=== PATIENT | female | born 1940 | race Caucasian/White ===

== ENCOUNTER 2020-10-22 06:08 | Emergency (ER) | payer MEDICARE, SELFPAY ==
[2020-10-22 06:14] VITALS: BP 158/79; PULSE 90; RESP 24; TEMP 36.4; O2SAT 98; BMI 22.3
--- NOTE | 2020-10-22 06:36 | PC.NURSE ---
Daughter in waiting room.
--- NOTE | 2020-10-22 06:46 | CT_ITS ---
EXAMINATION: CT CERVICAL SPINE WITHOUT CONTRAST CLINICAL INFORMATION: Left arm pain. COMPARISON: None TECHNIQUE: Axial 3 mm thin and reformatted 2 mm thin sagittal and coronal images of cervical spine were obtained. This CT examination was performed using dose optimization techniques as appropriate, variously including the following: *Automated exposure control *Adjustment of mA and/or kV according to patient size (this includes techniques or standardized protocols for targeted exams where dose is matched to indication/reason for exam; i.e. extremities or head) *Use of iterative reconstruction technique DLP: 985 mGy-cm FINDINGS: On sagittal reconstructed images, there is reversal of cervical lordosis. The vertebral heights are normal. There is minimal grade 1 anterolisthesis C2 over C3 and C3 over C4. There is loss of C3-C4, C4-C5, C5-C6, C6-C7, and C7-T1 disc heights with moderate ventral and [id number] posterior spondylosis. There is hypertrophic superior spurring at the C1-C2 alignment. The craniovertebral junction and the C1-C2 alignment is normal. The C2-C3 disc level appears unremarkable. At C3-C4 disc level, there is mild uncovertebral hypertrophic changes with mild bilateral narrowing of the neural foramina. No spinal canal stenosis seen. At C4-C5 disc level, there is a disc-osteophyte/bulge complex without spinal canal stenosis. There is bilateral moderate narrowing of neural foramina from uncovertebral hypertrophic changes. At C5-C6 disc level, there is posterior spondylosis/bulge complex with concentric spinal canal stenosis. There is severe bilateral neural foraminal narrowing from uncovertebral hypertrophic changes. At C6-C7 disc level, there is a disc-osteophyte complex with mild flattening of ventral thecal sac and mild AP canal stenosis. There is bilateral severe narrowing of neural foramina from uncovertebral hypertrophic changes. At C7-T1 disc level, there is no significant disc bulge, herniation or spinal stenosis. The neural foramina are patent bilaterally. The thyroid lobes are symmetrical and normal. The central trachea and the bronchi are widely patent. The lung apices are clear. CT/CT cervical spine wo con IMPRESSION: No acute fracture or dislocation. Reversal of cervical lordosis with degenerative disc changes and ventral and posterior spondylosis as described above. There is a disc bulge osteophyte complex C4-C5 through C6-C7 disc levels with mild canal stenosis. Severe bilateral neural foraminal narrowing is seen at these disc levels from uncovertebral hypertrophic changes. Further evaluation with MRI cervical spine is recommended for better evaluation.
--- NOTE | 2020-10-22 06:53 | ED_ITS ---
HPI - Extremity Problem General Chief complaint: Extremity Injury, Upper Stated complaint: Right arm numbness Time Seen by Provider: 10/22/20 06:46 Source: patient Mode of arrival: ambulatory Limitations: no limitations History of Present Illness HPI Narrative: patient denies anxiety or dizziness to me as reported in triage, sleeping L hand feels swollen but then improves upon waking, no other complaints, states she sleep on that side MD Complaint: other (patient reports 1 week of an and off pain in L hand where it feels like it is swelling while she sleeps) Onset (ago): minute(s) Pain Consistency: now resolved Quality: aching Radiation: none Relieving factors: nothing Exacerbating factors: nothing Associated symptoms: denies other symptoms Related Data Previous Rx's Medication Instructions Recorded lidocaine 1 patch TOPICAL DAILY PRN #10 ea 10/22/20 Allergies Allergy/AdvReac Type Severity Reaction Status Date / Time No Known Allergies Allergy Unverified 07/29/20 14:55 [No Known Allergies*] Review of Systems Review of Systems: Constitutional : No Fever, No Chills ENT/Mouth : No Ear Pain, No Hoarseness, No sore throat Eyes: No Eye Pain, No Swelling, No Redness, No Foreign Body Cardiovascular : No Chest Pain, No SOB Respiratory : No Cough, No Dyspnea Gastrointestinal : No Nausea, No Vomiting, No Diarrhea, No abdominal Pain Genitourinary : No Dysuria, No Hematuria Musculoskeletal : positive joint pain, No Myalgias, No Joint Swelling Skin : No Skin lacerations, No rash Neuro : No Weakness, No Numbness, No Loss of Consciousness, No Dizziness, No Headache Psych : No Anxiety/Panic, No Depression Heme/Lymph: no easy bruising, no Lymphadenopathy Endocrine : No Polyuria, No Polydipsia All other systems reviewed and are negative [facility] Past Medical History Attestation statement: The following information was validated with the patient. Medical History No known health problems Social History Social History (Updated 10/22/20 @ 06:56 by Tierra Alejandre DO) Smoking Status: Former smoker Use of substances other than those prescribed or required for medical reasons: No Advance Directives: No Physical Exam Vital Signs: Vital Signs: Last Vital Signs Temp 97.6 F 10/22/20 06:14 Pulse 72 10/22/20 10:00 Resp 16 10/22/20 10:00 BP 157/80 H 10/22/20 10:00 Pulse Ox 98 10/22/20 10:00 Body Mass Index 22.3 Appearance: Alert. Oriented X3. No acute distress. Eyes: Pupils equal, round and reactive to light. ENT: Pharynx normal. Neck: Normal inspection. + spurling maneuver L side reproduces pain CVS: Normal heart rate and rhythm. Pulses normal. Respiratory: No respiratory distress. Breath sounds normal. Abdomen: Soft and nontender. Skin: Skin warm and dry. Normal skin color. Normal skin turgor. Extremities: No lower extremity edema. No calf ttp normal exam NV intact L perez d Neuro: Oriented X 3. No motor deficit. No sensory deficit. 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 given low score and no deficitis with waxing and waning symptoms and reported symptoms x 1 week on and off not a candidate for tPa calls to 3 numbers in her chart - mailboxes are full no answer and one is her cell phone [phone] the patient attempted to give me her sister's number Marisela but then stated, wait you can't she passed. UA and labs unremarkable, infectious and tox workup negative, CT head negative, patient comfortably watching TV - attempting to find family members daughter came back to ED - she notes 1 week of L hand pain and on and off tingling, pain became worse, the patient is not compliant with medications and has dementia her mental status today is her baseline MDM - Extremity (Nontraumatic) MDM Narrative Medical decision making narrative: 79 yo female with 1 week on and off L hand pain while sleeping does sleep on that side - she has no neuro deficits now, no other complaints, + neck pain on exam could be radicular in nature vs carpal tunnel compressive lesion, CT scan for cervical disease ordered Lab Data Result diagrams: 10/22/20 08:21 10/22/20 08:21 Labs: Lab Results 10/22/20 10/22/20 10/22/20 Range/Units 08:21 08:21 08:21 WBC 9.5 (4.8-10.8) X10*3/uL RBC 4.51 (4.20-5.50) X10*6/uL Hgb 13.1 (12.0-16.0) g/dl Hct 39.9 (37-47) % MCV 88.5 (80-98) fL MCH 29.0 (27.0-33.0) pg MCHC 32.8 (31.0-35.0) g/dl RDW 12.5 (11.0-16.0) % Plt Count 345 (160-400) X10*3/uL MPV 8.4 L (9.4-12.3) fL Immature Gran % (Auto) 0.3 (0.0-0.4) % Neut % (Auto) 72.7 (45-73) % Lymph % (Auto) 16.6 L (20-40) % [place] % (Auto) 7.8 (2-11) % Eos % (Auto) 1.6 (0-4) % Baso % (Auto) 1.0 (0-2) % Lymph # (Auto) 1.6 (1.2-4.9) X10*3/uL [place] # (Auto) 0.7 (0.1-1.2) X10*3/uL Eos # (Auto) 0.2 (0.0-0.4) X10*3/uL Baso # (Auto) 0.1 (0.0-0.2) X10*3/uL Abs Immat Gran (auto) 0.03 (0.00-0.03) X10*3/uL Absolute Neuts (auto) 6.9 (2.0-8.3) X10*3/uL Absolute Nucleated RBC 0.000 (0.0-0.012) X10*3/uL Nucleated RBC % (auto) 0.0 (0.0-0.2) /100WBC PT 12.2 (10.8-13.0) SEC INR 1.0 (0.9-1.1) APTT 31.0 (24.1-38.0) SEC VBG pH (7.32-7.43) VBG pCO2 mmhg VBG pO2 mmhg VBG HCO3 mmol/L VBG O2 Saturation % VBG Base Excess mmol/L Sodium 140 (135-145) mmol/L Potassium 4.2 (3.3-5.1) mmol/l Chloride 105 (96-108) mmol/L Carbon Dioxide 27 (22-29) mmol/L Anion Gap 12 (12-20) BUN 16 (9-16) mg/dL Creatinine 0.74 (0.5-1.4) mg/dL Estim Creat Clear Calc 52.3 Estimated GFR > 60 Random Glucose 91 (60-115) mg/dL Calcium 8.8 (8.4-10.2) mg/dL Magnesium 2.2 (1.6-2.6) mg/dL Total Bilirubin 0.5 (0.0-1.0) mg/dL Direct Bilirubin 0.2 (0.0-0.5) mg/dL AST 18 (5-31) U/L ALT 13 (0-31) U/L Alkaline Phosphatase 90 (39-117) U/L Troponin I High Sens (<3.5-17.0) ng/L Total Protein 6.8 (6.5-8.0) g/dL Albumin 4.0 (3.5-5.0) g/dL Urine Color Urine Appearance Urine pH (5.0-8.0) Ur Specific [place] (1.005-1.025) Urine Protein (NEG-TRACE) MG/DL Urine Glucose (UA) (NEG) MG/DL Urine Ketones (NEG) MG/DL Urine Blood (NEG) Urine Nitrite (NEG) Ur Leukocyte Esterase (NEG) Urine RBC (0) /HPF Urine WBC (0-4) /HPF Ur Squamous Epith Cells /LPF Urine Bacteria /LPF Urine Opiates Screen (Not Detect) Ur Barbiturates Screen (Not Detect) Ur Phencyclidine Scrn (Not Detect) Ur Amphetamines Screen (Not Detect) U Benzodiazepines Scrn (Not Detect) Urine Cocaine Screen (Not Detect) U Marijuana (THC) Screen (Not Detect) Ethyl Alcohol mg/dL 10/22/20 10/22/20 10/22/20 Range/Units 08:21 08:21 08:39 WBC (4.8-10.8) X10*3/uL RBC (4.20-5.50) X10*6/uL Hgb (12.0-16.0) g/dl Hct (37-47) % MCV (80-98) fL MCH (27.0-33.0) pg MCHC (31.0-35.0) g/dl RDW (11.0-16.0) % Plt Count (160-400) X10*3/uL MPV (9.4-12.3) fL Immature Gran % (Auto) (0.0-0.4) % Neut % (Auto) (45-73) % Lymph % (Auto) (20-40) % [place] % (Auto) (2-11) % Eos % (Auto) (0-4) % Baso % (Auto) (0-2) % Lymph # (Auto) (1.2-4.9) X10*3/uL [place] # (Auto) (0.1-1.2) X10*3/uL Eos # (Auto) (0.0-0.4) X10*3/uL Baso # (Auto) (0.0-0.2) X10*3/uL Abs Immat Gran (auto) (0.00-0.03) X10*3/uL Absolute Neuts (auto) (2.0-8.3) X10*3/uL Absolute Nucleated RBC (0.0-0.012) X10*3/uL Nucleated RBC % (auto) (0.0-0.2) /100WBC PT (10.8-13.0) SEC INR (0.9-1.1) APTT (24.1-38.0) SEC VBG pH (7.32-7.43) VBG pCO2 mmhg VBG pO2 mmhg VBG HCO3 mmol/L VBG O2 Saturation % VBG Base Excess mmol/L Sodium (135-145) mmol/L Potassium (3.3-5.1) mmol/l Chloride (96-108) mmol/L Carbon Dioxide (22-29) mmol/L Anion Gap (12-20) BUN (9-16) mg/dL Creatinine (0.5-1.4) mg/dL Estim Creat Clear Calc Estimated GFR Random Glucose (60-115) mg/dL Calcium (8.4-10.2) mg/dL Magnesium (1.6-2.6) mg/dL Total Bilirubin (0.0-1.0) mg/dL Direct Bilirubin (0.0-0.5) mg/dL AST (5-31) U/L ALT (0-31) U/L Alkaline Phosphatase (39-117) U/L Troponin I High Sens 3.8 (<3.5-17.0) ng/L Total Protein (6.5-8.0) g/dL Albumin (3.5-5.0) g/dL Urine Color YELLOW Urine Appearance CLEAR Urine pH 7.5 (5.0-8.0) Ur Specific [place] 1.015 (1.005-1.025) Urine Protein NEG (NEG-TRACE) MG/DL Urine Glucose (UA) NEG (NEG) MG/DL Urine Ketones NEG (NEG) MG/DL Urine Blood NEG (NEG) Urine Nitrite NEG (NEG) Ur Leukocyte Esterase 1+ H (NEG) Urine RBC 0-2 (0) /HPF Urine WBC 0-2 (0-4) /HPF Ur Squamous Epith Cells TRACE /LPF Urine Bacteria NONE /LPF Urine Opiates Screen (Not Detect) Ur Barbiturates Screen (Not Detect) Ur Phencyclidine Scrn (Not Detect) Ur Amphetamines Screen (Not Detect) U Benzodiazepines Scrn (Not Detect) Urine Cocaine Screen (Not Detect) U Marijuana (THC) Screen (Not Detect) Ethyl Alcohol < 10 mg/dL 10/22/20 10/22/20 Range/Units 08:39 08:39 WBC (4.8-10.8) X10*3/uL RBC (4.20-5.50) X10*6/uL Hgb (12.0-16.0) g/dl Hct (37-47) % MCV (80-98) fL MCH (27.0-33.0) pg MCHC (31.0-35.0) g/dl RDW (11.0-16.0) % Plt Count (160-400) X10*3/uL MPV (9.4-12.3) fL Immature Gran % (Auto) (0.0-0.4) % Neut % (Auto) (45-73) % Lymph % (Auto) (20-40) % [place] % (Auto) (2-11) % Eos % (Auto) (0-4) % Baso % (Auto) (0-2) % Lymph # (Auto) (1.2-4.9) X10*3/uL [place] # (Auto) (0.1-1.2) X10*3/uL Eos # (Auto) (0.0-0.4) X10*3/uL Baso # (Auto) (0.0-0.2) X10*3/uL Abs Immat Gran (auto) (0.00-0.03) X10*3/uL Absolute Neuts (auto) (2.0-8.3) X10*3/uL Absolute Nucleated RBC (0.0-0.012) X10*3/uL Nucleated RBC % (auto) (0.0-0.2) /100WBC PT (10.8-13.0) SEC INR (0.9-1.1) APTT (24.1-38.0) SEC VBG pH 7.36 (7.32-7.43) VBG pCO2 50 mmhg VBG pO2 43 mmhg VBG HCO3 28 mmol/L VBG O2 Saturation 76.7 % VBG Base Excess 1.3 mmol/L Sodium (135-145) mmol/L Potassium (3.3-5.1) mmol/l Chloride (96-108) mmol/L Carbon Dioxide (22-29) mmol/L Anion Gap (12-20) BUN (9-16) mg/dL Creatinine (0.5-1.4) mg/dL Estim Creat Clear Calc Estimated GFR Random Glucose (60-115) mg/dL Calcium (8.4-10.2) mg/dL Magnesium (1.6-2.6) mg/dL Total Bilirubin (0.0-1.0) mg/dL Direct Bilirubin (0.0-0.5) mg/dL AST (5-31) U/L ALT (0-31) U/L Alkaline Phosphatase (39-117) U/L Troponin I High Sens (<3.5-17.0) ng/L Total Protein (6.5-8.0) g/dL Albumin (3.5-5.0) g/dL Urine Color Urine Appearance Urine pH (5.0-8.0) Ur Specific [place] (1.005-1.025) Urine Protein (NEG-TRACE) MG/DL Urine Glucose (UA) (NEG) MG/DL Urine Ketones (NEG) MG/DL Urine Blood (NEG) Urine Nitrite (NEG) Ur Leukocyte Esterase (NEG) Urine RBC (0) /HPF Urine WBC (0-4) /HPF Ur Squamous Epith Cells /LPF Urine Bacteria /LPF Urine Opiates Screen Not Detected (Not Detect) Ur Barbiturates Screen Not Detected (Not Detect) Ur Phencyclidine Scrn Not Detected (Not Detect) Ur Amphetamines Screen Not Detected (Not Detect) U Benzodiazepines Scrn Not Detected (Not Detect) Urine Cocaine Screen Not Detected (Not Detect) U Marijuana (THC) Screen Not Detected (Not Detect) Ethyl Alcohol mg/dL Discharge Plan Discharge Clinical Impression: Cervical radiculopathy at C6 Patient Disposition: Home, Self-Care Instructions: Cervical Radiculopathy (ED) Additional Instructions: return to ED for any worsening symptoms or concerns take tylenol before bed, use a good pillow, talk to your doctor about physcal therapy, you may need a MRI and a spine doctor if this does not improve Prescriptions: New lidocaine 4 % adhesive patch,medicated 1 patch topical DAILY PRN (Reason: pain) Qty: 10 RF: 0 Referrals: Physician,None [Primary Care Provider] - 2 days
[2020-10-22 07:36] VITALS: BP 149/86; PULSE 71; RESP 16; O2SAT 98
--- NOTE | 2020-10-22 07:40 | PC.NURSE ---
Pt alert/confused, repeats self freqeunt. Unable to recall event prior to ED visit. Alert to self and place, unable to recall year. No focal neuro deficits noted or unilateral weakness. denies pain/discomfort. awaiting ct scan
--- NOTE | 2020-10-22 07:57 | CT_ITS ---
EXAMINATION: CT HEAD WITHOUT CONTRAST CLINICAL INFORMATION: Amnesiac. COMPARISON: None TECHNIQUE: Contiguous axial imaging was performed from the skull base to vertex without intravenous administration of contrast. This CT examination was performed using dose optimization techniques as appropriate, variously including the following: *Automated exposure control *Adjustment of mA and/or kV according to patient size (this includes techniques or standardized protocols for targeted exams where dose is matched to indication/reason for exam; i.e. extremities or head) *Use of iterative reconstruction technique DLP: 95 mGy-cm FINDINGS: There is no evidence of acute intracranial hemorrhage or territorial infarction. No abnormal mass effect or midline shift is seen. Ruiz to white matter differentiation is well preserved. No extra-axial fluid collections are identified. The lateral ventricles are symmetrical but enlarged. There is mild periventricular hypodensity in both cerebral hemispheres without mass effect. The osseous structures and soft tissues are normal. The mastoid air cells and visualized portions of the paranasal sinuses are well aerated. CT/CT head/brain wo con IMPRESSION: No acute intracranial process seen. Age-related mild cerebral volume loss
--- NOTE | 2020-10-22 07:58 | XR_ITS ---
EXAMINATION: XR CHEST CLINICAL INFORMATION: Confusion. COMPARISON: None TECHNIQUE: Frontal view of the chest was obtained. FINDINGS: Mild linear markings are seen in the left lower lung. The right lung is clear. The heart and mediastinal structures are unremarkable. Mild multilevel degenerative changes are seen in the thoracic spine with minimal mid thoracic dextroscoliosis. XR/XR chest 1V IMPRESSION: Mild linear atelectasis versus scarring in the left lower lung. No acute cardiopulmonary process.
[2020-10-22 08:32] LABS: MANUAL DIFF FLAG NO
[2020-10-22 08:44] LABS: Basophils Absolute Auto 0.1 X10*3/uL (0.0-0.2); Eosinophils Absolute Auto 0.2 X10*3/uL (0.0-0.4); Eosinophils Percent Auto 1.6 % (0-4); Hematocrit 39.9 % (37-47); Hemoglobin 13.1 g/dl (12.0-16.0); Imm Gran Abs Auto 0.03 X10*3/uL (0.00-0.03); Imm Gran Pct Auto 0.3 % (0.0-0.4); Lymphocytes Absolute Auto 1.6 X10*3/uL (1.2-4.9); Lymphocytes Percent Auto 16.6 % (20-40); Mean Corpuscular HGB Conc 32.8 g/dl (31.0-35.0); Mean Corpuscular Volume 88.5 fL (80-98); Mean Platelet Volume 8.4 fL (9.4-12.3); Monocytes Absolute Auto 0.7 X10*3/uL (0.1-1.2); Monocytes Percent Auto 7.8 % (2-11); Neutrophils Absolute Auto 6.9 X10*3/uL (2.0-8.3); Neutrophils Percent Auto 72.7 % (45-73); Platelet Count 345 X10*3/uL (160-400); Red Blood Count 4.51 X10*6/uL (4.20-5.50); Red Cell Distribution Width 12.5 % (11.0-16.0); White Blood Count 9.5 X10*3/uL (4.8-10.8)
[2020-10-22 08:48] LABS: Prothrombin Time 12.2 SEC (10.8-13.0)
[2020-10-22 09:16] LABS: Base Excess VBG 1.3 mmol/L; HCO3 VBG 28 mmol/L; Oxygen Saturation VBG 76.7 %; PCO2 VBG 50 mmhg; PO2 VBG 43 mmhg; pH VBG 7.36 (7.32-7.43)
[2020-10-22 09:17] LABS: Blood Gas Serial # 5414
[2020-10-22 09:20] LABS: Ethanol < 10 mg/dL
[2020-10-22 09:22] LABS: Troponin-I High Sensitivity 3.8 ng/L (<3.5-17.0)
[2020-10-22 09:25] LABS: Alanine Aminotransferase 13 U/L (0-31); Alkaline Phosphatase 90 U/L (39-117); Anion Gap 12 (12-20); Aspartate Amino Transferase 18 U/L (5-31); Bilirubin Direct 0.2 mg/dL (0.0-0.5); Bilirubin Total 0.5 mg/dL (0.0-1.0); Blood Urea Nitrogen 16 mg/dL (9-16); Calcium 8.8 mg/dL (8.4-10.2); Carbon Dioxide 27 mmol/L (22-29); Chloride 105 mmol/L (96-108); Creatinine Clr Calc Pharmacy 52.3; Estimated Glomerular Filt Rate > 60; Glucose Random 91 mg/dL (60-115); Magnesium 2.2 mg/dL (1.6-2.6); Potassium 4.2 mmol/l (3.3-5.1); Sodium 140 mmol/L (135-145); Total Protein 6.8 g/dL (6.5-8.0)
[2020-10-22 09:28] LABS: Glucose Urine UA NEG (NEG); Leukocyte Esterase Urine 1+ (NEG); Nitrite Urine NEG (NEG); PH 7.5 (5.0-8.0); Specific Gravity - Urine 1.015 (1.005-1.025); Urine Blood NEG (NEG); Urine Ketones NEG (NEG); Urine Protein NEG (NEG-TRACE)
[2020-10-22 09:30] LABS: Appearance Urine CLEAR; Color Urine YELLOW
[2020-10-22 09:40] LABS: RBC Urine 0-2 /HPF (0); Squamous Epithelial Cell Urine TRACE /LPF; WBC Urine 0-2 /HPF (0-4)
[2020-10-22 09:48] LABS: Amphetamine Screen Urine Not Detected (Not Detect); Barbiturates, Urine Not Detected (Not Detect); Benzodiazepines Screen Urine Not Detected (Not Detect); Cannabinoid Screen Urine Not Detected (Not Detect); Cocaine Screen Urine Not Detected (Not Detect); Opiate Screen Urine Not Detected (Not Detect); Phencyclidine Screen Urine Not Detected (Not Detect)
[2020-10-22 10:00] VITALS: BP 157/80; PULSE 72; RESP 16; O2SAT 98
--- NOTE | 2020-10-22 10:02 | PC.NURSE ---
Attemping to call jack Lorenzana to obtain more information regarding presentation to ED and woman reports wrong number
--- NOTE | 2020-10-22 10:35 | PC.NURSE ---
Daughter Lucy in [place] and Dr Alejandre and this RN spoke to daughter who reports pts baseline is confusion intermittently. Dr Alejandre relayed d/c instructions with daughter
== END 2020-10-22 10:52 | disposition home or self-care (01) ==
PROVIDERS: Emergency Provider Emergency Medicine
DX: M54.12 Radiculopathy, cervical region (principal); M79.642 Pain in left hand; Z79.899 Other long term (current) drug therapy; Z87.891 Personal history of nicotine dependence
CPT/HCPCS: 36415; 70450; 71045; 72125; 80048; 80076; 80307; 80320; 81001; 82803; 83735; 84484; 85025; 85610; 85730; 87086; 99284

== ENCOUNTER 2020-12-15 08:36 | Emergency (ER) | payer MEDICARE, SELFPAY ==
--- NOTE | 2020-12-15 08:38 | ED_ITS ---
HPI - Extremity Injury (Upper) General Chief Complaint: Fall Stated Complaint: FALL Time Seen by Provider: 12/15/20 08:38 Source: patient Mode of arrival: EMS Limitations: no limitations History of Present Illness HPI narrative: slipped on ice and hit her head and left shoulder. Patient was brought in by EMS MD complaint: injury to: left and shoulder Onset (ago): minute(s) Severity: mild Exacerbating factors: movement of extremity Context: fall Related Data Previous Rx's Medication Instructions Recorded lidocaine 1 patch TOPICAL DAILY PRN #10 ea 10/22/20 amlodipine 5 mg tablet 5 mg PO DAILY 30 Days #30 tab 10/31/20 Allergies Allergy/AdvReac Type Severity Reaction Status Date / Time No Known Allergies Allergy Unverified 07/29/20 14:55 [No Known Allergies*] Review of Systems Constitutional: Constitutional: Reports no additional constitutional complaint s Eyes: Eyes: Reports no additional eye complaints ENT: Denies dizziness Cardiovascular: Cardiovascular: Reports no additional cardiovascular complaints Respiratory: Respiratory: Reports as per HPI Gastrointestinal: Gastrointestinal: Reports no additional gastrointestinal complaints Genitourinary: Genitourinary: Reports no additional female genitourinary complaints Musculoskeletal: Musculoskeletal: Reports no additional musculoskeletal complaints Integumentary/Breasts: Skin/Breast: Denies rash Neurologic: Reports system reviewed and no additional complaints, except as documented, Denies dizziness and Denies Sensory deficit (Neuro) Psychiatric: Psychiatric: Denies anxiety [facility] Past Medical History Medical History General medical examination Hypertension No known health problems Social History Social History Smoking Status: Former smoker Advance Directives: No Advance Directives Information Provided: No Physical Exam Vital Signs: Vital Signs: Last Vital Signs Temp 97.7 F 12/15/20 08:48 Pulse 76 12/15/20 08:48 Resp 18 12/15/20 08:48 BP 164/92 H 12/15/20 08:48 Pulse Ox 96 12/15/20 08:48 Body Mass Index 31.8 Const: General: healthy appearing Nutritional Appearance: average body habitus Orientation/consciousness: oriented to person and patient oriented x3 Limitations: no limitations HENMT: Head: Yes normal to inspection Ears: external ears normal General nose exam: Normal external nose present Mouth: Normal oral and palatal mucosa present and oropharynx normal Throat: Yes posterior oropharynx normal Eyes: General: appearance normal, both eyes and all related structures Neck: Other: supple Neck: Yes normal visual inspection Chest: Chest palpation & inspection: normal inspection of the chest Resp: Auscultation: clear to auscultation bilaterally Cardio: Jugular venous distension: no JVD Rate: regular rate Rhythm: regular rhythm Heart sounds: S1 normal heart sound present and S2 normal heart sound present GI: Inspection: Yes normal to inspection Palpation (GI): Soft to palpation, nontender and No hepatosplenomegaly present Auscultation: normal bowel sounds : General: Yes no CVA tenderness Back/Spine/Pelvis: Back: no CVA tenderness Skin: General skin exam: no rashes or lesions noted Neuro: General: oriented to person and patient oriented x3 Cranial nerves: Yes CN's II-XII intact bilaterally Motor exam (neuro): 5/5 motor strength present throughout Sensory Exam: No Sensory deficit (Neuro) Extrem: Other: left shoulder with pain to biceps tendon Psych: Appearance: grossly normal Course Course Course Narrative: no fracture, djd. Impression is bicep tendonitis MDM - Extremity Injury (Upper) Differential Diagnosis Differential diagnosis: Likely dislocation of shoulder, fracture of humerus and fracture of clavicle Imaging Data shoulder: Radiologist's impression: no fracture, djd Discharge Plan Discharge Clinical Impression: Biceps tendinitis Qualifiers: Laterality: left Qualified Code(s): M75.22 - Bicipital tendinitis, left sh oulder Contusion of left shoulder Qualifiers: Encounter type: initial encounter Qualified Code(s): S40.012A - Contusion of left shoulder, initial encounter Patient Disposition: Home, Self-Care Instructions: Shoulder Pain (ED), Tendinitis (ED) Additional Instructions: ice on and off for 20 minutes, tylenol three times a day for pain Prescriptions: No Action lidocaine 4 % adhesive patch,medicated 1 patch topical DAILY PRN (Reason: pain) Qty: 10 RF: 0 amlodipine 5 mg tablet 5 mg PO DAILY 30 Days Qty: 30 RF: 0 Referrals: Tanya Laws NP [Primary Care Provider] - 2 days
--- NOTE | 2020-12-15 08:43 | XR_ITS ---
EXAMINATION: XR SHOULDER, LEFT CLINICAL INFORMATION: Pain. Fall. COMPARISON: None TECHNIQUE: AP external rotation, Grashey, scapular Y, and axillary views of the left shoulder. FINDINGS: Bone alignment is normal. No fracture or dislocation is seen. There are degenerative changes at the glenohumeral and acromioclavicular joints with osteophyte formation. Soft tissues are unremarkable. XR/XR shoulder LT min 2V IMPRESSION: Degenerative changes. No fracture or dislocation.
[2020-12-15 08:48] VITALS: BP 160/84; BP 164/92; PULSE 76; PULSE 86; RESP 18; TEMP 36.5; O2SAT 96; O2SAT 98; BMI 31.8
== END 2020-12-15 10:10 | disposition home or self-care (01) ==
PROVIDERS: Emergency Provider Emergency Medicine; PCP Nurse Practitioner Family
DX: M75.22 Bicipital tendinitis, left shoulder (principal); S40.012A Contusion of left shoulder, initial encounter; W00.0XXA Fall on same level due to ice and snow, initial encounter; I10 Essential (primary) hypertension; Y93.89 Activity, other specified; Y92.480 Sidewalk as the place of occurrence of the external cause; Y99.9 Unspecified external cause status
CPT/HCPCS: 73030; 99283

== ENCOUNTER 2021-08-24 12:34 | Outpatient (REF) | payer MEDICARE, SELFPAY ==
--- NOTE | ~2021-08-24 | XR_ITS ---
EXAMINATION: XR CHEST CLINICAL INFORMATION: Cough. COMPARISON: Most recent chest radiograph dated 10/22/2020. TECHNIQUE: 2 views of the chest were obtained. FINDINGS: The lungs are clear. The cardiomediastinal silhouette is normal in size. There is no pleural effusion or pneumothorax. No acute osseous abnormality. XR/XR chest 2V IMPRESSION: No acute cardiopulmonary findings.
== END 2021-08-24 12:35 | disposition home or self-care (01) ==
LOC: HO.XRAY 12:34
PROVIDERS: PCP Internal Medicine; Visit Provider Internal Medicine
DX: R05.8 Other specified cough (principal)
CPT/HCPCS: 71046

== ENCOUNTER 2022-02-20 11:37 | Outpatient (REF) | payer MEDICARE, SELFPAY ==
[2022-02-20 11:58] LABS: MANUAL DIFF FLAG NO
[2022-02-20 12:16] LABS: Basophils Absolute Auto 0.1 X10*3/uL (0.0-0.2); Eosinophils Absolute Auto 0.3 X10*3/uL (0.0-0.4); Hematocrit 40.9 % (37.0-47.0); Hemoglobin 12.9 g/dl (12.0-16.0); Imm Gran Abs Auto 0.03 X10*3/uL (0.00-0.03); Imm Gran Pct Auto 0.3 % (0.0-0.4); Lymphocytes Absolute Auto 2.4 X10*3/uL (1.2-4.9); Lymphocytes Percent Auto 25.5 % (20-40); Mean Corpuscular HGB Conc 31.5 g/dl (31.0-35.0); Mean Corpuscular Hemoglobin 28.1 pg (27.0-33.0); Mean Corpuscular Volume 89.1 fL (80.0-98.0); Mean Platelet Volume 8.4 fL (9.4-12.3); Monocytes Absolute Auto 0.8 X10*3/uL (0.1-1.2); Monocytes Percent Auto 8.7 % (2-11); Neutrophils Absolute Auto 5.7 x10*3/uL (2.0-8.3); Neutrophils Percent Auto 61.5 % (45-73); Platelet Count 340 X10*3/uL (160-400); Red Blood Count 4.59 X10*6/uL (4.20-5.50); Red Cell Distribution Width 13.2 % (11.0-16.0); White Blood Count 9.3 X10*3/uL (4.8-10.8)
[2022-02-20 12:53] LABS: Appearance Urine HAZY; Color Urine YELLOW; Glucose Urine UA NEG (NEG); Leukocyte Esterase Urine 1+ (NEG); Nitrite Urine NEG (NEG); Specific Gravity - Urine 1.015 (1.005-1.025); UACC Culture Trigger YES; Urine Blood TRACE (NEG); Urine Ketones NEG (NEG); Urine Protein NEG (NEG-TRACE)
[2022-02-20 12:56] LABS: Alanine Aminotransferase 18 U/L (0-31); Alkaline Phosphatase 102 U/L (39-117); Anion Gap 13 (12-20); Aspartate Amino Transferase 19 U/L (5-31); Bilirubin Total 0.7 mg/dL (0.0-1.0); Blood Urea Nitrogen 19 mg/dL (9-16); Calcium 9.4 mg/dL (8.4-10.2); Carbon Dioxide 26 mmol/L (22-29); Chloride 107 mmol/L (96-108); Cholesterol 246 mg/dL; Estimated Glomerular Filt Rate > 60; Glucose Random 91 mg/dL (60-115); Potassium 4.5 mmol/L (3.3-5.1); Sodium 141 mmol/L (135-145); Total Protein 7.1 g/dL (6.5-8.0)
[2022-02-20 13:06] LABS: TSH reflex Free T4 1.58 uIU/mL (0.32-4.0); Vitamin D 25-OH Total 26.1 ng/mL (>30)
[2022-02-20 13:29] LABS: Folate 12.8 ng/mL (> or = 4.0); Vitamin B12 174 pg/mL (200-900)
[2022-02-20 14:24] LABS: Bacteria Urine 1+ /LPF; RBC Urine 0-2 /HPF (0); Squamous Epithelial Cell Urine 1+ /LPF
== END 2022-02-20 11:38 | disposition home or self-care (01) ==
LOC: HO.LAB 11:37
PROVIDERS: PCP Internal Medicine; Visit Provider Internal Medicine
DX: F03.90 Unspecified dementia, unspecified severity, without behavioral disturbance, psychotic disturbance, mood disturbance, and anxiety (principal); I10 Essential (primary) hypertension; E55.9 Vitamin D deficiency, unspecified
CPT/HCPCS: 36415; 80053; 81001; 82306; 82465; 82607; 82746; 84443; 85025; 87086

== ENCOUNTER 2022-04-24 12:01 | Emergency (ER) | payer MEDICARE, SELFPAY ==
[2022-04-24 12:15] VITALS: BP 160/83; PULSE 90; RESP 16; TEMP 36.8; O2SAT 98; BMI 23.3
--- NOTE | 2022-04-24 13:43 | ED_ITS ---
HPI - Skin/Abscess/Foreign Bdy General Chief complaint: Extremity Injury, Lower Stated complaint: gash on right leg infected Time Seen by Provider: 04/24/22 13:39 Source: patient Mode of arrival: ambulatory Limitations: no limitations History of Present Illness HPI narrative: 81-year-old female presenting to the ED with complaints of superficial abrasions to her right lower extremity that over the past few days have developed some redness and tenderness palpation to touch. She reports that she is unsure how she developed it but she might have scratched herself. She denies an actual fall. She denies any fevers, chills, chest pain or shortness of breath, lower extremity edema or calf tenderness, recent falls or trauma or any other symptoms complaints or concerns at this time. MD complaint: other ( Abrasions) Onset (ago): day(s) ( past few days worse today) Location: RLE Severity: mild Quality: aching and constant Pain Consistency: constant Relieving factors: none Exacerbating factors: palpation Context: none Associated symptoms: denies other symptoms Treatments prior to arrival: none Related Data Previous Rx's Medication Instructions Recorded cephalexin 500 mg capsule 500 mg PO Q6H 10 days #40 caps 04/24/22 doxycycline monohydrate 100 mg 100 mg PO BID 10 days #20 tabs 04/24/22 tablet ibuprofen 800 mg tablet 800 mg PO Q8H PRN pain #14 tabs 04/24/22 oxycodone 5 mg tablet 5 mg PO Q6H PRN pain #14 tabs 04/24/22 Allergies Allergy/AdvReac Type Severity Reaction Status Date / Time No Known Allergies Allergy Verified 04/24/22 12:14 [No Known Allergies*] Review of Systems Review of Systems: Constitutional : No Weight loss, No Fever, No Chills, No Night Sweats, No Fatigue, No Malaise ENT/Mouth : No Hearing loss, No Ear Pain, No Nasal Congestion, No Sinus Pain, No Hoarseness, No sore throat, No Rhinorrhea, No Swallowing Difficulty Eyes: No Eye Pain, No Swelling, No Redness, No Foreign Body, No Discharge, No Vision Changes Cardiovascular : No Chest Pain, No SOB, No Dyspnea on Exertion, No Orthopnea, No Edema, No Palpitations Respiratory : No Cough, No Sputum, No Wheezing, No Smoke Exposure, No Dyspnea Gastrointestinal : No Nausea, No Vomiting, No Diarrhea, No Constipation, No abdominal Pain, No Hematochezia, No Melena Genitourinary : no irregular bleeding, No Dysuria, No Urinary Frequency, No Hematuria, No Urinary Incontinence, No Urgency, No Flank Pain, No Urinary Flow Changes, No Hesitancy Musculoskeletal : No joint pain, No Myalgias, No Joint Swelling Skin : + skin abrasions with surrounding erythema, no additional Skin Lesions, No rash Neuro : No Weakness, No Numbness, No Paresthesias, No Loss of Consciousness, No Dizziness, No Headache Psych : No Anxiety/Panic, No Depression, No SI/HI/AH/VH, No Social Issues, Heme/Lymph: No Bruising, No Bleeding,No Lymphadenopathy Endocrine : No Polyuria, No Polydipsia, No Temperature Intolerance Yes all other systems are reviewed and are negative [facility] Past Medical History Attestation statement: The following information was validated with the patient. Source: old records reviewed and nursing notes reviewed Medical History Hypertension Left shoulder pain Surgical History Hx of tonsillectomy (~1944) Family History Family History Other Family history non-contributory Social History Social History Housing: House Alcohol intake: current Alcohol intake frequency: holidays/special occasions only Patient Tobacco Use Status: Never used Tobacco Second Hand Smoke Exposure: Yes Advance Directives: No Advance Directives Information Provided: No service: No Current occupational status: retired Cognitive needs: Yes Hearing needs: No Vision needs: Yes Physical Exam Vital Signs: Vital Signs: Last Vital Signs Temp 98.2 F 04/24/22 12:15 Pulse 90 04/24/22 12:15 Resp 16 04/24/22 12:15 BP 160/83 H 04/24/22 12:15 Pulse Ox 98 04/24/22 12:15 O2 Del Method 04/24/22 12:15 BMI result Body Mass Index 23.3 vital signs have been reviewed as normal and appeared to be correct. Blood pressure 160/83 Heart rate normal. Respiration rate normal. Temperature normal. Oxygen saturation normal. Appearance: Alert. Oriented X3. No acute distress. Head: Normal external exam. Normocephalic. Atraumatic. Eyes: PERRLA. EOMI. Conjunctiva and sclera normal. Eyelids normal. ENT: Pharynx normal. Uvula midline. Moist mucous membranes. Neck: Normal inspection. Neck supple. FROM. CVS: Normal heart rate and rhythm. Respiratory: No respiratory distress. Painless inspiration. Skin: Skin warm and dry. Normal skin color. Normal skin turgor. No rashes/lesions/lacerations noted. Extremities: to the right lower extremity patient has superficial abrasions with mild surrounding erythema and tenderness palpation and warm to touch. No bony tenderness noted. No streaking / induration / fluctuance noted. No foreign bodies noted. No purulent drainage noted. No obvious ligamentous or tendon injury noted to the right near the right ankle or foot joint. Otherwise all other extremities are nontender with full range of motion no signs of infection. No calf tenderness is noted. No lower extremity edema is noted. Neuro: Oriented X 3. No motor deficit. No sensory deficit. Reflexes normal. Normal steady gait. No focal neuro deficits noted. Vascular: + radial pulses/+ 2 distal pedal pulses/+2 dorsalis pedis b/l. Normal cap refill. No cyanosis noted to upper extremity nails and lower extremity toes nails. Course Course Course Narrative: Patient with superficial cellulitic infection. No bony tenderness. I did offer x-ray although patient reports she did not fall therefore she refused an x -ray. No streaking /induration / fluctuance or purulent drainage noted. Not consistent with septic joint. Will DC home with antibiotics and symptomatic treatment instructions return if any new or worsening symptoms to follow up with primary care provider. Patient understands agrees with this plan. MDM - Skin/Abscess/Foreign Bdy Medical Records Attestation: I reviewed the patient's medical records. Discharge Plan Discharge Clinical Impression: Abrasion of skin with infection, Cellulitis Patient Disposition: Home, Self-Care Instructions: Cellulitis (ED) Prescriptions: New cephalexin 500 mg capsule 500 mg PO Q6H 10 Days Qty: 40 0RF doxycycline monohydrate 100 mg tablet 100 mg PO BID 10 Days Qty: 20 0RF oxycodone 5 mg tablet 5 mg PO Q6H PRN (Reason: pain) Qty: 14 0RF Rx Instructions: Partial Fill upon patient request. ibuprofen 800 mg tablet 800 mg PO Q8H PRN (Reason: pain) Qty: 14 0RF Referrals: [facility] [place] [facility] [Provider Group] - 2 days
== END 2022-04-24 14:23 | disposition home or self-care (01) ==
PROVIDERS: Emergency Provider Emergency Medicine
DX: S80.811A Abrasion, right lower leg, initial encounter (principal); L03.115 Cellulitis of right lower limb; I10 Essential (primary) hypertension; X58.XXXA Exposure to other specified factors, initial encounter; Y93.9 Activity, unspecified; Y92.9 Unspecified place or not applicable; Y99.9 Unspecified external cause status
CPT/HCPCS: 99283

== ENCOUNTER 2023-02-09 14:02 | Emergency (ER) | payer MEDICARE, SELFPAY ==
--- NOTE | ~2023-02-09 | XR_ITS ---
EXAMINATION: XR CHEST CLINICAL INFORMATION: Altered mental status, chest pain. COMPARISON: 08/24/2021 chest radiographs. TECHNIQUE: 2 views of the chest were obtained. FINDINGS: No significant abnormality is noted involving the heart, lungs, mediastinum, bony thorax or soft tissues. XR/XR chest 2V IMPRESSION: No acute cardiopulmonary process.
[2023-02-09 14:11] VITALS: BP 195/75; PULSE 80; RESP 16; TEMP 36.3; O2SAT 98; BMI 22.7
--- NOTE | 2023-02-09 14:13 | ED.GENADULT ---
HPI - General Adult General Chief complaint: Altered Mental Status Stated complaint: AMS Time Seen by Provider: 02/09/23 15:33 Source: patient Mode of arrival: ambulatory Limitations: other (patient has dementia at baseline) History of Present Illness HPI narrative: Patient is a 82 year old assigned female at with a history of dementia and HTN presenting to the emergency department today with no acute complaints but obviously confused/disoriented. Patient states that she isn't sure why she is here or how to go home. Patient denies any dizziness, lightheadedness, abdominal pain, nausea, vomiting, fever, chills, blurry vision, double vision, loss of vision, chest pain, difficulty breathing, shortness of breath, back pain, night sweats, pain with urination, increased urinary frequency, increased urinary urgency, blood in her urine or stool, syncope or a near syncopal episode, recent trauma or falls, bowel incontinence, bladder incontinence, bowel retention, bladder retention, or any other complaints at this time. Relieving factors: none Exacerbating factors: none Associated symptoms: confusion Treatments prior to arrival: none Related Data Previous Rx's Medication Instructions Recorded mecobalamin (vitamin B12) 1,000 1,000 mcg PO DAILY 90 days #90 tabs 05/03/22 mcg chewable tablet ibuprofen 800 mg tablet 800 mg PO Q8H PRN pain #14 tabs 09/27/22 Allergies Allergy/AdvReac Type Severity Reaction Status Date / Time No Known Allergies Allergy Verified 02/09/23 12:49 [No Known Allergies*] Review of Systems Constitutional: Constitutional: Reports no additional constitutional complaints, Denies chills, Denies fever(s) and Denies night sweats Eyes: Eyes: Reports no additional eye complaints, Denies blurry vision, Denies change in vision, Denies diplopia, Denies eye discharge, Denies loss of vision and Denies eye pain ENT: Denies dizziness Cardiovascular: Cardiovascular: Reports no additional cardiovascular complaints, Denies chest pain, Denies lightheadedness, Denies Loss of Consciousness and Denies dyspnea Respiratory: Respiratory: Reports no additional respiratory complaints and Denies dyspnea Gastrointestinal: Gastrointestinal: Reports no additional gastrointestinal complaints, Denies abdominal pain, Denies melena, Denies hematochezia, Denies change in bowel habits and Denies change in stool character Genitourinary: Genitourinary: Denies hematuria, Denies urinary frequency, Denies dysuria, Denies urinary incontinence, Denies urinary hesitancy and Denies urinary urgency Musculoskeletal: Musculoskeletal: Reports no additional musculoskeletal complaints, Denies numbness and Denies tingling Neurologic: Reports confusion, Denies dizziness, Denies loss of vision, Reports memory loss, Denies numbness and Denies tingling Psychiatric: Psychiatric: Reports no additional psychiatric complaints, Reports confusion and Reports memory loss Endocrine: Endocrine: Reports no additional endocrine complaints Hematologic/Lymphatic: Hematologic/Lymphatic: Reports no additional hematologic/lymphatic complaints Allergic/Immunologic: Allergic/Immunologic: Reports no additional allergic/immunologic complaints [facility] Past Medical History Attestation statement: The following information was validated with the patient. Source: old records reviewed and nursing notes reviewed Medical History Dementia Hypertension Left shoulder pain Surgical History Hx of tonsillectomy (~1944) Family History Family History Other Family history non-contributory Social History Social History Housing: House Alcohol intake: current Alcohol intake frequency: holidays/special occasions only Patient Tobacco Use Status: Never used Tobacco e-Cigarette/Vaping Use: Never Used Second Hand Smoke Exposure: Yes Advance Directives: No Advance Directives Information Provided: Yes service: No Current occupational status: retired Cognitive needs: Yes Hearing needs: No Vision needs: No Physical Exam ED Vital Signs: Vital Signs - 24 hr 02/09/23 14:11 02/09/23 15:50 Temperature 97.3 F 97.8 F Pulse Rate 80 74 Respiratory Rate 16 16 Blood Pressure 195/75 H 142/70 H Pulse Oximetry 98 98 Oxygen Delivery Method Room Air Room Air BMI result Body Mass Index 22.7 Const General: confusion Nutritional Appearance: well nourished Orientation/consciousness: confusion Limitations: no limitations HENMT Head: Yes normal to inspection and Yes atraumatic Ears: hearing grossly normal bilaterally and external ears normal General nose exam: Normal external nose present, no nasal discharge noted and no epistaxis Face and sinus: Yes normal facial exam, No abrasion and No laceration Mouth: Normal oral and palatal mucosa present, no drooling and no muffled voice Eyes General: appearance normal, both eyes and all related structures Periorbital: periorbital findings normal Eyelids: Yes eyelids normal Conjunctivae: conjunctivae normal Pupils: Equal, round and reactive pupils present EOM: EOMs intact bilaterally Neck Neck: Yes normal visual inspection, Yes full ROM and Yes no lymphadenopathy Chest Chest palpation & inspection: normal inspection of the chest Resp Effort & Inspection: normal respiratory effort and able to speak in complete sentences GI Inspection: Yes normal to inspection Neuro General: confusion Cranial nerves: Yes Equal, round and reactive pupils present Motor exam (neuro): 5/5 motor strength present throughout Sensory Exam: Normal double simultaneous stimulation for sensation Coordination: [id number] test normal Extrem General: Yes normal to inspection, Yes full ROM and Yes capillary refill normal Psych Appearance: grossly normal Mental Status: mental status grossly normal Affect: normal affect Attitude: cooperative Thought process: Normal thought process present Thought content: Normal thought content present Insight: Good insight present (Psych) Course Course Course Narrative: RME performed by Shilpa Del Castillo PA-C. Patient is an 82 year old assigned female at presenting to the emergency department with increased confusion. Labs and imaging ordered. Patient placed back in the waiting room pending room availability and results. Medical Decision Making Medical Decision Making MDM Narrative: Patient is an 82 year old assigned female at with a history of dementia and HTN presenting to the emergency department today in a confused state. Patient's physical exam showed a pleasantly confused individual but was otherwise unremarkable. Patient's blood work was unremarkable. Patient's chest x-ray showed no acute process. I explained my physical exam findings as well as all test results to the patient and the patient's son. I answered all questions asked by the patient and the patient's son. Patient's son was contacted and he informed us that the patient was at a doctors appointment elsewhere in the building and requested to walk home, so he let her. Patient's son picked up the patient and confirmed that the patient is at her pleasantly confused baseline. I stressed the importance of the patient taking her medication as prescribed. I stressed the importance of the patient following up with her primary care provider. I stressed the importance of the patient returning to the emergency department immediately if her symptoms were to worsen or if she were to develop any dizziness, shortness of breath, difficulty breathing, chest pain, blurry vision, loss of vision, nausea, vomiting, abdominal pain, fever, chills, back pain, or any other complaints. Patient and the patient's son verbalized agreement and understanding with this treatment plan and discharge. Differential Diagnosis Differential Diagnoses: The differential diagnosis associated with the presentation includes dementia Lab Data MDM Lab Attestation statement: I reviewed the patient's lab results. 02/09/23 14:41 02/09/23 14:41 Labs: Lab Results 02/09/23 02/09/23 Range/Units 14:41 14:41 WBC 10.9 H (4.8-10.8) X10*3/uL RBC 4.30 (4.20-5.50) X10*6/uL Hgb 12.4 (12.0-16.0) g/dl Hct 38.5 (37.0-47.0) % MCV 89.5 (80.0-98.0) fL MCH 28.8 (27.0-33.0) pg MCHC 32.2 (31.0-35.0) g/dl RDW 13.1 (11.0-16.0) % Plt Count 289 (160-400) X10*3/uL MPV 8.5 L (9.4-12.3) fL Immature Gran % (Auto) 0.4 (0.0-0.4) % Neut % (Auto) 67.4 (45-73) % Lymph % (Auto) 21.0 (20-40) % Maverick % (Auto) 9.2 (2-11) % Eos % (Auto) 1.3 (0-4) % Baso % (Auto) 0.7 (0-2) % Lymph # (Auto) 2.3 (1.2-4.9) X10*3/uL Maverick # (Auto) 1.0 (0.1-1.2) X10*3/uL Eos # (Auto) 0.1 (0.0-0.4) X10*3/uL Baso # (Auto) 0.1 (0.0-0.2) X10*3/uL Abs Immat Gran (auto) 0.04 H (0.00-0.03) X10*3/uL Absolute Neuts (auto) 7.4 (2.0-8.3) x10*3/uL Absolute Nucleated RBC 0.000 (0.0-0.012) X10*3/uL Nucleated RBC % (auto) 0.0 (0.0-0.2) /100WBC Sodium 141 (135-145) mmol/L Potassium 3.8 (3.3-5.1) mmol/L Chloride 106 (96-108) mmol/L Carbon Dioxide 28 (22-29) mmol/L Anion Gap 11 L (12-20) BUN 15 (9-16) mg/dL Creatinine 0.83 (0.5-1.4) mg/dL Estim Creat Clear Calc 42.4 Estimated GFR > 60 Random Glucose 101 (60-115) mg/dL Calcium 8.8 D (8.4-10.2) mg/dL Magnesium 2.0 (1.6-2.6) mg/dL Total Bilirubin 0.9 (0.0-1.0) mg/dL AST 13 (5-31) U/L ALT 6 (0-31) U/L Alkaline Phosphatase 102 (39-117) U/L Total Protein 6.6 (6.5-8.0) g/dL Albumin 3.8 (3.5-5.0) g/dL Independent Interpretation I performed an independent interpretation of an: Plain X-Ray Interpretation: My interpretation is in agreement with the radiologist's impression of this imaging study. EXAMINATION: XR CHEST CLINICAL INFORMATION: Altered mental status, chest pain. COMPARISON: 08/24/2021 chest radiographs. TECHNIQUE: 2 views of the chest were obtained. FINDINGS: No significant abnormality is noted involving the heart, lungs, mediastinum, bony thorax or soft tissues. XR/XR chest 2V IMPRESSION: No acute cardiopulmonary process. Dictated By: Dalton Arauz MD Signed By: Electronically signed by Dalton Arauz MD 02/09/23 2164 Independent Historian Clinical information obtained from an independent historian. History obtained from or confirmed by: Other (patient's son) Discharge Plan Discharge Clinical Impression: Dementia Patient Disposition: Home, Self-Care Instructions: Dementia (ED) Additional Instructions: Follow up with your primary care provider. Return to the emergency department immediately if your symptoms worsen or if you develop any dizziness, shortness of breath, difficulty breathing, chest pain, blurry vision, loss of vision, nausea, vomiting, abdominal pain, fever, chills, back pain, or any other complaints. Prescriptions: No Action ibuprofen 800 mg tablet 800 mg PO Q8H PRN (Reason: pain) Qty: 14 0RF mecobalamin (vitamin B12) 1,000 mcg tablet,chewable 1,000 mcg PO DAILY 90 Days Qty: 90 3RF Interventions: ED Discharge Assessment Last Done: 02/09/23 15:53 Discharge Date/Time: 02/09/23 15:58 Print Language: Surinamese
[2023-02-09 14:44] LABS: MANUAL DIFF FLAG NO
[2023-02-09 14:47] LABS: Basophils Absolute Auto 0.1 X10*3/uL (0.0-0.2); Basophils Percent Auto 0.7 % (0-2); Eosinophils Absolute Auto 0.1 X10*3/uL (0.0-0.4); Eosinophils Percent Auto 1.3 % (0-4); Hematocrit 38.5 % (37.0-47.0); Hemoglobin 12.4 g/dl (12.0-16.0); Imm Gran Abs Auto 0.04 X10*3/uL (0.00-0.03); Imm Gran Pct Auto 0.4 % (0.0-0.4); Lymphocytes Absolute Auto 2.3 X10*3/uL (1.2-4.9); Mean Corpuscular HGB Conc 32.2 g/dl (31.0-35.0); Mean Corpuscular Hemoglobin 28.8 pg (27.0-33.0); Mean Corpuscular Volume 89.5 fL (80.0-98.0); Mean Platelet Volume 8.5 fL (9.4-12.3); Monocytes Percent Auto 9.2 % (2-11); Neutrophils Absolute Auto 7.4 x10*3/uL (2.0-8.3); Neutrophils Percent Auto 67.4 % (45-73); Platelet Count 289 X10*3/uL (160-400); Red Cell Distribution Width 13.1 % (11.0-16.0); White Blood Count 10.9 X10*3/uL (4.8-10.8)
[2023-02-09 15:10] LABS: Alanine Aminotransferase 6 U/L (0-31); Albumin Level 3.8 g/dL (3.5-5.0); Alkaline Phosphatase 102 U/L (39-117); Anion Gap 11 (12-20); Aspartate Amino Transferase 13 U/L (5-31); Bilirubin Total 0.9 mg/dL (0.0-1.0); Blood Urea Nitrogen 15 mg/dL (9-16); Calcium 8.8 mg/dL (8.4-10.2); Carbon Dioxide 28 mmol/L (22-29); Chloride 106 mmol/L (96-108); Creatinine Clr Calc Pharmacy 42.4; Estimated Glomerular Filt Rate > 60; Glucose Random 101 mg/dL (60-115); Potassium 3.8 mmol/L (3.3-5.1); Sodium 141 mmol/L (135-145); Total Protein 6.6 g/dL (6.5-8.0)
--- NOTE | 2023-02-09 15:23 | PC.NURSE ---
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 She is currently trying to dress herself with all of her jewelry and clothing, she is pleasant but confused. 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
[2023-02-09 15:50] VITALS: BP 142/70; PULSE 74; RESP 16; TEMP 36.6; O2SAT 98
== END 2023-02-09 15:58 | disposition home or self-care (01) ==
PROVIDERS: Physician Assistant Medical; Emergency Provider Emergency Medicine Emergency Medical Services
DX: F03.90 Unspecified dementia, unspecified severity, without behavioral disturbance, psychotic disturbance, mood disturbance, and anxiety (principal); I10 Essential (primary) hypertension; Z79.899 Other long term (current) drug therapy
CPT/HCPCS: 36415; 71046; 80053; 83735; 85025; 99283; 99284

== ENCOUNTER 2023-11-07 13:56 | Emergency (ER) | payer MEDICARE, SELFPAY ==
[2023-11-07 14:22] VITALS: BP 128/72; BP 176/80; PULSE 86; PULSE 88; RESP 16; TEMP 36.9; O2SAT 97; O2SAT 98; BMI 21.8
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
--- NOTE | 2023-11-07 14:57 | PHA.MEDREC ---
Pharmacy Consult ? Medication Reconciliation Pharmacy has completed the medication reconciliation. Patient with dementia. Utilized previous provider reports for med rec. SUSAN Massey wanted to know if patient of BP meds. Patient used to be prescribed Amlodipine 5 mg but per PCP reports, patient stopped because she did not want to take medications. Leticia Sandhu, RosalindD
[2023-11-07 15:02] VITALS: BP 176/80; PULSE 86; O2SAT 98
--- NOTE | 2023-11-07 15:06 | PC.NURSE ---
Report given to Alida BALDERAS pt exits my care at this time.
[2023-11-07 15:31] VITALS: BP 142/83; PULSE 80; RESP 18; TEMP 36.8; O2SAT 98
--- NOTE | 2023-11-07 15:31 | PC.NURSE ---
patient awake/not answering questions for this nurse at this time, vss, daughter at bedside expressing concerns about the court appt guardian and how she was wanting to work with her to obtain more services and is upset that the patient was transported to the hospital. call wright within reach, will continue to monitor.
[2023-11-07 16:47] VITALS: BP 128/106
[2023-11-07] MEDS: amLODIPine Besylate 5 MG TABLET PO (16:48)
--- NOTE | 2023-11-07 16:48 | PC.NURSE ---
pt medicated per order
[2023-11-07 17:07] VITALS: BP 141/71; PULSE 87; RESP 16; TEMP 36.6; O2SAT 97
--- NOTE | 2023-11-07 17:07 | MHC.EDTECH ---
Patient blood drawn and sent to lab ,vitals re check and it was normal RN aware .
[2023-11-07 17:08] LABS: MANUAL DIFF FLAG NO
[2023-11-07 17:12] LABS: Basophils Absolute Auto 0.1 X10*3/uL (0.0-0.2); Basophils Percent Auto 1.2 % (0-2); Eosinophils Absolute Auto 0.3 X10*3/uL (0.0-0.4); Eosinophils Percent Auto 3.1 % (0-4); Hematocrit 38.3 % (37.0-47.0); Hemoglobin 12.4 g/dl (12.0-16.0); Imm Gran Abs Auto 0.02 X10*3/uL (0.00-0.03); Imm Gran Pct Auto 0.2 % (0.0-0.4); Lymphocytes Absolute Auto 2.6 X10*3/uL (1.2-4.9); Lymphocytes Percent Auto 28.7 % (20-40); Mean Corpuscular HGB Conc 32.4 g/dl (31.0-35.0); Mean Corpuscular Hemoglobin 29.6 pg (27.0-33.0); Mean Corpuscular Volume 91.4 fL (80.0-98.0); Mean Platelet Volume 9.1 fL (9.4-12.3); Monocytes Absolute Auto 0.6 X10*3/uL (0.1-1.2); Monocytes Percent Auto 6.6 % (2-11); Neutrophils Absolute Auto 5.3 x10*3/uL (2.0-8.3); Neutrophils Percent Auto 60.2 % (45-73); Platelet Count 287 X10*3/uL (160-400); Red Blood Count 4.19 X10*6/uL (4.20-5.50); White Blood Count 8.9 X10*3/uL (4.8-10.8)
[2023-11-07 17:26] LABS: Alanine Aminotransferase 8 U/L (0-31); Albumin Level 3.7 g/dL (3.5-5.0); Alkaline Phosphatase 86 U/L (39-117); Anion Gap 10 (12-20); Aspartate Amino Transferase 15 U/L (5-31); Bilirubin Total 0.3 mg/dL (0.0-1.0); Blood Urea Nitrogen 23 mg/dL (9-16); Calcium 9.1 mg/dL (8.4-10.2); Carbon Dioxide 27 mmol/L (22-29); Chloride 112 mmol/L (96-108); Creatinine Clr Calc Pharmacy 46.9; Estimated Glomerular Filt Rate > 60; Glucose Random 112 mg/dL (60-115); Magnesium 2.1 mg/dL (1.6-2.6); Potassium 3.7 mmol/L (3.3-5.1); Sodium 145 mmol/L (135-145)
--- NOTE | 2023-11-07 17:53 | MHC.CM.ED ---
Addendum entered by Kindra Son 11/07/23 18:06: aSgrario from [facility] thinks she may have guardianship papers. Requested she fax them [phone]. Per Sargario, guardianship court hearing was just within the past several weeks. Will request copy of paperwork from guardian when she returns call. Original Note: Received CM from Shilpa DAVIS. [phone][facility] Per Sagrario, [facility] went to home today after receiving Elder at risk report. Pt and family is known to [facility]. Pt with dementia and is known to wander. Pt was alone yesterday because cafeteria monitor (son) Salomón Horton was a patient in the ED. Per son, he had a neighbor checking on her. When SS arrived, patient was alone, son was at grocery store and ambulance was called and patient was transported to [facility]. Per Sagrario, pt now has a court appointed guardian and conservator, Jess Ellis ([phone]). [facility] spoke with guardian, who requested pt be transport to ED and not to be discharged home with family. Stated a safe discharge plan must be made. CM called and left message with guardian for call back. Per [facility], they are looking for 07/06 care or LTC. Daughter, Lucy Graves at bedside ([phone]). Daughter is aware that all decisions regarding her mother's care and disposition will be made by the guardian. Daughter agrees. States she would like to work with guardian to arrange help at home, but she does not believe they need care at night. States she could stay at night, but would need to be compensated. Again, CM stressed that a permanent plan would need to be made and encourage daughter to express her concerns to her mother's guardian. Explained to daughter that her mother would remain in ED, probably in overflow , until a safe discharge plan can be made. Patient is know to wander and walk in the neighborhood . Daughter does not seem to understand the concerns that her mother could wander at night. CM spoke with patient, who has dementia and does not understand why she is in the hospital and why she cannot stay home. Pt attempted to get OOB. Returned to bed. Bed alarm on pending transfer to [facility]. Given juice, sandwich and pudding. Daughter left. Son has not visited. Contact card given. Awaiting return call from guardian. Per daughter, patient has funds for 24/7 care or LTC, but guardian is in charge of the money. No referrals yet made pending return call from guardian.
--- NOTE | 2023-11-07 20:30 | PC.NURSE ---
Patient coming from main ED for continued case management care. Patient was living at home but seems to need more care than what she is getting at this time. Patient is alert and oriented to self only, pleasantly confused. Patient gets up out of bed without ringing, bed alarm is on and patient is easily redirectable. Explained to patient that she is in the hospital and will at least be spending the night here, patient states that she understands but 10 minutes later will forget the conversation.
[2023-11-07 21:04] VITALS: BP 137/94; PULSE 118; RESP 16; TEMP 36.7; O2SAT 97
--- NOTE | 2023-11-08 | ECG_ITS ---
Test Reason : chest pain Blood Pressure : / mmHG Vent. Rate : 084 BPM Atrial Rate : 084 BPM P-R Int : 192 ms QRS Dur : 146 ms QT Int : 460 ms P-R-T Axes : 073 -67 052 degrees QTc Int : 543 ms Sinus rhythm with marked sinus arrhythmia Right bundle branch block Left anterior fascicular block Bifascicular block Minimal voltage criteria for LVH, may be normal variant ( R in aVL ) Abnormal ECG No previous ECGs available Referred By: Tanisha Alcazar Electronically Signed By:DORI DON
[2023-11-08 02:29] LABS: Appearance Urine Cloudy; Color Urine Yellow; Glucose Urine UA Negative (Negative); Leukocyte Esterase Urine Large (3+) (Negative); Nitrite Urine Positive (Negative); PH 6.5 (5.0-9.0); Specific Gravity - Urine 1.015 (1.005-1.025); UMIC TRIGGER UACC YES; Urine Blood Trace (Negative); Urine Ketones Negative (Negative); Urine Protein Negative (Neg-Trace)
[2023-11-08 02:52] LABS: Bacteria Urine 4+ (None Seen); Hyaline Casts Urine 0-2 /LPF (0-2); RBC Urine 0-2 /HPF (0-2); Squamous Epithelial Cell Urine 0-2 /HPF (0-2); UACC Culture Trigger YES; WBC Urine 21-50 /HPF (0-5)
[2023-11-08 03:46] VITALS: BP 156/85; PULSE 74; RESP 20; TEMP 36.4; O2SAT 99
--- NOTE | 2023-11-08 04:50 | PC.NURSE ---
pt reporting sudden onset chest pain; vital signs are being completed as well as EKG. MD notified via [employer], awaiting response. battery charger also notified.
[2023-11-08 05:04] VITALS: BP 143/75; PULSE 82; RESP 18; O2SAT 99
--- NOTE | 2023-11-08 06:50 | PC.NURSE ---
pt chest pain resolved approx 30min after it started. she states it slowly subsided. pain was sudden onset midsternal that radiated to mid upper back. started when she got up to use the bathroom. she rpts this has happened in the past however it resolves much quicker.
[2023-11-08] MEDS: cefuroxime axetiL 500 MG TABLET PO (07:57)
[2023-11-08 07:58] VITALS: BP 127/79; PULSE 85; RESP 18; TEMP 36.7; O2SAT 98
[2023-11-08] MEDS: amLODIPine Besylate 5 MG TABLET PO (08:00)
--- NOTE | 2023-11-08 08:02 | PC.NURSE ---
assumed care of this pt 0700, pt awake sitting up in bed at the time of assuming care. pt alert, oriented to self. pleasantly confused. pt sitting on the side of her bed eating breakfast at this time, she was assisted with opening liquids on her breakfast tray. she denies pain, vss. video monitor and bed alarm in place. will continue to observe.
--- NOTE | 2023-11-08 10:25 | MHC.CM.PN ---
Addendum entered by Meghan Montilla 11/08/23 12:53: PTS DAUGHTER ARRIVED TO TRANSPORT PT HOME CARLOS CALLED PTS LEGAL GUARDIAN WHO CONFIRMED EVERYTHING HAD BEEN CLEARED WITH [facility] AND THIS IS THE PLAN PT WILL DC HOME WITH DAUGHTER TODAY DAUGHTER WILL PROVIDE 24/7 CARE UNTIL OTHER HOME CARE ARRANGEMENTS CAN BE MADE Addendum entered by Meghan Montilla 11/08/23 12:18: CARLOS SPOKE TO PTS GUARDIAN, SIRI MONSON, WHO REPORTS SHE HAS BEEN SPEAKING WITH THE DAUGHTER THROUGHOUT THE MORNING AND AT THIS TIME THEY ARE HOPING TO BE ABLE TO BRING THE PT BACK HOME. SHE SAYS THE PTS DAUGHTER PLANS TO TAKE FMLA AND STAY WITH HER 24/7 WHILE THEY WORK ON ARRANGING [employer] SIRI STATES SHE WILL BE CALLING [facility] TO ENSURE THEY HAVE NO ISSUES WITH THIS PLAN, SHE WILL THEN MEET WITH DAUGHTER AGAIN THIS AFTERNOON, AND IF ALL WORKS THEY ARE HOPING, THE PT WILL BE PICKED UP TODAY Original Note: CARLOS LEFT A VM MESSAGE FOR PTS GUARDIANSIRI [phone] REQUESTING A RETURN CALL TO DETERMINE IF THE GOAL IS LTC PLACEMENT FOR THIS PT REFERRALS MADE IN THE EVENT THIS IS THE PLAN
--- NOTE | 2023-11-08 12:22 | MHC.EDTECH ---
Assisted patient with personal hygiene / to and from restroom.
--- NOTE | 2023-11-08 12:56 | PC.NURSE ---
pt's daughter Lucy Ely here to pick her up. pt dressed by her daughter and her belongings were given to her. discharge instructions reviewed with Rosmery. no complaints.
== END 2023-11-08 12:55 | disposition home or self-care (01) ==
PROVIDERS: Physician Assistant Medical; Student in an Organized Health Care Education/Training Program; Emergency Provider Emergency Medicine Emergency Medical Services; PCP Internal Medicine
DX: F03.90 Unspecified dementia, unspecified severity, without behavioral disturbance, psychotic disturbance, mood disturbance, and anxiety (principal); N39.0 Urinary tract infection, site not specified; I10 Essential (primary) hypertension
CPT/HCPCS: 36415; 80053; 81001; 83735; 84484; 85025; 87086; 87088; 87186; 93005; 97161; 99285

== ENCOUNTER → 2023-11-08 04:49 | Outpatient (BNV) | payer MEDICARE, SELFPAY | PROVIDERS: Emergency Provider Emergency Medicine Emergency Medical Services; PCP Internal Medicine; Visit Provider Internal Medicine | DX: R07.9 Chest pain, unspecified (principal) | CPT/HCPCS: 93010 ==

== ENCOUNTER 2023-11-09 10:21 | Emergency (ER) | payer MEDICARE, SELFPAY ==
--- NOTE | ~2023-11-09 | XR_ITS ---
EXAMINATION: XR CHEST CLINICAL INFORMATION: Chest pain COMPARISON: February 09, 2023 TECHNIQUE: PA view of the chest was obtained. FINDINGS: No significant abnormality is noted involving the heart, lungs, mediastinum, or soft tissues. Linear scarring seen at the left lung base. There is some degenerative marginal spurring within the lower thoracic spine. There is degenerative change seen involving both shoulders. XR/XR chest 1V IMPRESSION: No acute disease.
--- NOTE | 2023-11-09 10:29 | ECG_ITS ---
Test Reason : cp Blood Pressure : / mmHG Vent. Rate : 089 BPM Atrial Rate : 089 BPM P-R Int : 156 ms QRS Dur : 142 ms QT Int : 396 ms P-R-T Axes : 059 -68 047 degrees QTc Int : 481 ms Sinus rhythm with Premature atrial complexes Right bundle branch block Left anterior fascicular block Bifascicular block Minimal voltage criteria for LVH, may be normal variant ( R in aVL ) Abnormal ECG When compared with ECG of 08-NOV-2023 04:49, Premature atrial complexes are now Present QT has shortened Referred By: Betzy Reyes Electronically Signed By:DORI DON
[2023-11-09 10:39] VITALS: BP 160/91; PULSE 94; RESP 18; TEMP 36.6; O2SAT 98; BMI 22.1
[2023-11-09 11:05] LABS: MANUAL DIFF FLAG NO
[2023-11-09 11:07] LABS: Basophils Absolute Auto 0.1 X10*3/uL (0.0-0.2); Basophils Percent Auto 0.9 % (0-2); Eosinophils Absolute Auto 0.1 X10*3/uL (0.0-0.4); Hematocrit 39.8 % (37.0-47.0); Hemoglobin 13.1 g/dl (12.0-16.0); Imm Gran Abs Auto 0.02 X10*3/uL (0.00-0.03); Imm Gran Pct Auto 0.2 % (0.0-0.4); Lymphocytes Absolute Auto 1.9 X10*3/uL (1.2-4.9); Lymphocytes Percent Auto 17.9 % (20-40); Mean Corpuscular HGB Conc 32.9 g/dl (31.0-35.0); Mean Corpuscular Hemoglobin 29.2 pg (27.0-33.0); Mean Corpuscular Volume 88.8 fL (80.0-98.0); Mean Platelet Volume 9.3 fL (9.4-12.3); Monocytes Absolute Auto 0.5 X10*3/uL (0.1-1.2); Monocytes Percent Auto 5.1 % (2-11); Neutrophils Absolute Auto 7.9 x10*3/uL (2.0-8.3); Neutrophils Percent Auto 74.9 % (45-73); Platelet Count 307 X10*3/uL (160-400); Red Blood Count 4.48 X10*6/uL (4.20-5.50); White Blood Count 10.5 X10*3/uL (4.8-10.8)
[2023-11-09 11:12] LABS: Prothrombin Time 12.7 SEC (11.1-13.3)
[2023-11-09 11:23] LABS: Alanine Aminotransferase 9 U/L (0-31); Albumin Level 4.2 g/dL (3.5-5.0); Alkaline Phosphatase 88 U/L (39-117); Anion Gap 14 (12-20); Aspartate Amino Transferase 14 U/L (5-31); Bilirubin Total 0.3 mg/dL (0.0-1.0); Blood Urea Nitrogen 27 mg/dL (9-16); Calcium 9.6 mg/dL (8.4-10.2); Carbon Dioxide 24 mmol/L (22-29); Chloride 109 mmol/L (96-108); Creatinine Clr Calc Pharmacy 42.2; Estimated Glomerular Filt Rate > 60; Glucose Random 109 mg/dL (60-115); Magnesium 2.1 mg/dL (1.6-2.6); Potassium 3.6 mmol/L (3.3-5.1); Sodium 143 mmol/L (135-145); Total Protein 7.6 g/dL (6.5-8.0)
[2023-11-09 11:29] LABS: B Type Natriuretic Peptide 71 pg/mL (<100)
[2023-11-09 11:30] LABS: Troponin-I High Sensitivity 4.9 ng/L (<3.5-17.0)
[2023-11-09 11:53] VITALS: RESP 18
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
--- NOTE | 2023-11-09 12:24 | ED.GENADULT ---
HPI - General Adult General Chief complaint: General Medical Stated complaint: ? Afib Time Seen by Provider: 11/09/23 11:29 Source: patient Mode of arrival: ambulatory History of Present Illness HPI narrative: 82-year-old female history of high cholesterol, dementia, and hypertension presents to the ED for evaluation of resolved chest pain after having argument with daughter. Patient brought by neighbor due to patient feeling anxious due to verbal argument with daughter. Neighbor states patient was shaking and crying and states she had mild chest discomfort from the arguing. Patient and neighbor states this is probably from anxiety induced due to the argument. Patient presently asymptomatic. Patient was seen yesterday for for evaluation for issues with children in the house. [facility] nurse care is being organized and elderly services to visit home. 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 Patient denies any physical abuse. Neighbor denies patient having any signs of physical abuse. He states patient always smell good and does not look dirty. Patient denies any chest pain shortness of breath coughing up blood, fever, chills, weakness or dizziness. Presently patient laughing with neighbor. Patient presently being treated for UTI. Patient at baseline mentally as per neighbor. Related Data Previous Rx's Medication Instructions Recorded mecobalamin (vitamin B12) 1,000 1,000 mcg PO DAILY 90 days #90 tabs 05/03/22 mcg chewable tablet ibuprofen 800 mg tablet 800 mg PO Q8H PRN pain #14 tabs 09/27/22 cefuroxime axetil 250 mg tablet 250 mg PO Q12H 7 days #14 tabs 11/09/23 Allergies Allergy/AdvReac Type Severity Reaction Status Date / Time No Known Allergies Allergy Verified 11/09/23 10:39 [No Known Allergies*] Review of Systems Review of Systems: Anxiety, resolved chest pain palpitation after the argument, Yes all other systems are reviewed and are negative PMF Past Medical History Medical History Dementia Left shoulder pain Hypertension Surgical History Hx of tonsillectomy (~1944) Family History Family History Other Family history non-contributory Social History Social History (Reviewed 11/07/23 @ 14:38 by RYDER Borja Housing: House Alcohol intake: current Alcohol intake frequency: does not drink Patient Tobacco Use Status: Never used Tobacco Smoked in Last 30 Days: No e-Cigarette/Vaping Use: Never Used Second Hand Smoke Exposure: Yes Advance Directives: No Advance Directives Information Provided: No service: No Current occupational status: retired Cognitive needs: Yes Hearing needs: No Vision needs: No Physical Exam ED Vital Signs: Vital Signs - 24 hr 11/09/23 10:39 11/09/23 11:53 Temperature 98 F Pulse Rate 94 Respiratory Rate 18 18 Blood Pressure 160/91 H Pulse Oximetry 98 Oxygen Delivery Method Room Air BMI result Body Mass Index 22.1 Const General: cooperative, healthy appearing, comfortable, no acute distress, well developed, alert, awake and Physically active Orientation/consciousness: oriented to person, oriented to place, oriented to time and patient oriented x3 HENMT Head: Yes normal to inspection, Yes No palpable skull fracture present, Yes normocephalic and Yes atraumatic Throat: Yes posterior oropharynx normal, Yes tonsils normal and Yes uvula midline Eyes General: appearance normal, both eyes and all related structures Neck Neck: Yes normal visual inspection, Yes full ROM, Yes no lymphadenopathy, Yes no meningeal signs, Yes trachea midline, Yes supple, No anterior neck swelling and No tender Chest Chest palpation & inspection: normal inspection of the chest and normal palpation of entire chest wall Resp Effort & Inspection: normal respiratory effort and able to speak in complete sentences Auscultation: clear to auscultation bilaterally Cardio Jugular venous distension: no JVD Heart sounds: S1 normal heart sound present and S2 normal heart sound present GI Inspection: Yes normal to inspection Palpation (GI): Soft to palpation, not firm, nontender, no guarding and not rigid General: Yes no CVA tenderness Back/Spine/Pelvis Back: no CVA tenderness and No back tenderness Skin General skin exam: no rashes or lesions noted, elasticity normal and turgor normal Neuro General: oriented to person, oriented to place, oriented to time, patient oriented x3, gait normal, tone normal, moves all extremities, Normal light touch and pain sensation, no meningeal signs, no focal motor deficits, CN's II-XI intact bilaterally and normal sensation to monofilament Extrem Other: lower extremities negative for swelling, pain edema, or calf tenderness. General: Yes normal to inspection, Yes full ROM and Yes capillary refill normal Psych Appearance: grossly normal, well kempt and not disheveled Medical Decision Making Medical Decision Making MDM Narrative: 82-year-old female with history of dementia and hypertension high cholesterol brought to the ED for anxiety chest pain after have argument with daughter. Social case management elderly services and visiting nurse being organized and aware. Patient brought by neighbor due to patient crying after argument with daugther. Patient presently asymptomatic. Patient smiling and laughing. Patient denies any chest pain or shortness of breath. Patient will have cardiac evaluation due to age. Patient presently being treated for UTI. Patient uroseptic. Patient presently alert oriented x3. EKG labs chest x-ray ordered. media production support manager consult placed. 1:00PM: media production support manager Lianne states Elderly Services are already involved and Jacek Mercado is organizing 24 hour home care services. Lianne is wating to hear from Edyta Mercado to see what is next step in regards to disposition 3: 31pm: hospice case manager Zuleyka review notes and spoke with hospice case manager Meghan Montilla who states she called and spoke with legal guardian Jess who states patient can be discharged back to [facility]. [facility] are involved. media production support manager Zuleyka will place another elderly service checkup evaluation. Jacek Mercado state she is organizing 24 hour home care for patient. Legal guardian Jess does not want patient at nursing [facility]. Differential Diagnosis Differential Diagnoses: The differential diagnosis associated with the presentation includes ( anxiety, chest pain) Lab Data [facility] Lab Attestation statement: I reviewed the patient's lab results. 11/09/23 10:59 11/09/23 10:59 Labs: Lab Results 11/09/23 11/09/23 11/09/23 Range/Units 10:59 11:00 13:38 WBC 10.5 (4.8-10.8) X10*3/uL RBC 4.48 (4.20-5.50) X10*6/uL Hgb 13.1 (12.0-16.0) g/dl Hct 39.8 (37.0-47.0) % MCV 88.8 (80.0-98.0) fL MCH 29.2 (27.0-33.0) pg MCHC 32.9 (31.0-35.0) g/dl RDW 13.0 (11.0-16.0) % Plt Count 307 (160-400) X10*3/uL MPV 9.3 L (9.4-12.3) fL Immature Gran % (Auto) 0.2 (0.0-0.4) % Neut % (Auto) 74.9 H (45-73) % Lymph % (Auto) 17.9 L (20-40) % [place] % (Auto) 5.1 (2-11) % Eos % (Auto) 1.0 (0-4) % Baso % (Auto) 0.9 (0-2) % Lymph # (Auto) 1.9 (1.2-4.9) X10*3/uL [place] # (Auto) 0.5 (0.1-1.2) X10*3/uL Eos # (Auto) 0.1 (0.0-0.4) X10*3/uL Baso # (Auto) 0.1 (0.0-0.2) X10*3/uL Abs Immat Gran (auto) 0.02 (0.00-0.03) X10*3/uL Absolute Neuts (auto) 7.9 (2.0-8.3) x10*3/uL Absolute Nucleated RBC 0.000 (0.0-0.012) X10*3/uL Nucleated RBC % (auto) 0.0 (0.0-0.2) /100WBC PT 12.7 (11.1-13.3) SEC INR 1.0 (0.9-1.1) Sodium 143 (135-145) mmol/L Potassium 3.6 (3.3-5.1) mmol/L Chloride 109 H (96-108) mmol/L Carbon Dioxide 24 (22-29) mmol/L Anion Gap 14 (12-20) BUN 27 H (9-16) mg/dL Creatinine 0.87 (0.5-1.4) mg/dL Estim Creat Clear Calc 42.2 Estimated GFR > 60 Random Glucose 109 (60-115) mg/dL Calcium 9.6 (8.4-10.2) mg/dL Magnesium 2.1 (1.6-2.6) mg/dL Total Bilirubin 0.3 (0.0-1.0) mg/dL AST 14 (5-31) U/L ALT 9 (0-31) U/L Alkaline Phosphatase 88 (39-117) U/L Troponin I High Sens 4.9 D 5.1 (<3.5-17.0) ng/L B-Natriuretic Peptide 71 (<100) pg/mL Total Protein 7.6 (6.5-8.0) g/dL Albumin 4.2 (3.5-5.0) g/dL Independent Interpretation I performed an independent interpretation of an: EKG ( sinus rhythm. Bifascicular block. Negative STEMI) Radiology Impression Discussion of test interpretation with radiology: I have reviewed the radiologist's reading. ( chest x-ray ordered) Independent Historian Clinical information obtained from an independent historian. History obtained from or confirmed by: Other (Neighbor Barry Santiago) External Record Review External record reviewed: Other ([facility] visits) Discharge Plan Discharge Clinical Impression: Dementia, Chest pain Patient Disposition: Home, Self-Care Instructions: Chest Pain (ED), Urinary Tract Infection in Men (ED), Dementia (ED) Additional Instructions: recommend follow-up with primary care provider. Return to ED for any auditory / visual hallucinations, suicidal / homicidal ideation, chest pain, shortness breath, abdominal pain, nausea, vomiting, fever, chills, altered mental status, or any other concerning symptoms. Blood work and x-ray came back normal. Prescriptions: New cefuroxime axetil 250 mg tablet 250 mg PO Q12H 7 Days Qty: 14 0RF No Action ibuprofen 800 mg tablet 800 mg PO Q8H PRN (Reason: pain) Qty: 14 0RF mecobalamin (vitamin B12) 1,000 mcg tablet,chewable 1,000 mcg PO DAILY 90 Days Qty: 90 3RF Interventions: ED Discharge Assessment Last Done: 11/09/23 15:53 Discharge Date/Time: 11/09/23 15:53 Print Language: Armenian
[2023-11-09 14:06] LABS: Troponin-I High Sensitivity 5.1 ng/L (<3.5-17.0)
[2023-11-09 15:43] VITALS: BP 145/90; PULSE 76; RESP 19; O2SAT 98
--- NOTE | 2023-11-09 15:52 | PC.NURSE ---
case management involved and spoke with the guardian who states that it is safe to discharge, pt with nad, pleasant, no physical complaints, confused and at mental baseline per family and neighbor
--- NOTE | 2023-11-09 15:55 | MHC.CM.ED ---
Giles DAVIS met with CM with regarding to patient disposition. CM reviewed previous CM notes. Per guardian, Jess Harmoncatarino, patient may be discharged home with daughter. Per notes, Jess Harmoncatarino will speak with Sagrario from [facility]. CM spoke about concerns regarding discharge to daughter with Petra Castaneda. CM understands that guardian has legal right to make decisions for patient. Giles DAVIS aware of above. Will discharge patient to daughter. CM will file elder at risk with [facility].
== END 2023-11-09 15:53 | disposition home or self-care (01) ==
PROVIDERS: Physician Assistant; Emergency Provider Emergency Medicine; PCP Internal Medicine
DX: R07.9 Chest pain, unspecified (principal); I10 Essential (primary) hypertension; F03.90 Unspecified dementia, unspecified severity, without behavioral disturbance, psychotic disturbance, mood disturbance, and anxiety; E78.00 Pure hypercholesterolemia, unspecified
CPT/HCPCS: 36415; 71045; 80053; 83735; 83880; 84484; 85025; 85610; 93005; 99283; 99284

== ENCOUNTER → 2023-11-09 10:29 | Outpatient (BNV) | payer MEDICARE, SELFPAY | PROVIDERS: Emergency Provider Emergency Medicine; PCP Internal Medicine; Visit Provider Internal Medicine | DX: R07.9 Chest pain, unspecified (principal) | CPT/HCPCS: 93010 ==

== ENCOUNTER 2024-01-16 19:01 | Emergency (ER) | payer MEDICARE, SELFPAY ==
--- NOTE | 2024-01-16 | ECG_ITS ---
Test Reason : CHEST PAIN Blood Pressure : / mmHG Vent. Rate : 065 BPM Atrial Rate : 065 BPM P-R Int : 174 ms QRS Dur : 148 ms QT Int : 474 ms P-R-T Axes : 079 -65 013 degrees QTc Int : 492 ms Sinus rhythm with Premature atrial complexes Right bundle branch block Left anterior fascicular block Bifascicular block Minimal voltage criteria for LVH, may be normal variant ( R in aVL ) Abnormal ECG When compared with ECG of 09-NOV-2023 10:49, T wave inversion less evident in Anterior leads Referred By: Generic ED Physician Electronically Signed By:Garcia Morales
--- NOTE | ~2024-01-16 | CT_ITS ---
EXAMINATION: CT HEAD WITHOUT CONTRAST CLINICAL INFORMATION: Acute confusion COMPARISON: CT head from 10/22/2020 TECHNIQUE: Contiguous axial imaging was performed from the skull base to vertex without intravenous administration of contrast. This CT examination was performed using dose optimization techniques as appropriate, variously including the following: *Automated exposure control *Adjustment of mA and/or kV according to patient size (this includes techniques or standardized protocols for targeted exams where dose is matched to indication/reason for exam; i.e. extremities or head) *Use of iterative reconstruction technique DLP: 611 mGy-cm FINDINGS: There is no evidence of acute intracranial hemorrhage or territorial infarction. Chronic white matter small vessel ischemic changes. Cerebral atrophy with commensurate ventricular changes. No abnormal mass effect or midline shift is seen. Ruiz to white matter differentiation is well preserved. No extra-axial fluid collections are identified. The ventricles are normal in size. There is no abnormal attenuation within the brain parenchyma. The osseous structures and soft tissues are normal. The mastoid air cells and visualized portions of the paranasal sinuses are well aerated. Atherosclerotic calcifications. CT/CT head/brain wo IV con IMPRESSION: 1. No acute intracranial pathology. 2. Chronic white matter small vessel ischemic changes.
[2024-01-16 19:09] VITALS: BP 142/90; PULSE 90; O2SAT 95
[2024-01-16 19:19] VITALS: BP 134/72; PULSE 60; RESP 18; TEMP 36.6; O2SAT 98
[2024-01-16 19:26] VITALS: BMI 21.3
[2024-01-16 19:48] LABS: MANUAL DIFF FLAG NO
[2024-01-16 19:50] LABS: Basophils Absolute Auto 0.1 X10*3/uL (0.0-0.2); Eosinophils Absolute Auto 0.3 X10*3/uL (0.0-0.4); Eosinophils Percent Auto 2.9 % (0-4); Hematocrit 33.5 % (37.0-47.0); Hemoglobin 11.1 g/dl (12.0-16.0); Imm Gran Abs Auto 0.02 X10*3/uL (0.00-0.03); Imm Gran Pct Auto 0.2 % (0.0-0.4); Lymphocytes Absolute Auto 2.4 X10*3/uL (1.2-4.9); Lymphocytes Percent Auto 27.1 % (20-40); Mean Corpuscular HGB Conc 33.1 g/dl (31.0-35.0); Mean Corpuscular Hemoglobin 29.2 pg (27.0-33.0); Mean Corpuscular Volume 88.2 fL (80.0-98.0); Mean Platelet Volume 9.3 fL (9.4-12.3); Monocytes Absolute Auto 0.7 X10*3/uL (0.1-1.2); Monocytes Percent Auto 8.2 % (2-11); Neutrophils Absolute Auto 5.3 x10*3/uL (2.0-8.3); Neutrophils Percent Auto 60.6 % (45-73); Platelet Count 223 X10*3/uL (160-400); Red Cell Distribution Width 13.8 % (11.0-16.0); White Blood Count 8.7 X10*3/uL (4.8-10.8)
--- NOTE | 2024-01-16 20:02 | ED_ITS ---
HPI - General Adult General Chief complaint: General Medical Stated complaint: TREMORS,VERTIGO,HEADACHE Time Seen by Provider: 01/16/24 19:48 Source: patient Mode of arrival: ambulatory Limitations: no limitations History of Present Illness HPI narrative: Patient with history of dementia, hypertension was with her family all day today had food outside came home was with a kitchen acute because confused started shaking lasted only for few seconds back to normal no fever no urinary symptoms no cough or chest pain did not feel like passing out but felt lightheaded Related Data Previous Rx's Medication Instructions Recorded mecobalamin (vitamin B12) 1,000 1,000 mcg PO DAILY 90 days #90 tabs 05/03/22 mcg chewable tablet ibuprofen 800 mg tablet 800 mg PO Q8H PRN pain #14 tabs 09/27/22 cefuroxime axetil 250 mg tablet 250 mg PO Q12H 7 days #14 tabs 11/09/23 Allergies Allergy/AdvReac Type Severity Reaction Status Date / Time No Known Allergies Allergy Verified 11/09/23 10:39 [No Known Allergies*] Review of Systems 2 Review of Systems: Yes all other systems are reviewed and are negative PMFSH Past Medical History Medical History Dementia Left shoulder pain Hypertension Surgical History Hx of tonsillectomy (~1944) Family History Family History Other Family history non-contributory Social History Social History Housing: House Alcohol intake: current Alcohol intake frequency: does not drink Patient Tobacco Use Status: Never used Tobacco Smoked in Last 30 Days: No e-Cigarette/Vaping Use: Never Used Second Hand Smoke Exposure: Yes Use of substances other than those prescribed or required for medical reasons: No Advance Directives: No Advance Directives Information Provided: No service: No Current occupational status: retired Cognitive needs: Yes Hearing needs: No Vision needs: No Physical Exam ED Vital Signs: Vital Signs - 24 hr 01/16/24 19:19 Temperature 97.8 F Pulse Rate 60 Respiratory Rate 18 Blood Pressure 134/72 Pulse Oximetry 98 Oxygen Delivery Method Room Air BMI result Body Mass Index 21.3 Appearance: Alert. Oriented X2 No acute distress. Eyes: PERRLA, No Nystagmus ENT: Pharynx normal. Oral Mucosa moist Neck: Normal inspection. Neck supple. CVS: Normal heart rate and rhythm. Pulses normal. Respiratory: No respiratory distress. Equal air entry bilateral, no wheezing/rales/rhonchi Abdomen: Soft and nontender. Bowel sounds are present, no mass palpable, no CVA tenderness Skin: Skin warm and dry. Normal skin color. Normal skin turgor. Extremities: No lower extremity edema. No calf tenderness Neuro: Oriented X 2. No motor deficit. No sensory deficit.No cerebellar signs , cranial nerves II-XII intact Medical Decision Making Differential Diagnosis Differential Diagnoses: The differential diagnosis associated with the presentation includes Admission/Observation Consideration of admission/observation: Escalation of care including admission/observation considered Lab Data MDM Lab Attestation statement: I reviewed the patient's lab results. 01/16/24 19:40 01/16/24 19:40 Labs: Lab Results 01/16/24 01/16/24 Range/Units 19:40 21:08 WBC 8.7 (4.8-10.8) X10*3/uL RBC 3.80 L (4.20-5.50) X10*6/uL Hgb 11.1 L (12.0-16.0) g/dl Hct 33.5 L (37.0-47.0) % MCV 88.2 (80.0-98.0) fL MCH 29.2 (27.0-33.0) pg MCHC 33.1 (31.0-35.0) g/dl RDW 13.8 (11.0-16.0) % Plt Count 223 D (160-400) X10*3/uL MPV 9.3 L (9.4-12.3) fL Immature Gran % (Auto) 0.2 (0.0-0.4) % Neut % (Auto) 60.6 (45-73) % Lymph % (Auto) 27.1 (20-40) % [place] % (Auto) 8.2 (2-11) % Eos % (Auto) 2.9 (0-4) % Baso % (Auto) 1.0 (0-2) % Lymph # (Auto) 2.4 (1.2-4.9) X10*3/uL [place] # (Auto) 0.7 (0.1-1.2) X10*3/uL Eos # (Auto) 0.3 (0.0-0.4) X10*3/uL Baso # (Auto) 0.1 (0.0-0.2) X10*3/uL Abs Immat Gran (auto) 0.02 (0.00-0.03) X10*3/uL Absolute Neuts (auto) 5.3 (2.0-8.3) x10*3/uL Absolute Nucleated RBC 0.000 (0.0-0.012) X10*3/uL Nucleated RBC % (auto) 0.0 (0.0-0.2) /100WBC Sodium 141 (135-145) mmol/L Potassium 3.7 (3.3-5.1) mmol/L Chloride 109 H (96-108) mmol/L Carbon Dioxide 26 (22-29) mmol/L Anion Gap 10 L (12-20) BUN 26 H (9-16) mg/dL Creatinine 0.95 (0.5-1.4) mg/dL Estim Creat Clear Calc 36.5 Estimated GFR 56 Random Glucose 100 (60-115) mg/dL Calcium 8.8 D (8.4-10.2) mg/dL Total Bilirubin 0.4 (0.0-1.0) mg/dL AST 14 (5-31) U/L ALT 10 (0-31) U/L Alkaline Phosphatase 75 (39-117) U/L Troponin I High Sens 3.7 (<3.5-17.0) ng/L Total Protein 6.3 L (6.5-8.0) g/dL Albumin 3.5 (3.5-5.0) g/dL Urine Color Yellow Urine Appearance Clear Urine pH 7.0 (5.0-9.0) Ur Specific [place] 1.015 (1.005-1.025) Urine Protein Negative (Neg-Trace) mg/dL Urine Glucose (UA) Negative (Negative) mg/dL Urine Ketones Negative (Negative) mg/dL Urine Blood Negative (Negative) Urine Nitrite Negative (Negative) Ur Leukocyte Esterase Large (3+) H (Negative) Urine RBC 0-2 (0-2) /HPF Urine WBC 11-20 H (0-5) /HPF Ur Squamous Epith Cells 0-2 (0-2) /HPF Urine Bacteria None Seen (None Seen) Hyaline Casts 0-2 (0-2) /LPF Independent Interpretation I performed an independent interpretation of an: EKG Interpretation: Normal sinus rhythm PACs with ventricular rate 65, right bundle-branch block no acute ST T wave changes no acute ischemia Discharge Plan Discharge Clinical Impression: Dizziness Patient Disposition: Home, Self-Care Instructions: Dizziness (ED) Additional Instructions: Your blood workup is normal CT scan is negative for a stroke Follow-up with PCP if any concerns Prescriptions: No Action cefuroxime axetil 250 mg tablet 250 mg PO Q12H 7 Days Qty: 14 0RF ibuprofen 800 mg tablet 800 mg PO Q8H PRN (Reason: pain) Qty: 14 0RF mecobalamin (vitamin B12) 1,000 mcg tablet,chewable 1,000 mcg PO DAILY 90 Days Qty: 90 3RF
[2024-01-16 20:05] LABS: Alanine Aminotransferase 10 U/L (0-31); Albumin Level 3.5 g/dL (3.5-5.0); Alkaline Phosphatase 75 U/L (39-117); Anion Gap 10 (12-20); Aspartate Amino Transferase 14 U/L (5-31); Bilirubin Total 0.4 mg/dL (0.0-1.0); Blood Urea Nitrogen 26 mg/dL (9-16); Calcium 8.8 mg/dL (8.4-10.2); Carbon Dioxide 26 mmol/L (22-29); Chloride 109 mmol/L (96-108); Creatinine Clr Calc Pharmacy 36.5; Estimated Glomerular Filt Rate 56; Glucose Random 100 mg/dL (60-115); Potassium 3.7 mmol/L (3.3-5.1); Sodium 141 mmol/L (135-145); Total Protein 6.3 g/dL (6.5-8.0)
[2024-01-16 20:12] LABS: Troponin-I High Sensitivity 3.7 ng/L (<3.5-17.0)
[2024-01-16 21:16] LABS: Appearance Urine Clear; Color Urine Yellow; Glucose Urine UA Negative (Negative); Leukocyte Esterase Urine Large (3+) (Negative); Nitrite Urine Negative (Negative); Specific Gravity - Urine 1.015 (1.005-1.025); UMIC TRIGGER UACC YES; Urine Blood Negative (Negative); Urine Ketones Negative (Negative); Urine Protein Negative (Neg-Trace)
[2024-01-16 21:21] LABS: Bacteria Urine None Seen (None Seen); Hyaline Casts Urine 0-2 /LPF (0-2); RBC Urine 0-2 /HPF (0-2); Squamous Epithelial Cell Urine 0-2 /HPF (0-2); UACC Culture Trigger YES
--- NOTE | 2024-01-16 21:32 | PC.NURSE ---
no changes to previous assessment by this RN pt resting comfortably denies cp/sob/n/v/d/dizziness. was able to ambulate to bathroom with steady gait. daughter at bedside. awaiting ct scan results. call wright within reach.
[2024-01-16 22:59] VITALS: BP 132/52; PULSE 68; RESP 14; TEMP 36.7; O2SAT 100
== END 2024-01-16 23:25 | disposition home or self-care (01) ==
PROVIDERS: Emergency Provider Internal Medicine; PCP Internal Medicine
DX: R42 Dizziness and giddiness (principal); I10 Essential (primary) hypertension; F03.90 Unspecified dementia, unspecified severity, without behavioral disturbance, psychotic disturbance, mood disturbance, and anxiety
CPT/HCPCS: 36415; 70450; 80053; 81001; 84484; 85025; 87086; 93005; 99284

== ENCOUNTER → 2024-01-16 19:24 | Outpatient (BNV) | payer MEDICARE, SELFPAY | PROVIDERS: Emergency Provider Internal Medicine; PCP Internal Medicine; Visit Provider Internal Medicine Cardiovascular Disease | DX: R07.9 Chest pain, unspecified (principal) | CPT/HCPCS: 93010 ==

== ENCOUNTER 2024-01-25 12:31 | Outpatient (AMB) | payer MEDICARE, SELFPAY ==
--- NOTE | 2024-01-25 12:35 | A.OFFPC_ITS ---
Vital Signs 01/25/24 12:38 Height 5 ft 3 in Weight 122 lb 2 oz BMI 21.6 BP 120/60 Blood Pressure Location Lt brachial Position Sitting Pulse 60 Pulse Source Pulse Oximeter Pulse Oximetry (%) 98 Oxygen Delivery Method Room Air Intake Visit Reasons: forms Intake Note: Patient is here to follow up on Dementia, Hypercholesterolemia, HTN. Etiquette Coach Required: No Pipe Puller: Present Accompanied by: Daughter Allergies No Known Allergies [No Known Allergies*] Allergy (Verified 01/28/24 14:36) Medication List - Last Reconciled 01/25/24 by Salomón Cardenas MD ibuprofen 800 mg PO Q8H PRN mecobalamin (vitamin B12) 1,000 mcg PO DAILY 90 days Tobacco use date assessed: 01/25/24 Fall risk assessment: No Falls in past year Last assessed Fall Risk: 01/25/24 Dental Screening Dental Screen Date: 01/25/24 Did you have a dental visit in the last 12 months?: No Did you have a dental problem in the last 6 months where you did not have access to dental care?: No Was dental information given to patient?: No HPI forms HPI Details Patient comes in today for her follow up visit - is accompanied by her daughter, who states that she needs her FMLA form filled out so she can take off time from work as needed for her mother Per patient's daughter, she is currently living at her own place but has either her son or daughter watching her at all times, 04/06 Her daughter reports that last week, patient was complaining that she was not feeling well after they ate out at their local [employer] restaurant Recalls that patient was noted to have (+) tremors in her arms and legs at the time and her daughter ended up calling 911 Patient was then brought to the ER at [facility], where her workups reportedly all came out normal and she was eventually sent back home as she was feeling better at the time Her daughter states that patient remains confused often but otherwise she has no acute issues and that they now make sure that she has someone with her to help watch her all times of the day Patient states that she feels okay She denies any headaches or dizziness Denies any chest pains, no SOB Currently has no nausea/vomiting, no abdominal pain and no change in bowel habits noted PFSH Medical History Pure hypercholesterolemia Dementia Left shoulder pain Hypertension Surgical History Hx of tonsillectomy (~1944) Family History Other Family history non-contributory Social History Household Members: Unknown / Unable to assess Household Members Other:: hx dementia Housing: House Alcohol intake: current Alcohol intake frequency: does not drink Comment: 1:1 Patient Tobacco Use Status: Never used Tobacco e-Cigarette/Vaping Use: Never Used Second Hand Smoke Exposure: Yes service: No Current occupational status: retired Cognitive needs: Yes Hearing needs: No Vision needs: No Questionnaire PHQ-9 Over the last 2 weeks, how often have you been bothered by any of the following problems? 1. Little interest or pleasure in doing things: not at all 2. Feeling down, depressed, or hopeless: not at all 3. Trouble falling or staying asleep, or sleeping too much: not at all 4. Feeling tired or having little energy: not at all 5. Poor appetite or overeating: not at all 6. Feeling bad about yourself - or that you are a failure or have let yourself or your family down: not at all 7. Trouble concentrating on things, such as reading the newspaper or watching television: not at all 8. Moving or speaking so slowly that other people could have noticed. Or the opposite - being so fidgety or restless that you have been moving around a lot more than usual: not at all 9. Thoughts that you would be better off or of hurting yourself in some way: not at all Total score: 0 Depression Screening Interpretation: Negative Depression Screening Done: Yes 18710 - PHQ-9 Billing: Yes Source: Developed by Drs. Regino Nuñez, Aidee Su, Poncho Ortega and colleagues, with an educational arin from [employer]. Thrive Questionnaire Date Thrive assessed: 01/25/24 I am a: Patient What is your living situation today?: I have a steady place to live Within the past 12 months, did the food you bought not last and you didn't have the money to get more?: Never true Within the past 12 months, did you worry whether your food would run out before you got money to buy more?: Never true Do you have trouble paying for medicines?: No Do you have trouble getting transportation to medical appointments?: No Do you have trouble paying your heating and electricity bill?: No Do you have trouble taking care of your child, family member or friend?: No Do you have trouble with day-to-day activities such as bathing, preparing meals, shopping, managing finances, etc.?: No Are you currently unemployed and looking for a job?: No Are you interested in more education?: No Currently or been in a relationship where the following occur: no concerns reported THRIVE Score: 0 AUDIT C Alcohol Use Questionnaire (AUDIT-C) 1. How often do you have a drink containing alcohol?: Never Total Score: 0 Score Reviewed/Action Taken: Yes NIKKI-7 AMB Questionnaire NIKKI-7 Date NIKKI - 7 assessed: 01/25/24 Feeling nervous, anxious, or on edge: 0 = Not at all Not being able to stop or control worryin = Not at all Worrying too much about different things: 0 = Not at all Trouble relaxin = Not at all Being so restless that it is hard to sit still: 0 = Not at all Becoming easily annoyed or irritable: 0 = Not at all Feeling afraid as if something awful might happen: 0 = Not at all Total NIKKI-7 score (0-4 normal; 5-9 mild; 10-14 moderate; 15-21 severe): 0 Source: Developed by Drs. Regino Nuñez, Aidee Su, Poncho Ortega and colleagues, with an educational arin from [employer]. Review of Systems Const Details: Patient appears confused and information here is obtained primarily from her daughter, who is here with her today Denies chills, Denies difficulty sleeping, Denies fatigue, Denies fever(s) and Denies headache(s) ENT Denies dysphagia, Denies dizziness, Denies otalgia, Denies headache(s), Denies neck pain, Denies odynophagia, Denies sinus pain and Denies sore throat Card Denies chest pain, Denies palpitations and Denies dyspnea Resp Denies chest congestion, Denies cough and Denies dyspnea GI Denies abdominal pain, Denies constipation, Denies dysphagia, Denies heartburn, Denies diarrhea, Denies nausea, Denies odynophagia and Denies vomiting Denies difficulty voiding, Denies nocturia and Denies dysuria Musc Denies back pain, Denies arthralgias, Denies joint swelling, Denies muscle weakn ess and Denies neck pain Skin/Breast Denies rash Neuro Reports confusion, Denies dizziness, Denies headache(s) and Reports memory loss Psych Reports confusion and Reports memory loss Endo Denies fatigue and Denies palpitations Physical exam (Primary Care) Vital Signs: Last Vital Signs Pulse 60 01/25/24 12:38 BP 120/60 01/25/24 12:38 Pulse Ox 98 01/25/24 12:38 Oxygen Delivery Method Room Air 01/25/24 12:38 BMI result Body Mass Index 21.6 Tobacco/Smoking Status: Tobacco use Status Tobacco use date assessed 01/25/24 01/25/24 12:54 Patient Tobacco Use Status Never used Tobacco 01/25/24 12:54 e-Cigarette/Vaping Use Never Used 01/25/24 12:54 PHQ-9: PHQ-9 Score PHQ-9: Total score 0 01/25/24 13:19 Depression Screening Interpretation: Negative Thrive Assessment: Date of Thrive Assessment Date Thrive assessed 01/25/24 01/25/24 12:54 Currently or been in a relationship where the following occur: no concerns reported Const General: comfortable, no acute distress and confusion Orientation/consciousness: oriented to person and confusion HENMT Ears: TM's normal bilaterally and EAC's normal Throat: Yes posterior oropharynx normal and Yes tonsils normal (no TP congestion) Neck Neck: Yes no lymphadenopathy and Yes supple Resp Auscultation: clear to auscultation bilaterally, no rales and no wheezes Cardio Rate: regular rate Rhythm: regular rhythm Heart sounds: no murmurs GI Palpation (GI): Soft to palpation and nontender Auscultation: normal bowel sounds General: Yes no CVA tenderness Back/Spine/Pelvis Back: no CVA tenderness Thoracic/Lumbar Spine: thoracic and lumbar spine normal to inspection Skin Rashes: no rashes Neuro General: oriented to person, moves all extremities and confusion Gait exam (Neuro): Normal gait present Motor exam (neuro): no tremor noted Extrem General: Yes no clubbing, cyanosis or edema Assessment and Plan Assessment & Plan (1) Dementia: Code(s): F03.90 - Unspecified dementia, unspecified severity, without behavioral disturbance, psychotic disturbance, mood disturbance, and anxiety Qualifiers: Dementia type: Alzheimer's Alzheimer's disease onset: unspecified onset Dementia severity: unspecified severity Dementia behavioral or psychological symptom: without behavioral, psychotic, or mood disturbance or anxiety Qualified Code(s): G30.9 - Alzheimer's disease, unspecified; F02.80 - Dementia in other diseases classified elsewhere, unspecified severity, without behavioral disturbance, psychotic disturbance, mood disturbance, and anxiety Plan: Patient is currently staying in her own home and is supposedly being watch and accompanied by either her daughter or her son at all times - her daughter states that someone is with her at all times (04/06) and that is the one condition that they have to make sure is complied with to allow patient to continue to stay in her own home She is currently not likely to benefit from any of the acetylcholinesterase inhibitors or NMDA receptor antagonists as her dementia appears to be further along Patient's daughter adds that they are likely not going to be able to get patient to take her medications regularly if we were to start her on any (2) Elevated blood pressure reading: Code(s): R03.0 - Elevated blood-pressure reading, without diagnosis of hypertension Plan: Her BP today appears to be slightly better than during her past visits Reinforced low sodium diet She is not expected to be able to check and monitor her blood pressure on her own due to her dementia (3) Pure hypercholesterolemia: Code(s): E78.00 - Pure hypercholesterolemia, unspecified Plan: Reinforced low cholesterol diet - her cholesterol numbers were somewhat high when she had them checked last year Her daughter states that they try to help with her diet but often times patient will insist on eating what she wants (4) Vitamin B12 deficiency: Code(s): E53.8 - Deficiency of other specified B group vitamins Plan: Continue Vitamin B12 tablets 1000 mcg QD Plan FMLA form for her daughter completed and handed back to her Follow up in 6 months Coding Level of Care Code Est Pt Level 4 (05957) Diagnoses Alzheimer's dementia without behavioral disturbance, psychotic disturbance, mood disturbance, or anxiety, unspecified dementia severity, unspecified timing of dementia onset G30.9; F02.80 Dementia type: Alzheimer's Alzheimer's disease onset: unspecified onset Dementia severity: unspecified severity Dementia behavioral or psychological symptom: without behavioral, psychotic, or mood disturbance or anxiety Elevated blood pressure reading R03.0 Pure hypercholesterolemia E78.00 Vitamin B12 deficiency E53.8
[2024-01-25 12:38] VITALS: BP 120/60; PULSE 60; O2SAT 98; BMI 21.6
== END 2024-01-25 13:30 | disposition home or self-care (01) ==
PROVIDERS: PCP Internal Medicine; Visit Provider Internal Medicine
DX: G30.9 Alzheimer's disease, unspecified (principal); F02.80 Dementia in other diseases classified elsewhere, unspecified severity, without behavioral disturbance, psychotic disturbance, mood disturbance, and anxiety; R03.0 Elevated blood-pressure reading, without diagnosis of hypertension; E78.00 Pure hypercholesterolemia, unspecified; E53.8 Deficiency of other specified B group vitamins
CPT/HCPCS: 99214

== ENCOUNTER 2024-01-25 16:52 | Inpatient (IN) | payer MEDICARE, SELFPAY ==
--- NOTE | ~2024-01-25 | FL_ITS ---
EXAMINATION: XR FLUOROSCOPY WITH IMAGES CLINICAL INFORMATION: Dual-chamber pacemaker placement. COMPARISON: Chest radiograph 11/09/2023. TECHNIQUE: Fluoroscopy Supervised By: Dr. Malagon. Fluoroscopy Time: 5.4 minutes. Cumulative Dose: 46.1 mGy. DAP: 9.61 Gycm2. Images: A left arm venogram with 30 images was obtained. FINDINGS: Imaging demonstrates the cephalic vein with drainage into the axillary/subclavian vein with drainage through the innominate vein. Poor visualization of the SVC. Please see Dr. Terrell Malagon's procedure note for full details. FL/FL guidance in OR IMPRESSION: Fluoroscopy and spot films provided during pacemaker placement.
--- NOTE | ~2024-01-25 | XR_ITS ---
EXAMINATION: XR CHEST CLINICAL INFORMATION: Post pacemaker COMPARISON: None available. TECHNIQUE: Frontal view of the chest was obtained. FINDINGS: The lungs are well-expanded and clear. Heart size and pulmonary vascularity is normal. There are pacemaker the right atrium and right ventricle. No gross bony abnormality seen. XR/XR chest 1V IMPRESSION: 1. No acute cardiopulmonary process seen. 2. There are pacemaker electrodes in right atrium and right ventricle.
--- NOTE | 2024-01-25 16:56 | ED.GENADULT ---
HPI - General Adult General Chief complaint: Dizziness Stated complaint: ?UTI Time Seen by Provider: 01/25/24 17:17 Source: patient and family Mode of arrival: ambulatory Limitations: no limitations History of Present Illness HPI narrative: Patient history of hypertension, dementia. bradycardia with PACs felt dizzy with spinning movement after walking about 1 mile with her friend pulse noticed to be in low 30s. Patient was told by soil science teacher few years ago that she may need pacemaker patient was seen here with similar symptoms 01/24 patient has been treated for UTI last urine culture was negative Related Data Home Medications Medication Instructions Recorded Confirmed No Known Home Meds 01/25/24 01/25/24 Allergies Allergy/AdvReac Type Severity Reaction Status Date / Time No Known Allergies Allergy Verified 01/25/24 17:02 [No Known Allergies*] Review of Systems Review of Systems: Yes all other systems are reviewed and are negative [facility] Past Medical History Attestation statement: The following information was validated with the patient. Medical History (Updated 01/26/24 @ 01:55 by Anand Garibay MD) Pure hypercholesterolemia Dementia Left shoulder pain Hypertension Surgical History Hx of tonsillectomy (~1944) Family History Family History Other Family history non-contributory Social History Social History Housing: House Alcohol intake: current Alcohol intake frequency: does not drink Patient Tobacco Use Status: Never used Tobacco e-Cigarette/Vaping Use: Never Used Second Hand Smoke Exposure: Yes service: No Current occupational status: retired Cognitive needs: Yes Hearing needs: No Vision needs: No Physical Exam ED Vital Signs: Vital Signs - 24 hr 01/25/24 16:57 01/25/24 17:32 01/25/24 17:34 Temperature 96.9 F Pulse Rate 41 L 50 55 Respiratory Rate 20 Blood Pressure 145/74 H 115/62 141/69 H Pulse Oximetry 100 Oxygen Delivery Method Room Air 01/25/24 17:37 01/25/24 18:15 Temperature Pulse Rate 60 48 L Respiratory Rate 16 Blood Pressure 145/72 H 110/52 L Pulse Oximetry 99 Oxygen Delivery Method Room Air BMI result Body Mass Index 23.0 Appearance: Alert. Oriented X3. No acute distress. Eyes:no pallor ENT: Pharynx normal. Oral Mucosa moist Neck: Normal inspection. Neck supple. CVS: Bradycardia with heart rate ranging from 40-70 with PACs no murmur or gallop and rhythm. Pulses normal. Respiratory: No respiratory distress. Equal air entry bilateral, no wheezing/rales/rhonchi Abdomen: Soft and nontender. Bowel sounds are present, no mass palpable, no CVA tenderness Skin: Skin warm and dry. Normal skin color. Normal skin turgor. Extremities: No lower extremity edema. No calf tenderness Neuro: Oriented X 3. No motor deficit. Course Course Course Narrative: This is an RME: Additional HPI, ROS, PE not included below will be deferred to primary provider. Patient is an 83-year-old female who presents to the emergency department with her daughter for evaluation of Dizziness, nausea, vision changes with different colors and seeing black, seems to worsen while ambulating with position changes. Patient daughter reports that she was seen in the emergency department last week with similar symptoms and had an ultimately negative workup. She had a follow-up appointment today with her primary care provider and and was feeling well and no complaints. She walked with her daughter to grocery stores new by the PCP office when she became symptomatic again. Bradycardic, irregular upon ascultation Plan: EKG, labs, moved to ED bed 2 Medications Administered Generic Name Dose Route Start Last Admin Trade Name Freq PRN Reason Stop Dose Admin Sodium Chloride 3 ml 01/26/24 00:00 01/26/24 00:05 0.9 % Sodium Chloride Flush 3 Ml Syringe IVFLUSH 3 ml QSHIFT NICK Administration Medical Decision Making Medical Decision Making [facility] Narrative: Patient with recurrent near-syncope / dizziness with bradycardia with second-degree block likely the cause for her dizziness episodes case discussed with Dr. Ramirez plan for pacemaker placement tomorrow NPO after midnight. Blood pressure stable during stay in the ER Differential Diagnosis Differential Diagnoses: The differential diagnosis associated with the presentation includes Admission/Observation Consideration of admission/observation: Escalation of care including admission/observation considered Consult Healthcare Provider Management of the patient was discussed with: Hospitalist Lab Data [facility] Lab Attestation statement: I reviewed the patient's lab results. 01/25/24 17:23 01/25/24 17:23 Labs: Lab Results 01/25/24 01/25/24 Range/Units 17:23 18:44 WBC 10.7 (4.8-10.8) X10*3/uL RBC 4.29 (4.20-5.50) X10*6/uL Hgb 12.5 (12.0-16.0) g/dl Hct 39.0 (37.0-47.0) % MCV 90.9 (80.0-98.0) fL MCH 29.1 (27.0-33.0) pg MCHC 32.1 (31.0-35.0) g/dl RDW 14.5 (11.0-16.0) % Plt Count 260 (160-400) X10*3/uL MPV 9.2 L (9.4-12.3) fL Immature Gran % (Auto) 0.5 H (0.0-0.4) % Neut % (Auto) 70.6 (45-73) % Lymph % (Auto) 20.0 (20-40) % [place] % (Auto) 6.7 (2-11) % Eos % (Auto) 1.5 (0-4) % Baso % (Auto) 0.7 (0-2) % Lymph # (Auto) 2.2 (1.2-4.9) X10*3/uL [place] # (Auto) 0.7 (0.1-1.2) X10*3/uL Eos # (Auto) 0.2 (0.0-0.4) X10*3/uL Baso # (Auto) 0.1 (0.0-0.2) X10*3/uL Abs Immat Gran (auto) 0.05 H (0.00-0.03) X10*3/uL Absolute Neuts (auto) 7.6 (2.0-8.3) x10*3/uL Absolute Nucleated RBC 0.000 (0.0-0.012) X10*3/uL Nucleated RBC % (auto) 0.0 (0.0-0.2) /100WBC PT 12.5 (11.1-13.3) SEC INR 1.0 (0.9-1.1) Sodium 143 (135-145) mmol/L Potassium 4.2 (3.3-5.1) mmol/L Chloride 110 H (96-108) mmol/L Carbon Dioxide 25 (22-29) mmol/L Anion Gap 12 (12-20) BUN 23 H (9-16) mg/dL Creatinine 0.86 (0.5-1.4) mg/dL Estim Creat Clear Calc 40.2 Estimated GFR > 60 Random Glucose 95 (60-115) mg/dL Calcium 8.9 (8.4-10.2) mg/dL Magnesium 2.0 (1.6-2.6) mg/dL Total Bilirubin 0.4 (0.0-1.0) mg/dL AST 34 H (5-31) U/L ALT 25 (0-31) U/L Alkaline Phosphatase 80 (39-117) U/L Troponin I High Sens < 2.7 (<3.5-17.0) ng/L Total Protein 6.9 (6.5-8.0) g/dL Albumin 3.9 (3.5-5.0) g/dL TSH 1.72 (0.32-4.0) uIU/mL Urine Color Yellow Urine Appearance Clear Urine pH 6.0 (5.0-9.0) Ur Specific [place] 1.015 (1.005-1.025) Urine Protein Negative (Neg-Trace) mg/dL Urine Glucose (UA) Negative (Negative) mg/dL Urine Ketones Negative (Negative) mg/dL Urine Blood Trace H (Negative) Urine Nitrite Negative (Negative) Ur Leukocyte Esterase Large (3+) H (Negative) Urine RBC 0-2 (0-2) /HPF Urine WBC >50 H (0-5) /HPF Ur Squamous Epith Cells 0-2 (0-2) /HPF Urine Bacteria None Seen (None Seen) Hyaline Casts 0-2 (0-2) /LPF Independent Interpretation I performed an independent interpretation of an: EKG Interpretation: Bradycardia ventricular rate 48 beats per minute second-degree heart block? Left anterior fascicular block with right bundle-branch block no acute ST elevation Critical Care Time Critical Care Time Critical Care Time: Yes Total Critical Care Time: 60 Attestation: The patient was critically ill with a high probability of imminent or life threatening deterioration. I spent greater than 70???minutes of discontinuous time evaluating the patient,delivering critical care at the bedside, discussing and evaluating pertinent data with consultants. Critical care time does not include time spent performing separately billable procedures or teaching. Total time spent performing critical care was 60???minutes. Discharge Plan Discharge Clinical Impression: Heart block AV second degree, Dementia, Near syncope Patient Disposition: Admitted As Inpatient Interventions: Admission Worksheet (ED) Last Done: 01/26/24 01:08 Discharge Date/Time: 01/26/24 01:53
[2024-01-25 16:57] VITALS: BP 145/74; PULSE 41; RESP 20; TEMP 36.1; O2SAT 100; BMI 23.0
--- NOTE | 2024-01-25 17:01 | ECG_ITS ---
Test Reason : DIZNESS Blood Pressure : / mmHG Vent. Rate : 048 BPM Atrial Rate : 048 BPM P-R Int : 170 ms QRS Dur : 140 ms QT Int : 472 ms P-R-T Axes : 067 -64 -13 degrees QTc Int : 421 ms Sinus bradycardia with second degree AV block with Premature atrial complexes Right bundle branch block Left anterior fascicular block Bifascicular block Minimal voltage criteria for LVH, may be normal variant ( R in aVL ) Abnormal ECG When compared with ECG of 16-JAN-2024 19:24, Second degree AV block is present QT has shortened Referred By: Vicki Fields Electronically Signed By:ELKIN CEE MD
[2024-01-25 17:27] LABS: MANUAL DIFF FLAG NO
[2024-01-25 17:31] LABS: Basophils Absolute Auto 0.1 X10*3/uL (0.0-0.2); Basophils Percent Auto 0.7 % (0-2); Eosinophils Absolute Auto 0.2 X10*3/uL (0.0-0.4); Eosinophils Percent Auto 1.5 % (0-4); Hemoglobin 12.5 g/dl (12.0-16.0); Imm Gran Abs Auto 0.05 X10*3/uL (0.00-0.03); Imm Gran Pct Auto 0.5 % (0.0-0.4); Lymphocytes Absolute Auto 2.2 X10*3/uL (1.2-4.9); Mean Corpuscular HGB Conc 32.1 g/dl (31.0-35.0); Mean Corpuscular Hemoglobin 29.1 pg (27.0-33.0); Mean Corpuscular Volume 90.9 fL (80.0-98.0); Mean Platelet Volume 9.2 fL (9.4-12.3); Monocytes Absolute Auto 0.7 X10*3/uL (0.1-1.2); Monocytes Percent Auto 6.7 % (2-11); Neutrophils Absolute Auto 7.6 x10*3/uL (2.0-8.3); Neutrophils Percent Auto 70.6 % (45-73); Platelet Count 260 X10*3/uL (160-400); Red Blood Count 4.29 X10*6/uL (4.20-5.50); Red Cell Distribution Width 14.5 % (11.0-16.0); White Blood Count 10.7 X10*3/uL (4.8-10.8)
[2024-01-25 17:32] VITALS: BP 115/62; PULSE 50
[2024-01-25 17:34] VITALS: BP 141/69; PULSE 55
[2024-01-25 17:35] LABS: Prothrombin Time 12.5 SEC (11.1-13.3)
[2024-01-25 17:37] VITALS: BP 145/72; PULSE 60
[2024-01-25 17:49] LABS: Alanine Aminotransferase 25 U/L (0-31); Albumin Level 3.9 g/dL (3.5-5.0); Alkaline Phosphatase 80 U/L (39-117); Anion Gap 12 (12-20); Aspartate Amino Transferase 34 U/L (5-31); Bilirubin Total 0.4 mg/dL (0.0-1.0); Blood Urea Nitrogen 23 mg/dL (9-16); Calcium 8.9 mg/dL (8.4-10.2); Carbon Dioxide 25 mmol/L (22-29); Chloride 110 mmol/L (96-108); Creatinine Clr Calc Pharmacy 40.2; Estimated Glomerular Filt Rate > 60; Glucose Random 95 mg/dL (60-115); Potassium 4.2 mmol/L (3.3-5.1); Sodium 143 mmol/L (135-145); Total Protein 6.9 g/dL (6.5-8.0)
[2024-01-25 17:53] LABS: Troponin-I High Sensitivity < 2.7 ng/L (<3.5-17.0)
[2024-01-25 18:04] LABS: TSH reflex Free T4 1.72 uIU/mL (0.32-4.0)
[2024-01-25 18:15] VITALS: BP 110/52; PULSE 48; RESP 16; O2SAT 99
[2024-01-25 18:52] LABS: Appearance Urine Clear; Color Urine Yellow; Glucose Urine UA Negative (Negative); Leukocyte Esterase Urine Large (3+) (Negative); Nitrite Urine Negative (Negative); Specific Gravity - Urine 1.015 (1.005-1.025); UMIC TRIGGER UACC YES; Urine Blood Trace (Negative); Urine Ketones Negative (Negative); Urine Protein Negative (Neg-Trace)
[2024-01-25 18:57] LABS: Bacteria Urine None Seen (None Seen); Hyaline Casts Urine 0-2 /LPF (0-2); RBC Urine 0-2 /HPF (0-2); Squamous Epithelial Cell Urine 0-2 /HPF (0-2); UACC Culture Trigger YES; WBC Urine >50 /HPF (0-5)
--- NOTE | 2024-01-25 20:07 | PC.NURSE ---
Assumed care of the pt at 1900. Pt resting in bed with daughter at bedside. Pt is A&O to self but very forgetful. MD at bedside explained that pt will benefit from a pacemaker which can be placed tomorrow. Pt given a sandwich and crackers, per request. Pt resting comofrtbaly in bed with no complaints ootherwise.
--- NOTE | 2024-01-25 20:14 | PHA.MEDREC ---
Pharmacy Consult ? Medication Reconciliation Pharmacy has completed the medication reconciliation. Spoke to pt's daughter Lucy, currently pt is not on any medications
--- NOTE | 2024-01-25 20:33 | PM.IMHP ---
History of Present Illness Date of Service: 01/25/24 Attending physician on admission: Steven Cabrera Chief Complaint: tunnel vision, dizziness 83 year old female with history of hld, htn, unspecified dementia presented to the ED earlier today with her daughter, Virgen who assists with history, for evaluation of tunnel vision and dizziness noted after walking about a mile. HR was noted to be in 30s. The patient is oriented to self only and is quite forgetful. Lives with daughter and son who provide 24 hour care. Apparently was told by a v block saw operator years ago she may need a pacemaker. She has similar symptoms about a week ago with some confusion and was seen in the ED with normal work up except possible UTI however UC negative. There have been no fevers, chills, cough, sob, syncope, palpitations, or chest pain. Since arrival, heart rate fluctuation between 30's and 70s, no hypotension. . Renal function and electrolyte levels normal. Urinalysis with 3+ leukocytes, negative nitrites, trace blood, positive urinary sediment but negative bacteria. EKG shows sinus bradycardia with marked sinus arrhythmia, rate 48 with right bundle-branch block and left anterior fascicular block. ED discussed case with Cardiology recommending admission with pacemaker placement tomorrow. Review of Systems Review of Systems: Yes Unobtainable due to mental status [facility] Medical History (Updated 01/25/24 @ 20:43 by SUSAN Roman) Pure hypercholesterolemia Dementia Left shoulder pain Hypertension Family History Other Family history non-contributory Surgical History Hx of tonsillectomy (~1944) Social History Housing: House Alcohol intake: current Alcohol intake frequency: does not drink Patient Tobacco Use Status: Never used Tobacco Smoked in Last 30 Days: No e-Cigarette/Vaping Use: Never Used Second Hand Smoke Exposure: Yes Use of substances other than those prescribed or required for medical reasons: No Advance Directives: No Advance Directives Information Provided: No service: No Current occupational status: retired Cognitive needs: Yes Hearing needs: No Vision needs: No Meds Allergies Allergy/AdvReac Type Severity Reaction Status Date / Time No Known Allergies Allergy Verified 01/25/24 17:02 [No Known Allergies*] Home Medications Medication Instructions Recorded Confirmed Last Taken Type No Known Home Meds 01/25/24 01/25/24 Unknown History Physical Exam Vital Signs and Narrative: Vital Signs: Last Vital Signs Temp 96.9 F 01/25/24 16:57 Pulse 48 L 01/25/24 18:15 Resp 16 01/25/24 18:15 BP 110/52 L 01/25/24 18:15 Pulse Ox 99 01/25/24 18:15 O2 Del Method Room Air 01/25/24 18:15 BMI result Body Mass Index 23.0 Constitutional - Awake and Alert, No apparent distress Eyes - PERRLA, EOMI Cardiovascular - S1S2, irregular, bradycardic, No edema Respiratory - Normal lung expansion, Normal respiratory effort, No respiratory distress, CTA bilaterally Gastrointestinal - NT / ND; +BS; No rebound or guarding Extremities - no calf tenderness bilaterally, no swelling Skin - Warm/Dry Neurological - Alert & oriented to self only, forgetful Psychological - Appropriate affect Results Labs 01/25/24 17:23 01/25/24 17:23 Labs: Laboratory Results - last 24 hr 01/25/24 01/25/24 17:23 18:44 MCV 90.9 MCH 29.1 MCHC 32.1 RDW 14.5 Plt Count 260 MPV 9.2 L Immature Gran % (Auto) 0.5 H Neut % (Auto) 70.6 Lymph % (Auto) 20.0 [place] % (Auto) 6.7 Eos % (Auto) 1.5 Baso % (Auto) 0.7 Lymph # (Auto) 2.2 [place] # (Auto) 0.7 Eos # (Auto) 0.2 Baso # (Auto) 0.1 Abs Immat Gran (auto) 0.05 H Absolute Neuts (auto) 7.6 Absolute Nucleated RBC 0.000 Nucleated RBC % (auto) 0.0 PT 12.5 INR 1.0 Anion Gap 12 Estim Creat Clear Calc 40.2 Estimated GFR > 60 Random Glucose 95 Calcium 8.9 Magnesium 2.0 Total Bilirubin 0.4 AST 34 H ALT 25 Alkaline Phosphatase 80 Troponin I High Sens < 2.7 Total Protein 6.9 Albumin 3.9 TSH 1.72 Urine Color Yellow Urine Appearance Clear Urine pH 6.0 Ur Specific [place] 1.015 Urine Protein Negative Urine Glucose (UA) Negative Urine Ketones Negative Urine Blood Trace H Urine Nitrite Negative Ur Leukocyte Esterase Large (3+) H Urine RBC 0-2 Urine WBC >50 H Ur Squamous Epith Cells 0-2 Urine Bacteria None Seen Hyaline Casts 0-2 Assessment and Plan (1) Symptomatic bradycardia: Status: Acute Plan 83 year old female with history of hld, htn, unspecified dementia admitted for symptomatic bradycardia #Symtomatic bradycardia -Variable HR 30s-70s. Earlier symptomatic with lightheadedness, visual changes (black out). No syncope. No hypotension -monitor on telelemtry -cardiology consult to evaluate for possible pacemaker -npo after midnight #Unspecified dementia -mentation baseline per daughter DVT prophylaxis- SCPs full code Guardianship pt- guardian: Jess Ellis [phone] Pt requires inpt stay at least 2 midnights due to symptomatic bradycardia requiring close cardiac monitoring and monitoring of vital signs as well as expert consultation and probable pace maker placement Quality Stroke Does the patient have a stroke diagnosis?: No VTE Prior VTE?: No VTE Risk Level:: Medical - moderate - high VTE Device Contraindication: Treatment Not Indicated VTE Drug Contraindication: N/A - Med Ordered
[2024-01-25 21:42] VITALS: BP 155/53; PULSE 43; RESP 16; TEMP 36.3; O2SAT 98
[2024-01-26] VITALS (7 sets, daily range): BP systolic 123–189; BP diastolic 61–81; PULSE 26–44; RESP 16–20; TEMP 36.1–36.6; O2SAT 95–100; BMI 21.5
--- NOTE | 2024-01-26 00:02 | PC.NURSE ---
Camera monitor placed with pt as we are concerned she may pull her IV out. Pt asleep at this time.
[2024-01-26] MEDS: 0.9 % Sodium Chloride Flush 3 ML SYRINGE IVFLUSH ×4 (00:05→20:08)
--- NOTE | 2024-01-26 07:13 | P.PNIM_ITS ---
Subjective Subjective Date of Service: 01/26/24 Interval History: f/u on symptomatic bradycardia interval history: HR remains in the 20s and 30 but no symptoms at this time, we are unable to reach the guardian Physical Exam 2 Vital Signs: Vital Signs: Last Vital Signs Temp 96.9 F 01/26/24 03:47 Pulse 40 L 01/26/24 03:47 Resp 20 01/26/24 03:47 BP 144/65 H 01/26/24 03:47 Pulse Ox 97 01/26/24 03:47 O2 Del Method Room Air 01/26/24 03:47 BMI result Body Mass Index 21.5 General: AO X , no acute distress Resp: CTA bilateral CVS: S1,S2,RRR GI: +BS, NT, no distention Skin: No rash Neuro: motor grossly intact Psych: appropriate affect Objective Data Active Medications Acetaminophen (Acetaminophen 325 Mg Tablet) 650 mg PO Q6H PRN PRN Reason: Pain, Mild (Pain Scale 1-3) Ondansetron HCl (Ondansetron Hcl 4 Mg/2 Ml Vial) 4 mg IVPUSH Q8H PRN PRN Reason: Nausea and Vomiting Senna (Sennosides 8.6 Mg Tablet) 17.2 mg PO BEDTIME PRN PRN Reason: Constipation Sodium Chloride (0.9 % Sodium Chloride Flush 3 Ml Syringe) 3 ml IVFLUSH [facility] Last Admin: 01/26/24 00:05 Dose: 3 ml Documented By: ALLAN Labs 01/26/24 06:54 01/26/24 06:54 Labs: Laboratory Results - last 24 hr 01/25/24 01/25/24 17:23 18:44 MCV 90.9 MCH 29.1 MCHC 32.1 RDW 14.5 Plt Count 260 MPV 9.2 L Immature Gran % (Auto) 0.5 H Neut % (Auto) 70.6 Lymph % (Auto) 20.0 [place] % (Auto) 6.7 Eos % (Auto) 1.5 Baso % (Auto) 0.7 Lymph # (Auto) 2.2 [place] # (Auto) 0.7 Eos # (Auto) 0.2 Baso # (Auto) 0.1 Abs Immat Gran (auto) 0.05 H Absolute Neuts (auto) 7.6 Absolute Nucleated RBC 0.000 Nucleated RBC % (auto) 0.0 PT 12.5 INR 1.0 Anion Gap 12 Estim Creat Clear Calc 40.2 Estimated GFR > 60 Random Glucose 95 Calcium 8.9 Magnesium 2.0 Total Bilirubin 0.4 AST 34 H ALT 25 Alkaline Phosphatase 80 Troponin I High Sens < 2.7 Total Protein 6.9 Albumin 3.9 TSH 1.72 Urine Color Yellow Urine Appearance Clear Urine pH 6.0 Ur Specific [place] 1.015 Urine Protein Negative Urine Glucose (UA) Negative Urine Ketones Negative Urine Blood Trace H Urine Nitrite Negative Ur Leukocyte Esterase Large (3+) H Urine RBC 0-2 Urine WBC >50 H Ur Squamous Epith Cells 0-2 Urine Bacteria None Seen Hyaline Casts 0-2 Assessment and Plan (1) Near syncope: Status: Acute (2) Heart block AV second degree: Status: Acute (3) Symptomatic bradycardia: Status: Acute Plan 83 year old female with history of hld, htn, unspecified dementia admitted for symptomatic bradycardia #Symtomatic bradycardia related to heart block - HR in 20s and 30s but BP ok. -monitor on telelemtry -cardiology assessing for need for pace maker, we need to obtain consent from guardian who is not responding #Unspecified dementia -mentation baseline per daughter DVT prophylaxis- SCPs full code Guardianship pt- guardian: Jess Ellis [phone]--Called and could not reach need inpt for symptomaic bradycardia d/t symptomatic bradycardia that will need a pacemaker Quality Stroke Does the patient have a stroke diagnosis?: No VTE Prior VTE?: No VTE Risk Level:: Medical - moderate - high VTE Device Contraindication: Treatment Not Indicated VTE Drug Contraindication: N/A - Med Ordered
[2024-01-26 07:36] LABS: MANUAL DIFF FLAG NO
[2024-01-26 07:42] LABS: Basophils Absolute Auto 0.1 X10*3/uL (0.0-0.2); Basophils Percent Auto 0.7 % (0-2); Eosinophils Absolute Auto 0.3 X10*3/uL (0.0-0.4); Eosinophils Percent Auto 2.8 % (0-4); Hematocrit 37.2 % (37.0-47.0); Hemoglobin 11.8 g/dl (12.0-16.0); Imm Gran Abs Auto 0.02 X10*3/uL (0.00-0.03); Imm Gran Pct Auto 0.2 % (0.0-0.4); Lymphocytes Absolute Auto 2.1 X10*3/uL (1.2-4.9); Lymphocytes Percent Auto 22.1 % (20-40); Mean Corpuscular HGB Conc 31.7 g/dl (31.0-35.0); Mean Corpuscular Hemoglobin 28.7 pg (27.0-33.0); Mean Corpuscular Volume 90.5 fL (80.0-98.0); Mean Platelet Volume 9.8 fL (9.4-12.3); Monocytes Absolute Auto 0.7 X10*3/uL (0.1-1.2); Monocytes Percent Auto 7.7 % (2-11); Neutrophils Absolute Auto 6.4 x10*3/uL (2.0-8.3); Neutrophils Percent Auto 66.5 % (45-73); Platelet Count 231 X10*3/uL (160-400); Red Blood Count 4.11 X10*6/uL (4.20-5.50); Red Cell Distribution Width 14.3 % (11.0-16.0); White Blood Count 9.6 X10*3/uL (4.8-10.8)
[2024-01-26 07:58] LABS: Anion Gap 13 (12-20); Blood Urea Nitrogen 20 mg/dL (9-16); Calcium 8.7 mg/dL (8.4-10.2); Carbon Dioxide 24 mmol/L (22-29); Chloride 111 mmol/L (96-108); Creatinine Clr Calc Pharmacy 43.8; Estimated Glomerular Filt Rate > 60; Glucose Random 89 mg/dL (60-115); Potassium 3.5 mmol/L (3.3-5.1); Sodium 144 mmol/L (135-145)
--- NOTE | 2024-01-26 09:43 | MHC.CM.PN ---
Addendum entered by Lianne Ovalle RN 01/26/24 13:03: CM ATTMEPTED TO CONTACT PT'S SON AND DTR LISTED PRIMARY/SECONDARY CONTACTS, NO ANSWER MEESAGE LEFT ON DTR'S LINE WHOM PT PREVIOUSLY RESIDED W/IN OCT 2023, OF NOTE ELDER AT RISK WAS GOINT TO BE FILED W/GSSS BY ED CARLOS. NSG AWRE TO LET CM KNOW IF ANY VISITORS COME IN. Original Note: `CM ATTEMPTED TO DELIVER IMM 01/26/24 9:40AM TO PT'S GUARDIAN SIRI MONSON AT [phone], DETAILED MESSAGE LEFT W/REQUEST FOR CALL BACK.
--- NOTE | 2024-01-26 11:07 | P.CONCA_ITS ---
History of Present Illness History of Present Illness Date of Service: 01/26/24 Requesting physician: Justin Parker Consult reason: other (Bradycardia) Chief complaint: symptomatic bradycardia Narrative: I was consulted to see Alanis in cardiology consultation today. Patient was brought in yesterday by her daughter as she was complaining of dizziness while walking in the store. However the history is not corroborated by the patient. Patient has advanced cognitive issue and and as per the daughter does not recognize the son or herself. Patient came in the hospital was noted to have second-degree AV block. There are episodes of blocked PACs as well as PACs. Overnight has remained in bradycardia with intermittent second-degree AV block with heart rate in the 20s. No symptoms reported during that time. Patient is hemodynamically stable. Discussed with the daughter and found out that she is not healthcare proxy for her mother and she has a conservator Jess Ellis, who has a long forearm and try to contact but without any success. Did leave a voicemail. Patient is NPO for possible pacemaker. However discussion clinically to be made about pacemaker placement. Patient's daughter that she was told more than 15 years ago that she will require a pacemaker. This is highly unusual. Patient has survived all the time. She does have history of hypertension and hyperlipidemia. Patient's blood pressure noted to be labile. Review of Systems 2 Review of Systems: Yes Unobtainable due to mental status Neurologic: Reports confusion Psychiatric: Psychiatric: Reports confusion [facility] Past Medical History Medical History (Updated 01/26/24 @ 01:55 by Anand Garibay MD) Pure hypercholesterolemia Dementia Left shoulder pain Hypertension Family History Family History Other Family history non-contributory Surgical History Surgical History Hx of tonsillectomy (~1944) Social History Social History Household Members: Unknown / Unable to assess Household Members Other:: hx dementia Housing: House Alcohol intake: current Alcohol intake frequency: does not drink Patient Tobacco Use Status: Never used Tobacco e-Cigarette/Vaping Use: Never Used Second Hand Smoke Exposure: Yes service: No Current occupational status: retired Cognitive needs: Yes Hearing needs: No Vision needs: No Meds Allergies Allergy/AdvReac Type Severity Reaction Status Date / Time No Known Allergies Allergy Verified 01/25/24 17:02 [No Known Allergies*] Active Medications: Current Medications Acetaminophen (Acetaminophen 325 Mg Tablet) 650 mg PO Q6H PRN PRN Reason: Pain, Mild (Pain Scale 1-3) Ondansetron HCl (Ondansetron Hcl 4 Mg/2 Ml Vial) 4 mg IVPUSH Q8H PRN PRN Reason: Nausea and Vomiting Senna (Sennosides 8.6 Mg Tablet) 17.2 mg PO BEDTIME PRN PRN Reason: Constipation Sodium Chloride (0.9 % Sodium Chloride Flush 3 Ml Syringe) [facility] Last Admin: 01/26/24 08:11 Dose: 3 ml Home Medications Medication Instructions Recorded Confirmed Last Taken Type No Known Home Meds 01/25/24 01/25/24 Unknown History Physical Exam 2 Vital Signs: Vital Signs: Last Vital Signs Temp 97.8 F 01/26/24 07:22 Pulse 38 L 01/26/24 07:22 Resp 16 01/26/24 07:22 BP 123/61 01/26/24 07:22 Pulse Ox 100 01/26/24 07:22 O2 Del Method Room Air 01/26/24 07:22 BMI result Body Mass Index 21.5 Const: General: cooperative, comfortable, alert, awake and confusion N utritional Appearance: thin Orientation/consciousness: confusion HEENT: Head: Yes normocephalic and Yes atraumatic Neck: Neck: Yes trachea midline, Yes supple and Yes no JVD Resp: Effort & Inspection: decreased respiratory effort Auscultation: clear to auscultation bilaterally Cardio: Jugular venous distension: no JVD Rate: bradycardic Rhythm: a bnormal rhythm other Heart sounds: Murmur heart sound present systolic late, decrescendo and crescendo GI: Auscultation: normal bowel sounds Neuro: General: no focal motor deficits and confusion Extrem: General: Yes no clubbing, cyanosis or edema Objective Labs and Meds 01/26/24 06:54 01/26/24 06:54 Lab results: Laboratory Results - last 24 hr 01/25/24 01/25/24 01/26/24 17:23 18:44 06:54 WBC 10.7 9.6 RBC 4.29 4.11 L Hgb 12.5 11.8 L Hct 39.0 37.2 MCV 90.9 90.5 MCH 29.1 28.7 MCHC 32.1 31.7 RDW 14.5 14.3 Plt Count 260 231 MPV 9.2 L 9.8 Immature Gran % (Auto) 0.5 H 0.2 Neut % (Auto) 70.6 66.5 Lymph % (Auto) 20.0 22.1 [place] % (Auto) 6.7 7.7 Eos % (Auto) 1.5 2.8 Baso % (Auto) 0.7 0.7 Lymph # (Auto) 2.2 2.1 [place] # (Auto) 0.7 0.7 Eos # (Auto) 0.2 0.3 Baso # (Auto) 0.1 0.1 Abs Immat Gran (auto) 0.05 H 0.02 Absolute Neuts (auto) 7.6 6.4 Absolute Nucleated RBC 0.000 0.000 Nucleated RBC % (auto) 0.0 0.0 PT 12.5 INR 1.0 Sodium 143 144 Potassium 4.2 3.5 Chloride 110 H 111 H Carbon Dioxide 25 24 Anion Gap 12 13 BUN 23 H 20 H Creatinine 0.86 0.79 Estim Creat Clear Calc 40.2 43.8 Estimated GFR > 60 > 60 Random Glucose 95 89 Calcium 8.9 8.7 Magnesium 2.0 Total Bilirubin 0.4 AST 34 H ALT 25 Alkaline Phosphatase 80 Troponin I High Sens < 2.7 Total Protein 6.9 Albumin 3.9 TSH 1.72 Urine Color Yellow Urine Appearance Clear Urine pH 6.0 Ur Specific [place] 1.015 Urine Protein Negative Urine Glucose (UA) Negative Urine Ketones Negative Urine Blood Trace H Urine Nitrite Negative Ur Leukocyte Esterase Large (3+) H Urine RBC 0-2 Urine WBC >50 H Ur Squamous Epith Cells 0-2 Urine Bacteria None Seen Hyaline Casts 0-2 Assessment and Plan (1) Heart block AV second degree: Status: Acute Second-degree AV block with possible near syncopal symptoms although patient is not able to provide any history. History was given by the daughter. Unsure as to what is going on. Patient also has significant aortic stenosis murmur is possible that AV block is related to calcific aortic valve disease. She will require an echocardiogram. If she is truly symptomatic she would need a dual- chamber pacemaker however she can not give a consent for pacemaker and she has a conservative. Have placed a call to her office to discuss with her about patient's condition and decide about the pacemaker therapy. She will also need an echocardiogram to evaluate for aortic stenosis which possibly is significant and could also lead to near syncopal symptoms. Continue maintain adequate hydration. Hold off on any rate lowering medication or any antihypertensives at this point in time. Continue full disclosure cardiac telemetry. Transcutaneous pacemaker at bedside. Overall prognosis is guarded. Will follow with you Procedures Date of Service Date of Service: 01/26/24
[2024-01-27 03:38] VITALS: BP 137/60; PULSE 37; RESP 20; TEMP 37.2; O2SAT 94
--- NOTE | 2024-01-27 06:06 | ECG_ITS ---
Test Reason : ? T waves higher Blood Pressure : / mmHG Vent. Rate : 083 BPM Atrial Rate : 083 BPM P-R Int : 104 ms QRS Dur : 026 ms QT Int : 496 ms P-R-T Axes : 000 000 236 degrees QTc Int : 582 ms Normal sinus rhythm with complete heart block with ventricular escape complexes Abnormal ECG When compared with ECG of 25-JAN-2024 17:03, Significant changes have occurred Referred By: Justin Parker Electronically Signed By:ELKIN CEE MD
--- NOTE | 2024-01-27 06:20 | MHC.PIE ---
P.T WAVE CHANGES I.NOTED BY [employer] TO HAVE T WAVE CHANGES COMPARED TO EARLIER .12 LEAD EKG DONE AND SENT TO DR MOSER WITH UPDATE.PT ASYMPTOMATIC.DENIES PAIN. E.NO NEW ORDERS FROM MD.CONTINUE TO MONITOR.
--- NOTE | 2024-01-27 07:18 | ECG_ITS ---
Test Reason : rhytm change Blood Pressure : / mmHG Vent. Rate : 032 BPM Atrial Rate : 000 BPM P-R Int : 000 ms QRS Dur : 156 ms QT Int : 672 ms P-R-T Axes : 000 111 -64 degrees QTc Int : 490 ms Normal sinus rhythm with complete heart block Idioventricular rhythm Abnormal ECG When compared with ECG of 27-JAN-2024 06:04, No significant changes seen Referred By: Justin Parker Electronically Signed By:ELKIN CEE MD
[2024-01-27 07:33] VITALS: BP 131/63; PULSE 33; RESP 18; TEMP 36.4; O2SAT 98
[2024-01-27] MEDS: 0.9 % Sodium Chloride Flush 3 ML SYRINGE IVFLUSH ×2 (09:21→17:53)
--- NOTE | 2024-01-27 10:13 | HO.PM.IMPN ---
Subjective Subjective Date of Service: 01/27/24 Interval History: f/u on symptomatic bradycardia interval history: HR remains still low fluctuate in 20s to 70s, she alert without any complaint Physical Exam Vital Signs: Vital Signs: Last Vital Signs Temp 97.6 F 01/27/24 07:33 Pulse 33 L 01/27/24 07:33 Resp 18 01/27/24 07:33 BP 131/63 01/27/24 07:33 Pulse Ox 98 01/27/24 07:33 O2 Del Method Room Air 01/27/24 07:33 BMI result Body Mass Index 21.5 General: Pleasantly confused, not oriented at all Resp: CTA bilateral CVS: S1,S2, iregular jeferson GI: +BS, NT, no distention Skin: No rash Neuro: motor grossly intact Psych: appropriate affect Objective Data Active Medications Acetaminophen (Acetaminophen 325 Mg Tablet) 650 mg PO Q6H PRN PRN Reason: Pain, Mild (Pain Scale 1-3) Ondansetron HCl (Ondansetron Hcl 4 Mg/2 Ml Vial) 4 mg IVPUSH Q8H PRN PRN Reason: Nausea and Vomiting Senna (Sennosides 8.6 Mg Tablet) 17.2 mg PO BEDTIME PRN PRN Reason: Constipation Sodium Chloride (0.9 % Sodium Chloride Flush 3 Ml Syringe) [facility] Last Admin: 01/27/24 09:21 Dose: 3 ml Documented By: PHANLYM Labs 01/26/24 06:54 01/26/24 06:54 Microbiology Microbiology Results: Microbiology 01/25/24 Unknown Urine Culture - Preliminary Urine clean catch - Urine turner top Culture too young to evaluate. Assessment and Plan (1) Near syncope: Status: Acute (2) Heart block AV second degree: Status: Acute (3) Symptomatic bradycardia: Status: Acute Plan 83 year old female with history of hld, htn, unspecified dementia admitted for symptomatic bradycardia Symtomatic bradycardia related to heart block - HR can be as low as in 20s and as high as in 70s, however hemodynamically stable. -monitor on telelemtry -cardiology recommends pacemaker, I spoke to guardian LinneaCaleb--[phone], Back up number [phone] and She is agreable to pacemaker. I also spoke to her daughter (Lucy Graves?[phone]) appointed Co-guardian as of last SundayJanuary [address], She also is agreable for a pace maker Unspecified dementia -mentation baseline per daughter DVT prophylaxis- SCPs full code Guardianship pt- guardian: Jess Ellis [phone], Spoke to her and she's agreeable for a pacemaker need inpt for symptomaic bradycardia d/t symptomatic bradycardia that will need a pacemaker Quality Stroke Does the patient have a stroke diagnosis?: No VTE Prior VTE?: No VTE Risk Level:: Medical - moderate - high VTE Device Contraindication: Treatment Not Indicated VTE Drug Contraindication: N/A - Med Ordered
[2024-01-27 11:27] VITALS: BP 121/58; PULSE 72; RESP 18; TEMP 36.9; O2SAT 95
--- NOTE | 2024-01-27 12:12 | PM.PNCARD ---
Subjective Subjective Date of Service: 01/27/24 Principal diagnosis: Advanced AV block. Interval history: Patient remains bradycardia with intermittent second-degree AV block and intermittent out appears to be advanced AV block. Patient remains asymptomatic with lightheadedness at rest. Blood pressure is stable. Spoke with the daughter at bedside about need for pacemaker although given that she has episode of syncope. Although it is possible that she also has underlying significant aortic stenosis which is both likely causing her conduction abnormality as well as could be responsible for symptoms. She continues to remain confused. Review of Systems Review of Systems Yes Unobtainable due to mental status Reports confusion Psychiatric: Reports confusion Physical Exam Vital Signs: Last Vital Signs Temp 98.4 F 01/27/24 11:27 Pulse 72 01/27/24 11:27 Resp 18 01/27/24 11:27 BP 121/58 L 01/27/24 11:27 Pulse Ox 95 01/27/24 11:27 O2 Del Method Room Air 01/27/24 11:27 BMI result Body Mass Index 21.5 Const General: cooperative, comfortable, alert, awake and confusion Nutritional Appearance: thin Orientation/consciousness: confusion HEENT Head: Yes normocephalic and Yes atraumatic Neck Neck: Yes trachea midline, Yes supple and Yes no JVD Resp Effort & Inspection: decreased respiratory effort Auscultation: clear to auscultation bilaterally Cardio Jugular venous distension: no JVD Rate: bradycardic Rhythm: abnormal rhythm other Heart sounds: Murmur heart sound present systolic late, decrescendo and crescendo GI Auscultation: normal bowel sounds Neuro General: no focal motor deficits and confusion Extrem General: Yes no clubbing, cyanosis or edema Objective Labs and Meds 01/26/24 06:54 01/26/24 06:54 Progress Note: A&P Assessment and plan (1) Heart block AV second degree: Status: Acute Assessment and Plan: Second-degree and intermittently advanced AV block most likely related to calcific aortic valve disease. Patient came with near-syncope therefore there is indication for pacemaker. However had a very detailed discussion with patient's daughter who has been identified as a coal guardian in mother's care. We discussed that pacemaker only temporary solve her AV block and will not result in any improvement in her aortic stenosis heart dementia. If she does have significant or critical aortic stenosis based on echocardiogram she would not be a candidate for aortic valve replacement given her advanced cognitive dysfunction. This was discussed with her. She said despite that she would like to stabilize her bradycardia and gave her an option to not have recurrent hospitalization sudden cardiac related to AV block. Risks, benefits, alternatives were discussed. Consent was obtained. Will follow up with her Time Spent With Patient Time: Total time managing care of this patient today ____ minutes. Progress Note: Quality Stroke Does the patient have a stroke diagnosis?: No Procedures Date of Service Date of Service: 01/27/24
[2024-01-27 16:00] VITALS: BP 127/58; PULSE 35; RESP 16; TEMP 36.5; O2SAT 100
[2024-01-27 19:24] VITALS: BP 134/82; PULSE 36; RESP 20; TEMP 36.3; O2SAT 98
[2024-01-27 23:35] VITALS: BP 140/68; PULSE 27; RESP 18; TEMP 37.1; O2SAT 95
[2024-01-28] MEDS: 0.9 % Sodium Chloride Flush 3 ML SYRINGE IVFLUSH ×3 (00:14→15:25)
[2024-01-28 03:52] VITALS: BP 143/68; PULSE 38; RESP 18; TEMP 36.6; O2SAT 99
--- NOTE | 2024-01-28 07:00 | CA_ITS ---
Transthoracic Echocardiogram Patient (Last, First, Middle): Alanis Graves E Gender: Female Date of : 1940 Age: 83 Procedure Date: 01/28/2024 Procedure Type: Transthoracic Echocardiogram Location[place] [facility] [place] Height: 157.48 cm Weight: 61.24 kg BSA: 1.62 m2 Heart Rate: 33 bpm BP: 116 / 60 mmHg Circle Edger: JERICHO Referring MD: Wesley Danielle MD Symptoms: Aortic stenosis Study Quality: Fair ECG Rhythm: Bradycardia/second degree block Conclusions: - The left ventricular systolic function is hyperdynamic. The calculated ejection fraction is 71% by biplane method. - There is mild aortic valve stenosis. (difficult to assess aortic stenosis due to heart block). - There is moderate mitral valve regurgitation. Findings Left Ventricle Normal left ventricular cavity size. There is normal left ventricular wall thickness. The left ventricular systolic function is hyperdynamic. The calculated ejection fraction is 71% by biplane method. There is no evidence of regional wall motion abnormalities. Diastolic function is indeterminate on the basis of available data. Right Ventricle Normal right ventricular cavity size and systolic function. Atria Moderate biatrial enlargement. Aortic Valve There is moderate calcification of the aortic valve. There is mild aortic valve stenosis. There is mild aortic valve regurgitation. (difficult to assess aortic stenosis due to heart block). Mitral Valve There is mild anterior and posterior mitral leaflet thickening. There is moderate mitral valve regurgitation. The mitral regurgitation jet is directed anteriorly. There is no mitral valve stenosis. Pulmonic Valve The pulmonic valve is likely normal. Tricuspid Valve There is mild tricuspid valve regurgitation. There is no evidence of pulmonary hypertension. Great Vessels The asc aorta is normal in size. Venous The inferior vena cava is normal in size and collapses less than 50% with inspiration. Pericardium/Pleural There is no evidence of pericardial effusion. Prior Study Comparison No prior study available for comparison. Measurements 2D Linear Measurements IVSd: 1.01 0.6-0.9/0.6-1.0 cm LVIDd: 4.71 3.9-5.3/4.2-5.9 cm LVIDd Index: 2.91 2.4-3.2/2.2-3.1 cm/m2 LVIDs: 2.78 2.0-3.6 cm LVPWd: 0.97 0.7-1.1 cm LA Diam: 4.10 2.7-3.8/3.0-4.0 cm LAIDs Index: 2.53 1.5-2.3 cm/m2 LV Mass: 202.59 67-162/88-224 g LV Mass Index: 125.05 43-95/49-115 g/m2 LVOT Diam: 2.00 3.0+(-)1.3 cm 2D Systolic Function EF 4C: 59.90 >55% EF 2C: 74.00 >55% EF BiP: 70.50 >55% Mitral Valve MV VTI: 0.58 MV Pk Anatoliy: 1.08 MV Mn Anatoliy: 0.64 MV Pk Grad: 5.00 MV Mn Grad: 2.00 MV Pk E: 0.90 MV PK A: 0.86 MV Decel Time: 286.00 E/A: 1.10 E'Lateral: 6.20 E'Medial: 10.10 E/E' Med: 8.90 E/E' Lat: 14.50 PHT: 84.00 MVA PHT: 2.62 Decel Dale: 3.14 Aortic Valve AoV Pk Anatoliy: 2.96 AoV Mn Anatoliy: 1.80 AoV VTI: 0.65 AoV Pk Grad: 35.00 Aov Mn Grad: 16.00 JADA Cont.VTI: 1.37 LVOT LVOT Pk Anatoliy: 1.07 LVOT Mn Anatoliy: 0.74 LVOT VTI: 0.28 LVOT Pk Grad: 5.00 LVOT Mn Grad: 3.00 LVOT Diam: 2.00 LVOT Area: 3.14 Diastolic Function MV Pk E: 0.90 MV Pk A: 0.86 E/A: 1.10 E'Medial: 10.10 E/E' Med: 8.90 E' Laterial: 6.20 E/E' Lat: 14.50 Right Ventricle TAPSE (mm): 41.20 TVS' Anatoliy: 13.90 Tricuspid Valve TR Pk Anatoliy: 2.86 TR Pk Grad: 33.00 Great Vessels Aorta Sinus of Valsalva: 2.70 2.0-3.5 cm Ao Asc: 3.80 2.1-3.4 cm Pulmonary Valve PV Pk Anatoliy: 1.36 Peak PV Grad: 7.00 Updated in Other Vendor System with Status of Final Wesley Danielle MD electronically signed on 01/28/2024 11:30:00 AM with status of Final
[2024-01-28 07:22] VITALS: BP 127/60; PULSE 32; RESP 16; TEMP 36.2; O2SAT 99
--- NOTE | 2024-01-28 09:53 | PM.PNCARD ---
Subjective Subjective Date of Service: 01/28/24 Principal diagnosis: Advanced AV block. Interval history: She is quite confused and not able to give any information. Review of Systems Review of Systems Unable to obtain. Physical Exam Vital Signs: Last Vital Signs Temp 97.2 F 01/28/24 07:22 Pulse 32 L 01/28/24 07:22 Resp 16 01/28/24 07:22 BP 127/60 01/28/24 07:22 Pulse Ox 99 01/28/24 07:22 O2 Del Method Room Air 01/28/24 07:22 BMI result Body Mass Index 21.5 Const General: comfortable and no acute distress Orientation/consciousness: No patient oriented x3 HEENT Other: Unremarkable Head: Yes normal to inspection Neck Neck: Yes normal visual inspection Chest Chest palpation & inspection: normal inspection of the chest Resp Auscultation: clear to auscultation bilaterally Cardio Palpation: normal PMI Heart sounds: S1 normal heart sound present, S2 normal heart sound present, no gallops, Murmur heart sound present systolic III/ and at the right sternal border and no rubs GI Palpation (GI): Soft to palpation Back/Spine/Pelvis Other: unremarkable Skin General skin exam: no rashes or lesions noted Neuro General: No patient oriented x3 Extrem General: Yes normal to inspection Psych Mental Status: mental status grossly abnormal Objective Labs and Meds 01/26/24 06:54 01/26/24 06:54 Progress Note: A&P Assessment and plan (1) Heart block AV second degree: Status: Acute Assessment and Plan: Plan for permanent pacemaker today but depends on OR availability. Discussed with Dr. Coronado/. (2) Nonrheumatic aortic (valve) stenosis: Status: Acute Assessment and Plan: Has aortic stenotic murmur on exam. Obtain echo. Time Spent With Patient Time: Total time managing care of this patient today ____ minutes. Progress Note: Quality Stroke Does the patient have a stroke diagnosis?: No Procedures Date of Service Date of Service: 01/28/24
--- NOTE | 2024-01-28 10:13 | HO.PM.IMPN ---
Subjective Subjective Date of Service: 01/28/24 Interval History: f/u on symptomatic bradycardia interval history: HR remains still low fluctuate in 20s to 70s, assymptomatic Physical Exam Vital Signs: Vital Signs: Last Vital Signs Temp 97.2 F 01/28/24 07:22 Pulse 32 L 01/28/24 07:22 Resp 16 01/28/24 07:22 BP 127/60 01/28/24 07:22 Pulse Ox 99 01/28/24 07:22 O2 Del Method Room Air 01/28/24 07:22 BMI result Body Mass Index 21.5 General: Pleasantly confused, not oriented at all Resp: CTA bilateral CVS: S1,S2, iregular jeferson GI: +BS, NT, no distention Skin: No rash Neuro: motor grossly intact Psych: appropriate affect Objective Data Active Medications Acetaminophen (Acetaminophen 325 Mg Tablet) 650 mg PO Q6H PRN PRN Reason: Pain, Mild (Pain Scale 1-3) Ondansetron HCl (Ondansetron Hcl 4 Mg/2 Ml Vial) 4 mg IVPUSH Q8H PRN PRN Reason: Nausea and Vomiting Senna (Sennosides 8.6 Mg Tablet) 17.2 mg PO BEDTIME PRN PRN Reason: Constipation Sodium Chloride (0.9 % Sodium Chloride Flush 3 Ml Syringe) 3 [facility] Last Admin: 01/28/24 08:35 Dose: 3 ml Documented By: PHANLYM Labs 01/26/24 06:54 01/26/24 06:54 Microbiology Microbiology Results: Microbiology 01/25/24 Unknown Urine Culture - Final Urine clean catch - Urine turner top Assessment and Plan (1) Near syncope: Status: Acute (2) Heart block AV second degree: Status: Acute (3) Symptomatic bradycardia: Status: Acute Plan 83 year old female with history of hld, htn, unspecified dementia admitted for symptomatic bradycardia Symtomatic bradycardia related to heart block - HR can be as low as in 20s and as high as in 70s, however hemodynamically stable. -monitor on telelemtry, atropine if symptomatic, pacer pad -For pacemaker today, I spoke to guardian LinneaCaleb--[phone], Back up number [phone] and She is agreable to pacemaker. I also spoke to her daughter (Lucy Graves?[phone]) appointed Co-guardian as of last SundayJanuary [address], She also is agreable for a pace maker Unspecified dementia -mentation baseline per daughter DVT prophylaxis- SCPs full code Guardianship pt- guardian: Jess Ellis [phone], Spoke to her and she's agreeable for a pacemaker need inpt for symptomaic bradycardia d/t symptomatic bradycardia that will need a pacemaker Quality Stroke Does the patient have a stroke diagnosis?: No VTE Prior VTE?: No VTE Risk Level:: Medical - moderate - high VTE Device Contraindication: Treatment Not Indicated VTE Drug Contraindication: N/A - Med Ordered
[2024-01-28 11:16] VITALS: BP 146/67; PULSE 40; RESP 18; TEMP 36.4; O2SAT 99
--- NOTE | 2024-01-28 11:22 | MHC.CM.PN ---
Per ROUNDS discussion, Patient is getting a Pacemaker today and is not yet medically cleared for dc. Home is the goal and CM will continue to follow.
[2024-01-28 15:20] VITALS: BP 135/60; PULSE 32; RESP 16; TEMP 36.3; O2SAT 98
[2024-01-28] MEDS: Acetaminophen 325 MG TABLET 650 MG PO (15:21)
[2024-01-28 19:27] VITALS: BP 131/56; PULSE 90; RESP 18; TEMP 36.2; O2SAT 96
[2024-01-28 23:38] VITALS: BP 128/64; PULSE 38; RESP 14; TEMP 36.3; O2SAT 99
[2024-01-29] VITALS (9 sets, daily range): BP systolic 130–154; BP diastolic 54–80; PULSE 30–81; RESP 14–20; TEMP 36.1–37.2; O2SAT 97–100
[2024-01-29] MEDS: 0.9 % Sodium Chloride Flush 3 ML SYRINGE IVFLUSH ×4 (00:10→21:47)
--- NOTE | 2024-01-29 09:08 | P.PNIM_ITS ---
Subjective Subjective Date of Service: 01/29/24 Interval History: f/u on symptomatic bradycardia interval history: HR remains low, no symptoms. Pleasantly confused Physical Exam 2 Vital Signs: Vital Signs: Last Vital Signs Temp 97.5 F 01/29/24 07:18 Pulse 30 L 01/29/24 07:18 Resp 20 01/29/24 07:18 BP 139/63 01/29/24 07:18 Pulse Ox 98 01/29/24 07:18 O2 Del Method Room Air 01/29/24 07:18 BMI result Body Mass Index 21.5 General: Pleasantly confused, not oriented at all Resp: CTA bilateral CVS: S1,S2, iregular jeferson GI: +BS, NT, no distention Skin: No rash Neuro: motor grossly intact Psych: appropriate affect Objective Data Active Medications Acetaminophen (Acetaminophen 325 Mg Tablet) 650 mg PO Q6H PRN PRN Reason: Pain, Mild (Pain Scale 1-3) Last Admin: 01/28/24 15:21 Dose: 650 mg Documented By: ANITA Ondansetron HCl (Ondansetron Hcl 4 Mg/2 Ml Vial) 4 mg IVPUSH Q8H PRN PRN Reason: Nausea and Vomiting Senna (Sennosides 8.6 Mg Tablet) 17.2 mg PO BEDTIME PRN PRN Reason: Constipation Sodium Chloride (0.9 % Sodium Chloride Flush 3 Ml Syringe) [facility] Last Admin: 01/29/24 00:10 Dose: 3 ml Documented By: SANDY Delcid 01/26/24 06:54 01/26/24 06:54 Assessment and Plan (1) Near syncope: Status: Acute (2) Heart block AV second degree: Status: Acute (3) Symptomatic bradycardia: Status: Acute Plan 83 year old female with history of hld, htn, unspecified dementia admitted for symptomatic bradycardia Symtomatic bradycardia related to heart block - HR can be as low as in 20s and as high as in 70s, however hemodynamically stable. -monitor on telelemtry, atropine if symptomatic, pacer pad -For pacemaker today, guardian Jess?Caleb--[phone], Back up number [phone] and daughter (Lucy Graves?[phone]) co-guardian aware and agreeable to pace maker Unspecified dementia Dementia--likely [place] type, at baseline DVT prophylaxis- SCPs, consider heparin after pace maker full code Guardianship pt- guardian: Jess Ellis [phone], Spoke to her and she's agreeable for a pacemaker need inpt for symptomaic bradycardia d/t symptomatic bradycardia that will need a pacemaker Quality Stroke Does the patient have a stroke diagnosis?: No VTE Prior VTE?: No VTE Risk Level:: Medical - moderate - high VTE Device Contraindication: Treatment Not Indicated VTE Drug Contraindication: N/A - Med Ordered
--- NOTE | 2024-01-29 13:31 | HO.ANESPROP2 ---
[facility] Active Problems Active Problems: All Active Problems (Updated 01/28/24 @ 15:26 by Salomón Cardenas MD) Nonrheumatic aortic (valve) stenosis (Acute) Near syncope (Acute) Heart block AV second degree (Acute) Symptomatic bradycardia (Acute) Pure hypercholesterolemia (Acute) Facial rash (Acute) Dementia (Acute) Right leg injury (Acute) Elevated blood pressure reading (Acute) Annual physical exam (Acute) Vitamin B12 deficiency (Acute) Recurrent cough (Acute) Left shoulder pain (Acute) Hypertension (Acute) Past Medical History Medical History Pure hypercholesterolemia Dementia Left shoulder pain Hypertension Family History Family History Other Family history non-contributory Family history of problems with anesthesia: No Surgical History Surgical History Hx of tonsillectomy (~1944) History of Problems with Anesthesia: No Social History Social History Household Members: Unknown / Unable to assess Household Members Other:: hx dementia Housing: House Alcohol intake: current Alcohol intake frequency: does not drink Comment: 1:1 Patient Tobacco Use Status: Never used Tobacco e-Cigarette/Vaping Use: Never Used Second Hand Smoke Exposure: Yes service: No Current occupational status: retired Cognitive needs: Yes Hearing needs: No Vision needs: No Meds Allergies Allergy/AdvReac Type Severity Reaction Status Date / Time No Known Allergies Allergy Verified 01/28/24 14:36 [No Known Allergies*] Active Medications: Current Medications Acetaminophen (Acetaminophen 325 Mg Tablet) 650 mg PO Q6H PRN PRN Reason: Pain, Mild (Pain Scale 1-3) Last Admin: 01/28/24 15:21 Dose: 650 mg Ondansetron HCl (Ondansetron Hcl 4 Mg/2 Ml Vial) 4 mg IVPUSH Q8H PRN PRN Reason: Nausea and Vomiting Senna (Sennosides 8.6 Mg Tablet) 17.2 mg PO BEDTIME PRN PRN Reason: Constipation Sodium Chloride (0.9 % Sodium Chloride Flush 3 Ml Syringe) 3 ml IVFLUSH [facility] Last Admin: 01/29/24 09:40 Dose: 3 ml Home Medications Medication Instructions Recorded Confirmed Last Taken Type No Known Home Meds 01/25/24 01/25/24 Unknown History Exam Height,Weight and Vital Signs: Height 5 ft 3 in Weight 55.1 kg Last Vital Signs Temp 97.9 F 01/29/24 11:51 Pulse 30 L 01/29/24 11:51 Resp 18 01/29/24 11:51 BP 130/62 01/29/24 11:51 Pulse Ox 100 01/29/24 11:51 O2 Del Method Room Air 01/29/24 11:51 Pertinent Lab Results Pertinent Lab Results: Laboratory Tests 01/25/24 01/25/24 01/26/24 17:23 18:44 06:54 WBC 10.7 9.6 RBC 4.29 4.11 L Hgb 12.5 11.8 L Hct 39.0 37.2 MCV 90.9 90.5 MCH 29.1 28.7 MCHC 32.1 31.7 RDW 14.5 14.3 Plt Count 260 231 MPV 9.2 L 9.8 Immature Gran % (Auto) 0.5 H 0.2 Neut % (Auto) 70.6 66.5 Lymph % (Auto) 20.0 22.1 [place] % (Auto) 6.7 7.7 Eos % (Auto) 1.5 2.8 Baso % (Auto) 0.7 0.7 Lymph # (Auto) 2.2 2.1 [place] # (Auto) 0.7 0.7 Eos # (Auto) 0.2 0.3 Baso # (Auto) 0.1 0.1 Abs Immat Gran (auto) 0.05 H 0.02 Absolute Neuts (auto) 7.6 6.4 Absolute Nucleated RBC 0.000 0.000 Nucleated RBC % (auto) 0.0 0.0 PT 12.5 INR 1.0 Sodium 143 144 Potassium 4.2 3.5 Chloride 110 H 111 H Carbon Dioxide 25 24 Anion Gap 12 13 BUN 23 H 20 H Creatinine 0.86 0.79 Estim Creat Clear Calc 40.2 43.8 Estimated GFR > 60 > 60 Random Glucose 95 89 Calcium 8.9 8.7 Magnesium 2.0 Total Bilirubin 0.4 AST 34 H ALT 25 Alkaline Phosphatase 80 Troponin I High Sens < 2.7 Total Protein 6.9 Albumin 3.9 TSH 1.72 Urine Color Yellow Urine Appearance Clear Urine pH 6.0 Ur Specific Byron 1.015 Urine Protein Negative Urine Glucose (UA) Negative Urine Ketones Negative Urine Blood Trace H Urine Nitrite Negative Ur Leukocyte Esterase Large (3+) H Urine RBC 0-2 Urine WBC >50 H Ur Squamous Epith Cells 0-2 Urine Bacteria None Seen Hyaline Casts 0-2 Narrative Narrative: patient has dementia,info from daughter Airway Mallampati Class: Patient Non-Cooperative TM Dist: >3cm Neck ROM: Full Loose/Missing/Broken Teeth: No Heart: jeferson rhythm Lungs: cta b/l Assessment and Plan Assessment Anesthesia Assessment: Anesthesia Plan Discussed and Chart Reviewed Final Anesthetic Review Family History of Problems with Anesthesia: No History of Problems with Anesthesia: No NPO: Yes ASA Class: IV and Emergency Final Preanesthetic Review: No Changes in Pt Med Stat, Meds/Allgs Chart Reviewed, Consent Obtained/Reviewed and Anes Risks/Benef Reviewed Patient Risk: High Procedure Risk: High Anesthetic Plan Anesthetic Plan: MAC: Disposition: Standard PACU
--- NOTE | 2024-01-29 15:54 | W.PM.OPN ---
Operative Note Operative Note Date of Service: 01/29/24 Narrative: NAME OF PROCEDURE: ? 1.???Dual chamber pacemaker with Dewitt 2.???Left upper extremity venogram ? INDICATION FOR PROCEDURE:??Complete heart block Description of Procedure:?Patient was identified brought to the electrophysiology laboratory in a postabsorptive state.??The left pectoral region was prepped and draped in usual sterile fashion. Incision was made over the left pectoral region and pectoral subcutaneous pocket was made. Afterwards left axillary venous access was obtained using micropuncture needle and fluoroscopic guidance, a 7-Dominican sheath was placed.??Right ventricular lead was placed in the right ventricular septum with good sensing and pacing thresholds.??The sheath was split and the lead was then anchored to the pectoral fascia with Ethibond suture.?? ? Afterwards left axillary venous access was obtained using micropuncture needle and fluoroscopic guidance, a 7-Dominican sheath was placed.??Right atrial pacing lead was advanced and placed in the base of the right atrial appendage with good sensing and pacing thresholds.??The sheath was split and the lead was then anchored to the pectoral fascia with Ethibond suture.?? ? The subcutaneous pocket was made and the wound was irrigated with antibiotic solution.??The??leads were then connected to a?pacemaker?generator and placed in the pocket.??The wound was closed with 3 layers of absorbable sutures.?? Patient tolerated procedure well.??There were no complications. ? ? IMPRESSION:?? Successful?implantation?of Dual chamber?pacemaker? ? ? PLAN: ? 1.?Routine postprocedure monitoring. 2.?CXR today? 3.?Post operative Abx? 4. ???EKG today? 5. ???Interrogation of device Post-op instructions. Do not shower 3 days Keep bandage on 5 days Please do not remove steristrips. Let them fall by themselves. Restriction of left arm for 4-6 weeks.
[2024-01-29] MEDS: ceFAZolin Sodium/Dextrose,Iso 2 GM/50 ML PIGGYBACK IV (21:46)
[2024-01-30 03:00] VITALS: BP 148/76; PULSE 69; RESP 20; TEMP 36.3; O2SAT 97
[2024-01-30] MEDS: ceFAZolin Sodium/Dextrose,Iso 2 GM/50 ML PIGGYBACK IV (05:14)
[2024-01-30 07:00] VITALS: BP 136/78; PULSE 71; RESP 16; TEMP 36.4; O2SAT 96
[2024-01-30] MEDS: 0.9 % Sodium Chloride Flush 3 ML SYRINGE IVFLUSH ×2 (09:28→15:24)
--- NOTE | 2024-01-30 10:24 | PM.PNCARD ---
Subjective Subjective Date of Service: 01/30/24 Principal diagnosis: Advanced AV block. Interval history: No clear cardiac symptoms. Underwent permanent pacemaker yesterday. Review of Systems Review of Systems Yes all other systems are reviewed and are negative Constitutional: Reports as per HPI and Reports no additional constitutional complaints Eyes: Reports as per HPI and Denies no additional eye complaints Denies system reviewed and no additional complaints, except as documented and Reports as per HPI Cardiovascular: Reports as per HPI, Reports no additional cardiovascular complaints, Denies acrocyanosis, Denies cool extremities, Denies chest pain, Denies leg edema, Denies lightheadedness, Denies palpitations and Denies dyspnea Respiratory: Reports as per HPI, Denies no additional respiratory complaints and Denies dyspnea Gastrointestinal: Reports as per HPI and Denies no additional gastrointestinal complaints Genitourinary: Reports as per HPI Musculoskeletal: Reports no additional musculoskeletal complaints and Reports as per HPI Skin/Breast: Reports system reviewed and no additional complaints, except as docu Reports system reviewed and no additional complaints, except as documented and Reports as per HPI Psychiatric: Reports no additional psychiatric complaints and Reports as per HPI Endocrine: Reports no additional endocrine complaints, Reports as per HPI and Denies palpitations Hematologic/Lymphatic: Reports no additional hematologic/lymphatic complaints and Reports as per HPI Allergic/Immunologic: Reports no additional allergic/immunologic complaints and Reports as per HPI Physical Exam Vital Signs: Last Vital Signs Temp 97.6 F 01/30/24 07:00 Pulse 71 01/30/24 07:00 Resp 16 01/30/24 07:00 BP 136/78 01/30/24 07:00 Pulse Ox 96 01/30/24 07:00 O2 Del Method Room Air 01/30/24 07:00 BMI result Body Mass Index 21.5 Const General: comfortable and no acute distress Orientation/consciousness: No patient oriented x3 HEENT Other: Unremarkable Head: Yes normal to inspection Neck Neck: Yes normal visual inspection Chest Chest palpation & inspection: normal inspection of the chest Resp Auscultation: clear to auscultation bilaterally Cardio Palpation: normal PMI Heart sounds: S1 normal heart sound present, S2 normal heart sound present, no gallops, no murmurs and no rubs GI Palpation (GI): Soft to palpation Back/Spine/Pelvis Other: unremarkable Skin General skin exam: no rashes or lesions noted Neuro General: No patient oriented x3 Extrem General: Yes normal to inspection Psych Mental Status: mental status grossly abnormal Objective Labs and Meds 01/26/24 06:54 01/26/24 06:54 Imaging Radiologist's impression: Impressions Chest X-Ray 01/29/24 15:56 IMPRESSION: 1. No acute cardiopulmonary process seen. 2. There are pacemaker electrodes in right atrium and right ventricle. Progress Note: A&P Assessment and plan (1) Heart block AV second degree: Status: Acute Assessment and Plan: Status post permanent pacemaker. Functioning normally. (2) Nonrheumatic aortic (valve) stenosis: Status: Acute Assessment and Plan: Echocardiogram with mild aortic stenosis and moderate mitral regurgitation. Can be followed as an outpatient. Plan Discharge planning. Follow-up in clinic. Discussed with Dr. Lowe. Time Spent With Patient Time: Total time managing care of this patient today ____ minutes. Progress Note: Quality Stroke Does the patient have a stroke diagnosis?: No Procedures Date of Service Date of Service: 01/30/24
--- NOTE | 2024-01-30 10:25 | P.DS_ITS ---
DS: Providers Provider Date of Service: 01/30/24 Date of admission: 01/25/24 20:20 Primary care physician: Salomón Cardenas MD Consults: 01/25/24 20:39 Consult to Cardiology Routine Consulting Provider: [facility] Cardiovascular Services Reason for consultation: symtomatic bradycardia, pacemaker placement Has provider been notified: Yes 01/26/24 19:23 Consult for Sitter Routine Reason for consultation: agitation ; risk to herself DS: Diagnosis Discharge Diagnosis (1) Near syncope: Status: Acute (2) Heart block AV second degree: Status: Acute (3) Symptomatic bradycardia: Status: Acute DS: Summary Hospital Course Hospital Course: Admission note HPI 83 year old female with history of hld, htn, unspecified dementia presented to the ED earlier today with her daughter, Virgen who assists with history, for evaluation of tunnel vision and dizziness noted after walking about a mile. HR was noted to be in 30s. The patient is oriented to self only and is quite forgetful. Lives with daughter and son who provide 24 hour care. Apparently was told by a water filterer helper years ago she may need a pacemaker. She has similar symptoms about a week ago with some confusion and was seen in the ED with normal work up except possible UTI however UC negative. There have been no fevers, chills, cough, sob, syncope, palpitations, or chest pain. Since arrival, heart rate fluctuation between 30's and 70s, no hypotension. . Renal function and electrolyte levels normal. Urinalysis with 3+ leukocytes, negative nitrites, t race blood, positive urinary sediment but negative bacteria. EKG shows sinus bradycardia with marked sinus arrhythmia, rate 48 with right bundle-branch block and left anterior fascicular block. ED discussed case with Cardiology recommending admission with pacemaker placement tomorrow. Hospital course The patient was admitted for management of Symtomatic bradycardia related to heart block as heart rate can be as low as in 20s and as high as in 70s while patient is hemodynamically stable. She was monitored on Telemetry and evaluated by water filterer helper who recommended placement of PPM which was done by dr Malagon with fair response as heart rate stable around 70. To be discharged home with family support and follow with cardiology as outpatient. To follow with cardiology as outpatient Surgical wound check with dr Malagon Time Attestation Discharge Coordination Time (in mins): 34 Quality: Safe Use of Opioids Does Pt have an Active Cancer Diagnosis on the Problem List?: No Quality: Stroke Does the patient have a stroke diagnosis?: No Physical Exam Vital Signs: Vital Signs: Last Vital Signs Temp 97.6 F 01/30/24 07:00 Pulse 71 01/30/24 07:00 Resp 16 01/30/24 07:00 BP 136/78 01/30/24 07:00 Pulse Ox 96 01/30/24 07:00 O2 Del Method Room Air 01/30/24 07:00 BMI result Body Mass Index 21.5 Const: Other: Constitutional : Awake, interactive, not in distress Neck : Normal inspection, Supple Cardiovascular : RRR, no JVP, no lower extremity edema Respiratory : good bilateral air entry, no crackles, wheezes or rhonchi Gastrointestinal: soft, lax, Normal bowel sounds, Non tender Skin : Warm, Dry, PPM in place with no hematoma or bleeding Neurological : Alert & disoriented to place and time, No focal deficit DS: Data Imaging Chest x-ray: Radiologist's impression: ITS Impressions Chest X-Ray 01/29/24 15:56 IMPRESSION: 1. No acute cardiopulmonary process seen. 2. There are pacemaker electrodes in right atrium and right ventricle. Discharge Plan Discharge Anticipated Discharge Date/Time: 01/30/24 10:23 Patient Disposition: Home Health Service Discharge Diagnosis: Symptomatic bradycardia Referrals: Salomón Cardenas MD [Primary Care Provider] - 1 Week Discharge Medications: No Action No Known Home Meds Discharge Orders: Discharge Order (Routine); Ordered 01/30/24 Ordered By: Micheal Lowe Diet: Advance to usual diet Activity on Discharge: As tolerated Stand Alone Forms: Patient Portal Discharge page Care Plan Goals: Read below Health Concerns: Read below Plan of Treatment: Read below Assessment: To follow with cardiology as outpatient Surgical wound check with dr Malagon ACTIVITY: * ARM MOVEMENT RESTRICTIONS: No lifting your left arm over your head or behind your back, no pushing/pulling/lifting anything >10lb with your left arm for 6- 8 weeks. This ensures the pacemaker wires stay in place and do not get pulled out accidentally. Make sure you are doing gentle range of motion exercises with the left arm (such as pendulum exercise) to make sure your elbow and shoulder do not get frozen up. * ARM SLING: You may take the sling off and leave it off. HOWEVER, if you are noticing a difficulty limiting your left arm movement (as outlined above) then wear your sling during the day to make sure you are adhering to the restrictions above. * Ask your doctor when you can expect to return to work. * You can still exercise. It is good for your body and your heart. Talk with your doctor about an exercise plan. INCISION CARE: * You may shower. * Do not submerge yourself in water (baths, pools, etc.) for 2 weeks. * Monitor the incision for increased redness, swelling, bruising, pain, open area, or drainage. OTHER PRECAUTIONS: * Before you receive any treatment, tell all healthcare providers (including your dentist) that you have a pacemaker. * You will be given an ID card that contains information about your pacemaker. Always carry this card with you. You can show this card if your pacemaker sets off a metal detector. You should also show it to avoid screening with a hand-held security wand. * Keep your cell phone away from your pacemaker. Do not carry the phone in your shirt pocket, even it if is turned off. * Avoid strong magnets. Examples are those used in MRI's or in hand-held security wands. * Avoid strong electrical pope. Examples are those made by radio transmitting towers, ham radios, and heavy-duty electrical equipment. * Avoid leaning over the open tubbs of a running car. A running engine creates an electrical field. Most household and yard appliances will not cause any problems. If you use any large power tools, such as an industrial health researcher, talk with your doctor. WHEN TO CALL YOUR DOCTOR: Call your doctor immediately if you have any of the following: * Dizziness * Chest pain * Lack of energy * Fainting spells * Twitching chest muscles * Rapid pule or pounding heartbeat * Shortness of breath * Pain around your pacemaker * Fever above 100.4 F (38 C) or other signs of infection (redness, swelling, drainage, or warmth at the incision site). * Hiccups that will not stop FOLLOWUP APPOINTMENTS: * Call your water filterer helper to make an appointment for the next couple weeks. Make regular follow-up appointments with your doctor. He or she will check the pacemaker to make sure it is working properly
--- NOTE | 2024-01-30 10:44 | W.MHC.F2F ---
Service Date Service Date: 01/30/24 Encounter Date of encounter: 01/30/24 Reasons for Services Signs and symptoms assessed: Physical deconditioning Reason for detention: wound care Reason for physical therapy: home safety and mobility and therapeutic exercises Homebound: Leaving the home is medically contraindicated at this time without the asist of a device and/or another person due th the listed conditions above and below. Reason homebound: unsteady gait / fall risk Certification: Based on the above findings, I certify that this patient is confined to the home and needs intermittent detention care, physical therapy and/or speech therapy, or continues to need occupational therapy. The patient is under my care, and I have initiated the establishment of the plan of care. The patient will be followed by a physician who will periodically review the plan of care. Time Spent With Patient Time: Total time managing care of this patient today ____ minutes.
--- NOTE | 2024-01-30 11:15 | MHC.CM.PN ---
Patient has been medically cleared for dc to home today, with services. [facility] has accepted Patient and they are aware of today's dc. CARLOS spoke with Patient's Guardian/Jess @ [phone], who is aware of and in agreement with the dc plan. CARLOS addressed IMM with Jess and the original will be mailed to her while a copy has been placed on the chart.
[2024-01-30 11:59] VITALS: BP 150/94
[2024-01-30 12:05] VITALS: BP 151/86
--- NOTE | 2024-01-30 12:08 | P.PNIM_ITS ---
Subjective Subjective Date of Service: 01/30/24 Interval History: Seen in the afternoon as she developed weakness and near syncope walking out of the [facility]. denies chest pain and reports lightheadedness and double vision will cancel discharge and monitor her overnight Review of Systems Review of Systems: Yes all other systems are reviewed and are negative Physical Exam 2 Vital Signs: Vital Signs: Last Vital Signs Temp 97.6 F 01/30/24 07:00 Pulse 71 01/30/24 07:00 Resp 16 01/30/24 07:00 BP 136/78 01/30/24 07:00 Pulse Ox 96 01/30/24 07:00 O2 Del Method Room Air 01/30/24 07:00 BMI result Body Mass Index 21.5 Const: Other: Constitutional : Awake, interactive, not in distress Neck : Normal inspection, Supple Cardiovascular : RRR, no JVP, no lower extremity edema Respiratory : good bilateral air entry, no crackles, wheezes or rhonchi Gastrointestinal: soft, lax, Normal bowel sounds, Non tender Skin : Warm, Dry, PPM in place with no hematoma or bleeding Neurological : Alert & disoriented to place and time, No focal deficit Objective Data Active Medications Acetaminophen (Acetaminophen 325 Mg Tablet) 650 mg PO Q6H PRN PRN Reason: Pain, Mild (Pain Scale 1-3) Last Admin: 01/28/24 15:21 Dose: 650 mg Documented By: ANITA Ondansetron HCl (Ondansetron Hcl 4 Mg/2 Ml Vial) 4 mg IVPUSH Q8H PRN PRN Reason: Nausea and Vomiting Senna (Sennosides 8.6 Mg Tablet) 17.2 mg PO BEDTIME PRN PRN Reason: Constipation Sodium Chloride (0.9 % Sodium Chloride Flush 3 Ml Syringe) 3 ml IVFLUSH QSHIFT [facility] Last Admin: 01/30/24 09:28 Dose: 3 ml Documented By: DOMITILASCEL Labs 01/26/24 06:54 01/26/24 06:54 Assessment and Plan (1) Near syncope: Status: Acute (2) Nonrheumatic aortic (valve) stenosis: Status: Acute (3) Heart block AV second degree: Status: Acute Plan 83 year old female with history of hld, htn, unspecified dementia admitted for symptomatic bradycardia Near syncope could be related to orthostatic changes\vertigo (given double vision) unlikely duo to narrow aortic valve check vitals PT evaluaiton MEclizine Symtomatic bradycardia related to heart block post PPM placement Cleared by cardiology HR stable in 70s guardian Gennaro--[phone], Back up number [phone] and daughter (Lucy Graves?[phone]) co-guardian aware and agreeable to pace maker Unspecified dementia Dementia--likely [place] type, at baseline DVT prophylaxis Lovenox full code Guardianship pt- guardian: Jess Ellis [phone] need inpt for symptomaic near syncope and risk of falling pending PT eval and clinical improvement. Quality Stroke Does the patient have a stroke diagnosis?: No VTE Prior VTE?: No VTE Risk Level:: Medical - moderate - high VTE Device Contraindication: Treatment Not Indicated VTE Drug Contraindication: N/A - Med Ordered
--- NOTE | 2024-01-30 12:09 | MHC.CM.PN ---
Per RN, Patient became dizzy and lightheaded on her way out of the hospital, with her Daughter; dc for today has been cancelled. [facility] & Guardian/Jess @ [phone] have been notified of the change and CM will continue to follow.
[2024-01-30 12:10] VITALS: BP 128/91
--- NOTE | 2024-01-30 12:39 | HO.POSTANES ---
Post Anesthesia Evaluation Post Anesthesia Evaluation Date of Service: 01/30/24 Vital Signs: Vital Signs Temp Pulse Resp BP Pulse Ox O2 Del Method 01/30/24 07:00 97.6 F 71 16 136/78 96 Room Air 01/30/24 03:00 97.3 F 69 20 148/76 H 97 Room Air Anesthesia: Monitored Mental Status: Awake Pain Control: Satisfactory Nausea/Vomiting: None Hydration: Adequate Anesthesia-Related Issues: No Anes. Related Issues
[2024-01-30 12:48] VITALS: BP 136/78; PULSE 71; O2SAT 96
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
--- NOTE | 2024-01-30 14:07 | MHC.CM.PN ---
Per Nursing Assistant Director/Ortiz, Patient's Sitter/Observer is filing an Elder @ Risk Report on line, regarding what she witnessed.
[2024-01-30] MEDS: Meclizine HCl 12.5 MG TABLET PO (15:24)
[2024-01-30] MEDS: Enoxaparin Sodium 40 MG/0.4 ML SYRINGE SUBCUT (15:24)
[2024-01-31 00:14] VITALS: BP 166/97; PULSE 75; RESP 18; TEMP 37.6; O2SAT 97
[2024-01-31] MEDS: 0.9 % Sodium Chloride Flush 3 ML SYRINGE IVFLUSH ×2 (00:17→07:33)
[2024-01-31 07:03] VITALS: BP 158/89; PULSE 76; RESP 18; TEMP 36.4; O2SAT 100
[2024-01-31 07:29] VITALS: BP 147/84; PULSE 67
[2024-01-31] MEDS: Meclizine HCl 12.5 MG TABLET PO (07:33)
[2024-01-31 07:52] VITALS: BP 143/89; BP 151/87; PULSE 70; PULSE 76
--- NOTE | 2024-01-31 10:19 | PM.PNCARD ---
Subjective Subjective Date of Service: 01/31/24 Principal diagnosis: Advanced AV block. Interval history: Patient was getting discharged today but apparently had a presyncopal type episode on her way out and then readmitted. Today, when I examine her she states she is feeling fine. She is eating her breakfast comfortably. Sitting in chair. According to RN, no new issues. She even walked in the hallway. Review of Systems Review of Systems Yes all other systems are reviewed and are negative Constitutional: Reports as per HPI and Reports no additional constitutional complaints Eyes: Reports as per HPI and Denies no additional eye complaints Denies system reviewed and no additional complaints, except as documented and Reports as per HPI Cardiovascular: Reports as per HPI, Reports no additional cardiovascular complaints, Denies acrocyanosis, Denies cool extremities, Denies chest pain, Denies leg edema, Denies lightheadedness, Denies palpitations and Denies dyspnea Respiratory: Reports as per HPI, Denies no additional respiratory complaints and Denies dyspnea Gastrointestinal: Reports as per HPI and Denies no additional gastrointestinal complaints Genitourinary: Reports as per HPI Musculoskeletal: Reports no additional musculoskeletal complaints and Reports as per HPI Skin/Breast: Reports system reviewed and no additional complaints, except as docu Reports system reviewed and no additional complaints, except as documented and Reports as per HPI Psychiatric: Reports no additional psychiatric complaints and Reports as per HPI Endocrine: Reports no additional endocrine complaints, Reports as per HPI and Denies palpitations Hematologic/Lymphatic: Reports no additional hematologic/lymphatic complaints and Reports as per HPI Allergic/Immunologic: Reports no additional allergic/immunologic complaints and Reports as per HPI Physical Exam Vital Signs: Last Vital Signs Temp 97.6 F 01/31/24 07:03 Pulse 76 01/31/24 07:52 Resp 18 01/31/24 07:03 BP 143/89 H 01/31/24 07:52 Pulse Ox 100 01/31/24 07:03 O2 Del Method Room Air 01/31/24 07:03 BMI result Body Mass Index 21.5 Const General: comfortable and no acute distress Orientation/consciousness: No patient oriented x3 HEENT Other: Unremarkable Head: Yes normal to inspection Neck Neck: Yes normal visual inspection Chest Chest palpation & inspection: normal inspection of the chest Resp Auscultation: clear to auscultation bilaterally Cardio Palpation: normal PMI Heart sounds: S1 normal heart sound present, S2 normal heart sound present, no gallops, no murmurs and no rubs GI Palpation (GI): Soft to palpation Back/Spine/Pelvis Other: unremarkable Skin General skin exam: no rashes or lesions noted Neuro General: No patient oriented x3 Extrem General: Yes normal to inspection Psych Mental Status: mental status grossly abnormal Objective Labs and Meds 01/26/24 06:54 01/26/24 06:54 Imaging Radiologist's impression: Impressions Guidance Fluoroscopy 01/29/24 15:20 IMPRESSION: Fluoroscopy and spot films provided during pacemaker placement. Progress Note: A&P Assessment and plan (1) Heart block AV second degree: Status: Acute Assessment and Plan: Status post permanent pacemaker. Interrogated yesterday and was functioning normally. (2) Nonrheumatic aortic (valve) stenosis: Status: Acute Assessment and Plan: Echocardiogram with mild aortic stenosis and moderate mitral regurgitation. Can be followed as an outpatient. Plan It is possible that the presyncopal episode could be from orthostasis, deconditioning extra. Unlikely that it is a pacemaker issue as it was just checked in the last 24 hours. Per RN, she is ambulating without difficulty. Upon discharge, will arrange wound check in the next few days and then pacemaker appointment as well. Time Spent With Patient Time: Total time managing care of this patient today ____ minutes. Progress Note: Quality Stroke Does the patient have a stroke diagnosis?: No Procedures Date of Service Date of Service: 01/31/24
--- NOTE | 2024-01-31 10:22 | MHC.CM.PN ---
Pt has been medically cleared for DC, her daughter will pick her up, home care services to be provided by [facility].
== END 2024-01-31 11:10 | disposition home health service (06) | DRG 244 ==
LOC: HO.ED 17:41 → HO.EDOVER 20:58 → HO.IMC 01-26 00:57
PROVIDERS: Internal Medicine Cardiovascular Disease; Nurse Practitioner Family; Admitting Provider Physician Assistant; Emergency Provider Internal Medicine; PCP Internal Medicine; Visit Provider Student in an Organized Health Care Education/Training Program
PROC: 0JH606Z Insertion of Pacemaker, Dual Chamber into Chest Subcutaneous Tissue and Fascia, Open Approach (ICD-10-PCS; principal; 2024-01-29 15:10)
DX: I44.1 Atrioventricular block, second degree (principal); I35.0 Nonrheumatic aortic (valve) stenosis; E78.5 Hyperlipidemia, unspecified; I10 Essential (primary) hypertension; G30.9 Alzheimer's disease, unspecified; F02.80 Dementia in other diseases classified elsewhere, unspecified severity, without behavioral disturbance, psychotic disturbance, mood disturbance, and anxiety; I95.1 Orthostatic hypotension
CPT/HCPCS: 36415; 71045; 80048; 80053; 81001; 83735; 84443; 84484; 85025; 85610; 87086; 93005; 93306; 97161; 99285; A4364; C1785; C1892; C1898; J0131; J0690; J1650; J2250; J2704; J3010; J3370; Q9967

== ENCOUNTER 2024-01-25 20:20 | Outpatient (BNV) | payer MEDICARE, SELFPAY | END 2024-01-27 06:06 | PROVIDERS: Admitting Provider Physician Assistant; Emergency Provider Internal Medicine; PCP Internal Medicine; Visit Provider Internal Medicine Cardiovascular Disease | DX: I49.9 Cardiac arrhythmia, unspecified (principal) | CPT/HCPCS: 93010 ==

== ENCOUNTER 2024-01-25 20:20 | Outpatient (BNV) | payer MEDICARE, SELFPAY | END 2024-01-28 07:00 | PROVIDERS: Admitting Provider Physician Assistant; Emergency Provider Internal Medicine; PCP Internal Medicine; Visit Provider Internal Medicine | DX: I35.0 Nonrheumatic aortic (valve) stenosis (principal); I44.1 Atrioventricular block, second degree; I34.0 Nonrheumatic mitral (valve) insufficiency | CPT/HCPCS: 93306 ==

== ENCOUNTER → 2024-01-25 20:20 | Outpatient (BNV) | payer MEDICARE, SELFPAY | PROVIDERS: Admitting Provider Physician Assistant; Emergency Provider Internal Medicine; PCP Internal Medicine; Visit Provider Physician Assistant | DX: I44.1 Atrioventricular block, second degree (principal); R00.1 Bradycardia, unspecified; R55 Syncope and collapse; I35.0 Nonrheumatic aortic (valve) stenosis | CPT/HCPCS: 99223; 99232; 99239; 99499; G0180 ==

== ENCOUNTER → 2024-01-25 20:20 | Outpatient (BNV) | payer MEDICARE, SELFPAY | PROVIDERS: Admitting Provider Physician Assistant; Emergency Provider Internal Medicine; PCP Internal Medicine; Visit Provider Internal Medicine Cardiovascular Disease | DX: I44.1 Atrioventricular block, second degree (principal) | CPT/HCPCS: 93010; 99222; 99232; 99233 ==

== ENCOUNTER 2024-02-13 13:16 | Outpatient (AMB) | payer MEDICARE, SELFPAY ==
--- NOTE | 2024-02-13 13:19 | MHC.OFFVIS ---
Intake Vital Signs 02/13/24 13:28 Height 5 ft 3 in Weight 118 lb 2.684 oz BMI 20.9 BP 138/68 Blood Pressure Location Lt brachial Position Sitting Pulse 77 Pulse Source Monitor Intake Visit Reasons: wound ck Intake Note: wound ck with EKG pt feels good Allergies No Known Allergies [No Known Allergies*] Allergy (Verified 01/28/24 14:36) Medication List - Last Reconciled 02/14/24 by Moni Tan NP [arm sling As directed] meclizine 25 mg PO BID PRN HPI HPI Comments History of Present Illness Details 83-year-old female presents today for a wound check after having a permanent pacemaker placed for complete heart block. She had it placed on 01/29/[address] Malagon. She presents with her daughter. They repot she has been doing well since discharge. Denies any swelling, fever, chills, redness, odor, shortness of breath, or chest discomforts. She and her daughter go for walks daily. [facility] Medical History (Updated 02/14/24 @ 08:05 by Moni Tan NP) Presence of permanent cardiac pacemaker Nonrheumatic aortic (valve) stenosis Pure hypercholesterolemia Dementia Left shoulder pain Hypertension Surgical History Hx of tonsillectomy (~1944) Family History Other Family history non-contributory Social History Household Members: Unknown / Unable to assess Household Members Other:: hx dementia Housing: House Alcohol intake: current Alcohol intake frequency: does not drink Comment: 1:1 Patient Tobacco Use Status: Never used Tobacco e-Cigarette/Vaping Use: Never Used Second Hand Smoke Exposure: Yes service: No Current occupational status: retired Cognitive needs: Yes Hearing needs: No Vision needs: No Review of Systems Const Denies weakness ENT Denies dizziness Card Denies chest pain, Denies chest pain with activity, Denies syncope, Denies rapid heart rate, Denies pedal edema, Denies edema, Denies leg edema, Denies lightheadedness, Denies palpitations, Denies dyspnea, Denies dyspnea on exertion and Denies orthopnea Resp Denies cough, Denies dyspnea and Denies dyspnea on exertion GI Denies hematochezia and Denies change in stool character Musc Denies abnormal gait, Denies muscle cramps, Denies muscle weakness, Denies numbness, Denies radiating pain into limb and Denies tingling Neuro Denies abnormal gait, Denies dizziness, Denies syncope, Denies numbness, Denies tingling and Denies weakness Endo Denies palpitations Physical Exam Vital Signs: Last Vital Signs Pulse 77 02/13/24 13:28 BP 138/68 02/13/24 13:28 BMI result Body Mass Index 20.9 Const General: healthy appearing and no acute distress Orientation/consciousness: patient oriented x3 HEENT Head: Yes normal to inspection Eyes General: appearance normal, both eyes and all related structures Neck Neck: Yes normal visual inspection Chest Chest palpation & inspection: normal inspection of the chest and other (Surgical site. Clean dry and intact. Steri-stips present) Resp Effort & Inspection: normal respiratory effort Auscultation: clear to auscultation bilaterally Cardio Jugular venous distension: no JVD Palpation: normal PMI Rate: regular rate Rhythm: regular rhythm Heart sounds: S1 normal heart sound present, S2 normal heart sound present, no click, no gallops, no murmurs and no rubs GI Inspection: Yes normal to inspection Palpation (GI): Soft to palpation Skin General skin exam: no rashes or lesions noted Neuro General: patient oriented x3 Extrem General: Yes normal to inspection Psych Appearance: grossly normal Office Procedures EKG Details: EKG today. A sensed V paced. rate 77 bpm. [id number], Complete Assessment & Plan Assessment & Plan (1) Presence of permanent cardiac pacemaker: Comment: [facility] Parv[employer]. Placed 01/29/[address] Malagon for complete heart block. Code(s): Z95.0 - Presence of cardiac pacemaker Plan [facility] Parviz pacemaker. Site is clean, dry, and intact. Window dressing removed. No swelling, tenderness, redness, or odor noted. Steri-strips to be left until they fall of on their own. Connected on remote and will be followed. Sees Dr. Ramirez on 03/12/24 Coding Level of Care Code Est Pt Level 3 (22520) Diagnoses Presence of permanent cardiac pacemaker Z95.0 CPT Codes EKG - CPT: 98020-[id number], Complete ([id number])
[2024-02-13 13:28] VITALS: BP 138/68; PULSE 77; BMI 20.9
== END 2024-02-13 13:48 | disposition home or self-care (01) ==
PROVIDERS: PCP Internal Medicine; Visit Provider Nurse Practitioner
DX: Z95.0 Presence of cardiac pacemaker (principal)
CPT/HCPCS: 93010; 99213

== ENCOUNTER → 2024-02-13 13:16 | Outpatient (BNVA) | payer MEDICARE, SELFPAY | PROVIDERS: PCP Internal Medicine; Visit Provider Nurse Practitioner | DX: Z45.018 Encounter for adjustment and management of other part of cardiac pacemaker (principal) | CPT/HCPCS: 93005; 99212 ==

== ENCOUNTER → 2024-02-14 23:59 | Outpatient (BNV) | payer MEDICARE, SELFPAY ==
--- NOTE | 2024-02-15 14:40 | A.OFFVIS_ITS ---
Intake Intake Visit Reasons: Remote Device Check- St. Parviz Allergies No Known Allergies [No Known Allergies*] Allergy (Verified 01/28/24 14:36) [facility] Medical History (Updated 02/14/24 @ 08:05 by Moni Tan NP) Presence of permanent cardiac pacemaker Nonrheumatic aortic (valve) stenosis Pure hypercholesterolemia Dementia Left shoulder pain Hypertension Surgical History Hx of tonsillectomy (~1944) Family History Other Family history non-contributory Social History Household Members: Unknown / Unable to assess Household Members Other:: hx dementia Housing: House Alcohol intake: current Alcohol intake frequency: does not drink Comment: 1:1 Patient Tobacco Use Status: Never used Tobacco e-Cigarette/Vaping Use: Never Used Second Hand Smoke Exposure: Yes service: No Current occupational status: retired Cognitive needs: Yes Hearing needs: No Vision needs: No Office Procedures Cardiac Device Check Cardiac Device Check Details: Remote pacemaker report generated 02/14/2024. Pacemaker function is adequate. Patient ventricularly pacer dependent [id number] Cardiac Device Interrogation, pacemaker Procedure code (CPT) selection complete Assessment & Plan Assessment & Plan (1) Presence of permanent cardiac pacemaker: Comment: ST Parviz. Placed 01/29/[address] Malagon for complete heart block. Code(s): Z95.0 - Presence of cardiac pacemaker Plan: See above Coding Level of Care Code Procedure Only Diagnoses Presence of permanent cardiac pacemaker Z95.0 CPT Codes Cardiac Device Check - Cardiac Device 12: [id number] Cardiac Device Interrogation, pacemaker ([id number])
== END ==
PROVIDERS: PCP Internal Medicine; Visit Provider Internal Medicine Cardiovascular Disease
DX: I45.5 Other specified heart block (principal); Z95.0 Presence of cardiac pacemaker
CPT/HCPCS: 93294

== ENCOUNTER 2024-02-20 12:15 | Outpatient (AMB) | payer MEDICARE, SELFPAY ==
[2024-02-20 12:24] VITALS: BP 130/82; BMI 20.9
--- NOTE | 2024-02-20 12:24 | MHC.PC.OV ---
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 She was having near-syncope episodes and this has markedly improved with a pacemaker. Denies any chest pain or shortness of breath. Repeat to me the same thing which was I do a lot of walking . She is oriented only to person and place but not to time. Pacemaker was placed in 01/29/2024. Doing well. [facility] Medical History (Updated 02/20/24 @ 12:58 by Mary Plata MD) Dementia Presence of permanent cardiac pacemaker Nonrheumatic aortic (valve) stenosis Pure hypercholesterolemia Left shoulder pain Hypertension Surgical History Hx of tonsillectomy (~1944) Family History Other Family history non-contributory Social History (Updated 02/20/24 @ 12:46 by Mary Plata MD) Household Members: Unknown / Unable to assess Household Members Other:: hx dementia Housing: House Alcohol intake: never Comment: 1:1 Patient Tobacco Use Status: Never used Tobacco e-Cigarette/Vaping Use: Never Used Second Hand Smoke Exposure: Yes service: No Current occupational status: retired Cognitive needs: Yes Hearing needs: No Vision needs: No Questionnaire Thrive Questionnaire Date Thrive assessed: 01/25/24 NIKKI-7 AMB Questionnaire NIKKI-7 Date NIKKI - 7 assessed: 01/25/24 Source: Developed by Drs. Regino Nuñez, Aidee Su, Poncho Ortega and colleagues, with an educational arin from [email or web address]. Review of Systems Const All systems reviewed & are unremarkable except as noted in HPI and below Eyes Reports no additional complaints, Denies change in vision and Denies other visual disturbances Card Denies chest pain at rest, Denies chest pain with activity, Denies edema, Denies irregular heart rhythm, Denies claudication, Denies dyspnea, Denies dyspnea on exertion, Denies orthopnea, Denies paroxysmal nocturnal dyspnea and Denies slow heart rate Resp Denies cough, Denies dyspnea and Denies dyspnea on exertion Physical exam (Primary Care) Vital Signs: Last Vital Signs BP 130/82 02/20/24 12:24 BMI result Body Mass Index 20.9 Tobacco/Smoking Status: Tobacco use Status Tobacco use date assessed 01/25/24 02/20/24 12:30 Patient Tobacco Use Status Never used Tobacco 02/20/24 12:30 e-Cigarette/Vaping Use Never Used 02/20/24 12:30 Thrive Assessment: Date of Thrive Assessment Date Thrive assessed 01/25/24 02/20/24 12:30 Const Orientation/consciousness: oriented to person and oriented to place Resp Effort & Inspection: normal respiratory effort Auscultation: clear to auscultation bilaterally Cardio Jugular venous distension: no JVD Rate: regular rate Rhythm: regular rhythm Heart sounds: S1 normal heart sound present and S2 normal heart sound present Neuro General: oriented to person and oriented to place Cognition (Neuro): abnormal cognition Gait exam (Neuro): Normal gait present Extrem General: Yes full ROM Assessment and Plan Assessment & Plan (1) Dementia: Code(s): F03.90 - Unspecified dementia, unspecified severity, without behavioral disturbance, psychotic disturbance, mood disturbance, and anxiety Qualifiers: Dementia type: Alzheimer's Alzheimer's disease onset: unspecified onset Dementia behavioral or psychological symptom: without behavioral, psychotic, or mood disturbance or anxiety Dementia severity: unspecified severity Qualified Code(s): G30.9 - Alzheimer's disease, unspecified; F02.80 - Dementia in other diseases classified elsewhere, unspecified severity, without behavioral disturbance, psychotic disturbance, mood disturbance, and anxiety Plan: Continue family support. (2) Presence of permanent cardiac pacemaker: Comment: ST [facility]. Placed 01/29/[address] Malagon for complete heart block. Code(s): Z95.0 - Presence of cardiac pacemaker Plan: Follow-up with cardiology. Coding Level of Care Code Est Pt Level 3 (89909) Diagnoses Alzheimer's dementia without behavioral disturbance, psychotic disturbance, mood disturbance, or anxiety, unspecified dementia severity, unspecified timing of dementia onset G30.9; F02.80 Dementia type: Alzheimer's Alzheimer's disease onset: unspecified onset Dementia behavioral or psychological symptom: without behavioral, psychotic, or mood disturbance or anxiety Dementia severity: unspecified severity Presence of permanent cardiac pacemaker Z95.0 Time Spent (min) 19
== END 2024-02-20 12:59 | disposition home or self-care (01) ==
PROVIDERS: PCP Internal Medicine; Visit Provider Internal Medicine
DX: G30.9 Alzheimer's disease, unspecified (principal); F02.80 Dementia in other diseases classified elsewhere, unspecified severity, without behavioral disturbance, psychotic disturbance, mood disturbance, and anxiety; I44.2 Atrioventricular block, complete; Z95.0 Presence of cardiac pacemaker
CPT/HCPCS: 99213

== ENCOUNTER → 2024-02-28 23:59 | Outpatient (BNV) | payer MEDICARE, SELFPAY ==
--- NOTE | 2024-03-17 12:36 | MHC.OFFVIS ---
Intake Visit Reasons: Remote device check - [facility] Allergies No Known Allergies [No Known Allergies*] Allergy (Verified 03/06/24 15:46) HPI Comments Details: Remote pacemaker report generated 02/28/2024. Pacemaker function is adequate [facility] Medical History Dementia Presence of permanent cardiac pacemaker Nonrheumatic aortic (valve) stenosis Pure hypercholesterolemia Left shoulder pain Hypertension Surgical History Hx of tonsillectomy (~1944) Family History Other Family history non-contributory Social History Household Members: Unknown / Unable to assess Household Members Other:: hx dementia Housing: House Alcohol intake: never Comment: 1:1 Patient Tobacco Use Status: Never used Tobacco e-Cigarette/Vaping Use: Never Used Second Hand Smoke Exposure: Yes service: No Current occupational status: retired Cognitive needs: Yes Hearing needs: No Vision needs: No Assessment & Plan Assessment & Plan (1) Presence of permanent cardiac pacemaker: Comment: [facility]iz. Placed 01/29/[address] Malagon for complete heart block. Code(s): Z95.0 - Presence of cardiac pacemaker Category: Medical Plan: See above Coding Level of Care Code Procedure Only Diagnoses Presence of permanent cardiac pacemaker Z95.0
== END ==
PROVIDERS: PCP Internal Medicine; Visit Provider Internal Medicine Cardiovascular Disease
DX: Z45.018 Encounter for adjustment and management of other part of cardiac pacemaker (principal)
CPT/HCPCS: 93294

== ENCOUNTER 2024-03-06 15:29 | Emergency (ER) | payer MEDICARE, SELFPAY ==
--- NOTE | ~2024-03-06 | CT_ITS ---
CT HEAD WITHOUT CONTRAST CT ANGIOGRAM NECK WITH CONTRAST CT ANGIOGRAM BRAIN WITH CONTRAST CLINICAL INFORMATION: Confusion and aphasia. COMPARISON: Head CT 01/16/2024. TECHNIQUE: Test bolus sequences followed by intravenous administration 70 mL of Omnipaque 350. Helical imaging was performed in the axial plane from the thoracic inlet to the skull vertex. Delayed postcontrast imaging of the head was also performed. The data was processed at the sonography technologist workstation for generation of MIP sequences. Angled MIPs and volume rendered reformatted images were also generated at an offline 3D workstation under concurrent supervision. Stenoses are assessed in accordance with NASCET criteria unless otherwise indicated. This CT examination was performed using dose optimization techniques as appropriate, variously including the following: *Automated exposure control *Adjustment of mA and/or kV according to patient size (this includes techniques or standardized protocols for targeted exams where dose is matched to indication/reason for exam; i.e. extremities or head) *Use of iterative reconstruction technique FINDINGS: BRAIN: [There is no intracranial hemorrhage, hydrocephalus, extra-axial surface collection, midline shift, or other herniation pattern. Global cerebral volume loss with a severe mesial temporal lobe predominance and moderate chronic microangiopathy. Ruiz to white matter differentiation is diffusely maintained without evidence of an evolved acute territorial infarct. The basilar cisterns are preserved. No significant soft tissue abnormality. No acute osseous abnormality. The paranasal sinuses and the mastoid air cells are well aerated.] CERVICAL SOFT TISSUES AND LUNG APICES: Imaged upper lungs are clear. There is a left pectoral pacemaker. No significant soft tissue findings within the neck. There is advanced multilevel cervical spondylosis. NECK CTA: [There is a classic 3 vessel configuration of the aortic arch. Proximal arch vessels are non-stenotic. The right vertebral artery is dominant. No significant ostial stenosis is visualized on either side. Both vertebral arteries are widely patent throughout their extracranial cervical course. Both common and internal carotid arteries are normal in course and caliber.] BRAIN CTA: Several severe stenoses involving the proximal to mid intradural left vertebral artery associated with attenuated opacification of the entire intradural left vertebral artery. Moderate stenoses of the mid and distal right intradural vertebral artery. Favored contrast mixing within the proximal basilar artery which is otherwise widely patent. There are moderate to severe stenoses involving multiple distal bilateral TOOL ROOM LATHE OPERATOR, MCA, and GILBERT branches bilaterally. No acute arterial occlusions intracranially. CT/CT angio head neck stroke IMPRESSION: - No acute intracranial findings. Global cerebral volume loss with a severe mesial temporal lobe predominance and moderate chronic microangiopathy. - No proximal large vessel occlusions intracranially. - There are moderate to severe stenoses involving multiple distal bilateral TOOL ROOM LATHE OPERATOR, MCA, and GILBERT branches bilaterally. - Several severe stenoses involving the proximal to mid intradural left vertebral artery associated with attenuated opacification of the entire intradural left vertebral artery. Moderate stenoses of the mid and distal right intradural vertebral artery. Favored contrast mixing within the proximal basilar artery which is otherwise widely patent. - No significant arterial stenoses within the neck. - There is advanced multilevel cervical spondylosis. Findings discussed with Dr. Alejandre at 4:30 PM on 03/06/2024.
--- NOTE | ~2024-03-06 | CT_ITS ---
CT HEAD WITHOUT CONTRAST CT ANGIOGRAM NECK WITH CONTRAST CT ANGIOGRAM BRAIN WITH CONTRAST CLINICAL INFORMATION: Confusion and aphasia. COMPARISON: Head CT 01/16/2024. TECHNIQUE: Test bolus sequences followed by intravenous administration 70 mL of Omnipaque 350. Helical imaging was performed in the axial plane from the thoracic inlet to the skull vertex. Delayed postcontrast imaging of the head was also performed. The data was processed at the certified neurodiagnostic technologist workstation for generation of MIP sequences. Angled MIPs and volume rendered reformatted images were also generated at an offline 3D workstation under concurrent supervision. Stenoses are assessed in accordance with NASCET criteria unless otherwise indicated. This CT examination was performed using dose optimization techniques as appropriate, variously including the following: *Automated exposure control *Adjustment of mA and/or kV according to patient size (this includes techniques or standardized protocols for targeted exams where dose is matched to indication/reason for exam; i.e. extremities or head) *Use of iterative reconstruction technique FINDINGS: BRAIN: [There is no intracranial hemorrhage, hydrocephalus, extra-axial surface collection, midline shift, or other herniation pattern. Global cerebral volume loss with a severe mesial temporal lobe predominance and moderate chronic microangiopathy. Ruiz to white matter differentiation is diffusely maintained without evidence of an evolved acute territorial infarct. The basilar cisterns are preserved. No significant soft tissue abnormality. No acute osseous abnormality. The paranasal sinuses and the mastoid air cells are well aerated.] CERVICAL SOFT TISSUES AND LUNG APICES: Imaged upper lungs are clear. There is a left pectoral pacemaker. No significant soft tissue findings within the neck. There is advanced multilevel cervical spondylosis. NECK CTA: [There is a classic 3 vessel configuration of the aortic arch. Proximal arch vessels are non-stenotic. The right vertebral artery is dominant. No significant ostial stenosis is visualized on either side. Both vertebral arteries are widely patent throughout their extracranial cervical course. Both common and internal carotid arteries are normal in course and caliber.] BRAIN CTA: Several severe stenoses involving the proximal to mid intradural left vertebral artery associated with attenuated opacification of the entire intradural left vertebral artery. Moderate stenoses of the mid and distal right intradural vertebral artery. Favored contrast mixing within the proximal basilar artery which is otherwise widely patent. There are moderate to severe stenoses involving multiple distal bilateral SUBMARINE CABLE EQUIPMENT TECHNICIAN, MCA, and GILBERT branches bilaterally. No acute arterial occlusions intracranially. CT/CT head for stroke IMPRESSION: - No acute intracranial findings. Global cerebral volume loss with a severe mesial temporal lobe predominance and moderate chronic microangiopathy. - No proximal large vessel occlusions intracranially. - There are moderate to severe stenoses involving multiple distal bilateral SUBMARINE CABLE EQUIPMENT TECHNICIAN, MCA, and GILBERT branches bilaterally. - Several severe stenoses involving the proximal to mid intradural left vertebral artery associated with attenuated opacification of the entire intradural left vertebral artery. Moderate stenoses of the mid and distal right intradural vertebral artery. Favored contrast mixing within the proximal basilar artery which is otherwise widely patent. - No significant arterial stenoses within the neck. - There is advanced multilevel cervical spondylosis. Findings discussed with Dr. Alejandre at 4:30 PM on 03/06/2024.
--- NOTE | 2024-03-06 15:35 | ECG_ITS ---
Test Reason : DIZZINESS Blood Pressure : / mmHG Vent. Rate : 060 BPM Atrial Rate : 060 BPM P-R Int : 204 ms QRS Dur : 148 ms QT Int : 462 ms P-R-T Axes : 045 -61 021 degrees QTc Int : 462 ms Atrial-paced rhythm Right bundle branch block Left anterior fascicular block Bifascicular block Minimal voltage criteria for LVH, may be normal variant ( R in aVL ) Abnormal ECG When compared with ECG of 27-JAN-2024 07:18, Electronic atrial pacemaker has replaced Idioventricular rhythm Vent. rate has increased BY 28 BPM Referred By: Bina Alejandre Electronically Signed By:ELKIN CEE MD
--- NOTE | 2024-03-06 15:37 | ED.AMS ---
HPI - Altered Mental Status General Chief Complaint: Stroke Stated Complaint: DIZZY X 30 MINS, SPEECH ISSUES, CARDIAC HX Time Seen by Provider: 03/06/24 15:31 Source: family and EMS Mode of arrival: EMS Limitations: altered mental status History of Present Illness HPI narrative: 83 yo female with PMH of HLD, HTN, advanced dementia (doesn't recognize family), PPM for complete heart block was with her daughter about 30 min prior to arrival walked to stop and shop and alerted her daughter somehow that she didn't feel well so they sat down and rested. Started to walk again and the patient again felt tired. Daughter called EMS daughter denied noting change in speech, focal weakness or any other concerns. States she has episodes like this and they resolve but another time she needed PPM. complaint: weakness Onset (ago): minute(s) (30) Timing confirmed by: family member Severity: mild Consistency of symptoms: unknown Context: other (hx of similar episode) Associated symptoms: denies other symptoms Related Data Previous Rx's ?Medication ?Instructions ?Recorded meclizine 25 mg tablet 25 mg PO BID PRN dizziness #20 tabs 01/31/24 arm sling #1 ea 02/05/24 cefuroxime axetil 250 mg tablet 250 mg PO BID 6 days #12 tabs 03/06/24 Allergies Allergy/AdvReac Type Severity Reaction Status Date / Time No Known Allergies Allergy Verified 03/06/24 15:46 [No Known Allergies*] Review of Systems Review of Systems: ROS unable to be obtained due to altered mental status PMFSH Past Medical History Attestation statement: The following information was validated with the patient. Source: old records reviewed Medical History Dementia Presence of permanent cardiac pacemaker Nonrheumatic aortic (valve) stenosis Pure hypercholesterolemia Left shoulder pain Hypertension Surgical History Hx of tonsillectomy (~1944) Family History Family History Other Family history non-contributory Social History Social History Household Members: Unknown / Unable to assess Household Members Other:: hx dementia Housing: House Alcohol intake: never Comment: 1:1 Patient Tobacco Use Status: Never used Tobacco e-Cigarette/Vaping Use: Never Used Second Hand Smoke Exposure: Yes Advance Directives: No Advance Directives Information Provided: No Do you have a plan to hurt others: No Plan service: No Current occupational status: retired Cognitive needs: Yes Hearing needs: No Vision needs: No Physical Exam ED Vital Signs: Vital Signs - 24 hr 03/06/24 15:43 03/06/24 16:20 03/06/24 18:46 Temperature 98.2 F 98.8 F Pulse Rate 75 60 68 Respiratory Rate 16 17 16 Blood Pressure 147/124 H 130/59 L 134/69 Pulse Oximetry 98 100 98 Oxygen Delivery Method Room Air Room Air Room Air BMI result Body Mass Index 20.5 Appearance: Alert. confused very difficult to get any history she is smiling and do the exact opposite seems consistent with dementia. No acute distress. Eyes: Pupils equal, round and reactive to light. ENT: Pharynx normal. atraumatic Neck: Normal inspection. Neck supple. CVS: Normal heart rate and rhythm. Pulses normal. Respiratory: No respiratory distress. Breath sounds normal. Abdomen: Soft and non-tender. Skin: Skin warm and dry. Normal skin color. Normal skin turgor. Extremities: No lower extremity edema. No calf ttp Neuro: moves all extremities, follows commands but cannot carry on a conversation mumbles and talks about totally different matter - daughter to come to bedside to see if this is baseline, no facial assymetry. NIH Stroke Scale Internal: Other (THIS IS SCORE IS NOT RELIABLE DUE TO ADVANCED DEMENTIA) Level of Consciousness: Alert Level of Consciousness Questions: Answers neither question correctly Level of Consciousness Commands: Performs one task correctly Best Gaze: Normal Visual: No visual loss Facial Palsy: Normal Motor Arm (Right): No drift Motor Arm (Left): No drift Motor Leg (Right): No drift Motor Leg (Left): No drift Limb Ataxia: Absent Sensory: Normal Best Language: Mild to moderate aphasia Dysarthia: Normal Extinction and Inattention: Visual, tactile, auditory, spatial, or personal inattention Score: 5 Course Course Course Narrative: at baseline per daughter speech is clear when asked her name she says what and yes i'm okay clearly doubt stroke at this time appears at baseline Reevaluation(s) Reevaluation #1: diffuse disease on CTA but no acute findings + UA no tachycardic no fevers, no change in mental status, no WBC count, no signs of sepsis will give dose of ceftriaxone not toxic otherwise Medications Administered Discontinued Medications Generic Name Dose Route Start Last Admin Trade Name Sukhjinder PRN Reason Stop Dose Admin Iohexol 100 ml 03/06/24 15:57 03/06/24 15:58 Iohexol 350 Mg/Ml 100 Ml Infus..Btl IV 03/06/24 15:58 70 ml ONCE ONE Administration Medical Decision Making Medical Decision Making MDM Narrative: 83 yo female with PMH of HLD, HTN, advanced dementia (doesn't recognize family), PPM for complete heart block here with c/o feeling weak while walking no focal deficits per daughter who is on her way here at this time the patient is incredibly unreliable will need labs, CT head CTA I do not suspect stroke no deficits daughter notes on phone her speech is at baseline. Labs, UA ordered. Not a candidate for tNK suspect symptoms due to her advanced dementia and hx of weakness unreliable exam and no focal deficits. Differential Diagnosis Differential Diagnoses: The differential diagnosis associated with the presentation includes anemia and dehydration dementia Admission/Observation Consideration of admission/observation: Escalation of care including admission/observation considered CTA no acute findings chronic stenosis trop negative at baseline UA + but no fevers or signs of sepsis given advanced dementia suspect she would do better at home with treatment no vomiting eating and drinking here Consult Healthcare Provider Management of the patient was discussed with: Pharmacy Order Entry Technician Lab Data [facility] Lab Attestation statement: I reviewed the patient's lab results. 03/06/24 16:31 03/06/24 16:30 Labs: Lab Results 03/06/24 03/06/24 03/06/24 Range/Units 15:34 15:36 16:30 WBC (4.8-10.8) X10*3/uL RBC (4.20-5.50) X10*6/uL Hgb (12.0-16.0) g/dl Hct (37.0-47.0) % MCV (80.0-98.0) fL MCH (27.0-33.0) pg MCHC (31.0-35.0) g/dl RDW (11.0-16.0) % Plt Count (160-400) X10*3/uL MPV (9.4-12.3) fL Immature Gran % (Auto) (0.0-0.4) % Neut % (Auto) (45-73) % Lymph % (Auto) (20-40) % [place] % (Auto) (2-11) % Eos % (Auto) (0-4) % Baso % (Auto) (0-2) % Lymph # (Auto) (1.2-4.9) X10*3/uL [place] # (Auto) (0.1-1.2) X10*3/uL Eos # (Auto) (0.0-0.4) X10*3/uL Baso # (Auto) (0.0-0.2) X10*3/uL Abs Immat Gran (auto) (0.00-0.03) X10*3/uL Absolute Neuts (auto) (2.0-8.3) x10*3/uL Absolute Nucleated RBC (0.0-0.012) X10*3/uL Nucleated RBC % (auto) (0.0-0.2) /100WBC PT 13.1 (11.1-13.3) SEC Whole Blood PT 14.7 H (11.1-13.5) sec INR 1.1 (0.9-1.1) Whole Blood INR 1.2 H (0.9-1.1) Sodium 141 (135-145) mmol/L Potassium 4.3 D (3.3-5.1) mmol/L Chloride 109 H (96-108) mmol/L Carbon Dioxide 25 (22-29) mmol/L Anion Gap 11 L (12-20) BUN 22 H (9-16) mg/dL Creatinine 0.77 (0.5-1.4) mg/dL Estim Creat Clear Calc 47.9 Estimated GFR > 60 POC Glucose 96 (60-115) mg/dL Random Glucose 89 (60-115) mg/dL Estimat Average Glucose 103 mg/dL Hemoglobin A1c % 5.2 (<6.0) % Calcium 9.0 (8.4-10.2) mg/dL Magnesium 2.0 (1.6-2.6) mg/dL Total Bilirubin 0.5 (0.0-1.0) mg/dL Direct Bilirubin 0.2 (0.0-0.5) mg/dL AST 15 (5-31) U/L ALT 12 (0-31) U/L Alkaline Phosphatase 77 (39-117) U/L Troponin I High Sens < 2.7 (<3.5-17.0) ng/L B-Natriuretic Peptide 123 H (<100) pg/mL Total Protein 6.6 (6.5-8.0) g/dL Albumin 3.6 (3.5-5.0) g/dL Triglycerides 70 (<150) mg/dL Cholesterol 186 (<200) mg/dL LDL Cholesterol, Calc 123 H (<100) mg/dL HDL Cholesterol 49 (>40) mg/dL Lipase 55 (8-78) U/L TSH 2.57 (0.32-4.0) uIU/mL Urine Color Urine Appearance Urine pH (5.0-9.0) Ur Specific [place] (1.005-1.025) Urine Protein (Neg-Trace) mg/dL Urine Glucose (UA) (Negative) mg/dL Urine Ketones (Negative) mg/dL Urine Blood (Negative) Urine Nitrite (Negative) Ur Leukocyte Esterase (Negative) Urine RBC (0-2) /HPF Urine WBC (0-5) /HPF Ur Squamous Epith Cells (0-2) /HPF Urine Bacteria (None Seen) Hyaline Casts (0-2) /LPF Influenza Type A (PCR) NEGATIVE (Negative) Influenza Type B (PCR) NEGATIVE (Negative) RSV RNA Qual (PCR) NEGATIVE (Negative) SARS-CoV-2 RNA (RT-PCR) NEGATIVE (Negative) 03/06/24 03/06/24 03/06/24 Range/Units 16:31 16:36 18:37 WBC 9.0 (4.8-10.8) X10*3/uL RBC 4.03 L (4.20-5.50) X10*6/uL Hgb 11.9 L (12.0-16.0) g/dl Hct 35.9 L (37.0-47.0) % MCV 89.1 (80.0-98.0) fL MCH 29.5 (27.0-33.0) pg MCHC 33.1 (31.0-35.0) g/dl RDW 14.0 (11.0-16.0) % Plt Count 249 (160-400) X10*3/uL MPV 9.3 L (9.4-12.3) fL Immature Gran % (Auto) 0.4 (0.0-0.4) % Neut % (Auto) 69.6 (45-73) % Lymph % (Auto) 20.0 (20-40) % [place] % (Auto) 6.7 (2-11) % Eos % (Auto) 2.4 (0-4) % Baso % (Auto) 0.9 (0-2) % Lymph # (Auto) 1.8 (1.2-4.9) X10*3/uL [place] # (Auto) 0.6 (0.1-1.2) X10*3/uL Eos # (Auto) 0.2 (0.0-0.4) X10*3/uL Baso # (Auto) 0.1 (0.0-0.2) X10*3/uL Abs Immat Gran (auto) 0.04 H (0.00-0.03) X10*3/uL Absolute Neuts (auto) 6.3 (2.0-8.3) x10*3/uL Absolute Nucleated RBC 0.000 (0.0-0.012) X10*3/uL Nucleated RBC % (auto) 0.0 (0.0-0.2) /100WBC PT (11.1-13.3) SEC Whole Blood PT (11.1-13.5) sec INR (0.9-1.1) Whole Blood INR (0.9-1.1) Sodium (135-145) mmol/L Potassium (3.3-5.1) mmol/L Chloride (96-108) mmol/L Carbon Dioxide (22-29) mmol/L Anion Gap (12-20) BUN (9-16) mg/dL Creatinine (0.5-1.4) mg/dL Estim Creat Clear Calc Estimated GFR POC Glucose 86 (60-115) mg/dL Random Glucose (60-115) mg/dL Estimat Average Glucose mg/dL Hemoglobin A1c % (<6.0) % Calcium (8.4-10.2) mg/dL Magnesium (1.6-2.6) mg/dL Total Bilirubin (0.0-1.0) mg/dL Direct Bilirubin (0.0-0.5) mg/dL AST (5-31) U/L ALT (0-31) U/L Alkaline Phosphatase (39-117) U/L Troponin I High Sens (<3.5-17.0) ng/L B-Natriuretic Peptide (<100) pg/mL Total Protein (6.5-8.0) g/dL Albumin (3.5-5.0) g/dL Triglycerides (<150) mg/dL Cholesterol (<200) mg/dL LDL Cholesterol, Calc (<100) mg/dL HDL Cholesterol (>40) mg/dL Lipase (8-78) U/L TSH (0.32-4.0) uIU/mL Urine Color Yellow Urine Appearance Clear Urine pH 8.5 (5.0-9.0) Ur Specific [place] >= 1.030 H (1.005-1.025) Urine Protein Negative (Neg-Trace) mg/dL Urine Glucose (UA) Negative (Negative) mg/dL Urine Ketones Negative (Negative) mg/dL Urine Blood Negative (Negative) Urine Nitrite Positive H (Negative) Ur Leukocyte Esterase Moderate (2+) H (Negative) Urine RBC 0-2 (0-2) /HPF Urine WBC >50 H (0-5) /HPF Ur Squamous Epith Cells 0-2 (0-2) /HPF Urine Bacteria 4+ (None Seen) Hyaline Casts 0-2 (0-2) /LPF Influenza Type A (PCR) (Negative) Influenza Type B (PCR) (Negative) RSV RNA Qual (PCR) (Negative) SARS-CoV-2 RNA (RT-PCR) (Negative) 03/06/24 Range/Units 18:55 WBC (4.8-10.8) X10*3/uL RBC (4.20-5.50) X10*6/uL Hgb (12.0-16.0) g/dl Hct (37.0-47.0) % MCV (80.0-98.0) fL MCH (27.0-33.0) pg MCHC (31.0-35.0) g/dl RDW (11.0-16.0) % Plt Count (160-400) X10*3/uL MPV (9.4-12.3) fL Immature Gran % (Auto) (0.0-0.4) % Neut % (Auto) (45-73) % Lymph % (Auto) (20-40) % [place] % (Auto) (2-11) % Eos % (Auto) (0-4) % Baso % (Auto) (0-2) % Lymph # (Auto) (1.2-4.9) X10*3/uL [place] # (Auto) (0.1-1.2) X10*3/uL Eos # (Auto) (0.0-0.4) X10*3/uL Baso # (Auto) (0.0-0.2) X10*3/uL Abs Immat Gran (auto) (0.00-0.03) X10*3/uL Absolute Neuts (auto) (2.0-8.3) x10*3/uL Absolute Nucleated RBC (0.0-0.012) X10*3/uL Nucleated RBC % (auto) (0.0-0.2) /100WBC PT (11.1-13.3) SEC Whole Blood PT (11.1-13.5) sec INR (0.9-1.1) Whole Blood INR (0.9-1.1) Sodium (135-145) mmol/L Potassium (3.3-5.1) mmol/L Chloride (96-108) mmol/L Carbon Dioxide (22-29) mmol/L Anion Gap (12-20) BUN (9-16) mg/dL Creatinine (0.5-1.4) mg/dL Estim Creat Clear Calc Estimated GFR POC Glucose (60-115) mg/dL Random Glucose (60-115) mg/dL Estimat Average Glucose mg/dL Hemoglobin A1c % (<6.0) % Calcium (8.4-10.2) mg/dL Magnesium (1.6-2.6) mg/dL Total Bilirubin (0.0-1.0) mg/dL Direct Bilirubin (0.0-0.5) mg/dL AST (5-31) U/L ALT (0-31) U/L Alkaline Phosphatase (39-117) U/L Troponin I High Sens < 2.7 (<3.5-17.0) ng/L B-Natriuretic Peptide (<100) pg/mL Total Protein (6.5-8.0) g/dL Albumin (3.5-5.0) g/dL Triglycerides (<150) mg/dL Cholesterol (<200) mg/dL LDL Cholesterol, Calc (<100) mg/dL HDL Cholesterol (>40) mg/dL Lipase (8-78) U/L TSH (0.32-4.0) uIU/mL Urine Color Urine Appearance Urine pH (5.0-9.0) Ur Specific [place] (1.005-1.025) Urine Protein (Neg-Trace) mg/dL Urine Glucose (UA) (Negative) mg/dL Urine Ketones (Negative) mg/dL Urine Blood (Negative) Urine Nitrite (Negative) Ur Leukocyte Esterase (Negative) Urine RBC (0-2) /HPF Urine WBC (0-5) /HPF Ur Squamous Epith Cells (0-2) /HPF Urine Bacteria (None Seen) Hyaline Casts (0-2) /LPF Influenza Type A (PCR) (Negative) Influenza Type B (PCR) (Negative) RSV RNA Qual (PCR) (Negative) SARS-CoV-2 RNA (RT-PCR) (Negative) Independent Interpretation I performed an independent interpretation of an: EKG and CT Scan Interpretation: Rate: 60 Rhythm: atrial paced [place]: left Normal P waves. Normal SHARON. bifascicular block RBBB ST T wave : no ELKE, inverted t waves V1-V2 qTC: 462 prior studies: no acute ischemia The study has been interpreted contemporaneously by me. . Radiology Impression Discussion of test interpretation with radiology: I discussed test interpretation with the radiologist and I have reviewed the radiologist's reading. Radiologist Impression: 427pm - negative CT scans no LVO no ICH Independent Historian Clinical information obtained from an independent historian. History obtained from or confirmed by: EMS and Other (daughter) External Record Review External record reviewed: Inpatient record Prescription Management I considered prescription management with: Antibiotic Critical Care Time Critical Care Time Critical Care Time: Yes Total Critical Care Time: 45 Attestation: stroke alert, review of records, family discussions I attest to this time spent taking care of the patient Discharge Plan Discharge Clinical Impression: Acute UTI Dementia Qualifiers: Dementia type: unspecified type Dementia severity: unspecified severity Dementia behavioral or psychological symptom: without behavioral, psychotic, or mood disturbance or anxiety Qualified Code(s): F03.90 - Unspecified dementia, unspecified severity, without behavioral disturbance, psychotic disturbance, mood disturbance, and anxiety Patient Disposition: Home, Self-Care Instructions: Urinary Tract Infection in Women (ED), Dementia (ED) Additional Instructions: given age has chronic narrowing of a lot of the vessels in the brain other than baby aspirin every day there is no real treatment for this right now. heart tests for signs of heart were normal she does have a urinary tract infection return for any worsening symptoms, fevers, vomiting, or any other concerns. Prescriptions: New cefuroxime axetil 250 mg tablet 250 mg PO BID 6 Days Qty: 12 0RF No Action (DME) arm sling See Rx Instructions .Route .MEDSUPPLY Qty: 1 0RF Rx Instructions: As directed meclizine 25 mg tablet 25 mg PO BID PRN (Reason: dizziness) Qty: 20 0RF Print Language: Tamazight
[2024-03-06 15:39] LABS: Prothrombin Time Whole Bld POC 14.7 sec (11.1-13.5); ~PT, ~INR - Anti Coag Clinic 1.2 (0.9-1.1)
[2024-03-06 15:41] VITALS: BP 112/68; PULSE 66; O2SAT 98
[2024-03-06 15:41] LABS: Glucose, Whole Blood 96 mg/dL (60-115)
[2024-03-06 15:43] VITALS: BP 147/124; PULSE 75; RESP 16; TEMP 36.8; O2SAT 98; BMI 20.5
[2024-03-06] MEDS: iohexoL 350 MG/ML 100 ML INFUS..BTL IV (15:58)
[2024-03-06 16:20] VITALS: BP 130/59; PULSE 60; RESP 17; O2SAT 100
[2024-03-06 16:39] LABS: MANUAL DIFF FLAG NO
[2024-03-06 16:41] LABS: Glucose, Whole Blood 86 mg/dL (60-115)
[2024-03-06 16:43] LABS: Basophils Absolute Auto 0.1 X10*3/uL (0.0-0.2); Basophils Percent Auto 0.9 % (0-2); Eosinophils Absolute Auto 0.2 X10*3/uL (0.0-0.4); Eosinophils Percent Auto 2.4 % (0-4); Hematocrit 35.9 % (37.0-47.0); Hemoglobin 11.9 g/dl (12.0-16.0); Imm Gran Abs Auto 0.04 X10*3/uL (0.00-0.03); Imm Gran Pct Auto 0.4 % (0.0-0.4); Lymphocytes Absolute Auto 1.8 X10*3/uL (1.2-4.9); Mean Corpuscular HGB Conc 33.1 g/dl (31.0-35.0); Mean Corpuscular Hemoglobin 29.5 pg (27.0-33.0); Mean Corpuscular Volume 89.1 fL (80.0-98.0); Mean Platelet Volume 9.3 fL (9.4-12.3); Monocytes Absolute Auto 0.6 X10*3/uL (0.1-1.2); Monocytes Percent Auto 6.7 % (2-11); Neutrophils Absolute Auto 6.3 x10*3/uL (2.0-8.3); Neutrophils Percent Auto 69.6 % (45-73); Platelet Count 249 X10*3/uL (160-400); Red Blood Count 4.03 X10*6/uL (4.20-5.50)
[2024-03-06 16:45] LABS: INTERNATIONAL NORM RATIO 1.1 (0.9-1.1); Prothrombin Time 13.1 SEC (11.1-13.3)
[2024-03-06 16:53] LABS: Estimated Average Glucose 103 mg/dL; Hemoglobin A1c % 5.2 % (<6.0)
[2024-03-06 17:02] LABS: B Type Natriuretic Peptide 123 pg/mL (<100)
[2024-03-06 17:04] LABS: Alanine Aminotransferase 12 U/L (0-31); Albumin Level 3.6 g/dL (3.5-5.0); Alkaline Phosphatase 77 U/L (39-117); Anion Gap 11 (12-20); Aspartate Amino Transferase 15 U/L (5-31); Bilirubin Direct 0.2 mg/dL (0.0-0.5); Bilirubin Total 0.5 mg/dL (0.0-1.0); Blood Urea Nitrogen 22 mg/dL (9-16); Carbon Dioxide 25 mmol/L (22-29); Chloride 109 mmol/L (96-108); Cholesterol 186 mg/dL (<200); Creatinine Clr Calc Pharmacy 47.9; Estimated Glomerular Filt Rate > 60; Glucose Random 89 mg/dL (60-115); HDL Cholesterol 49 mg/dL (>40); LDL Cholesterol Calculated 123 mg/dL (<100); Lipase 55 U/L (8-78); Potassium 4.3 mmol/L (3.3-5.1); Sodium 141 mmol/L (135-145); Total Protein 6.6 g/dL (6.5-8.0); Triglycerides 70 mg/dL (<150)
[2024-03-06 17:05] LABS: Troponin-I High Sensitivity < 2.7 ng/L (<3.5-17.0)
[2024-03-06 17:19] LABS: TSH reflex Free T4 2.57 uIU/mL (0.32-4.0)
[2024-03-06 17:20] LABS: Influenza A PCR NEGATIVE (Negative); Influenza B PCR NEGATIVE (Negative); Resp Syncy Virus RNA Qual PCR NEGATIVE (Negative); SARS COV2 PCR INHOUSE NEGATIVE (Negative)
[2024-03-06 18:43] LABS: Appearance Urine Clear; Color Urine Yellow; Glucose Urine UA Negative (Negative); Leukocyte Esterase Urine Moderate (2+) (Negative); Nitrite Urine Positive (Negative); PH 8.5 (5.0-9.0); Specific Gravity - Urine >= 1.030 (1.005-1.025); UMIC TRIGGER UACC YES; Urine Blood Negative (Negative); Urine Ketones Negative (Negative); Urine Protein Negative (Neg-Trace)
[2024-03-06 18:46] VITALS: BP 134/69; PULSE 68; RESP 16; TEMP 37.1; O2SAT 98
[2024-03-06 18:47] LABS: Bacteria Urine 4+ (None Seen); Hyaline Casts Urine 0-2 /LPF (0-2); RBC Urine 0-2 /HPF (0-2); Squamous Epithelial Cell Urine 0-2 /HPF (0-2); UACC Culture Trigger YES; WBC Urine >50 /HPF (0-5)
[2024-03-06 19:24] LABS: Troponin-I High Sensitivity < 2.7 ng/L (<3.5-17.0)
[2024-03-06] MEDS: cefTRIAXone sodium 1 GM in 0.9 % Sodium Chloride 50 ML IV (19:41)
[2024-03-06 19:58] VITALS: BP 116/59; PULSE 66; RESP 16; TEMP 36.8; O2SAT 98
[2024-03-06 20:25] VITALS: BP 116/59; BP 132/77; PULSE 66; RESP 16; TEMP 36.7; TEMP 36.8; O2SAT 96; O2SAT 98
== END 2024-03-06 20:26 | disposition home or self-care (01) ==
PROVIDERS: Emergency Provider Emergency Medicine
DX: N39.0 Urinary tract infection, site not specified (principal); F03.90 Unspecified dementia, unspecified severity, without behavioral disturbance, psychotic disturbance, mood disturbance, and anxiety; R29.705 NIHSS score 5; R42 Dizziness and giddiness; R06.02 Shortness of breath; I45.10 Unspecified right bundle-branch block; R94.31 Abnormal electrocardiogram [ECG] [EKG]; M54.2 Cervicalgia; I10 Essential (primary) hypertension; Z51.81 Encounter for therapeutic drug level monitoring; Z11.52 Encounter for screening for COVID-19; Z20.822 Contact with and (suspected) exposure to COVID-19; Z79.899 Other long term (current) drug therapy
CPT/HCPCS: 0241U; 36415; 51701; 70450; 70496; 70498; 80048; 80061; 80076; 81001; 82947; 83036; 83690; 83735; 83880; 84443; 84484; 85025; 85610; 87086; 87088; 87186; 93005; 96365; 99284; J0696; Q9967

== ENCOUNTER → 2024-03-06 15:35 | Outpatient (BNV) | payer MEDICARE, SELFPAY | PROVIDERS: Emergency Provider Emergency Medicine; Visit Provider Internal Medicine Cardiovascular Disease | DX: R42 Dizziness and giddiness (principal); I45.2 Bifascicular block | CPT/HCPCS: 93010 ==

== ENCOUNTER 2024-03-12 08:57 | Outpatient (AMB) | payer MEDICARE, SELFPAY ==
[2024-03-12 09:12] VITALS: BP 120/78; PULSE 70; BMI 20.7
--- NOTE | 2024-03-12 09:12 | A.OFFVIS_ITS ---
Vital Signs 03/12/24 09:12 Height 5 ft 3 in Weight 116 lb 13.52 oz BMI 20.7 BP 120/78 Blood Pressure Location Lt brachial Pulse 70 Intake Visit Reasons: f/up new st parviz 6 wk ck Intake Note: Follow-up St parviz pacer check feeling ok Second Floor Operator Required: No Network Operations Manager: Network Operations Manager Present Accompanied by: Daughter Allergies No Known Allergies [No Known Allergies*] Allergy (Verified 03/06/24 15:46) HPI Comments Details: Alanis comes accompanied by her daughter. Patient does not present any symptoms. She has advanced dementia. She comes for pacemaker evaluation. While in the hospital she had highly symptomatic complete heart block for which she underwent pacemaker placement. Since then she has not had any apparent syncopal episodes. Although daughter mentions that she has had multiple different episodes. She was recently in the emergency room with patient not feeling well, although this is very nonspecific finding. At that time she had head and neck CTA which showed multiple intracranial stenosis with severe cerebral volume loss. Patient advise aspirin therapy. [facility] Medical History Dementia Presence of permanent cardiac pacemaker Nonrheumatic aortic (valve) stenosis Pure hypercholesterolemia Left shoulder pain Hypertension Surgical History Hx of tonsillectomy (~1944) Family History Other Family history non-contributory Social History Household Members: Unknown / Unable to assess Household Members Other:: hx dementia Housing: House Alcohol intake: never Comment: 1:1 Patient Tobacco Use Status: Never used Tobacco e-Cigarette/Vaping Use: Never Used Second Hand Smoke Exposure: Yes service: No Current occupational status: retired Cognitive needs: Yes Hearing needs: No Vision needs: No Review of Systems Const Denies chills, Denies fatigue, Denies fever(s), Denies frequent falls, Denies weakness, Denies weight gain and Denies weight loss ENT Denies dizziness Card Denies chest pain, Denies leg edema, Denies lightheadedness, Denies palpitations, Denies dyspnea, Denies dyspnea on exertion, Denies orthopnea and Denies other (loss of consciousness) Resp Denies cough, Denies dyspnea and Denies dyspnea on exertion GI Denies hematochezia and Denies change in stool character Musc Denies abnormal gait, Denies muscle weakness, Denies numbness, Denies radiating pain into limb and Denies tingling Neuro Denies abnormal gait, Reports confusion, Denies dizziness, Denies frequent falls, Denies numbness, Denies tingling and Denies weakness Psych Reports confusion Endo Denies fatigue and Denies palpitations Physical Exam Vital Signs: Last Vital Signs Pulse 70 03/12/24 09:12 BP 120/78 03/12/24 09:12 BMI result Body Mass Index 20.7 Const General: cooperative, comfortable, alert, awake, confusion and poor hygiene Nutritional Appearance: thin Orientation/consciousness: confusion Neck Neck: Yes trachea midline, Yes supple and Yes no JVD Resp Effort & Inspection: normal respiratory effort Auscultation: clear to auscultation bilaterally Cardio Jugular venous distension: no JVD Palpation: normal PMI Rate: regular rate Rhythm: regular rhythm Heart sounds: S1 normal heart sound present, S2 normal heart sound present, no click, no gallops and no murmurs GI Auscultation: normal bowel sounds Skin General skin exam: no rashes or lesions noted Neuro General: moves all extremities and confusion Extrem General: Yes no clubbing, cyanosis or edema Office Procedures Cardiac Device Check Cardiac Device Check Details: Dual-chamber [place] pacemaker in place. Programmed in DDD at 60 beats per minute. Ventricular pacing 59% of time. Atrial pacing 31% of time. No arrhythmias detected. Atrial and ventricular pacing thresholds adequate. Atrial ventricular sensing is adequate. Pacing lead impedance is stable. Battery life is at about 10 and half years [id number] Cardiac Device Check, pacemaker dual lead Procedure code (CPT) selection complete Assessment & Plan Assessment & Plan (1) Presence of permanent cardiac pacemaker: Comment: [facility]. Placed 01/29/[address] Malagon for complete heart block. Code(s): Z95.0 - Presence of cardiac pacemaker Category: Medical Plan: Cardiac pacemaker in-situ for complete heart block symptomatic while in the hospital with symptoms happen 2. The symptoms seems to have not recurred. She has lot of other nonspecific symptoms which are unexplained. Pacemaker is working well. This was discussed with the daughter. She has significant advanced dementia and unlikely did other invasive or advanced testing will be pursued. This was discussed with her clearly. She is noted to have intracranial stenosis and multiple blood vessels and aspirin would be adequate. Consider statin therapy with minimal benefits given her advanced dementia. Continue remote monitoring for a pacemaker. Follow up in the clinic in 1 year's time, sooner p.r.n.. Thank you for allowing me to partake in the care Coding Level of Care Code Est Pt Level 4 (86638) Diagnoses Presence of permanent cardiac pacemaker Z95.0 CPT Codes Cardiac Device Check - Cardiac Device 2: [id number] Cardiac Device Check, pacemaker dual lead ([id number])
== END 2024-03-12 09:42 | disposition home or self-care (01) ==
PROVIDERS: PCP Internal Medicine; Visit Provider Internal Medicine Cardiovascular Disease
DX: I44.2 Atrioventricular block, complete (principal); Z95.0 Presence of cardiac pacemaker
CPT/HCPCS: 93280; 99214

== ENCOUNTER → 2024-03-12 08:57 | Outpatient (BNVA) | payer MEDICARE, SELFPAY | PROVIDERS: PCP Internal Medicine; Visit Provider Internal Medicine Cardiovascular Disease | DX: Z45.018 Encounter for adjustment and management of other part of cardiac pacemaker (principal) | CPT/HCPCS: 93280; 99212 ==

== ENCOUNTER → 2024-05-19 23:59 | Outpatient (BNV) | payer MEDICARE, SELFPAY ==
--- NOTE | 2024-05-26 16:56 | MHC.OFFVIS ---
Intake Visit Reasons: Remote device check - [employer] Allergies No Known Allergies [No Known Allergies*] Allergy (Verified 05/24/24 09:58) PFSH Medical History Dementia Presence of permanent cardiac pacemaker Nonrheumatic aortic (valve) stenosis Pure hypercholesterolemia Left shoulder pain Hypertension Surgical History Hx of tonsillectomy (~1944) Family History Other Family history non-contributory Social History Household Members: Unknown / Unable to assess Household Members Other:: hx dementia Housing: House Alcohol intake: never Comment: 1:1 Patient Tobacco Use Status: Never used Tobacco e-Cigarette/Vaping Use: Never Used Second Hand Smoke Exposure: Yes Advance Directives: No Advance Directives Information Provided: Yes service: No Current occupational status: retired Cognitive needs: Yes Hearing needs: No Vision needs: No Office Procedures Cardiac Device Check Cardiac Device Check Details: remote pacemaker report generated 05/23/2024. Pacemaker function shows elevated atrial auto capture thresholds. Will bring in the patient for inpatient evaluation of the atrial thresholds [id number] Cardiac Device Interrogation, pacemaker Procedure code (CPT) selection complete Assessment & Plan Assessment & Plan (1) Presence of permanent cardiac pacemaker: Comment: [employer]. Placed 01/29/[address] Malagon for complete heart block. Code(s): Z95.0 - Presence of cardiac pacemaker Category: Medical Plan: see above Coding Level of Care Code Procedure Only Diagnoses Presence of permanent cardiac pacemaker Z95.0 CPT Codes Cardiac Device Check - Cardiac Device 12: [id number] Cardiac Device Interrogation, pacemaker ([id number])
== END ==
PROVIDERS: PCP Internal Medicine; Visit Provider Internal Medicine Cardiovascular Disease
DX: Z45.018 Encounter for adjustment and management of other part of cardiac pacemaker (principal)
CPT/HCPCS: 93294

== ENCOUNTER 2024-05-24 09:47 | Emergency (ER) | payer MEDICARE, SELFPAY ==
--- NOTE | 2024-05-24 | ECG_ITS ---
Test Reason : ABD PAIN Blood Pressure : / mmHG Vent. Rate : 070 BPM Atrial Rate : 070 BPM P-R Int : 184 ms QRS Dur : 140 ms QT Int : 434 ms P-R-T Axes : 072 -72 024 degrees QTc Int : 468 ms Sinus rhythm with occasional Premature ventricular complexes and Premature atrial complexes Right bundle branch block Left anterior fascicular block Bifascicular block Abnormal ECG When compared with ECG of 06-MAR-2024 16:13, Sinus rhythm has replaced Electronic atrial pacemaker Referred By: Generic ED Physician Electronically Signed By:Garcia Morales
--- NOTE | ~2024-05-24 | CT_ITS ---
EXAMINATION: CT ABDOMEN AND PELVIS WITHOUT CONTRAST CLINICAL INFORMATION: Left flank pain. Unclear if traumatic. COMPARISON: None available. TECHNIQUE: Multidetector volumetric imaging was performed from the superior aspect of the liver through the pubic symphysis. Sagittal and coronal reformatted images were obtained on the technologist's workstation. This CT examination was performed using dose optimization techniques as appropriate, variously including the following: *Automated exposure control *Adjustment of mA and/or kV according to patient size (this includes techniques or standardized protocols for targeted exams where dose is matched to indication/reason for exam; i.e. extremities or head) *Use of iterative reconstruction technique DLP: 326 mGy-cm FINDINGS: LUNG BASES: The visualized lung bases are unremarkable. LIVER, GALLBLADDER, AND BILIARY TREE: The liver is normal in size, shape, and attenuation. No focal hepatic lesion or biliary ductal dilatation is present. The gallbladder is unremarkable with no evidence of radiopaque gallstones, gallbladder wall thickening, or obvious pericholecystic inflammatory changes. PANCREAS: Unremarkable. SPLEEN: Unremarkable. ADRENAL GLANDS: Mild bilateral adrenal thickening KIDNEYS AND URETERS: The kidneys are normal in size, shape, and attenuation. No hydronephrosis, hydroureter, or calculi seen. No perinephric stranding. BLADDER: Unremarkable. GASTROINTESTINAL TRACT: Large amount of stool and gas in the rectum. Severe colonic diverticulosis. ABDOMINAL WALL: No significant hernia is appreciated. LYMPH NODES: Normal. VASCULAR: Prominent, ectatic descending thoracic aorta measuring is at the diaphragmatic hiatus. PELVIC VISCERA: Unremarkable. OSSEOUS STRUCTURES: Multilevel degenerative changes of the lumbar spine. Diffuse osteopenia. CT/CT abdomen pelvis wo IV con IMPRESSION: 1. Large amount of stool and gas in the rectum. 2. Severe colonic diverticulosis without pericolonic fat stranding to suggest diverticulitis. Fleischner guidelines were followed.
[2024-05-24 09:51] VITALS: BP 130/89; PULSE 82; RESP 16; TEMP 36.3; O2SAT 97; BMI 20.7
[2024-05-24 10:13] LABS: MANUAL DIFF FLAG NO
[2024-05-24 10:15] LABS: Basophils Absolute Auto 0.1 X10*3/uL (0.0-0.2); Basophils Percent Auto 1.1 % (0-2); Eosinophils Absolute Auto 0.2 X10*3/uL (0.0-0.4); Eosinophils Percent Auto 2.5 % (0-4); Hematocrit 40.9 % (37.0-47.0); Hemoglobin 13.7 g/dl (12.0-16.0); Imm Gran Abs Auto 0.02 X10*3/uL (0.00-0.03); Imm Gran Pct Auto 0.2 % (0.0-0.4); Lymphocytes Absolute Auto 2.5 X10*3/uL (1.2-4.9); Lymphocytes Percent Auto 27.3 % (20-40); Mean Corpuscular HGB Conc 33.5 g/dl (31.0-35.0); Mean Corpuscular Hemoglobin 29.2 pg (27.0-33.0); Mean Corpuscular Volume 87.2 fL (80.0-98.0); Mean Platelet Volume 8.4 fL (9.4-12.3); Monocytes Absolute Auto 0.7 X10*3/uL (0.1-1.2); Monocytes Percent Auto 7.7 % (2-11); Neutrophils Absolute Auto 5.5 x10*3/uL (2.0-8.3); Neutrophils Percent Auto 61.2 % (45-73); Platelet Count 264 X10*3/uL (160-400); Red Blood Count 4.69 X10*6/uL (4.20-5.50); Red Cell Distribution Width 13.5 % (11.0-16.0)
[2024-05-24 10:34] LABS: Alanine Aminotransferase 8 U/L (0-31); Albumin Level 4.1 g/dL (3.5-5.0); Alkaline Phosphatase 73 U/L (39-117); Anion Gap 13 (12-20); Aspartate Amino Transferase 14 U/L (5-31); Bilirubin Total 0.8 mg/dL (0.0-1.0); Blood Urea Nitrogen 16 mg/dL (9-16); Calcium 9.6 mg/dL (8.4-10.2); Carbon Dioxide 23 mmol/L (22-29); Chloride 107 mmol/L (96-108); Creatinine Clr Calc Pharmacy 34.6; Estimated Glomerular Filt Rate 53; Glucose Random 82 mg/dL (60-115); Lipase 37 U/L (8-78); Potassium 4.2 mmol/L (3.3-5.1); Sodium 139 mmol/L (135-145); Total Protein 7.3 g/dL (6.5-8.0)
[2024-05-24 11:24] VITALS: BP 135/70; PULSE 62; RESP 18; TEMP 37; O2SAT 95
--- NOTE | 2024-05-24 11:50 | ED_ITS ---
HPI - General Adult General Chief complaint: Abdominal Pain Stated complaint: flank pain/dizziness Time Seen by Provider: 05/24/24 11:16 Source: patient and family (daughter ) Mode of arrival: ambulatory Limitations: no limitations History of Present Illness ED Provider: Freddie LAMAS HPI narrative: 83 year old female hx of htn, dementia , [employer] pacemaker, presenting to the emergency department with complaints of left-sided flank pain that started this morning, pain is worse with movement better at rest. Pain has been present in the past but seems to go away on its own today she was not able to continue her walk due to pain. She denies any associated urinary symptoms such as frequency, urgency, hesitancy or blood in urine. Patient denies chest pain, shortness of breath, trauma, numbness, tingling, urinary/bowel incontinence, retention, saddle anesthesias, fevers, chills. Related Data Previous Rx's ?Medication ?Instructions ?Recorded arm sling #1 ea 02/05/24 cefuroxime axetil 250 mg tablet 250 mg PO BID 6 days #12 tabs 03/06/24 acetaminophen 325 mg capsule 650 mg (2 x 325 mg) PO Q6H PRN 05/24/24 (Tylenol) pain #30 caps docusate sodium 100 mg capsule 100 mg PO BID #20 caps 05/24/24 (Colace) lidocaine 5 % topical patch 1 patch topical DAILY PRN pain #15 05/24/24 ea polyethylene glycol 3350 17 17 g PO BID PRN constipation #238 05/24/24 gram/dose oral powder (Miralax) grams sennosides 8.6 mg tablet (senna) 8.6 mg PO BEDTIME #14 tabs 05/24/24 Allergies Allergy/AdvReac Type Severity Reaction Status Date / Time No Known Allergies Allergy Verified 05/24/24 09:58 [No Known Allergies*] Review of Systems 2 Review of Systems: Yes all other systems are reviewed and are negative PMFSH Past Medical History Attestation statement: The following information was validated with the patient. Source: old records reviewed and nursing notes reviewed Medical History Dementia Presence of permanent cardiac pacemaker Nonrheumatic aortic (valve) stenosis Pure hypercholesterolemia Left shoulder pain Hypertension Surgical History Hx of tonsillectomy (~1944) Family History Family History Other Family history non-contributory Social History Social History Household Members: Unknown / Unable to assess Household Members Other:: hx dementia Housing: House Alcohol intake: never Comment: 1:1 Patient Tobacco Use Status: Never used Tobacco e-Cigarette/Vaping Use: Never Used Second Hand Smoke Exposure: Yes Advance Directives: No Advance Directives Information Provided: Yes service: No Current occupational status: retired Cognitive needs: Yes Hearing needs: No Vision needs: No Physical Exam ED Vital Signs: Vital Signs - 24 hr 05/24/24 09:51 05/24/24 11:24 05/24/24 12:53 Temperature 97.4 F 98.6 F Pulse Rate 82 62 Respiratory Rate 16 18 20 Blood Pressure 130/89 135/70 140/72 H Pulse Oximetry 97 95 Oxygen Delivery Method Room Air Room Air 05/24/24 13:59 05/24/24 14:00 05/24/24 14:00 Temperature Pulse Rate 68 69 70 Respiratory Rate Blood Pressure 154/78 H 158/76 H 174/77 H Pulse Oximetry Oxygen Delivery Method BMI result Body Mass Index 20.7 vss Appearance: Alert.? Oriented person and place not time or situation.? No acute distress.? Head: Normocephalic, atraumatic, no step-offs or deformities Eyes: Pupils equal, round and reactive to light.? Neck: Normal inspection.? Neck supple.? CVS: Normal heart rate and rhythm.? Pulses normal.? + murmur on auscultation. Respiratory: No respiratory distress.? Breath sounds normal.? Abdomen: Soft and nontender.? Skin: Skin warm and dry.? Normal skin color.? Normal skin turgor.? Extremities: No lower extremity edema.? No calf ttp. Global weakness Back: + left flank ttp. Neuro: Oriented person and place not time or situation.? No motor deficit.? No sensory deficit. CN 2-12 intact Course Reevaluation(s) Reevaluation #1: CBC unremarkable. Chemistry no acute findings requiring intervention. UA pending. Negative orthostats. Time: 15:21 Reevaluation #2: CT abdomen pelvis with large amount of stool and gas in the rectum. Severe diverticulosis without fat stranding to suggest diverticulitis. Patient reports she is feeling better. Will send her home with a bowel regimen for constipation senna, Colace and MiraLax. Educated patient on diagnosis and treatment plan, answered all question, patient verbalizes understanding. At this time patient will be discharged home, advised to return with new or worsening symptoms. Educated on worrisome signs and symptoms and when to return. At this time I feel comfortable discharge home. Time: 15:38 Medications Administered Discontinued Medications Generic Name Dose Route Start Last Admin Trade Name Sukhjinder PRN Reason Stop Dose Admin Lidocaine 1 patch 05/24/24 12:24 05/24/24 12:58 Lidocaine 4 % Patch Adh..Patch TRANSDERMA 05/24/24 12:25 1 patch ONCE ONE Administration Protocol Morphine Sulfate 4 mg 05/24/24 12:24 05/24/24 12:58 Morphine Sulfate 4 Mg/Ml Cartridge IVPUSH 05/24/24 12:25 Not Given ONCE ONE Protocol Medical Decision Making Medical Decision Making [facility] Narrative: 1150 83-year-old female presents with left flank pain that started on Sunday worse with walking. Also reporting dizziness. Physical exam with discomfort with palpation of left flank/back region. No saddle paresthesias. Global weakness. No focal neuro deficits History and physical exam concerning for possible orthostatic hypotension versus dehydration versus metabolic derangements. Unlikely stroke, posterior stroke. Left flank pain likely musculoskeletal unlikely kidney stone, pyelonephritis, cauda equina, cord compression, epidural abscess. Plan labs, imaging, urine Differential Diagnosis Differential Diagnoses: The differential diagnosis associated with the presentation includes History and physical exam concerning for possible orthostatic hypotension versus dehydration versus metabolic derangements. Unlikely stroke, posterior stroke. Left flank pain likely musculoskeletal unlikely kidney stone, pyelonephritis, cauda equina, cord compression, epidural abscess. Admission/Observation Consideration of admission/observation: Escalation of care including admission/observation considered possible Lab Data [facility] Lab Attestation statement: I reviewed the patient's lab results. 05/24/24 10:09 05/24/24 10:09 Labs: Lab Results 05/24/24 Range/Units 10:09 WBC 9.0 (4.8-10.8) X10*3/uL RBC 4.69 (4.20-5.50) X10*6/uL Hgb 13.7 (12.0-16.0) g/dl Hct 40.9 (37.0-47.0) % MCV 87.2 (80.0-98.0) fL MCH 29.2 (27.0-33.0) pg MCHC 33.5 (31.0-35.0) g/dl RDW 13.5 (11.0-16.0) % Plt Count 264 (160-400) X10*3/uL MPV 8.4 L (9.4-12.3) fL Immature Gran % (Auto) 0.2 (0.0-0.4) % Neut % (Auto) 61.2 (45-73) % Lymph % (Auto) 27.3 (20-40) % [place] % (Auto) 7.7 (2-11) % Eos % (Auto) 2.5 (0-4) % Baso % (Auto) 1.1 (0-2) % Lymph # (Auto) 2.5 (1.2-4.9) X10*3/uL [place] # (Auto) 0.7 (0.1-1.2) X10*3/uL Eos # (Auto) 0.2 (0.0-0.4) X10*3/uL Baso # (Auto) 0.1 (0.0-0.2) X10*3/uL Abs Immat Gran (auto) 0.02 (0.00-0.03) X10*3/uL Absolute Neuts (auto) 5.5 (2.0-8.3) x10*3/uL Absolute Nucleated RBC 0.000 (0.0-0.012) X10*3/uL Nucleated RBC % (auto) 0.0 (0.0-0.2) /100WBC Sodium 139 (135-145) mmol/L Potassium 4.2 (3.3-5.1) mmol/L Chloride 107 (96-108) mmol/L Carbon Dioxide 23 (22-29) mmol/L Anion Gap 13 (12-20) BUN 16 (9-16) mg/dL Creatinine 1.00 (0.5-1.4) mg/dL Estim Creat Clear Calc 34.6 Estimated GFR 53 Random Glucose 82 (60-115) mg/dL Calcium 9.6 D (8.4-10.2) mg/dL Total Bilirubin 0.8 (0.0-1.0) mg/dL AST 14 (5-31) U/L ALT 8 (0-31) U/L Alkaline Phosphatase 73 (39-117) U/L Total Protein 7.3 (6.5-8.0) g/dL Albumin 4.1 (3.5-5.0) g/dL Lipase 37 (8-78) U/L Independent Interpretation I performed an independent interpretation of an: EKG (Vent. Rate : 070 BPM Atrial Rate : 070 BPM P-R Int : 184 ms QRS Dur : 140 ms QT Int : 434 ms P-R-T Axes : 072 -72 024 degrees QTc Int : 468 ms Sinus rhythm with occasional Premature ventricular complexes and Premature atrial complexes Right bundle branch block Left ant) and CT Scan (CT/CT abdomen pelvis wo IV con IMPRESSION: 1. Large amount of stool and gas in the rectum. 2. Severe colonic diverticulosis without pericolonic fat stranding to suggest diverticulitis. Fleischner guidelines were followed.) Interpretation: CT/CT abdomen pelvis wo IV con IMPRESSION: 1. Large amount of stool and gas in the rectum. 2. Severe colonic diverticulosis without pericolonic fat stranding to suggest diverticulitis. Fleischner guidelines were followed. Radiology Impression Discussion of test interpretation with radiology: I have reviewed the radiologist's reading. External Record Review External record reviewed: Inpatient record, Office record, Outpatient record, Prior outpatient labs, Prior outpatient radiology, Primary care record and Outside ED record Critical Care Time Critical Care Time Critical Care Time: No Discharge Plan Discharge Clinical Impression: Acute left flank pain, Constipation Patient Disposition: Home, Self-Care Instructions: Flank Pain (ED) Additional Instructions: Take your medications as prescribed. If you were prescribed antibiotics today, it is important that you take your medication to their entirety, do not skip any doses, do not finish them early. Follow-up with your primary care provider this week. Return to the emergency department with new or worsening symptoms. Such as fevers, chills, chest pain, shortness of breath, nausea, vomiting, dizziness, headache, vision changes, lethargy In case of emergency call 911 Prescriptions: New acetaminophen [Tylenol] 325 mg capsule 650 mg PO Q6H PRN (Reason: pain) Qty: 30 0RF lidocaine 5 % adhesive patch,medicated 1 patch topical DAILY PRN (Reason: pain) Qty: 15 0RF Rx Instructions: leave on most painful area for up to 12 hrs docusate sodium [Colace] 100 mg capsule 100 mg PO BID Qty: 20 0RF polyethylene glycol 3350 [Miralax] 17 gram/dose powder 17 g PO BID PRN (Reason: constipation) Qty: 238 0RF sennosides [senna] 8.6 mg tablet 8.6 mg PO BEDTIME Qty: 14 0RF No Action (DME) arm sling See Rx Instructions .Route .MEDSUPPLY Qty: 1 0RF Rx Instructions: As directed cefuroxime axetil 250 mg tablet 250 mg PO BID 6 Days Qty: 12 0RF Referrals: Salomón Cardenas MD [Primary Care Provider] - 2 days Stand Alone Forms: Work/School Release Print Language: Anguillan
[2024-05-24 12:53] VITALS: BP 140/72; RESP 20
[2024-05-24] MEDS: Lidocaine 4 % Patch ADH..PATCH 1 PATCH TRANSDERMA (12:58)
[2024-05-24 13:59] VITALS: BP 154/78; PULSE 68
[2024-05-24 14:00] VITALS: BP 158/76; BP 174/77; PULSE 69; PULSE 70
[2024-05-24 15:51] VITALS: BP 148/80; PULSE 65; RESP 18; TEMP 36.9; O2SAT 98
== END 2024-05-24 15:52 | disposition home or self-care (01) ==
PROVIDERS: Emergency Provider Emergency Medicine Emergency Medical Services; PCP Internal Medicine
DX: R10.9 Unspecified abdominal pain (principal); K59.00 Constipation, unspecified; E78.00 Pure hypercholesterolemia, unspecified; I10 Essential (primary) hypertension; Z95.0 Presence of cardiac pacemaker
CPT/HCPCS: 36415; 74176; 80053; 83690; 85025; 93005; 96374; 99283; 99284

== ENCOUNTER → 2024-05-24 09:58 | Outpatient (BNV) | payer MEDICARE, SELFPAY | PROVIDERS: Emergency Provider Emergency Medicine Emergency Medical Services; PCP Internal Medicine; Visit Provider Internal Medicine Cardiovascular Disease | DX: R94.31 Abnormal electrocardiogram [ECG] [EKG] (principal) | CPT/HCPCS: 93010 ==

== ENCOUNTER → 2024-08-18 23:59 | Outpatient (BNV) | payer MEDICARE, SELFPAY ==
--- NOTE | 2024-08-19 12:40 | MHC.OFFVIS ---
Intake Visit Reasons: Remote device check - [facility] [employer] Allergies No Known Allergies [No Known Allergies*] Allergy (Verified 05/24/24 09:58) PFSH Medical History Dementia Presence of permanent cardiac pacemaker Nonrheumatic aortic (valve) stenosis Pure hypercholesterolemia Left shoulder pain Hypertension Surgical History Hx of tonsillectomy (~1944) Family History Other Family history non-contributory Social History Household Members: Unknown / Unable to assess Household Members Other:: hx dementia Housing: House Alcohol intake: never Comment: 1:1 Patient Tobacco Use Status: Never used Tobacco e-Cigarette/Vaping Use: Never Used Second Hand Smoke Exposure: Yes service: No Current occupational status: retired Cognitive needs: Yes Hearing needs: No Vision needs: No Office Procedures Cardiac Device Check Cardiac Device Check Details: Remote pacemaker report generated 08/18/2024. Pacemaker function is adequate [id number] Cardiac Device Interrogation, pacemaker Procedure code (CPT) selection complete Assessment & Plan Assessment & Plan (1) Presence of permanent cardiac pacemaker: Comment: [employer]. Placed 01/29/[address] Malagon for complete heart block. Code(s): Z95.0 - Presence of cardiac pacemaker Category: Medical Plan: See above Coding Level of Care Code Procedure Only Diagnoses Presence of permanent cardiac pacemaker Z95.0 CPT Codes Cardiac Device Check - Cardiac Device 12: [id number] Cardiac Device Interrogation, pacemaker ([id number])
== END ==
PROVIDERS: PCP Internal Medicine; Visit Provider Internal Medicine Cardiovascular Disease
DX: I44.2 Atrioventricular block, complete (principal); Z95.0 Presence of cardiac pacemaker
CPT/HCPCS: 93294

== ENCOUNTER 2024-08-25 12:44 | Outpatient (AMB) | payer MEDICARE, SELFPAY ==
--- NOTE | 2024-08-25 12:45 | MHC.PC.OV ---
Vital Signs 08/25/24 12:46 Height 5 ft 3 in Weight 116 lb 8 oz BMI 20.6 BP 118/66 Blood Pressure Location Lt brachial Position Sitting Pulse 73 Pulse Source Pulse Oximeter Pulse Oximetry (%) 96 Oxygen Delivery Method Room Air Intake Visit Reasons: 6 month f/u [employer] M[employer]per Required: No Accompanied by: Self / Same As Patient Allergies No Known Allergies [No Known Allergies*] Allergy (Verified 08/25/24 13:02) Medication List - Last Reconciled 08/25/24 by Salomón Cardenas MD acetaminophen (Tylenol) 650 mg (2 x 325 mg) PO Q6H PRN [arm sling As directed] aspirin 81 mg PO DAILY docusate sodium (Colace) 100 mg PO BID lidocaine 5% 1 patch topical DAILY PRN polyethylene glycol 3350 (Miralax) 17 grams PO BID PRN sennosides (senna) 8.6 mg PO BEDTIME Tobacco use date assessed: 08/25/24 Fall risk assessment: No Falls in past year Last assessed Fall Risk: 08/25/24 Dental Screening Dental Screen Date: 08/25/24 Did you have a dental visit in the last 12 months?: Yes Did you have a dental problem in the last 6 months where you did not have access to dental care?: No Was dental information given to patient?: Patient has dentist HPI 6 month f/u HPI Details Patient comes in today for her follow up visit - is accompanied today by her son, Salomón Horton Patient states that she currently feels okay Since she was last seen on 01/25/2024, she apparently was brought to the ER by her daughter later that same day as patient supposedly kept feeling dizzy and had one episode of what she described as a sensation of tunnel vision She was eventually found to have symptomatic bradycardia with heart block and was admitted to the hospital in preparation for a permanent pacemaker insertion with cardiology the next day Patient's son states that since patient had her pacemaker insertion back in January 2024, she has been doing well with no recurrence of her dizzy spells Patient remains somewhat confused at baseline although she appears mostly unchanged from when she was last seen here in January 2024 She denies any headaches or dizziness Denies any chest pains, no increased SOB No nausea/vomiting, no abdominal pain No change in bowel habits noted She had some labs done a few months ago in May 2024 Her son would also like for her to get her flu shot today States that they normally has trouble with transportation (they had to walk here from home as there was no public transportation today due to it being a holiday) and they don't know when she will be able to get to her pharmacy if she were to go and get her shot there [facility] Medical History (Updated 08/25/24 @ 14:30 by Salomón Cardenas MD) Heart block atrioventricular Dementia Presence of permanent cardiac pacemaker Nonrheumatic aortic (valve) stenosis Pure hypercholesterolemia Left shoulder pain Hypertension Surgical History Hx of tonsillectomy (~1944) Family History Other Family history non-contributory Social History Household Members: Unknown / Unable to assess Household Members Other:: hx dementia Housing: House Alcohol intake: never Comment: 1:1 Patient Tobacco Use Status: Never used Tobacco e-Cigarette/Vaping Use: Never Used Second Hand Smoke Exposure: Yes service: No Current occupational status: retired Cognitive needs: Yes Hearing needs: No Vision needs: No Questionnaire PHQ-9 Over the last 2 weeks, how often have you been bothered by any of the following problems? 1. Little interest or pleasure in doing things: not at all 2. Feeling down, depressed, or hopeless: not at all 3. Trouble falling or staying asleep, or sleeping too much: not at all 4. Feeling tired or having little energy: not at all 5. Poor appetite or overeating: not at all 6. Feeling bad about yourself - or that you are a failure or have let yourself or your family down: not at all 7. Trouble concentrating on things, such as reading the newspaper or watching television: not at all 8. Moving or speaking so slowly that other people could have noticed. Or the opposite - being so fidgety or restless that you have been moving around a lot more than usual: not at all 9. Thoughts that you would be better off or of hurting yourself in some way: not at all Total score: 0 Depression Screening Interpretation: Negative Depression Screening Done: Yes 14647 - PHQ-9 Billing: Yes Source: Developed by Drs. Regino Nuñez, Poncho Aviles and colleagues, with an educational arin from [employer]. Thrive Questionnaire Date Thrive assessed: 08/25/24 I am a: Patient What is your living situation today?: I have a steady place to live Within the past 12 months, did the food you bought not last and you didn't have the money to get more?: Never true Within the past 12 months, did you worry whether your food would run out before you got money to buy more?: Never true Do you have trouble paying for medicines?: No Do you have trouble getting transportation to medical appointments?: No Do you have trouble paying your heating and electricity bill?: No Do you have trouble taking care of your child, family member or friend?: No Do you have trouble with day-to-day activities such as bathing, preparing meals, shopping, managing finances, etc.?: No Are you currently unemployed and looking for a job?: No Are you interested in more education?: No Please select the resources that you would like help with: None Currently or been in a relationship where the following occur: No concerns reported THRIVE Score: 0 AUDIT C Alcohol Use Questionnaire (AUDIT-C) 1. How often do you have a drink containing alcohol?: Never Total Score: 0 Score Reviewed/Action Taken: Yes NIKKI-7 AMB Questionnaire NIKKI-7 Date NIKKI - 7 assessed: 08/25/24 Feeling nervous, anxious, or on edge: 0 = Not at all Not being able to stop or control worryin = Not at all Worrying too much about different things: 0 = Not at all Trouble relaxin = Not at all Being so restless that it is hard to sit still: 0 = Not at all Becoming easily annoyed or irritable: 0 = Not at all Feeling afraid as if something awful might happen: 0 = Not at all Total NIKKI-7 score (0-4 normal; 5-9 mild; 10-14 moderate; 15-21 severe): 0 Source: Developed by Aidee Salazar Kurt Kroenke and colleagues, with an educational arin from [employer]. Review of Systems Const Details: Patient appears confused and information here is obtained partly from her son, who is here with her today Denies chills, Denies difficulty sleeping, Denies fatigue, Denies fever(s) and Denies headache(s) ENT Denies dysphagia, Denies dizziness, Denies otalgia, Denies headache(s), Denies neck pain, Denies odynophagia and Denies sore throat Card Denies chest pain, Denies palpitations and Denies dyspnea Resp Denies chest congestion, Denies cough and Denies dyspnea GI Denies abdominal pain, Denies constipation, Denies dysphagia, Denies heartburn, Denies diarrhea, Denies nausea, Denies odynophagia and Denies vomiting Denies difficulty voiding, Denies nocturia and Denies dysuria Musc Denies back pain, Denies arthralgias and Denies neck pain Skin/Breast Denies rash Neuro Reports confusion, Denies dizziness, Denies headache(s) and Reports memory loss Psych Reports confusion and Reports memory loss Endo Denies fatigue and Denies palpitations Physical exam (Primary Care) Vital Signs: Last Vital Signs Pulse 73 08/25/24 12:46 BP 118/66 08/25/24 12:46 Pulse Ox 96 08/25/24 12:46 Oxygen Delivery Method Room Air 08/25/24 12:46 BMI result Body Mass Index 20.6 Tobacco/Smoking Status: Tobacco use Status Tobacco use date assessed 08/25/24 08/25/24 12:53 Patient Tobacco Use Status Never used Tobacco 08/25/24 12:53 e-Cigarette/Vaping Use Never Used 08/25/24 12:53 PHQ-9: PHQ-9 Score PHQ-9: Total score 0 08/25/24 13:03 Depression Screening Interpretation: Negative Thrive Assessment: Date of Thrive Assessment Date Thrive assessed 08/25/24 08/25/24 12:53 Currently or been in a relationship where the following occur: No concerns reported Const General: confusion Orientation/consciousness: confusion HENMT Ears: TM's normal bilaterally and EAC's normal Throat: Yes posterior oropharynx normal and Yes tonsils normal (no TP congestion) Neck Neck: Yes no lymphadenopathy and Yes supple Resp Auscultation: clear to auscultation bilaterally, no rales and no wheezes Cardio Rate: regular rate Rhythm: regular rhythm Heart sounds: no murmurs GI Palpation (GI): Soft to palpation and nontender Auscultation: normal bowel sounds General: Yes no CVA tenderness Back/Spine/Pelvis Back: no CVA tenderness Thoracic/Lumbar Spine: thoracic and lumbar spine normal to inspection Skin Rashes: no rashes Neuro General: confusion Gait exam (Neuro): Normal gait present Motor exam (neuro): no tremor noted Extrem General: Yes no clubbing, cyanosis or edema Office Procedures Flu Questionnaire Does the patient have a severe egg allergy?: No Does the patient have severe life threatening allergies?: No Does the patient have a fever or illness today?: No Has the patient ever had Guillain-[place] Syndrome?: No Has the patient ever had any past reaction to a flu shot?: No Immunizations Fluarix Triv 5961-7465 (PF) 45 mcg (15 mcg x 3)/0.5 mL IM syringe Performing Provider: Salomón Cardenas MD [facility] Administered by: MILAGROS Bridges on 08/25/24 13:17 Dose Route Admin Location Dispensed Lot Number Expiration Date NDC Pharmacist Assistant 0.5 mL IM Left Deltoid 0.5 mL [id number] 05/11/25 26023-098-19 Fix That Bug VIS Given Date VIS Provided VIS Publication Date 08/25/24 Single Vaccine 21 Eligibility Eligibility Date Funding Source Not [facility] Eligible 08/25/24 Private Results Reviewed Results Reviewed: Laboratory Tests 03/06/24 03/06/24 05/24/24 16:30 18:37 10:09 WBC 9.0 Hgb 13.7 Hct 40.9 Plt Count 264 Sodium 139 Potassium 4.2 Creatinine 1.00 Estimated GFR 53 Random Glucose 82 Calcium 9.6 D AST 14 ALT 8 Triglycerides 70 Cholesterol 186 LDL Cholesterol, Calc 123 H HDL Cholesterol 49 Lipase 37 Ur Specific [place] >= 1.030 H Urine Protein Negative Urine Glucose (UA) Negative Urine Blood Negative Urine Nitrite Positive H Ur Leukocyte Esterase Moderate (2+) H Coding Diagnoses Heart block atrioventricular I44.30 Presence of permanent cardiac pacemaker Z95.0 Alzheimer's dementia without behavioral disturbance, psychotic disturbance, mood disturbance, or anxiety, unspecified dementia severity, unspecified timing of dementia onset G30.9; F02.80 Dementia type: Alzheimer's Alzheimer's disease onset: unspecified onset Dementia behavioral or psychological symptom: without behavioral, psychotic, or mood disturbance or anxiety Dementia severity: unspecified severity Pure hypercholesterolemia E78.00 Vitamin B12 deficiency E53.8 Assessment & Plan Assessment & Plan (1) Heart block atrioventricular: Code(s): I44.30 - Unspecified atrioventricular block Category: Medical Plan: This was noted when patient was brought to the ER in January 2024 for recurrent dizziness that were exacerbated by activity Patient ended up getting a permanent pacemaker placement and she has been doing well since with no recurrence of symptoms Continue Aspirin 81 mg QD (2) Presence of permanent cardiac pacemaker: Comment: [employer]. Placed 01/29/[address] Malagon for complete heart block. Code(s): Z95.0 - Presence of cardiac pacemaker Category: Medical Plan: This is being monitored remotely by cardiology regularly Follow up with cardiology as scheduled (3) Dementia: Code(s): F03.90 - Unspecified dementia, unspecified severity, without behavioral disturbance, psychotic disturbance, mood disturbance, and anxiety Category: Medical Qualifiers: Dementia type: Alzheimer's Alzheimer's disease onset: unspecified onset Dementia behavioral or psychological symptom: without behavioral, psychotic, or mood disturbance or anxiety Dementia severity: unspecified severity Qualified Code(s): G30.9 - Alzheimer's disease, unspecified; F02.80 - Dementia in other diseases classified elsewhere, unspecified severity, without behavioral disturbance, psychotic disturbance, mood disturbance, and anxiety (4) Pure hypercholesterolemia: Code(s): E78.00 - Pure hypercholesterolemia, unspecified Category: Medical (5) Vitamin B12 deficiency: Code(s): E53.8 - Deficiency of other specified B group vitamins Category: Medical Plan Follow up in 4 months Orders: Orders Influenza [id number] Immunization Today Z23 - Encounter for immunization
[2024-08-25 12:46] VITALS: BP 118/66; PULSE 73; O2SAT 96; BMI 20.6
== END 2024-08-25 13:22 | disposition home or self-care (01) ==
PROVIDERS: PCP Internal Medicine; Visit Provider Internal Medicine
DX: Z23 Encounter for immunization (principal)

== ENCOUNTER → 2024-08-25 12:44 | Outpatient (BNVA) | payer MEDICARE, SELFPAY | PROVIDERS: PCP Internal Medicine; Visit Provider Internal Medicine | DX: Z23 Encounter for immunization (principal); I44.30 Unspecified atrioventricular block; G30.9 Alzheimer's disease, unspecified; F02.80 Dementia in other diseases classified elsewhere, unspecified severity, without behavioral disturbance, psychotic disturbance, mood disturbance, and anxiety; E78.00 Pure hypercholesterolemia, unspecified; E53.8 Deficiency of other specified B group vitamins; Z95.0 Presence of cardiac pacemaker | CPT/HCPCS: 90471; 90656 ==

== ENCOUNTER → 2024-11-17 23:59 | Outpatient (BNV) | payer MEDICARE, SELFPAY ==
--- NOTE | 2024-11-19 16:25 | MHC.OFFVIS ---
Intake Visit Reasons: Remote device check- [facility] [employer] Allergies No Known Allergies [No Known Allergies*] Allergy (Verified 08/25/24 13:02) PFSH Medical History (Updated 08/25/24 @ 14:30 by Salomón Cardenas MD) Heart block atrioventricular Dementia Presence of permanent cardiac pacemaker Nonrheumatic aortic (valve) stenosis Pure hypercholesterolemia Left shoulder pain Hypertension Surgical History Hx of tonsillectomy (~1944) Family History Other Family history non-contributory Social History Household Members: Unknown / Unable to assess Household Members Other:: hx dementia Housing: House Alcohol intake: never Comment: 1:1 Patient Tobacco Use Status: Never used Tobacco e-Cigarette/Vaping Use: Never Used Second Hand Smoke Exposure: Yes service: No Current occupational status: retired Cognitive needs: Yes Hearing needs: No Vision needs: No Office Procedures Cardiac Device Check Cardiac Device Check Details: Remote pacemaker report generated 11/17/2024. Pacemaker function is adequate [id number] Cardiac Device Interrogation, pacemaker Procedure code (CPT) selection complete Assessment & Plan Assessment & Plan (1) Presence of permanent cardiac pacemaker: Comment: [facility]. Placed 01/29/[address] Malagon for complete heart block. Code(s): Z95.0 - Presence of cardiac pacemaker Category: Medical Plan: See above Coding Level of Care Code Procedure Only Diagnoses Presence of permanent cardiac pacemaker Z95.0 CPT Codes Cardiac Device Check - Cardiac Device 12: [id number] Cardiac Device Interrogation, pacemaker ([id number])
== END ==
PROVIDERS: PCP Internal Medicine; Visit Provider Internal Medicine Cardiovascular Disease
DX: I44.2 Atrioventricular block, complete (principal); Z95.0 Presence of cardiac pacemaker
CPT/HCPCS: 93294

== ENCOUNTER 2024-11-22 10:20 | Emergency (ER) | payer MEDICARE, SELFPAY ==
--- NOTE | ~2024-11-22 | XR_ITS ---
CLINICAL HISTORY: Syncope 1 view chest x-ray Comparison: 01/29/2024 Findings: Portions of the exam are obscured by overlying material. The lungs are clear. Normal size heart. No acute fracture. IMPRESSION: 1. No acute findings. This document has been electronically signed by: Brandon Goldman MD on 11/22/2024 11:34:22
--- NOTE | ~2024-11-22 | CT_ITS ---
CLINICAL HISTORY: Syncope CT head without contrast Comparison: 03/06/2024 Findings: No new intra-axial mass, midline shift, hydrocephalus, or acute hemorrhage. Moderate diffuse atrophy and scattered white matter changes likely related to chronic microvascular ischemia.. There is no sinus or mastoid fluid. The orbits are within normal limits. There is no acute fracture. IMPRESSION: 1. No acute intracranial findings This document has been electronically signed by: Brandon Goldman MD on 11/22/2024 11:42:55
[2024-11-22 10:23] VITALS: BP 119/61; BP 130/79; PULSE 66; PULSE 70; RESP 16; TEMP 36.7; O2SAT 98; O2SAT 99; BMI 27.3
--- NOTE | 2024-11-22 10:35 | ECG_ITS ---
Test Reason : Syncope Blood Pressure : */* mmHG Vent. Rate : 58 BPM Atrial Rate : 58 BPM P-R Int : 226 ms QRS Dur : 140 ms QT Int : 466 ms P-R-T Axes : 29 -76 93 degrees QTcB Int : 457 ms AV dual-paced rhythm with prolonged AV conduction with occasional Premature ventricular complexes Abnormal ECG When compared with ECG of 24-May-2024 09:58, Electronic ventricular pacemaker has replaced Sinus rhythm Referred By: Sonia Sanon Electronically Signed By: DORI DON
--- NOTE | 2024-11-22 10:36 | ED.SYNCOPE ---
HPI - Syncope General Chief Complaint: Syncope Stated Complaint: SYNCOPAL EPISODE @STORE,DIZZY,LOW BP 76/55 PER EMS Time Seen by Provider: 11/22/24 10:27 Source: patient, family (Daughter) and EMS Mode of arrival: EMS Limitations: no limitations History of Present Illness ED Provider: DR. Sanon HPI narrative: 83-year-old female with history of hypertension, dementia, [employer]'s pacemaker presented today by ambulance after had a syncopal episode witnessed by daughter. Patient was at a liquor store returning empty bottles and can not when she complained to her daughter that she is feeling dizzy and lightheadedness the patient had syncopal episode with LOC daughter was able to sit the patient up on a chair, no falls, no head injury, not taking any blood thinner. As per daughter patient is a DNR/DNI, with known history of aortic stenosis that there is no surgical plan to manage as per family because the advanced dementia. Related Data Home Medications ?Medication ?Instructions ?Recorded ?Confirmed No Known Home Meds 11/22/24 11/22/24 Allergies Allergy/AdvReac Type Severity Reaction Status Date / Time No Known Allergies Allergy Verified 11/22/24 10:36 [No Known Allergies*] Review of Systems Review of Systems: All other systems are reviewed and are negative Constitutional: Reports as per HPI and Reports no additional constitutional complaints Eyes: Reports as per HPI and Reports no additional eye complaints Reports system reviewed and no additional complaints, except as documented Cardiovascular: Reports as per HPI and Reports no additional cardiovascular complaints Respiratory: Reports as per HPI and Reports no additional respiratory complaints Gastrointestinal: Reports as per HPI and Reports no additional gastrointestinal complaints Genitourinary: Reports no additional female genitourinary complaints Musculoskeletal: Reports no additional musculoskeletal complaints Skin/Breast: Reports system reviewed and no additional complaints, except as docu Psychiatric: Reports no additional psychiatric complaints Endocrine: Reports no additional endocrine complaints Hematologic/Lymphatic: Reports no additional hematologic/lymphatic complaints Allergic/Immunologic: Reports no additional allergic/immunologic complaints Reports system reviewed and no additional complaints, except as documented and Reports Abnormal speech present [facility] Past Medical History Medical History Heart block atrioventricular Dementia Presence of permanent cardiac pacemaker Nonrheumatic aortic (valve) stenosis Pure hypercholesterolemia Left shoulder pain Hypertension Surgical History Hx of tonsillectomy (~1944) Family History Family History Other Family history non-contributory Social History Social History Household Members: Unknown / Unable to assess Household Members Other:: hx dementia Housing: House Alcohol intake: never Comment: 1:1 Patient Tobacco Use Status: Never used Tobacco Smoked in Last 30 Days: No e-Cigarette/Vaping Use: Never Used Second Hand Smoke Exposure: Yes Use of substances other than those prescribed or required for medical reasons: No Advance Directives: No service: No Current occupational status: retired Cognitive needs: Yes Hearing needs: No Vision needs: No Physical Exam Vital Signs: Vital Signs: Last Vital Signs Temp 98.0 F 11/22/24 10:23 Pulse 81 11/22/24 10:48 Resp 16 11/22/24 10:23 BP 112/66 11/22/24 10:48 Pulse Ox 99 11/22/24 10:23 O2 Del Method Room Air 11/22/24 10:23 BMI result Body Mass Index 27.3 Vital signs have been reviewed and appear to be correct. Blood pressure elevated. Heart rate normal. Respiratory rate normal. Temperature normal. Oxygen saturation normal. Appearance: Alert. Oriented X3. No acute distress. Head: Normal external exam. Normocephalic. Atraumatic. No [place] signs noted. No raccoon eyes noted Eyes: PERRLA. EOMI. Conjunctiva and sclera normal. Eyelids normal. ENT: TM's Normal. Pharynx normal. Uvula midline. Moist mucous membranes. No trismus noted. No drooling noted. No muffled voice noted. Neck: Normal inspection. Neck supple. FROM. No adenopathy. Thyroid Normal. No meningeal signs. No neck mass noted. CVS: Normal heart rate and rhythm. Heart sound normal. 4/ 6 systolic murmur, Pulses normal throughout. Respiratory: No respiratory distress. Painless inspiration. Breath sounds normal. No wheezes/rales/rhonchi noted. Chest nontender. No accessory muscle usage noted or decreased air movement noted. Abdomen: Soft and nontender. Bowel sounds normal in all 4 quadrants. No distention noted. No organomegaly noted. No visible injury noted. Back: No CVA tenderness. Full range of motion noted. Skin: Skin warm and dry. Normal skin color. Normal skin turgor. No rashes/lesions/lacerations noted. Extremities: No lower extremity edema. Extremities exhibit normal range of motion. Extremities nontender. Neuro: Mental status: Normal attention, orientation, memory, and affect. Cranial nerves: Pupils are equal, round and reactive to light, EOMI, visual pope are fall, face is symmetric, facial sensations are normal. Motor examination normal muscle tone, strength to 4 extremities. DTR are +2, planter's are flexor. Sensory exam; normal coordination, no ataxia, gait stable. Cerebellar exam: Vuxyxg-wn-[id number] and rnea-hr-zcxe is normal. Extrapyramidal system: No tremors, no rigidity with normal facial expressions. Pronator drift not present Course Reevaluation(s) Reevaluation #1: 83-year-old female came in after having syncopal episode witnessed by her daughter, patient do not remember the event clearly but complaining of no chest pain or shortness breath. On arrival patient has orthostatic vital sign with minimal orthostatic change with changing position even after received about 500 cc from EMS. Time: 11:59 Reevaluation #2: Patient was seen and evaluated by the hospitalist, patient/daughter is declining admission and preferred to be discharged because the advanced dementia and patient get sun down syndrome, BP has been stable after patient received IV fluids. History and physical exam is consistent with aortic stenosis with no surgical plan to repair. Will honor family wishes to discharge the patient home. Time: 13:14 Medications Administered Discontinued Medications Generic Name Dose Route Start Last Admin Trade Name Freq PRN Reason Stop Dose Admin Sodium Chloride 1,000 mls @ 999 mls/hr 11/22/24 10:34 11/22/24 10:54 Ns IV 11/22/24 11:34 999 mls/hr .Q1H1M ONE Administration Medical Decision Making Differential Diagnosis Differential Diagnoses: The differential diagnosis associated with the presentation includes (ACS, dysrhythmia, aortic stenosis, severe anemia, electrolyte derangement, pneumonia, pneumothorax, intracranial bleed.) Admission/Observation Consideration of admission/observation: Escalation of care including admission/observation considered Consult Healthcare Provider Management of the patient was discussed with: Hospitalist (Dr. Huerta) Lab Data MDM Lab Attestation statement: I reviewed the patient's lab results. 11/22/24 11:01 11/22/24 11:01 Labs: Lab Results 11/22/24 Range/Units 11:01 WBC 8.0 (4.8-10.8) X10*3/uL RBC 4.13 L (4.20-5.50) X10*6/uL Hgb 12.3 (12.0-16.0) g/dl Hct 37.0 (37.0-47.0) % MCV 89.6 (80.0-98.0) fL MCH 29.8 (27.0-33.0) pg MCHC 33.2 (31.0-35.0) g/dl RDW 13.2 (11.0-16.0) % Plt Count 270 (160-400) X10*3/uL MPV 8.8 L (9.4-12.3) fL Immature Gran % (Auto) 0.4 (0.0-0.4) % Neut % (Auto) 76.1 H (45-73) % Lymph % (Auto) 15.2 L (20-40) % Benson % (Auto) 6.7 (2-11) % Eos % (Auto) 1.0 (0-4) % Baso % (Auto) 0.6 (0-2) % Lymph # (Auto) 1.2 (1.2-4.9) X10*3/uL Benson # (Auto) 0.5 (0.1-1.2) X10*3/uL Eos # (Auto) 0.1 (0.0-0.4) X10*3/uL Baso # (Auto) 0.1 (0.0-0.2) X10*3/uL Abs Immat Gran (auto) 0.03 (0.00-0.03) X10*3/uL Absolute Neuts (auto) 6.1 (2.0-8.3) x10*3/uL Absolute Nucleated RBC 0.000 (0.0-0.012) X10*3/uL Nucleated RBC % (auto) 0.0 (0.0-0.2) /100WBC Sodium 141 (135-145) mmol/L Potassium 4.1 (3.3-5.1) mmol/L Chloride 110 H (96-108) mmol/L Carbon Dioxide 26 (22-29) mmol/L Anion Gap 9 L (12-20) BUN 18 H (9-16) mg/dL Creatinine 0.87 (0.5-1.4) mg/dL Estim Creat Clear Calc 40.0 Estimated GFR > 60 Random Glucose 74 (60-115) mg/dL Calcium 8.5 D (8.4-10.2) mg/dL Total Bilirubin 0.5 (0.0-1.0) mg/dL Direct Bilirubin 0.2 (0.0-0.5) mg/dL AST 20 (5-31) U/L ALT 15 (0-31) U/L Alkaline Phosphatase 66 (39-117) U/L Troponin I High Sens < 2.7 (<3.5-17.0) ng/L B-Natriuretic Peptide 180 H (<100) pg/mL Total Protein 6.6 (6.5-8.0) g/dL Albumin 3.6 (3.5-5.0) g/dL Lipase 41 (8-78) U/L Ethyl Alcohol < 10 mg/dL Independent Interpretation I performed an independent interpretation of an: EKG (AV dual paced rhythm at 58 per minutes.), Plain X-Ray (Chest: No acute intrathoracic pathology.) and CT Scan (Head: No acute intra cranial pathology.) Radiology Impression Discussion of test interpretation with radiology: I have reviewed the radiologist's reading. Discharge Plan Discharge Clinical Impression: Syncope and collapse, Dementia, Aortic stenosis Patient Disposition: Home, Self-Care Instructions: Aortic Stenosis (ED), Syncope (ED) Prescriptions: No Action No Known Home Meds Referrals: Salomón Cardenas MD [Primary Care Provider] - Print Language: Telugu
[2024-11-22 10:46] VITALS: BP 122/68; PULSE 65
[2024-11-22 10:47] VITALS: BP 131/62; PULSE 78
[2024-11-22 10:48] VITALS: BP 112/66; PULSE 81
[2024-11-22] MEDS: 0.9 % Sodium Chloride 1,000 ML 999 ML IV (10:54)
--- NOTE | 2024-11-22 10:58 | PC.NURSE ---
Pt comes to ED today via EMS s/t syncopal episode in public with low BP. Pt is oriented to person (first name) only at this time. She struggles with her last name and unable to report date. VSS, afebrile. Skin is warm and dry Breaths and speech are unlabored. Facial symmetry noted. Move all extremities without difficulty or limitation Pt denies any pain and offers no complaints at this time; states I'm fine IVF started per MAR Awaiting CT
[2024-11-22 11:11] LABS: MANUAL DIFF FLAG NO
[2024-11-22 11:14] LABS: Basophils Absolute Auto 0.1 X10*3/uL (0.0-0.2); Basophils Percent Auto 0.6 % (0-2); Eosinophils Absolute Auto 0.1 X10*3/uL (0.0-0.4); Hemoglobin 12.3 g/dl (12.0-16.0); Imm Gran Abs Auto 0.03 X10*3/uL (0.00-0.03); Imm Gran Pct Auto 0.4 % (0.0-0.4); Lymphocytes Absolute Auto 1.2 X10*3/uL (1.2-4.9); Lymphocytes Percent Auto 15.2 % (20-40); Mean Corpuscular HGB Conc 33.2 g/dl (31.0-35.0); Mean Corpuscular Hemoglobin 29.8 pg (27.0-33.0); Mean Corpuscular Volume 89.6 fL (80.0-98.0); Mean Platelet Volume 8.8 fL (9.4-12.3); Monocytes Absolute Auto 0.5 X10*3/uL (0.1-1.2); Monocytes Percent Auto 6.7 % (2-11); Neutrophils Absolute Auto 6.1 x10*3/uL (2.0-8.3); Neutrophils Percent Auto 76.1 % (45-73); Platelet Count 270 X10*3/uL (160-400); Red Blood Count 4.13 X10*6/uL (4.20-5.50); Red Cell Distribution Width 13.2 % (11.0-16.0)
[2024-11-22 11:32] LABS: Ethanol < 10 mg/dL
[2024-11-22 11:34] LABS: Alanine Aminotransferase 15 U/L (0-31); Albumin Level 3.6 g/dL (3.5-5.0); Anion Gap 9 (12-20); Aspartate Amino Transferase 20 U/L (5-31); Bilirubin Direct 0.2 mg/dL (0.0-0.5); Bilirubin Total 0.5 mg/dL (0.0-1.0); Blood Urea Nitrogen 18 mg/dL (9-16); Calcium 8.5 mg/dL (8.4-10.2); Carbon Dioxide 26 mmol/L (22-29); Chloride 110 mmol/L (96-108); Estimated Glomerular Filt Rate > 60; Glucose Random 74 mg/dL (60-115); Lipase 41 U/L (8-78); Potassium 4.1 mmol/L (3.3-5.1); Sodium 141 mmol/L (135-145); Total Protein 6.6 g/dL (6.5-8.0)
[2024-11-22 11:45] LABS: Troponin-I High Sensitivity < 2.7 ng/L (<3.5-17.0)
[2024-11-22 11:50] LABS: Alkaline Phosphatase 66 U/L (39-117)
[2024-11-22 12:05] LABS: B Type Natriuretic Peptide 180 pg/mL (<100)
--- NOTE | 2024-11-22 12:17 | P.HPHOSP_ITS ---
History of Present Illness Date of Service: 11/22/24 Attending physician on admission: Micheal Lowe Chief Complaint: Syncopal episode [facility] Medical History Heart block atrioventricular Dementia Presence of permanent cardiac pacemaker Nonrheumatic aortic (valve) stenosis Pure hypercholesterolemia Left shoulder pain Hypertension Family History Other Family history non-contributory Surgical History Hx of tonsillectomy (~1944) Social History Household Members: Unknown / Unable to assess Household Members Other:: hx dementia Housing: House Alcohol intake: never Comment: 1:1 Patient Tobacco Use Status: Never used Tobacco Smoked in Last 30 Days: No e-Cigarette/Vaping Use: Never Used Second Hand Smoke Exposure: Yes Use of substances other than those prescribed or required for medical reasons: No Advance Directives: No service: No Current occupational status: retired Cognitive needs: Yes Hearing needs: No Vision needs: No Meds Allergies Allergy/AdvReac Type Severity Reaction Status Date / Time No Known Allergies Allergy Verified 11/22/24 10:36 [No Known Allergies*] Home Medications ?Medication ?Instructions ?Recorded ?Confirmed ?Last Taken ?Type aspirin 81 mg tablet,delayed 81 mg PO DAILY 08/25/24 08/25/24 Unknown History release Physical Exam 2 Vital Signs and Narrative: Vital Signs: Last Vital Signs Temp 98.0 F 11/22/24 10:23 Pulse 81 11/22/24 10:48 Resp 16 11/22/24 10:23 BP 112/66 11/22/24 10:48 Pulse Ox 99 11/22/24 10:23 O2 Del Method Room Air 11/22/24 10:23 BMI result Body Mass Index 27.3 Results Labs 11/22/24 11:01 11/22/24 11:01 Labs: Laboratory Results - last 24 hr 11/22/24 11:01 MCV 89.6 MCH 29.8 MCHC 33.2 RDW 13.2 Plt Count 270 MPV 8.8 L Immature Gran % (Auto) 0.4 Neut % (Auto) 76.1 H Lymph % (Auto) 15.2 L [place] % (Auto) 6.7 Eos % (Auto) 1.0 Baso % (Auto) 0.6 Lymph # (Auto) 1.2 [place] # (Auto) 0.5 Eos # (Auto) 0.1 Baso # (Auto) 0.1 Abs Immat Gran (auto) 0.03 Absolute Neuts (auto) 6.1 Absolute Nucleated RBC 0.000 Nucleated RBC % (auto) 0.0 Anion Gap 9 L Estim Creat Clear Calc 40.0 Estimated GFR > 60 Random Glucose 74 Calcium 8.5 D Total Bilirubin 0.5 Direct Bilirubin 0.2 AST 20 ALT 15 Alkaline Phosphatase 66 Troponin I High Sens < 2.7 B-Natriuretic Peptide 180 H Total Protein 6.6 Albumin 3.6 Lipase 41 Ethyl Alcohol < 10
--- NOTE | 2024-11-22 12:28 | PHA.MEDREC ---
Addendum entered by Sidra Alonzo RPh 11/22/24 13:11: [facility] reviewed Original Note: Pharmacy Consult ? Medication Reconciliation Pharmacy has completed the medication reconciliation. Family at bedside confirmed no current meds.
[2024-11-22 15:08] VITALS: BP 112/66; PULSE 81; RESP 16; TEMP 36.6
== END 2024-11-22 15:32 | disposition home or self-care (01) ==
PROVIDERS: Emergency Provider Emergency Medicine; PCP Internal Medicine
DX: I35.0 Nonrheumatic aortic (valve) stenosis (principal); R55 Syncope and collapse; F03.90 Unspecified dementia, unspecified severity, without behavioral disturbance, psychotic disturbance, mood disturbance, and anxiety; I10 Essential (primary) hypertension; E78.00 Pure hypercholesterolemia, unspecified; E53.8 Deficiency of other specified B group vitamins; R05.8 Other specified cough; Z95.0 Presence of cardiac pacemaker; Z66 Do not resuscitate
CPT/HCPCS: 36415; 70450; 71045; 80048; 80076; 80307; 83690; 83880; 84484; 85025; 93005; 96360; 96361; 99285

== ENCOUNTER → 2024-11-22 10:34 | Outpatient (BNV) | payer MEDICARE, SELFPAY | PROVIDERS: Emergency Provider Emergency Medicine; PCP Internal Medicine; Visit Provider Specialist | DX: R55 Syncope and collapse (principal) | CPT/HCPCS: 70450; 71045 ==

== ENCOUNTER → 2024-11-22 10:35 | Outpatient (BNV) | payer MEDICARE, SELFPAY | PROVIDERS: Emergency Provider Emergency Medicine; PCP Internal Medicine; Visit Provider Internal Medicine | DX: R55 Syncope and collapse (principal) | CPT/HCPCS: 93010 ==

== ENCOUNTER 2024-12-11 13:27 | Observation (INO) | payer MEDICARE, SELFPAY ==
[2024-12-11] VITALS (8 sets, daily range): BP systolic 118–165; BP diastolic 66–85; PULSE 67–81; RESP 17–19; TEMP 36.1–36.8; O2SAT 95–98; BMI 21.9
--- NOTE | ~2024-12-11 | CT_ITS ---
EXAMINATION: CT CERVICAL SPINE WITHOUT CONTRAST CLINICAL INFORMATION: Status post fall. COMPARISON: CT dated October 22, 2020. TECHNIQUE: Contiguous axial images through the cervical spine using 3 mm collimation with bone and soft tissue algorithm. Sagittal and coronal reformatted images acquired. This CT examination was performed using dose optimization techniques as appropriate, variously including the following: *Automated exposure control *Adjustment of mA and/or kV according to patient size (this includes techniques or standardized protocols for targeted exams where dose is matched to indication/reason for exam; i.e. extremities or head) *Use of iterative reconstruction technique DLP: 823 mGy centimeter. FINDINGS: Craniocervical junction is intact. Degenerative changes in the periodontal C1 region. Multilevel marginal osteophyte formation, endplate sclerosis, subchondral cyst formation, endplate irregularities and decreased intervertebral disc height more conspicuous at C4-5, C5-6, C6-7 and to a lesser extent C3-4. Grade 1 anterolisthesis C3-4. Grade 1 retrolisthesis C4-5 and C5-6 levels. Bilateral facet joint hypertrophy from C3 to C7. C1 is intact. C2 is intact. C3 is intact. C4 is intact. C5 is intact. C6 is intact. C7 is intact. No gross prevertebral compartment hematoma or fluid collections. Electrode leads in the left upper hemithorax/left thoracic inlet no fully included. Tympanic cavities and mastoid cells are aerated. Calcified plaques in the cavernous supraclinoid segments both ICA. Prominent right subclavian artery. 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 Fleischner guidelines were followed. Electronically signed by: Cedric Flores MD 12/11/2024 02:59 PM EST
--- NOTE | ~2024-12-11 | CT_ITS ---
EXAMINATION: CT HEAD WITHOUT IV CONTRAST HISTORY: fall, head strike. TECHNIQUE: Unenhanced helical CT of the head was performed per standard departmental protocol. Coronal and sagittal reformats of the head were also evaluated. One or more of the following techniques was used for dose reduction: Automated exposure control, adjustment of the mA and/or kV according to patient size, use of iterative reconstruction technique. DLP: 592.10 mGy-cm COMPARISON: Comparison is made with the prior examination dated 11/22/2024. FINDINGS: BRAIN: There is diffuse prominence of the ventricular system and cortical sulci, consistent with atrophy. Periventricular and subcortical white matter hypodensities are noted which are nonspecific, but often seen in the setting of small vessel ischemic disease. There is no mass effect or midline shift. No intra- or extra-axial fluid collections are identified. SINUSES: The visualized paranasal sinuses are clear. The mastoid air cells and middle ear cavities are well pneumatized. ORBITS: The visualized orbits are unremarkable. BONES/SOFT TISSUES: The extracranial soft tissues are unremarkable. The calvarium is intact. No suspicious lytic or sclerotic lesions. CT/CT head/brain wo IV con IMPRESSION: No acute intracranial abnormality. Electronically signed by: Regino Osorio MD 12/11/2024 02:51 PM [facility]
--- NOTE | 2024-12-11 13:41 | ECG_ITS ---
Test Reason : ams Blood Pressure : */* mmHG Vent. Rate : 71 BPM Atrial Rate : 71 BPM P-R Int : 144 ms QRS Dur : 176 ms QT Int : 462 ms P-R-T Axes : 49 -76 90 degrees QTcB Int : 502 ms Atrial-sensed ventricular-paced rhythm Abnormal ECG When compared with ECG of 22-Nov-2024 11:25, Premature ventricular complexes are no longer Present Vent. rate has increased by 13 bpm Referred By: Generic ED Physician Electronically Signed By: DORI DON
--- NOTE | 2024-12-11 13:57 | ED_ITS ---
HPI - General Adult General Chief complaint: Syncope Stated complaint: Fall, vomiting, brief syncopal episode, at [place] Time Seen by Provider: 12/11/24 13:57 Source: patient, family (patient's daughter) and EMS Mode of arrival: EMS Limitations: physical limitation (dementia) History of Present Illness ED Provider: Shilpa Del Castillo PA-C HPI narrative: Patient is an 83 year old assigned female at with a history of HTN, advanced dementia, [employer] pacemaker, aortic stenosis, and previous episodes of orthostatic hypotension presenting to the emergency department today after a syncopal episode. Patient's daughter states that the patient was at [place] when she became pale, vomited, and passed out. Patient's daughter states that this happened 2 weeks ago and she opted to take her home but she'd prefer the patient is admitted this time. Patient unable to participate in ROS given advanced dementia. Related Data Home Medications ?Medication ?Instructions ?Recorded ?Confirmed No Known Home Meds 12/11/24 12/11/24 Allergies Allergy/AdvReac Type Severity Reaction Status Date / Time No Known Allergies Allergy Verified 12/11/24 13:51 [No Known Allergies*] Review of Systems 2 Review of Systems: Yes Other (patient severely demented - ROS provided by patient's daughter) Cardiovascular: Cardiovascular: Reports syncope Gastrointestinal: Gastrointestinal: Reports nausea and Reports vomiting Neurologic: Reports syncope PMFSH Past Medical History Attestation statement: The following information was validated with the patient. (all information validated with the patient's daughter) Source: old records reviewed, obtained from family (patient's daughter provided all HPI and ROS given the patient's advanced dementia) and nursing notes reviewed Medical History Heart block atrioventricular Dementia Presence of permanent cardiac pacemaker Nonrheumatic aortic (valve) stenosis Pure hypercholesterolemia Left shoulder pain Hypertension Surgical History Hx of tonsillectomy (~1944) Family History Family History Other Family history non-contributory Social History Social History Household Members: Unknown / Unable to assess Household Members Other:: hx dementia Housing: House Alcohol intake: former Comment: 1:1 Patient Tobacco Use Status: Never used Tobacco Smoked in Last 30 Days: No e-Cigarette/Vaping Use: Never Used Second Hand Smoke Exposure: Yes Use of substances other than those prescribed or required for medical reasons: No Advance Directives: No Advance Directives Information Provided: Yes Do you have a plan to hurt others: No Plan service: No Current occupational status: retired Cognitive needs: Yes Hearing needs: No Vision needs: No Physical Exam ED Vital Signs: Vital Signs - 24 hr 12/11/24 13:47 12/11/24 14:00 12/11/24 16:12 Temperature 96.9 F Pulse Rate 68 67 69 Respiratory Rate 18 17 Blood Pressure 156/78 H 132/73 155/77 H Pulse Oximetry 98 97 Oxygen Delivery Method Room Air Room Air 12/11/24 16:12 12/11/24 16:14 12/11/24 16:16 Temperature 98.3 F Pulse Rate 80 81 69 Respiratory Rate 19 Blood Pressure 165/83 H 163/85 H 155/77 H Pulse Oximetry 95 Oxygen Delivery Method Room Air BMI result Body Mass Index 21.9 Const General: cooperative, no acute distress, alert and awake Nutritional Appearance: well nourished Orientation/consciousness: oriented to person Limitations: no limitations HENMT Head: Yes normal to inspection and Yes atraumatic Ears: hearing grossly normal bilaterally and external ears normal General nose exam: Normal external nose present, no nasal discharge noted and no epistaxis Face and sinus: No abrasion, No laceration and Yes other Mouth: Normal oral and palatal mucosa present, no drooling and no muffled voice Eyes General: appearance normal, both eyes and all related structures Periorbital: periorbital findings normal Eyelids: Yes eyelids normal Conjunctivae: conjunctivae normal Pupils: Equal, round and reactive pupils present EOM: EOMs intact bilaterally Neck Neck: Yes normal visual inspection, Yes full ROM and Yes no lymphadenopathy Chest Chest palpation & inspection: normal inspection of the chest Resp Effort & Inspection: normal respiratory effort and able to speak in complete sentences GI Inspection: Yes normal to inspection Neuro General: oriented to person and moves all extremities Cranial nerves: Yes Equal, round and reactive pupils present Extrem General: Yes normal to inspection, Yes full ROM and Yes capillary refill normal Psych Appearance: grossly normal Mental Status: mental status grossly normal Affect: normal affect Attitude: cooperative Thought process: Normal thought process present Thought content: Normal thought content present Insight: Good insight present (Psych) Medications Administered Generic Name Dose Route Start Last Admin Trade Name Freq PRN Reason Stop Dose Admin Enoxaparin Sodium 40 mg 12/11/24 18:00 12/11/24 18:20 Enoxaparin Sodium 40 Mg/0.4 Ml Syringe SUBCUT 40 mg Q24H NICK Administration Sodium Chloride 3 ml 12/12/24 00:00 12/12/24 00:25 0.9 % Sodium Chloride Flush 3 Ml Syringe IVFLUSH Not Given QSHIFT NICK Discontinued Medications Generic Name Dose Route Start Last Admin Trade Name Freq PRN Reason Stop Dose Admin Ceftriaxone Sodium 1 gm 12/11/24 16:30 12/11/24 16:54 Ceftriaxone Sodium 1 Gm Vial IVPUSH 12/11/24 16:31 1 gm ONCE ONE Administration Sodium Chloride 1,000 mls @ 999 mls/hr 12/11/24 15:45 12/11/24 16:56 Ns IV 12/11/24 16:45 Infused .Q1H1M NICK Infusion Medical Decision Making Medical Decision Making MDM Narrative: Patient is an 83 year old assigned female at with a history of HTN, advanced dementia, [employer] pacemaker, aortic stenosis, and previous episodes of orthostatic hypotension presenting to the emergency department today after a syncopal episode. Patient's physical exam was as noted in the physical exam portion of this note. Patient's blood work was unremarkable. Patient's urine showed an acute UTI. Patient's EKG was unremarkable. Patient's head and c-spine CT showed no acute process. I explained my physical exam findings as well as all test results to the patient and the patient's daughter. I answered all questions asked the patient's daughter. Patient given ceftriaxone for UTI. Patient given IV fluids. Patient's daughter stated that she was not ever appropriately spoke to about possible interventions for the patient's aortic stenosis and she'd like to know the options / have the patient admitted. I spoke to the hospitalist team who agreed to admission. Patient and the patient's daughter agreed to admission. Differential Diagnosis Differential Diagnoses: The differential diagnosis associated with the presentation includes UTI Syncope Orthostatic hypotension Admission/Observation Consideration of admission/observation: Escalation of care including admission/observation considered Patient admitted as noted in the MDM Rationale portion of this note. Consult Healthcare Provider Management of the patient was discussed with: Hospitalist (agreed to admission as noted in the MDM Rationale portion of this note.) Lab Data [facility] Lab Attestation statement: I reviewed the patient's lab results. My interpretation of these results are in the MDM Rationale portion of this note. 12/11/24 14:24 12/11/24 14:24 Labs: Lab Results 12/11/24 12/11/24 12/11/24 Range/Units 14:22 14:24 16:07 WBC 10.0 (4.8-10.8) X10*3/uL RBC 4.19 L (4.20-5.50) X10*6/uL Hgb 12.6 (12.0-16.0) g/dl Hct 37.6 (37.0-47.0) % MCV 89.7 (80.0-98.0) fL MCH 30.1 (27.0-33.0) pg MCHC 33.5 (31.0-35.0) g/dl RDW 13.3 (11.0-16.0) % Plt Count 278 (160-400) X10*3/uL MPV 8.9 L (9.4-12.3) fL Immature Gran % (Auto) 0.3 (0.0-0.4) % Neut % (Auto) 82.2 H (45-73) % Lymph % (Auto) 11.3 L (20-40) % [place] % (Auto) 5.1 (2-11) % Eos % (Auto) 0.4 (0-4) % Baso % (Auto) 0.7 (0-2) % Lymph # (Auto) 1.1 L (1.2-4.9) X10*3/uL [place] # (Auto) 0.5 (0.1-1.2) X10*3/uL Eos # (Auto) 0.0 (0.0-0.4) X10*3/uL Baso # (Auto) 0.1 (0.0-0.2) X10*3/uL Abs Immat Gran (auto) 0.03 (0.00-0.03) X10*3/uL Absolute Neuts (auto) 8.2 (2.0-8.3) x10*3/uL Absolute Nucleated RBC 0.000 (0.0-0.012) X10*3/uL Nucleated RBC % (auto) 0.0 (0.0-0.2) /100WBC Sodium 138 (135-145) mmol/L Potassium 4.8 (3.3-5.1) mmol/L Chloride 105 (96-108) mmol/L Carbon Dioxide 25 (22-29) mmol/L Anion Gap 13 (12-20) BUN 24 H (9-16) mg/dL Creatinine 1.05 (0.5-1.4) mg/dL Estim Creat Clear Calc 31.5 Estimated GFR 50 POC Glucose 107 (60-115) mg/dL Random Glucose 126 H (60-115) mg/dL Calcium 9.0 (8.4-10.2) mg/dL Magnesium 2.1 (1.6-2.6) mg/dL Total Bilirubin 0.5 (0.0-1.0) mg/dL AST 25 (5-31) U/L ALT 13 (0-31) U/L Alkaline Phosphatase 83 (39-117) U/L Troponin I High Sens < 2.7 (<3.5-17.0) ng/L Total Protein 7.6 (6.5-8.0) g/dL Albumin 4.0 (3.5-5.0) g/dL Urine Color Yellow Urine Appearance Cloudy Urine pH 7.0 (5.0-9.0) Ur Specific [place] 1.020 (1.005-1.025) Urine Protein 30 (1+) H (Neg-Trace) mg/dL Urine Glucose (UA) Negative (Negative) mg/dL Urine Ketones Trace (Negative) mg/dL Urine Blood Negative (Negative) Urine Nitrite Positive H (Negative) Ur Leukocyte Esterase Moderate (2+) H (Negative) Urine RBC 0-2 (0-2) /HPF Urine WBC >50 H (0-5) /HPF Ur Squamous Epith Cells 0-2 (0-2) /HPF Urine Bacteria 4+ (None Seen) Hyaline Casts 0-2 (0-2) /LPF Influenza Type A (PCR) NEGATIVE (Negative) Influenza Type B (PCR) NEGATIVE (Negative) RSV RNA Qual (PCR) NEGATIVE (Negative) SARS-CoV-2 RNA (RT-PCR) NEGATIVE (Negative) Independent Interpretation I performed an independent interpretation of an: EKG and CT Scan Interpretation: My interpretation is in agreement with the radiologist's impression of these imaging studies. L Report Number: [id number]: Total DLP = 602.35 mGy-cm EXAMINATION: CT HEAD WITHOUT IV CONTRAST HISTORY: fall, head strike. TECHNIQUE: Unenhanced helical CT of the head was performed per standard departmental protocol. Coronal and sagittal reformats of the head were also evaluated. One or more of the following techniques was used for dose reduction: Automated exposure control, adjustment of the mA and/or kV according to patient size, use of iterative reconstruction technique. DLP: 592.10 mGy-cm COMPARISON: Comparison is made with the prior examination dated 11/22/2024. FINDINGS: BRAIN: There is diffuse prominence of the ventricular system and cortical sulci, consistent with atrophy. Periventricular and subcortical white matter hypodensities are noted which are nonspecific, but often seen in the setting of small vessel ischemic disease. There is no mass effect or midline shift. No intra- or extra-axial fluid collections are identified. SINUSES: The visualized paranasal sinuses are clear. The mastoid air cells and middle ear cavities are well pneumatized. ORBITS: The visualized orbits are unremarkable. BONES/SOFT TISSUES: The extracranial soft tissues are unremarkable. The calvarium is intact. No suspicious lytic or sclerotic lesions. CT/CT head/brain wo IV con IMPRESSION: No acute intracranial abnormality. Electronically signed by: Regino Osorio MD 12/11/2024 02:51 PM [facility] Dictated By: Regino Osorio MD Signed By: Electronically signed by Regino Osorio MD 12/11/24 1451 Report Number: [id number]: Total DLP = 220.25 mGy-cm EXAMINATION: CT CERVICAL SPINE WITHOUT CONTRAST CLINICAL INFORMATION: Status post fall. COMPARISON: CT dated October 22, 2020. TECHNIQUE: Contiguous axial images through the cervical spine using 3 mm collimation with bone and soft tissue algorithm. Sagittal and coronal reformatted images acquired. This CT examination was performed using dose optimization techniques as appropriate, variously including the following: *Automated exposure control *Adjustment of mA and/or kV according to patient size (this includes techniques or standardized protocols for targeted exams where dose is matched to indication/reason for exam; i.e. extremities or head) *Use of iterative reconstruction technique DLP: 823 mGy centimeter. FINDINGS: Craniocervical junction is intact. Degenerative changes in the periodontal C1 region. Multilevel marginal osteophyte formation, endplate sclerosis, subchondral cyst formation, endplate irregularities and decreased intervertebral disc height more conspicuous at C4-5, C5-6, C6-7 and to a lesser extent C3-4. Grade 1 anterolisthesis C3-4. Grade 1 retrolisthesis C4-5 and C5-6 levels. Bilateral facet joint hypertrophy from C3 to C7. C1 is intact. C2 is intact. C3 is intact. C4 is intact. C5 is intact. C6 is intact. C7 is intact. No gross prevertebral compartment hematoma or fluid collections. Electrode leads in the left upper hemithorax/left thoracic inlet no fully included. Tympanic cavities and mastoid cells are aerated. Calcified plaques in the cavernous supraclinoid segments both ICA. Prominent right subclavian artery. 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 Fleischner guidelines were followed. Electronically signed by: Cedric Flores MD 12/11/2024 02:59 PM [facility] Dictated By: Cedric Kemp MD Signed By: Electronically signed by Cedric Lindsey MD 12/11/24 1459 Vent. Rate: 71 BPM Atrial Rate: 71 BPM P-R Int: 144 ms QRS Dur: 176 ms QT Int: 462 ms P-R-T Axes: 49 -76 90 degrees QTcB Int: 502 ms Atrial-sensed ventricular-paced rhythm When compared with ECG of 22-Nov-2024 11:25, Premature ventricular complexes are no longer Present Vent. rate has increased by 13 bpm DD/ 1357 Radiology Impression Discussion of test interpretation with radiology: I have reviewed the radiologist's reading. Independent Historian Clinical information obtained from an independent historian. History obtained from or confirmed by: EMS (EMS provided additional history and confirmed the history provided by the patient's daughter) and Other (Patient's daughter provided all history and ROS) Critical Care Time Critical Care Time Critical Care Time: Yes Total Critical Care Time: 38 Attestation: I spent 38 minutes of Critical Care Time with this patient. This does not include time spent on separately reported billable procedures. Discharge Plan Discharge Clinical Impression: Syncope, Acute UTI Patient Disposition: Admitted As Inpatient Interventions: Admission Worksheet (ED) Last Done: 12/11/24 20:32 Discharge Date/Time: 12/11/24 21:45
[2024-12-11 14:28] LABS: Glucose, Whole Blood 107 mg/dL (60-115)
[2024-12-11 14:30] LABS: MANUAL DIFF FLAG NO
[2024-12-11 14:33] LABS: Basophils Absolute Auto 0.1 X10*3/uL (0.0-0.2); Basophils Percent Auto 0.7 % (0-2); Eosinophils Percent Auto 0.4 % (0-4); Hematocrit 37.6 % (37.0-47.0); Hemoglobin 12.6 g/dl (12.0-16.0); Imm Gran Abs Auto 0.03 X10*3/uL (0.00-0.03); Imm Gran Pct Auto 0.3 % (0.0-0.4); Lymphocytes Absolute Auto 1.1 X10*3/uL (1.2-4.9); Lymphocytes Percent Auto 11.3 % (20-40); Mean Corpuscular HGB Conc 33.5 g/dl (31.0-35.0); Mean Corpuscular Hemoglobin 30.1 pg (27.0-33.0); Mean Corpuscular Volume 89.7 fL (80.0-98.0); Mean Platelet Volume 8.9 fL (9.4-12.3); Monocytes Absolute Auto 0.5 X10*3/uL (0.1-1.2); Monocytes Percent Auto 5.1 % (2-11); Neutrophils Absolute Auto 8.2 x10*3/uL (2.0-8.3); Neutrophils Percent Auto 82.2 % (45-73); Platelet Count 278 X10*3/uL (160-400); Red Blood Count 4.19 X10*6/uL (4.20-5.50); Red Cell Distribution Width 13.3 % (11.0-16.0)
[2024-12-11 14:50] LABS: Alanine Aminotransferase 13 U/L (0-31); Alkaline Phosphatase 83 U/L (39-117); Anion Gap 13 (12-20); Aspartate Amino Transferase 25 U/L (5-31); Bilirubin Total 0.5 mg/dL (0.0-1.0); Blood Urea Nitrogen 24 mg/dL (9-16); Carbon Dioxide 25 mmol/L (22-29); Chloride 105 mmol/L (96-108); Creatinine Clr Calc Pharmacy 31.5; Estimated Glomerular Filt Rate 50; Glucose Random 126 mg/dL (60-115); Magnesium 2.1 mg/dL (1.6-2.6); Potassium 4.8 mmol/L (3.3-5.1); Sodium 138 mmol/L (135-145); Total Protein 7.6 g/dL (6.5-8.0)
[2024-12-11 14:55] LABS: Troponin-I High Sensitivity < 2.7 ng/L (<3.5-17.0)
[2024-12-11 15:22] LABS: Influenza A PCR NEGATIVE (Negative); Influenza B PCR NEGATIVE (Negative); Resp Syncy Virus RNA Qual PCR NEGATIVE (Negative); SARS COV2 PCR INHOUSE NEGATIVE (Negative)
[2024-12-11] MEDS: 0.9 % Sodium Chloride 1,000 ML 999 ML IV (16:04)
[2024-12-11 16:14] LABS: Appearance Urine Cloudy; Color Urine Yellow; Glucose Urine UA Negative (Negative); Leukocyte Esterase Urine Moderate (2+) (Negative); Nitrite Urine Positive (Negative); UMIC TRIGGER UACC YES; Urine Blood Negative (Negative); Urine Ketones Trace mg/dL (Negative); Urine Protein 30 (1+) mg/dL (Neg-Trace)
--- NOTE | 2024-12-11 16:26 | PHA.MEDREC ---
Addendum entered by Evelio Griffin RPh 12/11/24 16:54: reviewed by [facility] Original Note: Pharmacy Consult ? Medication Reconciliation Pharmacy has completed the medication reconciliation. Family at bedside states patient isn't on any medications.
[2024-12-11 16:27] LABS: Bacteria Urine 4+ (None Seen); Hyaline Casts Urine 0-2 /LPF (0-2); RBC Urine 0-2 /HPF (0-2); Squamous Epithelial Cell Urine 0-2 /HPF (0-2); UACC Culture Trigger YES; WBC Urine >50 /HPF (0-5)
--- NOTE | 2024-12-11 16:49 | PM.IMHP ---
History of Present Illness Date of Service: 12/11/24 Attending physician on admission: Luis Holbrook Chief Complaint: Syncopal episode Pt is an 83-year-old female with a PMH significant for complete heart block s/p [employer] pacemaker 2023 and dementia not on home meds?who presents to the ED for evaluation syncopal episode. ?Pt with advanced dementia, alert and oriented to self only at baseline. Unable to provide ros or HPI which is instead provided by family at bedside. Pt was brought to a meeting earlier this afternoon where she was sitting on a chair when she suddenly became dizzy, passed out, and then vomited. Denies fall out of chair or head strike. Unclear how long pt was out, but apparently for only a short period of time. No postictal like state noted upon waking. Pt had similar syncopal episode a few weeks ago on 11/22/2024 though at that time pt is BP was noted to be low and was thought to be secondary to dehydration. Family notes pt has otherwise been in her normal state of health. Pt herself has no acute medical complaints, though was unable to meaningfully participate in HPI given dementia. In the ED pt was hypertensive up to 165/83, vitals otherwise stable and WNL. Orthostatics negative. Labs were significant for creatinine 1.05 (elevated from 0.87 on 11/22/2024), otherwise grossly unremarkable and around baseline for pt. No leukocytosis. Stable H&H. No significant electrolyte abnormalities. Troponin negative. Hepatic function baseline. UA positive for UTI. Tested negative for flu, RSV, COVID. CT?of head negative for acute intracranial abnormality. CT of cervical spine negative for acute fracture subluxation, but showing multilevel spondylolysis. EKG demonstrated atrial sensed ventricular paced rhythm. Pt was given IVF and ceftriaxone. Pt will be admitted to the hospital under observation for treatment and further evaluation of syncopal episode in the setting of acute UTI. Review of Systems Review of Systems: Negative except for that which is stated in the HPI [facility] Medical History Heart block atrioventricular Dementia Presence of permanent cardiac pacemaker Nonrheumatic aortic (valve) stenosis Pure hypercholesterolemia Left shoulder pain Hypertension Family History Other Family history non-contributory Surgical History Hx of tonsillectomy (~1944) Social History Household Members: Unknown / Unable to assess Household Members Other:: hx dementia Housing: House Alcohol intake: former Comment: 1:1 Patient Tobacco Use Status: Never used Tobacco Smoked in Last 30 Days: No e-Cigarette/Vaping Use: Never Used Second Hand Smoke Exposure: Yes Use of substances other than those prescribed or required for medical reasons: No Advance Directives: No Advance Directives Information Provided: Yes Do you have a plan to hurt others: No Plan service: No Current occupational status: retired Cognitive needs: Yes Hearing needs: No Vision needs: No Meds Allergies Allergy/AdvReac Type Severity Reaction Status Date / Time No Known Allergies Allergy Verified 12/11/24 13:51 [No Known Allergies*] Home Medications ?Medication ?Instructions ?Recorded ?Confirmed ?Last Taken ?Type No Known Home Meds 12/11/24 12/11/24 Unknown History Physical Exam Vital Signs and Narrative: Vital Signs: Last Vital Signs Temp 98.3 F 12/11/24 16:16 Pulse 69 12/11/24 16:16 Resp 19 12/11/24 16:16 BP 155/77 H 12/11/24 16:16 Pulse Ox 95 12/11/24 16:16 O2 Del Method Room Air 12/11/24 16:16 BMI result Body Mass Index 21.9 General: AOx1 only, no acute distress Resp: CTA bilaterally CVS: S1, S2, RRR, +murmur GI: +BS, NT, no distention Skin: Warm, dry Neuro: Cranial nerves II-XII grossly intact bilaterally. Motor grossly intact bilaterally Extremities: No edema Psych: Pleasantly confused Results Labs 12/11/24 14:24 12/11/24 14:24 Labs: Laboratory Results - last 24 hr 12/11/24 12/11/24 12/11/24 14:22 14:24 16:07 MCV 89.7 MCH 30.1 MCHC 33.5 RDW 13.3 Plt Count 278 MPV 8.9 L Immature Gran % (Auto) 0.3 Neut % (Auto) 82.2 H Lymph % (Auto) 11.3 L [place] % (Auto) 5.1 Eos % (Auto) 0.4 Baso % (Auto) 0.7 Lymph # (Auto) 1.1 L [place] # (Auto) 0.5 Eos # (Auto) 0.0 Baso # (Auto) 0.1 Abs Immat Gran (auto) 0.03 Absolute Neuts (auto) 8.2 Absolute Nucleated RBC 0.000 Nucleated RBC % (auto) 0.0 Anion Gap 13 Estim Creat Clear Calc 31.5 Estimated GFR 50 POC Glucose 107 Random Glucose 126 H Calcium 9.0 Magnesium 2.1 Total Bilirubin 0.5 AST 25 ALT 13 Alkaline Phosphatase 83 Troponin I High Sens < 2.7 Total Protein 7.6 Albumin 4.0 Urine Color Yellow Urine Appearance Cloudy Urine pH 7.0 Ur Specific [place] 1.020 Urine Protein 30 (1+) H Urine Glucose (UA) Negative Urine Ketones Trace Urine Blood Negative Urine Nitrite Positive H Ur Leukocyte Esterase Moderate (2+) H Urine RBC 0-2 Urine WBC >50 H Ur Squamous Epith Cells 0-2 Urine Bacteria 4+ Hyaline Casts 0-2 Influenza Type A (PCR) NEGATIVE Influenza Type B (PCR) NEGATIVE RSV RNA Qual (PCR) NEGATIVE SARS-CoV-2 RNA (RT-PCR) NEGATIVE Imaging Radiologist's Impressions: Impressions Cervical Spine CT 12/11/24 14:05 IMPRESSION: Multilevel spondylosis resulting in grade 1 anterolisthesis C3-4, grade 1 retrolisthesis C4-5 and C5-6 without acute fracture. Fleischner guidelines were followed. Electronically signed by: Cedric Flores MD 12/11/2024 02:59 PM EST RP Head CT 12/11/24 14:05 IMPRESSION: No acute intracranial abnormality. Electronically signed by: Regino Osorio MD 12/11/2024 02:51 PM EST RP Assessment and Plan (1) Acute UTI: Status: Acute (2) Syncope: Status: Acute Plan Pt is an 83-year-old female with a PMH significant for complete heart block s/p [employer] pacemaker 2023 and dementia not on home meds?who presents to the ED for evaluation syncopal episode. Pt will be admitted to the hospital under observation for treatment and further evaluation of syncopal episode in the setting of acute UTI. Syncopal episode Pt is seen in a chair with lightheadedness, syncope, vomiting Previous syncopal episode 2 weeks prior on 11/22/2024 Unclear etiology: Differential includes vasovagal, cardiac, UTI; orthostatics negative, no postictal state, flu/RSV/COVID negative Pt received IVF in the ED Echocardiogram Cardiology consult Monitor on telemetry Acute UTI No sepsis: No fever, tachycardia, tachypnea, or leukocytosis Will treat with ceftriaxone, started 12/11/2024 Follow urine cultures Dementia Mentation at baseline per family Pt not on home meds Full Code Attending:?Dr. Holbrook DVT Prophylaxis: Lovenox Pt will be admitted to the hospital under observation for treatment and further evaluation of syncopal episode in the setting of acute UTI. Pt will require close cardiac monitoring, cardiology consultation given cardiac hx, and administration antibiotics for UTI. Quality Stroke Does the patient have a stroke diagnosis?: No VTE Prior VTE?: No VTE Risk Level:: Medical - moderate - high VTE Device Contraindication: Treatment Not Indicated VTE Drug Contraindication: N/A - Med Ordered
[2024-12-11] MEDS: cefTRIAXone sodium 1 GM VIAL IVPUSH (16:54)
[2024-12-11] MEDS: Enoxaparin Sodium 40 MG/0.4 ML SYRINGE SUBCUT (18:20)
[2024-12-12 03:43] VITALS: BP 150/81; PULSE 70; RESP 18; TEMP 36.8; O2SAT 99
--- NOTE | 2024-12-12 07:00 | CA_ITS ---
Transthoracic Echocardiogram Patient (Last, First, Middle): Alanis Graves E Gender: Female Date of : 1940 Age: 83 Procedure Date: 12/12/2024 Procedure Type: Transthoracic E[place]ocardi[place] [facility] [place]: 157.48 cm Weight: 54.43 kg BSA: 1.54 m2 Heart Rate: bpm BP: 150 / 81 mmHg Home Help Aide: JERICHO Referring MD: Vivek DAVIS Symptoms: Syncopal episode Study Quality: Adequate ECG Rhythm: Sinus Conclusions: - The left ventricular systolic function is normal. The visually estimated ejection fraction is between 65-70%. - There is mild aortic valve stenosis. - Likely posterior mitral leaflet prolapse with anteriorly directed moderate mitral regurgitation. Findings Left Ventricle Normal left ventricular cavity size. There is normal left ventricular wall thickness. The left ventricular systolic function is normal. The visually estimated ejection fraction is between 65-70%. There is no evidence of regional wall motion abnormalities. There is mild septal asymmetric hypertrophy. Right Ventricle Mildly increased right ventricular cavity size. There is a pacemaker wire seen in the right ventricle. Atria The left atrium is normal in size. The right atrium is moderately dilated. Aortic Valve There is mild calcification of the aortic valve. There is mild aortic valve stenosis. There is trace (trivial) aortic valve regurgitation. Mitral Valve There is mild anterior and posterior mitral leaflet thickening. There is moderate mitral valve regurgitation. There is no mitral valve stenosis. Suspect some degree of posterior leaflet prolapse but not well seen; anteriorly directed jet. Pulmonic Valve The pulmonic valve is likely normal. Tricuspid Valve There is mild anterior tricuspid leaflet thickening. There is mild to moderate tricuspid valve regurgitation. There is no evidence of pulmonary hypertension. Great Vessels The asc aorta is normal in size. Small plaque is seen in the sino tubular ridge. Venous The inferior vena cava is normal in size and collapses greater than 50% with inspiration. Pericardium/Pleural There is no evidence of pericardial effusion. Prior Study Comparison No significant change compared to prior study dated: 01/28/2024. Measurements 2D Linear Measurements IVSd: 1.13 0.6-0.9/0.6-1.0 cm LVIDd: 5.05 3.9-5.3/4.2-5.9 cm LVIDd Index: 3.28 2.4-3.2/2.2-3.1 cm/m2 LVIDs: 2.28 2.0-3.6 cm LVPWd: 0.97 0.7-1.1 cm LA Diam: 3.80 2.7-3.8/3.0-4.0 cm LAIDs Index: 2.47 1.5-2.3 cm/m2 LV Mass: 245.57 67-162/88-224 g LV Mass Index: 159.46 43-95/49-115 g/m2 LVOT Diam: 2.10 3.0+(-)1.3 cm 2D Systolic Function EF 4C: 66.60 >55% EF 2C: 80.10 >55% EF BiP: 74.00 >55% Mitral Valve MV Pk E: 0.70 MV PK A: 0.94 MV Decel Time: 328.00 E/A: 0.70 E'Lateral: 6.09 E'Medial: 5.87 E/E' Med: 11.90 E/E' Lat: 11.50 PHT: 96.00 MVA PHT: 2.29 Decel Tate: 2.13 Aortic Valve AoV Pk Anatoliy: 2.45 AoV Mn Anatoliy: 1.75 AoV VTI: 0.53 AoV Pk Grad: 24.00 Aov Mn Grad: 14.00 JADA Cont.VTI: 1.48 LVOT LVOT Pk Anatoliy: 1.18 LVOT Mn Anatoliy: 0.81 LVOT VTI: 0.23 LVOT Pk Grad: 6.00 LVOT Mn Grad: 3.00 LVOT Diam: 2.10 LVOT Area: 3.46 Diastolic Function MV Pk E: 0.70 MV Pk A: 0.94 E/A: 0.70 E'Medial: 5.87 E/E' Med: 11.90 E' Laterial: 6.09 E/E' Lat: 11.50 Right Ventricle TAPSE (mm): 30.00 TVS' Anatoliy: 11.80 Tricuspid Valve TR Pk Anatoliy: 2.85 TR Pk Grad: 32.00 Great Vessels Aorta Sinus of Valsalva: 3.10 2.0-3.5 cm Ao Asc: 3.30 2.1-3.4 cm Pulmonary Valve PV Pk Anatoliy: 1.04 Peak PV Grad: 4.00 Updated in Other Vendor System with Status of Final Wesley Danielle MD electronically signed on 12/12/2024 11:52:33 AM with status of Final
[2024-12-12 07:40] VITALS: BP 158/82; PULSE 69; RESP 18; TEMP 36.1; O2SAT 97
[2024-12-12] MEDS: 0.9 % Sodium Chloride Flush 3 ML SYRINGE IVFLUSH ×2 (07:58→17:23)
[2024-12-12] MEDS: cefTRIAXone sodium 1 GM VIAL IVPUSH (10:12)
--- NOTE | 2024-12-12 10:40 | P.CONCA_ITS ---
History of Present Illness History of Present Illness Date of Service: 12/12/24 Chief complaint: Syncopal episode Narrative: This is a cardiology consultation regarding syncopal episode. Generally seen by Dr. Ramirez. Last seen by Dr. Ramirez in 2023. That was reviewed. Patient has had complete heart block episode for which she underwent permanent pacemaker placement. It seems that that was actually performed for syncope. Additionally, it seems that she also had head and neck CTA that had shown multiple intracranial stenosis with severe cerebral volume loss. Unclear if that played any role in her syncope in the past. Any case, she has had a pacemaker performed. Otherwise, she has got significant dementia. Current admissions because of again syncope. Patient herself is not able to provide any history as she is clearly confused. Apparently, she was brought to a meeting and was sitting on a chair when all of a sudden she became dizzy and passed out and then vomited. Has had a similar episode in September of 2024 when it was thought that blood pressure was low and could have been dehydration. In the current admission, she was thought to be hypertensive but otherwise stable vital signs. Negative orthostatic vital signs. Urinalysis positive for UTI. She has been admitted for further care. Review of Systems 2 Review of Systems: Unable to obtain because of confusion [facility] Past Medical History Medical History (Updated 12/12/24 @ 11:00 by Wesley Danielle MD) Nonrheumatic aortic (valve) stenosis Heart block atrioventricular Dementia Presence of permanent cardiac pacemaker Pure hypercholesterolemia Left shoulder pain Hypertension Family History Family History Other Family history non-contributory Surgical History Surgical History Hx of tonsillectomy (~1944) Social History Social History Household Members: Unknown / Unable to assess Household Members Other:: hx dementia Housing: House Alcohol intake: former Comment: 1:1 Patient Tobacco Use Status: Never used Tobacco Smoked in Last 30 Days: No e-Cigarette/Vaping Use: Never Used Second Hand Smoke Exposure: Yes Use of substances other than those prescribed or required for medical reasons: No Currently Displaying Signs/Symptoms of Drug Intoxication Withdrawal: No Advance Directives: No Advance Directives Information Provided: Yes Do you have a plan to hurt others: No Plan service: No Current occupational status: retired Cognitive needs: Yes Hearing needs: No Vision needs: No Meds Allergies Allergy/AdvReac Type Severity Reaction Status Date / Time No Known Allergies Allergy Verified 12/11/24 13:51 [No Known Allergies*] Active Medications: Current Medications Acetaminophen (Acetaminophen 325 Mg Tablet) 650 mg PO Q6H PRN PRN Reason: Pain, Mild 1-3,fever,headache Calcium Carbonate (Calcium Carbonate 750 Mg Tab.Chew) 750 mg PO Q4H PRN PRN Reason: Heartburn Ceftriaxone Sodium (Ceftriaxone Sodium 1 Gm Vial) 1 gm IVPUSH Q24H [facility] Last Admin: 12/12/24 10:12 Dose: 1 gm Enoxaparin Sodium (Enoxaparin Sodium 40 Mg/0.4 Ml Syringe) 40 mg SUBCUT Q24H [facility] Last Admin: 12/11/24 18:20 Dose: 40 mg Magnesium Hydroxide (Milk Of Magnesia 30 Ml Oral.Susp) 30 ml PO DAILY PRN PRN Reason: Constipation Melatonin (Melatonin 3 Mg Tablet) 6 mg PO BEDTIME PRN PRN Reason: Insomnia Ondansetron HCl (Ondansetron Hcl 4 Mg/2 Ml Vial) 4 mg IVPUSH Q8H PRN PRN Reason: Nausea and Vomiting Sodium Chloride (0.9 % Sodium Chloride Flush 3 Ml Syringe) 3 ml IVFLUSH QSHIFT [facility] Last Admin: 12/12/24 07:58 Dose: 3 ml Home Medications ?Medication ?Instructions ?Recorded ?Confirmed ?Last Taken ?Type No Known Home Meds 12/11/24 12/11/24 Unknown History Physical Exam 2 Vital Signs: Vital Signs: Last Vital Signs Temp 97.0 F 12/12/24 07:40 Pulse 69 12/12/24 07:40 Resp 18 12/12/24 07:40 BP 158/82 H 12/12/24 07:40 Pulse Ox 97 12/12/24 07:40 O2 Del Method Room Air 12/12/24 07:40 BMI result Body Mass Index 21.9 Const: General: comfortable and no acute distress O rientation/consciousness: No patient oriented x3 HEENT: Other: Unremarkable Head: Yes normal to inspection Neck: Neck: Yes normal visual inspection Chest: Chest palpation & inspection: normal inspection of the chest Resp: Auscultation: clear to auscultation bilaterally Cardio: Palpation: normal PMI Heart sounds: S1 normal heart sound present, S2 normal heart sound present, no gallops, no murmurs and no rubs GI: Palpation (GI): Soft to palpation Back/Spine/Pelvis: Other: unremarkable Skin: General skin exam: no rashes or lesions noted Neuro: General: No patient oriented x3 Extrem: General: Yes normal to inspection Psych: Mental Status: mental status grossly abnormal Objective Labs and Meds 12/11/24 14:24 12/11/24 14:24 Lab results: Laboratory Results - last 24 hr 12/11/24 12/11/24 12/11/24 14:22 14:24 16:07 WBC 10.0 RBC 4.19 L Hgb 12.6 Hct 37.6 MCV 89.7 MCH 30.1 MCHC 33.5 RDW 13.3 Plt Count 278 MPV 8.9 L Immature Gran % (Auto) 0.3 Neut % (Auto) 82.2 H Lymph % (Auto) 11.3 L [place] % (Auto) 5.1 Eos % (Auto) 0.4 Baso % (Auto) 0.7 Lymph # (Auto) 1.1 L [place] # (Auto) 0.5 Eos # (Auto) 0.0 Baso # (Auto) 0.1 Abs Immat Gran (auto) 0.03 Absolute Neuts (auto) 8.2 Absolute Nucleated RBC 0.000 Nucleated RBC % (auto) 0.0 Sodium 138 Potassium 4.8 Chloride 105 Carbon Dioxide 25 Anion Gap 13 BUN 24 H Creatinine 1.05 Estim Creat Clear Calc 31.5 Estimated GFR 50 POC Glucose 107 Random Glucose 126 H Calcium 9.0 Magnesium 2.1 Total Bilirubin 0.5 AST 25 ALT 13 Alkaline Phosphatase 83 Troponin I High Sens < 2.7 Total Protein 7.6 Albumin 4.0 Urine Color Yellow Urine Appearance Cloudy Urine pH 7.0 Ur Specific [place] 1.020 Urine Protein 30 (1+) H Urine Glucose (UA) Negative Urine Ketones Trace Urine Blood Negative Urine Nitrite Positive H Ur Leukocyte Esterase Moderate (2+) H Urine RBC 0-2 Urine WBC >50 H Ur Squamous Epith Cells 0-2 Urine Bacteria 4+ Hyaline Casts 0-2 Influenza Type A (PCR) NEGATIVE Influenza Type B (PCR) NEGATIVE RSV RNA Qual (PCR) NEGATIVE SARS-CoV-2 RNA (RT-PCR) NEGATIVE ECG Interpretation: EKG with atrial sensed, ventricular paced rhythm at 71/Min. Imaging Radiologist's impression: Impressions Cervical Spine CT 12/11/24 14:05 IMPRESSION: Multilevel spondylosis resulting in grade 1 anterolisthesis C3-4, grade 1 retrolisthesis C4-5 and C5-6 without acute fracture. Fleischner guidelines were followed. Electronically signed by: Cedric Flores MD 12/11/2024 02:59 PM EST RP Head CT 12/11/24 14:05 IMPRESSION: No acute intracranial abnormality. Electronically signed by: Regino Osorio MD 12/11/2024 02:51 PM EST RP Assessment and Plan (1) Syncope and collapse: Status: Acute (2) Heart block atrioventricular: Status: Acute (3) Presence of permanent cardiac pacemaker: Status: Acute (4) Nonrheumatic aortic (valve) stenosis: Status: Acute Plan Data reviewed from recent remote checks. I see episodes what appear like atrial tachycardia and 1 very brief NSVT but nothing sustained. On review of telemetry, there are again brief low level tachycardia is which are most likely atrial tachycardia episodes. Usually not etiology for syncope. Last echocardiogram from 2023 showed hyperdynamic LVEF and mild aortic stenosis but she was not complete heart block at that time and hence could not assess clearly. She had moderate mitral regurgitation. Currently, head CT shows no acute findings. Cerebral atrophy. Suggestion of small vessel ischemic disease. In the CTA head and neck from last year, there is global cerebral volume loss with chronic microangiopathy and moderate to severe stenosis involving cerebral circulation. For the current episode of syncope, uncertain etiology. From the cardiac, less likely the short atrial tachycardia episodes are causing this. We will try to reinterrogate the device. Otherwise, aortic stenosis also not thought to be severe in the past an echo can be rechecked. Any case, it is not exertional syncope and again not related to aortic stenosis. She is positive for UTI and that can be treated appropriately. Discussed with . Procedures Date of Service Date of Service: 12/12/24
[2024-12-12 10:56] VITALS: BP 158/88; PULSE 74; RESP 16; TEMP 36.3; O2SAT 97
--- NOTE | 2024-12-12 12:41 | HO.PM.IMPN ---
Subjective Subjective Date of Service: 12/12/24 Interval History: Patient awake , alert, no acute events overnight, unable to obtain meaningful history due to advanced dementia. 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 Review of Systems Unable to obtain due to mental status Physical Exam Vital Signs: Vital Signs: Last Vital Signs Temp 97.4 F 12/12/24 10:56 Pulse 74 12/12/24 10:56 Resp 16 12/12/24 10:56 BP 158/88 H 12/12/24 10:56 Pulse Ox 97 12/12/24 10:56 O2 Del Method Room Air 12/12/24 10:56 BMI result Body Mass Index 21.9 Const: Other: General: Awake alert x1 only, no acute distress Neck no JVD Resp: CTA bilaterally CVS: S1, S2, RRR GI: +BS, NT, no distention Skin: Warm, dry Neuro: Speech clear moving all 4 extremities Extremities: No edema Psych: Pleasantly confused Objective Data Active Medications Acetaminophen (Acetaminophen 325 Mg Tablet) 650 mg PO Q6H PRN PRN Reason: Pain, Mild 1-3,fever,headache Calcium Carbonate (Calcium Carbonate 750 Mg Tab.Chew) 750 mg PO Q4H PRN PRN Reason: Heartburn Ceftriaxone Sodium (Ceftriaxone Sodium 1 Gm Vial) 1 gm IVPUSH Q24H [facility] Last Admin: 12/12/24 10:12 Dose: 1 gm Documented By: ANITA Enoxaparin Sodium (Enoxaparin Sodium 40 Mg/0.4 Ml Syringe) 40 mg SUBCUT Q24H [facility] Last Admin: 12/11/24 18:20 Dose: 40 mg Documented By: GLORY Magnesium Hydroxide (Milk Of Magnesia 30 Ml Oral.Susp) 30 ml PO DAILY PRN PRN Reason: Constipation Melatonin (Melatonin 3 Mg Tablet) 6 mg PO BEDTIME PRN PRN Reason: Insomnia Ondansetron HCl (Ondansetron Hcl 4 Mg/2 Ml Vial) 4 mg IVPUSH Q8H PRN PRN Reason: Nausea and Vomiting Sodium Chloride (0.9 % Sodium Chloride Flush 3 Ml Syringe) 3 ml IVFLUSH QSHIFT [facility] Last Admin: 12/12/24 07:58 Dose: 3 ml Documented By: ANITA Labs 12/11/24 14:24 12/11/24 14:24 Labs: Laboratory Results - last 24 hr 12/11/24 12/11/24 12/11/24 14:22 14:24 16:07 MCV 89.7 MCH 30.1 MCHC 33.5 RDW 13.3 Plt Count 278 MPV 8.9 L Immature Gran % (Auto) 0.3 Neut % (Auto) 82.2 H Lymph % (Auto) 11.3 L [place] % (Auto) 5.1 Eos % (Auto) 0.4 Baso % (Auto) 0.7 Lymph # (Auto) 1.1 L [place] # (Auto) 0.5 Eos # (Auto) 0.0 Baso # (Auto) 0.1 Abs Immat Gran (auto) 0.03 Absolute Neuts (auto) 8.2 Absolute Nucleated RBC 0.000 Nucleated RBC % (auto) 0.0 Anion Gap 13 Estim Creat Clear Calc 31.5 Estimated GFR 50 POC Glucose 107 Random Glucose 126 H Calcium 9.0 Magnesium 2.1 Total Bilirubin 0.5 AST 25 ALT 13 Alkaline Phosphatase 83 Troponin I High Sens < 2.7 Total Protein 7.6 Albumin 4.0 Urine Color Yellow Urine Appearance Cloudy Urine pH 7.0 Ur Specific [place] 1.020 Urine Protein 30 (1+) H Urine Glucose (UA) Negative Urine Ketones Trace Urine Blood Negative Urine Nitrite Positive H Ur Leukocyte Esterase Moderate (2+) H Urine RBC 0-2 Urine WBC >50 H Ur Squamous Epith Cells 0-2 Urine Bacteria 4+ Hyaline Casts 0-2 Influenza Type A (PCR) NEGATIVE Influenza Type B (PCR) NEGATIVE RSV RNA Qual (PCR) NEGATIVE SARS-CoV-2 RNA (RT-PCR) NEGATIVE Microbiology Microbiology Results: Microbiology 12/11/24 Unknown Urine Culture - Preliminary Urine clean catch - Clean Catch Midstream Gram negative linda Assessment and Plan (1) Syncope and collapse: Status: Acute (2) Acute UTI: Status: Acute Plan 83-year-old female with a PMH significant for complete heart block s/p St Parviz pacemaker 2023 and dementia not on home meds?who presents to the ED for evaluation syncopal episode. Pt will be admitted to the hospital under observation for treatment and further evaluation of syncopal episode in the setting of acute UTI. Syncopal episode Occurred while in chair felt lightheadedness, syncopized and vomited, Previous syncopal episode 2 weeks prior on 11/22/2024 Unclear etiology: Differential includes vasovagal, UTI; orthostatics negative, no postictal state, flu/RSV/COVID negative Status post 1 L of IV fluid CT head showed cerebral atrophy and small-vessel ischemic disease Echocardiogram showed EF 65-70%, no WMA, mild aortic valve stenosis No recurrent episodes Tele monitor showed short runs of atrial tachycardia and 1 episode of non sustained V-tach Seen by Cardiology they do not feel short runs of atrial tachycardia or nonsustained V-tach cause of patient's syncope Acute UTI No sepsis: No fever, tachycardia, tachypnea, or leukocytosis on iv ceftriaxone, started 12/11/2024 urine cultures grew Gram-negative linda follow final urine culture Dementia Mentation at baseline per family Pt not on home meds Full Code DVT Prophylaxis: Lovenox Require continued inpatient admission for syncopal episode in the setting of acute UTI. Pt will require close cardiac monitoring, iv antibiotics for UTI. Quality Stroke Does the patient have a stroke diagnosis?: No VTE Prior VTE?: No VTE Risk Level:: Medical - moderate - high VTE Device Contraindication: Treatment Not Indicated VTE Drug Contraindication: N/A - Med Ordered
--- NOTE | 2024-12-12 13:17 | MHC.CM.PN ---
[facility] CALLED [facility], . AND SPOKE TO JV. INFORMED JV OF ADMISSION TO HOSPITAL FOR PT ON 12/11/2024. FAXED IMM TO [phone]
--- NOTE | 2024-12-12 15:05 | PM.PNCARD ---
Subjective Subjective Date of Service: 12/12/24 Physical Exam Vital Signs: Last Vital Signs Temp 97.4 F 12/12/24 10:56 Pulse 74 12/12/24 10:56 Resp 16 12/12/24 10:56 BP 158/88 H 12/12/24 10:56 Pulse Ox 97 12/12/24 10:56 O2 Del Method Room Air 12/12/24 10:56 BMI result Body Mass Index 21.9 Objective Labs and Meds 12/11/24 14:24 12/11/24 14:24 Lab results: Laboratory Results - last 24 hr 12/11/24 12/11/24 14:24 16:07 Urine Color Yellow Urine Appearance Cloudy Urine pH 7.0 Ur Specific [place] 1.020 Urine Protein 30 (1+) H Urine Glucose (UA) Negative Urine Ketones Trace Urine Blood Negative Urine Nitrite Positive H Ur Leukocyte Esterase Moderate (2+) H Urine RBC 0-2 Urine WBC >50 H Ur Squamous Epith Cells 0-2 Urine Bacteria 4+ Hyaline Casts 0-2 Influenza Type A (PCR) NEGATIVE Influenza Type B (PCR) NEGATIVE RSV RNA Qual (PCR) NEGATIVE SARS-CoV-2 RNA (RT-PCR) NEGATIVE Progress Note: A&P Assessment and plan (1) Presence of permanent cardiac pacemaker: Status: Acute Assessment and Plan: [employer] Parviz dual chamber pacemaker interrogation: battery 9.3- 9.6 yrs, DDD mode low rate 60, Atrial and ventricular tresholds stable. Atrial pacing 27%, Ventricular pacing 95% AT/ AF burden , 1 % - Last alert 12/04/24 brief high V rate lasting 2 seconds. No new alerts occuring on 12/11/24. Billing code [id number] Time Spent With Patient Time: Total time managing care of this patient today ____ minutes. Progress Note: Quality Stroke Does the patient have a stroke diagnosis?: No Procedures Date of Service Date of Service: 12/12/24
[2024-12-12 15:23] VITALS: BP 141/69; PULSE 75; RESP 17; TEMP 36.6; O2SAT 97
[2024-12-12] MEDS: Enoxaparin Sodium 40 MG/0.4 ML SYRINGE SUBCUT (17:21)
[2024-12-12 20:00] VITALS: BP 141/69; PULSE 79; RESP 16; TEMP 37.3; O2SAT 98
[2024-12-13] VITALS: BP 135/71; PULSE 65; RESP 16; TEMP 36.9; O2SAT 97
[2024-12-13] MEDS: 0.9 % Sodium Chloride Flush 3 ML SYRINGE IVFLUSH ×2 (01:00→07:50)
[2024-12-13 04:00] VITALS: BP 129/76; PULSE 61; RESP 20; TEMP 36.5; O2SAT 98
[2024-12-13 07:33] VITALS: BP 134/82; PULSE 60; RESP 18; TEMP 36.4; O2SAT 98
[2024-12-13] MEDS: cefTRIAXone sodium 1 GM VIAL IVPUSH (07:50)
--- NOTE | 2024-12-13 09:48 | PM.PNCARD ---
Subjective Subjective Date of Service: 12/13/24 Interval history: No complaints from patient. Seems to have been stable. Review of Systems Review of Systems Unable to obtain because of confusion Physical Exam Vital Signs: Last Vital Signs Temp 97.5 F 12/13/24 07:33 Pulse 60 12/13/24 07:33 Resp 18 12/13/24 07:33 BP 134/82 12/13/24 07:33 Pulse Ox 98 12/13/24 07:33 O2 Del Method Room Air 12/13/24 07:33 BMI result Body Mass Index 21.9 Const General: comfortable and no acute distress Orientation/consciousness: No patient oriented x3 HEENT Other: Unremarkable Head: Yes normal to inspection Neck Neck: Yes normal visual inspection Chest Chest palpation & inspection: normal inspection of the chest Resp Auscultation: clear to auscultation bilaterally Cardio Palpation: normal PMI Heart sounds: S1 normal heart sound present, S2 normal heart sound present, no gallops, Murmur heart sound present systolic (3/6 HSM apex; 2/6 KAYODE aortic area) and no rubs GI Palpation (GI): Soft to palpation Back/Spine/Pelvis Other: unremarkable Skin General skin exam: no rashes or lesions noted Neuro General: No patient oriented x3 Extrem General: Yes normal to inspection Psych Mental Status: mental status grossly abnormal Objective Labs and Meds 12/11/24 14:24 12/11/24 14:24 Progress Note: A&P Assessment and plan (1) Syncope and collapse: Status: Acute (2) Presence of permanent cardiac pacemaker: Status: Acute (3) Nonrheumatic aortic (valve) stenosis: Status: Acute (4) Nonrheumatic mitral valve regurgitation: Status: Acute Plan Pertinent data reviewed. Telemetry shows brief episodes of tachycardia episodes but only in the low 100s and most likely atrial tachycardia. Device was interrogated yesterday and does not show any events on the day of syncope. Echocardiogram this admission shows moderate mitral regurgitation and mild aortic stenosis. Preserved LVEF. Currently, head CT shows no acute findings. Cerebral atrophy. Suggestion of small vessel ischemic disease. In the CTA head and neck from last year, there is global cerebral volume loss with chronic microangiopathy and moderate to severe stenosis involving cerebral circulation. Overall, do not suspect any cardiac etiology for her current syncope. It seems she is positive for UTI and that can be treated appropriately. For chronic cardiac issues, follow up in clinic. Time Spent With Patient Time: Total time managing care of this patient today ____ minutes. Progress Note: Quality Stroke Does the patient have a stroke diagnosis?: No Procedures Date of Service Date of Service: 12/13/24
--- NOTE | 2024-12-13 10:10 | HO.PM.IMPN ---
Subjective Subjective Date of Service: 12/13/24 Interval History: Patient awake , alert, no acute events overnight, unable to obtain meaningful history due to advanced dementia. cna ltc showed short runs of atrial tachycardia/and 1 brief episode of NSVT nonsustained. Review of Systems Unable to obtain due to mental status Physical Exam Vital Signs: Vital Signs: Last Vital Signs Temp 97.5 F 12/13/24 07:33 Pulse 60 12/13/24 07:33 Resp 18 12/13/24 07:33 BP 134/82 12/13/24 07:33 Pulse Ox 98 12/13/24 07:33 O2 Del Method Room Air 12/13/24 07:33 BMI result Body Mass Index 21.9 Appearing in no acute distress lung sounds are clear to auscultation heart regular rate rhythm, clear S1, S2 positive bowel sounds, abdomen is soft, nontender neuro patient is alert x3, no focal deficits Objective Data Active Medications Acetaminophen (Acetaminophen 325 Mg Tablet) 650 mg PO Q6H PRN PRN Reason: Pain, Mild 1-3,fever,headache Calcium Carbonate (Calcium Carbonate 750 Mg Tab.Chew) 750 mg PO Q4H PRN PRN Reason: Heartburn Ceftriaxone Sodium (Ceftriaxone Sodium 1 Gm Vial) 1 gm IVPUSH Q24H [facility] Last Admin: 12/13/24 07:50 Dose: 1 gm Documented By: ANITA Enoxaparin Sodium (Enoxaparin Sodium 40 Mg/0.4 Ml Syringe) 40 mg SUBCUT Q24H [facility] Last Admin: 12/12/24 17:21 Dose: 40 mg Documented By: ANITA Magnesium Hydroxide (Milk Of Magnesia 30 Ml Oral.Susp) 30 ml PO DAILY PRN PRN Reason: Constipation Melatonin (Melatonin 3 Mg Tablet) 6 mg PO BEDTIME PRN PRN Reason: Insomnia Ondansetron HCl (Ondansetron Hcl 4 Mg/2 Ml Vial) 4 mg IVPUSH Q8H PRN PRN Reason: Nausea and Vomiting Sodium Chloride (0.9 % Sodium Chloride Flush 3 Ml Syringe) 3 ml IVFLUSH QSHIFT [facility] Last Admin: 12/13/24 07:50 Dose: 3 ml Documented By: ANITA Labs 12/11/24 14:24 12/11/24 14:24 Microbiology Microbiology Results: Microbiology 12/11/24 Unknown Urine Culture - Final Urine clean catch - Clean Catch Midstream Klebsiella pneumoniae Assessment and Plan (1) Syncope and collapse: Status: Acute (2) Acute UTI: Status: Acute Plan 83-year-old female with a PMH significant for complete heart block s/p [employer] pacemaker 2023 and dementia not on home meds?who presented to the ED for evaluation syncopal episode. Pt admitted to the hospital under observation for treatment and further evaluation of syncopal episode in the setting of acute UTI. Syncopal episode Occurred while in chair felt lightheadedness, syncopized and vomited, Previous syncopal episode 2 weeks prior on 11/22/2024 Unclear etiology: Differential includes vasovagal, UTI; orthostatics negative, no postictal state, flu/RSV/COVID negative Status post 1 L of IV fluid CT head showed cerebral atrophy and small-vessel ischemic disease Echocardiogram showed EF 65-70%, no WMA, mild aortic valve stenosis No recurrent episodes Tele monitor showed short runs of atrial tachycardia and 1 episode of non sustained V-tach Seen by Cardiology they do not feel short runs of atrial tachycardia or nonsustained V-tach cause of patient's syncope Klebsiella pneumonia UTI No sepsis: No fever, tachycardia, tachypnea, or leukocytosis on iv ceftriaxone, started 12/11/2024 Dementia Mentation at baseline per family Pt not on home meds Full Code DVT Prophylaxis: Lovenox Require continued inpatient admission for syncopal episode in the setting of acute UTI. Pt will require close cardiac monitoring, iv antibiotics for UTI. Quality Stroke Does the patient have a stroke diagnosis?: No VTE Prior VTE?: No VTE Risk Level:: Medical - moderate - high VTE Device Contraindication: Treatment Not Indicated VTE Drug Contraindication: N/A - Med Ordered
[2024-12-13 11:55] VITALS: BP 157/81; PULSE 73; O2SAT 98
[2024-12-13 12:00] VITALS: BP 126/80; PULSE 61; RESP 20; TEMP 36.7; O2SAT 98
--- NOTE | 2024-12-13 13:42 | PM.DS ---
DS: Providers Provider Date of Service: 12/13/24 Date of admission: 12/11/24 17:40 Date of discharge: 12/13/24 Primary care physician: Salomón Cardenas MD Consults: 12/11/24 17:40 Consult to Cardiology Routine Consulting Provider: [facility] Reason for consultation: Syncopal episode, [employer] Parv[employer] pacemaker DS: Diagnosis Discharge Diagnosis (1) Syncope and collapse: Status: Acute (2) Acute UTI: Status: Acute DS: Summary Hospital Course Hospital Course: HP as per admitting provider. Pt is an 83-year-old female with a PMH significant for complete heart block s/p St [employer] pacemaker 2023 and dementia not on home meds?who presents to the ED for evaluation syncopal episode. ?Pt with advanced dementia, alert and oriented to self only at baseline. Unable to provide ros or HPI which is instead provided by family at bedside. Pt was brought to a meeting earlier this afternoon where she was sitting on a chair when she suddenly became dizzy, passed out, and then vomited. Denies fall out of chair or head strike. Unclear how long pt was out, but apparently for only a short period of time. No postictal like state noted upon waking. Pt had similar syncopal episode a few weeks ago on 11/22/2024 though at that time pt is BP was noted to be low and was thought to be secondary to dehydration. Family notes pt has otherwise been in her normal state of health. Pt herself has no acute medical complaints, though was unable to meaningfully participate in HPI given dementia. In the ED pt was hypertensive up to 165/83, vitals otherwise stable and WNL. Orthostatics negative. Labs were significant for creatinine 1.05 (elevated from 0.87 on 11/22/2024), otherwise grossly unremarkable and around baseline for pt. No leukocytosis. Stable H&H. No significant electrolyte abnormalities. Troponin negative. Hepatic function baseline. UA positive for UTI. Tested negative for flu, RSV, COVID. CT?of head negative for acute intracranial abnormality. CT of cervical spine negative for acute fracture subluxation, but showing multilevel spondylolysis. EKG demonstrated atrial sensed ventricular paced rhythm. Pt was given IVF and ceftriaxone. Pt will be admitted to the hospital under observation for treatment and further evaluation of syncopal episode in the setting of acute UTI. Syncopal episode Occurred while in chair felt lightheadedness, syncopized and vomited, Previous syncopal episode 2 weeks prior on 11/22/2024 Unclear etiology: Differential includes vasovagal, UTI; orthostatics negative, no postictal state, flu/RSV/COVID negative, seems likelyt from UTI treated with1 L of IV fluid CT head showed cerebral atrophy and small-vessel ischemic disease Echocardiogram showed EF 65-70%, no WMA, mild aortic valve stenosis No recurrent episodes Tele monitor showed short runs of atrial tachycardia and 1 episode of non sustained V-tach Seen by Cardiology they do not feel short runs of atrial tachycardia or nonsustained V-tach cause of patient's syncope Klebsiella pneumonia UTI No sepsis: No fever, tachycardia, tachypnea, or leukocytosis on iv ceftriaxone, started 12/11/2024, tx to ceftin for 5 days Dementia Mentation at baseline per family Pt not on home meds Time Attestation Discharge Coordination Time (in mins): 40 Quality: Safe Use of Opioids Does Pt have an Active Cancer Diagnosis on the Problem List?: No Quality: Stroke Does the patient have a stroke diagnosis?: No Physical Exam Vital Signs: Vital Signs: Last Vital Signs Temp 98.1 F 12/13/24 12:00 Pulse 61 12/13/24 12:00 Resp 20 12/13/24 12:00 BP 126/80 12/13/24 12:00 Pulse Ox 98 12/13/24 12:00 O2 Del Method Room Air 12/13/24 12:00 BMI result Body Mass Index 21.9 Appearing in no acute distress head is normocephalic atraumatic eyes pupils are PERRLA sclera is anicteric mouth throat mucous membranes are intact and moist neck is supple no lymphadenopathy, no JVD noted lung sounds are clear to auscultation heart regular rate rhythm, clear S1, S2 positive bowel sounds, abdomen is soft, nontender neuro patient is alert x3, no focal deficits DS: Data Data Completed and Pending Completed studies during hospitalization [Text1]: Procedures Insertion of Pacemaker Lead into Right Atrium, Percutaneous Approach (01/25/24) Insertion of Pacemaker Lead into Right Ventricle, Percutaneous Approach (01/25/24) Insertion of Pacemaker, Dual Chamber into Chest Subcutaneous Tissue and Fascia, Open Approach (01/25/24) Discharge Plan Discharge Anticipated Discharge Date/Time: 12/13/24 13:34 Patient Disposition: Home, Self-Care Discharge Diagnosis: Syncope UTI Referrals: Salomón Cardenas MD [Primary Care Provider] - 1 Week Discharge Medications: New cefuroxime axetil 500 mg tablet 500 mg PO BID Qty: 10 0RF Discharge Orders: Discharge Order (Routine); Ordered 12/13/24 Ordered By: Zuleyka Tirado Diet: Advance to usual diet Activity on Discharge: As tolerated Stand Alone Forms: Patient Portal Discharge page Print Language: Faroese Care Plan Goals: Complete antibiotics for UTI Health Concerns: Syncope UTI Plan of Treatment: Follow up with primary care provider as needed Take all medications as prescribed Assessment: See discharge summary
== END 2024-12-13 14:20 | disposition home or self-care (01) ==
LOC: HO.ED 16:33 → HO.EDOVER 17:53 → HO.IMC 20:22
PROVIDERS: Physician Assistant Medical; Admitting Provider Student in an Organized Health Care Education/Training Program; Emergency Provider Emergency Medicine; PCP Internal Medicine; Visit Provider Nurse Practitioner Acute Care
DX: R55 Syncope and collapse (principal); N39.0 Urinary tract infection, site not specified; J15.0 Pneumonia due to Klebsiella pneumoniae; F03.90 Unspecified dementia, unspecified severity, without behavioral disturbance, psychotic disturbance, mood disturbance, and anxiety; I35.0 Nonrheumatic aortic (valve) stenosis; I44.30 Unspecified atrioventricular block; I34.0 Nonrheumatic mitral (valve) insufficiency; I10 Essential (primary) hypertension; S09.90XA Unspecified injury of head, initial encounter; W19.XXXA Unspecified fall, initial encounter; Y93.9 Activity, unspecified; Y92.9 Unspecified place or not applicable; Y99.9 Unspecified external cause status; R41.82 Altered mental status, unspecified; Z03.818 Encounter for observation for suspected exposure to other biological agents ruled out; Z95.0 Presence of cardiac pacemaker
CPT/HCPCS: 0241U; 70450; 72125; 80053; 81001; 82947; 83735; 84484; 85025; 87086; 87088; 87186; 93005; 93306; 96361; 96372; 96374; 96376; 97162; 99222; 99285; J0696; J1650; Q9957

== ENCOUNTER → 2024-12-11 13:57 | Outpatient (BNV) | payer MEDICARE, SELFPAY | PROVIDERS: Emergency Provider Emergency Medicine; PCP Internal Medicine; Visit Provider Radiology Diagnostic Radiology | DX: M47.812 Spondylosis without myelopathy or radiculopathy, cervical region (principal); S09.90XA Unspecified injury of head, initial encounter; W19.XXXA Unspecified fall, initial encounter | CPT/HCPCS: 70450; 72125 ==

== ENCOUNTER 2024-12-11 17:40 | Outpatient (BNV) | payer MEDICARE, SELFPAY | END 2024-12-12 07:00 | PROVIDERS: Admitting Provider Student in an Organized Health Care Education/Training Program; Emergency Provider Emergency Medicine; PCP Internal Medicine; Visit Provider Internal Medicine | DX: I34.1 Nonrheumatic mitral (valve) prolapse (principal); I34.0 Nonrheumatic mitral (valve) insufficiency; I35.2 Nonrheumatic aortic (valve) stenosis with insufficiency; I36.1 Nonrheumatic tricuspid (valve) insufficiency | CPT/HCPCS: 93306 ==

== ENCOUNTER → 2024-12-11 17:40 | Outpatient (BNV) | payer MEDICARE, SELFPAY | PROVIDERS: Admitting Provider Student in an Organized Health Care Education/Training Program; Emergency Provider Emergency Medicine; PCP Internal Medicine; Visit Provider Internal Medicine | DX: R55 Syncope and collapse (principal); I44.30 Unspecified atrioventricular block; Z95.0 Presence of cardiac pacemaker; I35.0 Nonrheumatic aortic (valve) stenosis | CPT/HCPCS: 93280; 99223 ==

== ENCOUNTER 2024-12-17 15:14 | Outpatient (AMB) | payer MEDICARE, SELFPAY ==
--- NOTE | 2024-12-17 15:22 | MHC.PC.OV ---
Vital Signs 12/17/24 15:24 12/17/24 15:53 Height 5 ft 2 in Weight 112 lb 4 oz BMI 20.5 BP 120/82 Blood Pressure Location Lt brachial Position Sitting Pulse 92 Pulse Source Pulse Oximeter Temp 97.1 F Temp Source Skin Pulse Oximetry (%) 97 Oxygen Delivery Method Room Air Intake Visit Reasons: TCM [facility] [place] syncopal episodes 12/13 Intake Note: Patient is here for hospital discharge and TCM follow up. Patient was discharged from [facility] [place] on 12/13/24. Contour Sander Required: No Family Service Aide: Present Accompanied by: Daughter Allergies No Known Allergies [No Known Allergies*] Allergy (Verified 12/17/24 15:23) Tobacco use date assessed: 12/17/24 Fall risk assessment: No Falls in past year Last assessed Fall Risk: 12/17/24 Dental Screening Dental Screen Date: 12/17/24 Did you have a dental visit in the last 12 months?: No Did you have a dental problem in the last 6 months where you did not have access to dental care?: No Was dental information given to patient?: No HPI TCM [facility] [place] syncopal episodes 12/13 HPI Details 83-year-old female with past medical history of hypertension, B12 deficiency, hypercholesterolemia, presence of permanent pacemaker ([employer] 2023), dementia, syncope and aortic stenosis last seen by Dr. Cardenas 08/2024 coming in for hospital discharge follow up. In review of the notes, patient was seen in [facility] [place] ED 12/11/2024 for evaluation of a syncopal episode, UA was positive for UTI CT of head and neck were negative, EKG showed paced rhythm patient was given IV fluids and ceftriaxone and admitted for further observation. Echocardiogram showed aortic valve stenosis with an ejection fraction of 65-70%. Cardiology was consulted did not feel the syncope was related to short run of atrial tachycardia or nonsustained V-tach. Patient was sent home with oral Ceftin for 5 days and advised to follow up with Cardiology. Patient presents today with her daughter who is her primary historian and child care worker. She tells us today she has been feeling generaly well. She has been taking the antibiotics without any issues or side effects. Prior to her first ED visit she was having sweating and thought the for syncopal episode related to dehydration. After her hospitalization she has been doing much better no longer sweating, denies any pain with urination or blood in the urine. She remains active and goes for walks every day and has a good appetite. No acute concerns today. TCM TCM Information Date of Discharge 12/13/24 Discharged From [facility] Interactive Contact Date (Reference documentation from this date) 12/15/24 [facility] Medical History Nonrheumatic aortic (valve) stenosis Heart block atrioventricular Dementia Presence of permanent cardiac pacemaker Pure hypercholesterolemia Left shoulder pain Hypertension Surgical History Hx of tonsillectomy (~1944) Family History Other Family history non-contributory Social History Household Members: Unknown / Unable to assess Household Members Other:: hx dementia Housing: House Alcohol intake: former Comment: 1:1 Patient Tobacco Use Status: Never used Tobacco e-Cigarette/Vaping Use: Never Used Second Hand Smoke Exposure: Yes service: No Current occupational status: retired Cognitive needs: Yes Hearing needs: No Vision needs: No Questionnaire PHQ-9 Over the last 2 weeks, how often have you been bothered by any of the following problems? 1. Little interest or pleasure in doing things: not at all 2. Feeling down, depressed, or hopeless: not at all 3. Trouble falling or staying asleep, or sleeping too much: not at all 4. Feeling tired or having little energy: not at all 5. Poor appetite or overeating: not at all 6. Feeling bad about yourself - or that you are a failure or have let yourself or your family down: not at all 7. Trouble concentrating on things, such as reading the newspaper or watching television: not at all 8. Moving or speaking so slowly that other people could have noticed. Or the opposite - being so fidgety or restless that you have been moving around a lot more than usual: not at all 9. Thoughts that you would be better off or of hurting yourself in some way: not at all Total score: 0 Depression Screening Interpretation: Negative Depression Screening Done: Yes Source: Developed by Drs. Regino Nuñez, Aidee Su, Poncho Ortega and colleagues, with an educational arin from [employer]. Thrive Questionnaire Date Thrive assessed: 12/12/24 AUDIT C Alcohol Use Questionnaire (AUDIT-C) 1. How often do you have a drink containing alcohol?: Never Total Score: 0 NIKKI-7 AMB Questionnaire NIKKI-7 Date NIKKI - 7 assessed: 12/17/24 Feeling nervous, anxious, or on edge: 0 = Not at all Not being able to stop or control worryin = Not at all Worrying too much about different things: 0 = Not at all Trouble relaxin = Not at all Being so restless that it is hard to sit still: 0 = Not at all Becoming easily annoyed or irritable: 0 = Not at all Feeling afraid as if something awful might happen: 0 = Not at all Total NIKKI-7 score (0-4 normal; 5-9 mild; 10-14 moderate; 15-21 severe): 0 Source: Developed by Drs. Regino Nuñez, Poncho Aviles and colleagues, with an educational arin from [employer]. Review of Systems Const Denies body aches, Denies chills, Denies fever(s), Denies headache(s) and Denies poor appetite Eyes Reports no additional complaints ENT Denies dizziness and Denies headache(s) Card Denies chest pain, Denies lightheadedness and Denies dyspnea Resp Denies cough and Denies dyspnea GI Denies abdominal pain, Denies diarrhea, Denies nausea and Denies vomiting Reports no additional complaints Musc Reports no additional complaints and Denies abnormal gait Skin/Breast Reports system reviewed and no additional complaints, except as documented Neuro Denies abnormal gait, Denies dizziness and Denies headache(s) Psych Reports no additional complaints Physical exam (Primary Care) Vital Signs: Last Vital Signs Temp 97.1 F 12/17/24 15:24 Pulse 92 12/17/24 15:24 BP 120/82 12/17/24 15:24 Pulse Ox 97 12/17/24 15:53 Oxygen Delivery Method Room Air 12/17/24 15:53 BMI result Body Mass Index 20.5 Tobacco/Smoking Status: Tobacco use Status Tobacco use date assessed 12/17/24 12/17/24 15:30 Patient Tobacco Use Status Never used Tobacco 12/17/24 15:30 e-Cigarette/Vaping Use Never Used 12/17/24 15:30 PHQ-9: PHQ-9 Score PHQ-9: Total score 0 12/17/24 15:33 Depression Screening Interpretation: Negative Thrive Assessment: Date of Thrive Assessment Date Thrive assessed 12/12/24 12/17/24 15:30 Const General: cooperative, healthy appearing, comfortable and no acute distress HENMT Head: Yes normocephalic Ears: hearing grossly normal bilaterally General nose exam: Normal external nose present Eyes General: appearance normal, both eyes and all related structures Conjunctivae: conjunctivae normal Neck Neck: Yes full ROM and Yes no lymphadenopathy Resp Effort & Inspection: normal respiratory effort Auscultation: clear to auscultation bilaterally, no crackles, no rales, no rhonchi and no wheezes Cardio Rate: regular rate Rhythm: regular rhythm GI Palpation (GI): Soft to palpation, not firm, nontender, no guarding and not rigid General: Yes no CVA tenderness Back/Spine/Pelvis Back: no CVA tenderness Skin General skin exam: no rashes or lesions noted Neuro Gait exam (Neuro): Normal gait present Extrem General: Yes normal to inspection, Yes full ROM and No edema Psych Affect: normal affect Attitude: cooperative Coding Level of Care Code TCM Mod MDM <= 7 Days Complex EM visit Add On G2211 Diagnoses Nonrheumatic aortic (valve) stenosis I35.0 Syncope and collapse R55 Acute UTI N39.0 Presence of permanent cardiac pacemaker Z95.0 Alzheimer's dementia without behavioral disturbance, psychotic disturbance, mood disturbance, or anxiety, unspecified dementia severity, unspecified timing of dementia onset G30.9; F02.80 Alzheimer's disease onset: unspecified onset Dementia behavioral or psychological symptom: without behavioral, psychotic, or mood disturbance or anxiety Dementia severity: unspecified severity Dementia type: Alzheimer's Pure hypercholesterolemia E78.00 Hypertension I10 Assessment & Plan Assessment & Plan (1) Nonrheumatic aortic (valve) stenosis: Code(s): I35.0 - Nonrheumatic aortic (valve) stenosis Category: Medical Plan: Patient found to have aortic valve stenosis on recent echocardiogram. Advised to continue to follow with Cardiology for routine echoes (2) Syncope and collapse: Code(s): R55 - Syncope and collapse Category: Medical Plan: First episode of syncope thought to be related to dehydration patient responded well to IV fluids. Second syncope episode etiology unclear likely related to urinary tract infection which is being treated at this time. Advised patient to remain well hydrated and continue to take antibiotics as prescribed. Also counseled her daughter on red flag symptoms of urinary tract infections and when to present for re-evaluation. Continue to monitor symptoms at this time and reach out to Cardiology for follow up appointment. (3) Acute UTI: Code(s): N39.0 - Urinary tract infection, site not specified Category: Medical Plan: Being treated on oral Ceftin at this time patient is asymptomatic. No tenderness to palpation and no CVA tenderness (4) Presence of permanent cardiac pacemaker: Comment: [employer]. Placed 01/29/[address] Malagon for complete heart block. Code(s): Z95.0 - Presence of cardiac pacemaker Category: Medical Plan: Continue to follow with Cardiology next appointment in March. Advised to reach out to the office to see if they would like to see her sooner given the 2 recent syncopal episodes. (5) Dementia: Code(s): F03.90 - Unspecified dementia, unspecified severity, without behavioral disturbance, psychotic disturbance, mood disturbance, and anxiety Category: Medical Qualifiers: Alzheimer's disease onset: unspecified onset Dementia behavioral or psychological symptom: without behavioral, psychotic, or mood disturbance or anxiety Dementia severity: unspecified severity Dementia type: Alzheimer's Qualified Code(s): G30.9 - Alzheimer's disease, unspecified; F02.80 - Dementia in other diseases classified elsewhere, unspecified severity, without behavioral disturbance, psychotic disturbance, mood disturbance, and anxiety Plan: Not currently on medical management continue with conservative management of the diagnosis (6) Pure hypercholesterolemia: Code(s): E78.00 - Pure hypercholesterolemia, unspecified Category: Medical Plan: Avoid foods that are high in cholesterol such as red meat, fried foods, eggs and baked goods. Not currently on medical management (7) Hypertension: Code(s): I10 - Essential (primary) hypertension Category: Medical Plan: Continue on current blood pressure medication. Avoid salt intake and encourage healthy diet and regular exercise. Blood pressure at goal today 120/82 not currently on medical management Plan This note was constructed using voice recognition software. While every effort has been made to ensure accuracy and tube pusher, still areas may have been included sometimes these areas may affect the content or meeting of the given symptoms. Total time spent caring for the patient today was 30 minutes. This includes time spent before the visit reviewing the chart, time spent during the visit, and time spent after the visit and documentation.
[2024-12-17 15:24] VITALS: BP 120/82; PULSE 92; TEMP 36.2; BMI 20.5
[2024-12-17 15:53] VITALS: O2SAT 97
== END 2024-12-17 16:07 | disposition home or self-care (01) ==
PROVIDERS: PCP Internal Medicine
DX: I35.0 Nonrheumatic aortic (valve) stenosis (principal); G30.9 Alzheimer's disease, unspecified; F02.80 Dementia in other diseases classified elsewhere, unspecified severity, without behavioral disturbance, psychotic disturbance, mood disturbance, and anxiety; R55 Syncope and collapse; N39.0 Urinary tract infection, site not specified; Z95.0 Presence of cardiac pacemaker; E78.00 Pure hypercholesterolemia, unspecified; I10 Essential (primary) hypertension

== ENCOUNTER → 2024-12-17 15:14 | Outpatient (BNVA) | payer MEDICARE, SELFPAY | PROVIDERS: PCP Internal Medicine | DX: I35.0 Nonrheumatic aortic (valve) stenosis (principal); R55 Syncope and collapse; N39.0 Urinary tract infection, site not specified; G30.9 Alzheimer's disease, unspecified; F02.80 Dementia in other diseases classified elsewhere, unspecified severity, without behavioral disturbance, psychotic disturbance, mood disturbance, and anxiety; E78.00 Pure hypercholesterolemia, unspecified; I10 Essential (primary) hypertension; Z95.0 Presence of cardiac pacemaker | CPT/HCPCS: 99495 ==

== ENCOUNTER 2025-01-17 09:58 | Inpatient (IN) | payer MEDICARE, SELFPAY ==
[2025-01-17] VITALS (8 sets, daily range): BP systolic 114–146; BP diastolic 54–77; PULSE 67–90; RESP 16–18; TEMP 36.8–37.6; O2SAT 95–99; BMI 17.3
--- NOTE | ~2025-01-17 | CT_ITS ---
CLINICAL HISTORY: 4 hours follow-up CT after abnormal head CT CT of the head without intravenous contrast Comparison: CT/SR - CT HEAD/BRAIN WO IV CON - 01/17/25 10:[address]/OR/SR - CT HEAD/BRAIN WO IV CON - 12/11/24 14:[address]/SR - CT HEAD/BRAIN WO IV CON - 11/22/24 11:14 EST Findings: This exam was subject to excessive motion and needs to be repeated. The technologist made 2 attempts. Previous described air within the dural sinuses was not reproduced on this limited exam. Impression: 1. Suboptimal study due to motion.Consider a repeat study. Previous described air in the dural sinuses was not reproduced on this limited exam. 2. Cerebral volume loss, intracranial atherosclerotic disease and mild sequela of chronic small vessel ischemic disease. This document has been electronically signed by: Hubert Lua MD on 01/17/2025 15:18:46
--- NOTE | ~2025-01-17 | XR_ITS ---
CLINICAL HISTORY: Syncope 1 view chest x-ray. Comparison: CR - XR CHEST 1V - 11/22/24 11:03 EST Findings: Normal lung volumes. No airspace disease. No pneumothorax or pleural effusion. Stable mild cardiomegaly. Dual-chamber pacemaker. No passive venous congestion. No mediastinal shift No acute fracture. Impression: 1. No acute cardiopulmonary disease. This document has been electronically signed by: Hubert Lua MD on 01/17/2025 11:08:16
--- NOTE | ~2025-01-17 | CT_ITS ---
CLINICAL HISTORY: Syncope CT of the head without intravenous contrast Comparison: CT/RI/SR - CT HEAD/BRAIN WO IV CON - 12/11/24 14:05 EST Findings: The ventricles and sulci are prominent, consistent with generalized cerebral parenchymal volume loss. The ventricles are symmetric and the basilar cisterns are intact. Mild periventricular, deep and subcortical white matter hypodensities are nonspecific but statistically reflect the sequela of chronic small vessel ischemic change.Small volume air is noted in the superior sagittal sinus, left sigmoid sinus and at the confluence of the transverse sinuses. No intracranial hemorrhage, extra-axial fluid collection, midline shift or mass-effect is evident. No evidence of acute large vessel or territorial ischemia. Brainstem and cerebellum unremarkable. Vascular calcifications indicate intracranial atherosclerosis. The imaged portion of the paranasal sinuses are clear. No mastoid effusions are demonstrated. The orbital contents are unremarkable. Calvarium is intact. Impression: 1. Small volume air is noted in the dural sinuses without evidence of a skull fracture this may be iatrogenic with inadvertent air in IV tubing or catheter manipulation. Clinical correlation. Consider a follow-up CT in 4 hours time if neurologic status is stable Differentials include infection or barotrauma. 2. Cerebral volume loss, intracranial atherosclerotic disease and mild sequela of chronic small vessel ischemic disease. This document has been electronically signed by: Hubert Lua MD on 01/17/2025 11:22:36
--- NOTE | 2025-01-17 10:11 | ECG_ITS ---
Test Reason : SYNCOPE Blood Pressure : */* mmHG Vent. Rate : 73 BPM Atrial Rate : 73 BPM P-R Int : 164 ms QRS Dur : 170 ms QT Int : 468 ms P-R-T Axes : 62 -72 103 degrees QTcB Int : 515 ms Atrial-sensed ventricular-paced rhythm Abnormal ECG When compared with ECG of 11-Dec-2024 13:57, Vent. rate has increased by 2 bpm Referred By: Sonia Sanon Electronically Signed By: ELKIN CEE MD
--- NOTE | 2025-01-17 10:12 | ED.SYNCOPE ---
HPI - Syncope General Chief Complaint: General Medical Stated Complaint: ALTERED,?VASOVAGAL PER EMS Time Seen by Provider: 01/17/25 10:02 Source: patient, family (Daughter), EMS and old records reviewed Mode of arrival: EMS Limitations: altered mental status History of Present Illness ED Provider: DR. Sanon HPI narrative: 84-year-old female with PMH significant for complete heart block s/p [employer] pacemaker in 2023, dementia lives home with her daughter while patient having breakfast daughter witnessed a syncopal episode, no head injury, no fall, lasted for about few seconds as per EMS then patient regained consciousness spontaneously after. In the ED patient is non historian. As per EMS patient initially was hypotensive with systolic blood pressure in the 80s, History was obtained from EMS and daughter. Related Data Previous Rx's ?Medication ?Instructions ?Recorded cefuroxime axetil 500 mg tablet 500 mg PO BID #10 tabs 12/13/24 Allergies Allergy/AdvReac Type Severity Reaction Status Date / Time No Known Allergies Allergy Verified 01/17/25 10:09 [No Known Allergies*] Review of Systems Review of Systems: Yes Unobtainable due to mental status PMFSH Past Medical History Medical History Nonrheumatic mitral valve regurgitation Nonrheumatic aortic (valve) stenosis Heart block atrioventricular Dementia Presence of permanent cardiac pacemaker Pure hypercholesterolemia Left shoulder pain Hypertension Surgical History Hx of tonsillectomy (~1944) Family History Family History Other Family history non-contributory Social History Social History Household Members: Unknown / Unable to assess Household Members Other:: hx dementia Housing: House Alcohol intake: former Comment: 1:1 Patient Tobacco Use Status: Never used Tobacco e-Cigarette/Vaping Use: Never Used Second Hand Smoke Exposure: Yes Advance Directives: No Advance Directives Information Provided: No Do you have a plan to hurt others: No Plan service: No Current occupational status: retired Cognitive needs: Yes Hearing needs: No Vision needs: No Physical Exam Vital Signs: Vital Signs: Last Vital Signs Temp 98.2 F 01/17/25 11:06 Pulse 90 01/17/25 11:49 Resp 18 01/17/25 11:06 BP 137/71 01/17/25 11:49 Pulse Ox 96 01/17/25 11:06 O2 Del Method Room Air 01/17/25 11:06 BMI result Body Mass Index 17.3 Appearance: Alert, awake, poor historian. No acute distress. Head: Normal external exam. Normocephalic. Atraumatic. No [place] signs noted. No raccoon eyes noted Eyes: PERRLA. EOMI. Conjunctiva and sclera normal. Eyelids normal. ENT: TM's Normal. Pharynx normal. Uvula midline. Moist mucous membranes. No trismus noted. No drooling noted. No muffled voice noted. Neck: Normal inspection. Neck supple. FROM. No adenopathy. Thyroid Normal. No meningeal signs. No neck mass noted. CVS: Normal heart rate and rhythm. Heart sound normal. No murmurs noted. Pulses normal throughout. Respiratory: No respiratory distress. Painless inspiration. Breath sounds normal. No wheezes/rales/rhonchi noted. Chest nontender. No accessory muscle usage noted or decreased air movement noted. Abdomen: Soft and nontender. Bowel sounds normal in all 4 quadrants. No distention noted. No organomegaly noted. No visible injury noted. Back: No CVA tenderness. Full range of motion noted. Skin: Skin warm and dry. Normal skin color. Normal skin turgor. No rashes/lesions/lacerations noted. Extremities: No lower extremity edema. Extremities exhibit normal range of motion. Extremities nontender. Neuro: Cranial nerve exam: II-XII are grossly intact No motor deficit. No sensory deficit. Reflexes normal. Course Reevaluation(s) Reevaluation #1: History was obtained from daughter, patient had similar presentation and was admitted last year found to have a UTI, will attempt to obtain urine using straight catheter. Received 1 L of IV fluids in the ED, a blood pressure has been stable, VSS. Positive for influenza A. UTI, no sepsis will start on ceftriaxone. CT head was read as a small volume of air in the dural sinuses, no evidence of skull fracture concern of air traveled from peripheral IV extremely rare and unlikely, will repeat CT in 4 hours as recommended. Time: 11:24 Medications Administered Discontinued Medications Generic Name Dose Route Start Last Admin Trade Name Freq PRN Reason Stop Dose Admin Sodium Chloride 1,000 mls @ 999 mls/hr 01/17/25 10:10 01/17/25 11:06 Ns IV 01/17/25 11:10 999 mls/hr .Q1H1M ONE Administration Medical Decision Making Differential Diagnosis Differential Diagnoses: The differential diagnosis associated with the presentation includes (ACS, dehydration, electrolyte derangement, severe anemia, pneumonia, pneumothorax, pleural effusion, UTI, intracranial pathology, influenza, COVID-19 infection, RSV.) Admission/Observation Consideration of admission/observation: Escalation of care including admission/observation considered Consult Healthcare Provider Management of the patient was discussed with: Hospitalist (Dr. Lowe) Lab Data MDM Lab Attestation statement: I reviewed the patient's lab results. 01/17/25 10:30 01/17/25 10:30 Labs: Lab Results 01/17/25 01/17/25 Range/Units 10:30 12:25 WBC 7.1 (4.8-10.8) X10*3/uL RBC 4.02 L (4.20-5.50) X10*6/uL Hgb 12.1 (12.0-16.0) g/dl Hct 36.3 L (37.0-47.0) % MCV 90.3 (80.0-98.0) fL MCH 30.1 (27.0-33.0) pg MCHC 33.3 (31.0-35.0) g/dl RDW 13.4 (11.0-16.0) % Plt Count 252 (160-400) X10*3/uL MPV 8.7 L (9.4-12.3) fL Immature Gran % (Auto) 0.3 (0.0-0.4) % Neut % (Auto) 69.8 (45-73) % Lymph % (Auto) 16.9 L (20-40) % [place] % (Auto) 11.3 H (2-11) % Eos % (Auto) 0.6 (0-4) % Baso % (Auto) 1.1 (0-2) % Lymph # (Auto) 1.2 (1.2-4.9) X10*3/uL [place] # (Auto) 0.8 (0.1-1.2) X10*3/uL Eos # (Auto) 0.0 (0.0-0.4) X10*3/uL Baso # (Auto) 0.1 (0.0-0.2) X10*3/uL Abs Immat Gran (auto) 0.02 (0.00-0.03) X10*3/uL Absolute Neuts (auto) 4.9 (2.0-8.3) x10*3/uL Absolute Nucleated RBC 0.000 (0.0-0.012) X10*3/uL Nucleated RBC % (auto) 0.0 (0.0-0.2) /100WBC Sodium 139 (135-145) mmol/L Potassium 4.2 (3.3-5.1) mmol/L Chloride 108 (96-108) mmol/L Carbon Dioxide 25 (22-29) mmol/L Anion Gap 10 L (12-20) BUN 15 (9-16) mg/dL Creatinine 0.85 (0.5-1.4) mg/dL Estim Creat Clear Calc 37.1 Estimated GFR > 60 Random Glucose 147 H (60-115) mg/dL Calcium 8.4 D (8.4-10.2) mg/dL Total Bilirubin 0.5 (0.0-1.0) mg/dL Direct Bilirubin 0.2 (0.0-0.5) mg/dL AST 21 (5-31) U/L ALT 17 (0-31) U/L Alkaline Phosphatase 164 H (39-117) U/L Troponin I High Sens 5.0 D (<3.5-17.0) ng/L B-Natriuretic Peptide 196 H (<100) pg/mL Total Protein 6.6 (6.5-8.0) g/dL Albumin 3.5 (3.5-5.0) g/dL Lipase 38 (8-78) U/L Urine Color Yellow Urine Appearance Cloudy Urine pH 7.0 (5.0-9.0) Ur Specific [place] 1.015 (1.005-1.025) Urine Protein 30 (1+) H (Neg-Trace) mg/dL Urine Glucose (UA) Negative (Negative) mg/dL Urine Ketones Negative (Negative) mg/dL Urine Blood Trace H (Negative) Urine Nitrite Positive H (Negative) Ur Leukocyte Esterase Moderate (2+) H (Negative) Influenza Type A (PCR) POSITIVE A (Negative) Influenza Type B (PCR) NEGATIVE (Negative) RSV RNA Qual (PCR) NEGATIVE (Negative) SARS-CoV-2 RNA (RT-PCR) NEGATIVE (Negative) Independent Interpretation I performed an independent interpretation of an: Plain X-Ray (Chest: No acute cardiopulmonary disease.) and CT Scan (Head:1. Small volume air is noted in the dural sinuses without evidence of a skull fracture this may be iatrogenic with inadvertent air in IV tubing or catheter manipulation. Clinical correlation. Consider a follow-up CT in 4 hours time if neurologic status is stable Differentials include infecti) Radiology Impression Discussion of test interpretation with radiology: I have reviewed the radiologist's reading. Discharge Plan Discharge Clinical Impression: Syncope and collapse, Influenza, Acute UTI Patient Disposition: Admitted As Inpatient Print Language: British
[2025-01-17 10:35] LABS: MANUAL DIFF FLAG NO
[2025-01-17 10:36] LABS: Basophils Absolute Auto 0.1 X10*3/uL (0.0-0.2); Basophils Percent Auto 1.1 % (0-2); Eosinophils Percent Auto 0.6 % (0-4); Hematocrit 36.3 % (37.0-47.0); Hemoglobin 12.1 g/dl (12.0-16.0); Imm Gran Abs Auto 0.02 X10*3/uL (0.00-0.03); Imm Gran Pct Auto 0.3 % (0.0-0.4); Lymphocytes Absolute Auto 1.2 X10*3/uL (1.2-4.9); Lymphocytes Percent Auto 16.9 % (20-40); Mean Corpuscular HGB Conc 33.3 g/dl (31.0-35.0); Mean Corpuscular Hemoglobin 30.1 pg (27.0-33.0); Mean Corpuscular Volume 90.3 fL (80.0-98.0); Mean Platelet Volume 8.7 fL (9.4-12.3); Monocytes Absolute Auto 0.8 X10*3/uL (0.1-1.2); Monocytes Percent Auto 11.3 % (2-11); Neutrophils Absolute Auto 4.9 x10*3/uL (2.0-8.3); Neutrophils Percent Auto 69.8 % (45-73); Platelet Count 252 X10*3/uL (160-400); Red Blood Count 4.02 X10*6/uL (4.20-5.50); Red Cell Distribution Width 13.4 % (11.0-16.0); White Blood Count 7.1 X10*3/uL (4.8-10.8)
--- NOTE | 2025-01-17 10:40 | PC.NURSE ---
Jewels from home for unresponsive episode during breakfast. Per daughter, pt was eating breakfast this morning and stated she felt as though she was going to pass out, then went unresponsive. Initial BP per EMS was 86/59, ems gave 300ml of NS and BP improved to 100s/60s. Per daughter, hx of this happening multiple times in the past, was admitted for same thing. Pt not answering questions/following commands, baseline dementia, respirations even and unlabored, no increased wob/sob noted, V-paced on solution developer, HR- 70s. Daughter denies head strike during fall, -thinners, no signs of bruising/denies pain when moving extremities. 18g IV R ac placed by ems, pending labs and EKG, call wright within reach, all needs met at this time.
[2025-01-17 10:58] LABS: Alanine Aminotransferase 17 U/L (0-31); Albumin Level 3.5 g/dL (3.5-5.0); Alkaline Phosphatase 164 U/L (39-117); Anion Gap 10 (12-20); Aspartate Amino Transferase 21 U/L (5-31); Bilirubin Direct 0.2 mg/dL (0.0-0.5); Bilirubin Total 0.5 mg/dL (0.0-1.0); Blood Urea Nitrogen 15 mg/dL (9-16); Calcium 8.4 mg/dL (8.4-10.2); Carbon Dioxide 25 mmol/L (22-29); Chloride 108 mmol/L (96-108); Creatinine Clr Calc Pharmacy 37.1; Estimated Glomerular Filt Rate > 60; Glucose Random 147 mg/dL (60-115); Lipase 38 U/L (8-78); Potassium 4.2 mmol/L (3.3-5.1); Sodium 139 mmol/L (135-145); Total Protein 6.6 g/dL (6.5-8.0)
[2025-01-17 11:04] LABS: B Type Natriuretic Peptide 196 pg/mL (<100)
[2025-01-17] MEDS: 0.9 % Sodium Chloride 1,000 ML 999 ML IV (11:06)
[2025-01-17 11:21] LABS: Influenza A PCR POSITIVE (Negative); Influenza B PCR NEGATIVE (Negative); Resp Syncy Virus RNA Qual PCR NEGATIVE (Negative); SARS COV2 PCR INHOUSE NEGATIVE (Negative)
--- NOTE | 2025-01-17 11:30 | PC.NURSE ---
Pt continuously pulling off tele leads. Unable to redirect pt. Tele leads replaced at this time.
[2025-01-17 13:03] LABS: Appearance Urine Cloudy; Color Urine Yellow; Glucose Urine UA Negative (Negative); Leukocyte Esterase Urine Moderate (2+) (Negative); Nitrite Urine Positive (Negative); Specific Gravity - Urine 1.015 (1.005-1.025); UMIC TRIGGER UACC YES; Urine Blood Trace (Negative); Urine Ketones Negative (Negative); Urine Protein 30 (1+) mg/dL (Neg-Trace)
[2025-01-17 13:24] LABS: Bacteria Urine 4+ (None Seen); Hyaline Casts Urine 0-2 /LPF (0-2); RBC Urine 0-2 /HPF (0-2); Squamous Epithelial Cell Urine 0-2 /HPF (0-2); UACC Culture Trigger YES; WBC Urine >50 /HPF (0-5)
--- NOTE | 2025-01-17 14:20 | P.HPHOSP_ITS ---
History of Present Illness Date of Service: 01/17/25 Attending physician on admission: Traci Huerta Chief Complaint: Presyncope Pt is an 84-year-old female with a PMH significant for complete heart block s/p [employer] pacemaker in 2023 and dementia not on home medications?who presents to the ED from home after presyncopal episode this morning. Pt with advanced dementia at baseline and unable to provide any HPI. Pt lives with family who is at bedside and notes pt was eating breakfast this morning when she complained of feeling dizzy. Pt then slumped back in her chair with eyes closed. Was moving extremities slightly and seemingly able to hear, but not opening eyes or following commands. No fall or trauma, no head strike. Episode lasted a few seconds and no apparent postictal state once consciousness regained. Per EMS pt's SBP in the 80s though normotensive by the time she arrived the ED. Daughter also notes pt has been having cough and congestion for the past 2-3 days. Temperature was never measured. No reported nausea, vomiting, abdominal pain. In the ED pt's vitals stable and WNL. Labs were significant for testing positive for influenza type a, mildly elevated BNP of 196, slightly increased over prior, and alk-phos 164. Otherwise grossly unremarkable and around baseline. No leukocytosis. Stable H&H. No significant electrolyte abnormalities. Renal function baseline. UA positive for UTI. CXR negative for acute cardiopulmonary disease. CT of head showed small volume air noted and dural sinuses without evidence of skull fracture. Repeat CT of head 4 hours later no longer showing air in the dural sinuses. EKG demonstrated atrial sensed ventricular paced rhythm, similar to prior without ischemic changes. Pt was treated with 1 L IVF. Pt will be admitted to the hospital under observation for treatment and further evaluation of presyncopal episode in the setting influenza type a infection. Review of Systems 2 Review of Systems: Negative except that which is stated in the HPI. Yes Unobtainable due to mental status [facility] Medical History Nonrheumatic mitral valve regurgitation Nonrheumatic aortic (valve) stenosis Heart block atrioventricular Dementia Presence of permanent cardiac pacemaker Pure hypercholesterolemia Left shoulder pain Hypertension Family History Other Family history non-contributory Surgical History Hx of tonsillectomy (~1944) Social History Household Members: Unknown / Unable to assess Household Members Other:: hx dementia Housing: House Alcohol intake: former Comment: 1:1 Patient Tobacco Use Status: Never used Tobacco e-Cigarette/Vaping Use: Never Used Second Hand Smoke Exposure: Yes Advance Directives: No Advance Directives Information Provided: No Do you have a plan to hurt others: No Plan service: No Current occupational status: retired Cognitive needs: Yes Hearing needs: No Vision needs: No Meds Allergies Allergy/AdvReac Type Severity Reaction Status Date / Time No Known Allergies Allergy Verified 01/17/25 10:09 [No Known Allergies*] Active Medications: Current Medications Acetaminophen (Acetaminophen 325 Mg Tablet) 650 mg PO Q6H PRN PRN Reason: Pain, Mild 1-3,fever,headache Calcium Carbonate (Calcium Carbonate 750 Mg Tab.Chew) 750 mg PO Q4H PRN PRN Reason: Heartburn Enoxaparin Sodium (Enoxaparin Sodium 40 Mg/0.4 Ml Syringe) 40 mg SUBCUT Q24H [facility] Magnesium Hydroxide (Milk Of Magnesia 30 Ml Oral.Susp) 30 ml PO DAILY PRN PRN Reason: Constipation Melatonin (Melatonin 3 Mg Tablet) 6 mg PO BEDTIME PRN PRN Reason: Insomnia Ondansetron HCl (Ondansetron Hcl 4 Mg/2 Ml Vial) 4 mg IVPUSH Q8H PRN PRN Reason: Nausea and Vomiting Oseltamivir Phosphate (Oseltamivir Phosphate 30 Mg Capsule) 30 mg PO BID N[facility] Stop: 01/21/25 21:01 Sodium Chloride (0.9 % Sodium Chloride Flush 3 Ml Syringe) 3 ml IVFLUSH QSHIFT [facility] Physical Exam 2 Vital Signs and Narrative: Vital Signs: Last Vital Signs Temp 98.2 F 01/17/25 11:06 Pulse 90 01/17/25 11:49 Resp 18 01/17/25 11:06 BP 137/71 01/17/25 11:49 Pulse Ox 96 01/17/25 11:06 O2 Del Method Room Air 01/17/25 11:06 BMI result Body Mass Index 17.3 General: AOx1 only, no acute distress Resp: CTA bilaterally CVS: S1, S2, RRR, +murmur GI: +BS, NT, no distention Skin: Warm, dry Neuro: Cranial nerves II-XII grossly intact bilaterally. Motor grossly intact bilaterally Extremities: No edema Psych: Confused, occasionally agitated Results Labs 01/17/25 10:30 01/17/25 10:30 Labs: Laboratory Results - last 24 hr 01/17/25 01/17/25 10:30 12:25 MCV 90.3 MCH 30.1 MCHC 33.3 RDW 13.4 Plt Count 252 MPV 8.7 L Immature Gran % (Auto) 0.3 Neut % (Auto) 69.8 Lymph % (Auto) 16.9 L [place] % (Auto) 11.3 H Eos % (Auto) 0.6 Baso % (Auto) 1.1 Lymph # (Auto) 1.2 [place] # (Auto) 0.8 Eos # (Auto) 0.0 Baso # (Auto) 0.1 Abs Immat Gran (auto) 0.02 Absolute Neuts (auto) 4.9 Absolute Nucleated RBC 0.000 Nucleated RBC % (auto) 0.0 Anion Gap 10 L Estim Creat Clear Calc 37.1 Estimated GFR > 60 Random Glucose 147 H Calcium 8.4 D Total Bilirubin 0.5 Direct Bilirubin 0.2 AST 21 ALT 17 Alkaline Phosphatase 164 H B-Natriuretic Peptide 196 H Total Protein 6.6 Albumin 3.5 Lipase 38 Urine Color Yellow Urine Appearance Cloudy Urine pH 7.0 Ur Specific [place] 1.015 Urine Protein 30 (1+) H Urine Glucose (UA) Negative Urine Ketones Negative Urine Blood Trace H Urine Nitrite Positive H Ur Leukocyte Esterase Moderate (2+) H Urine RBC 0-2 Urine WBC >50 H Ur Squamous Epith Cells 0-2 Urine Bacteria 4+ Hyaline Casts 0-2 Influenza Type A (PCR) POSITIVE A Influenza Type B (PCR) NEGATIVE RSV RNA Qual (PCR) NEGATIVE SARS-CoV-2 RNA (RT-PCR) NEGATIVE Assessment and Plan (1) Influenza: Status: Acute (2) Acute UTI: Status: Acute (3) Near syncope: Status: Resolved Plan Pt is an 84-year-old female with a PMH significant for complete heart block s/p [employer] pacemaker in 2023 and dementia not on home medications?who presents to the ED from home after presyncopal episode this morning. Pt will be admitted to the hospital under observation for treatment and further evaluation of presyncopal episode in the setting influenza type a infection. Presyncopal episode Pt with brief episode of dizziness, slumped back in chair, not fully responding to commands No postictal state or tonic-clonic type activity noted Most likely secondary to dehydration and Flu, though vasovagal and cardiogenic also on differential Orthostatics negative Pt received IVF in the ED Monitor on telemetry Acute influenza type A infection Cough and nasal congestion x2-3 days Will start on Tamiflu 30mg bid x5 days No hypoxia Symptomatic treatment Acute UTI No sepsis: Pt does not meet SIRS criteria Pt treated with ceftriaxone, started 01/17/2025 Follow urine culture Question of cerebral embolism air CT showed small volume of air in dural sinuses without evidence of skull fracture Appears slightly larger than when 1st appeared on CT on 11/22/2024, CT on 03/06/[address] today limited due to motion, but did not reproduced air in the dural sinuses Pt without acute mental status change, no recent falls or trauma to the head Monitor for now, no acute intervention necessary Dementia Appears at baseline Not on home meds Full Code Attending:?Dr. Huerta DVT Prophylaxis: Lovenox Pt will be admitted to the hospital under observation for treatment and further evaluation of presyncope in the setting of influenza type A infection. Pt will close monitoring of vitals, mentation, and cardiac function. Quality Stroke Does the patient have a stroke diagnosis?: No VTE Prior VTE?: No VTE Risk Level:: Medical - moderate - high VTE Device Contraindication: Treatment Not Indicated VTE Drug Contraindication: N/A - Med Ordered
[2025-01-17] MEDS: Oseltamivir Phosphate 30 MG CAPSULE PO ×2 (15:35→21:01)
[2025-01-17] MEDS: Enoxaparin Sodium 40 MG/0.4 ML SYRINGE SUBCUT (15:35)
[2025-01-17] MEDS: cefTRIAXone sodium 1 GM VIAL IVPUSH (15:35)
--- NOTE | 2025-01-17 17:10 | PHA.MEDREC ---
Addendum entered by Tiburcio George 01/17/25 17:45: Update: Pt's daughter Lucy called back and confirmed that patient does not take any medications. Updated chart accordingly. Original Note: Pharmacy Consult ? Medication Reconciliation Pharmacy has completed the medication reconciliation. Unable to obtain home meds from pt d/t advanced dementia and contacted family multiple times with no answer. Left message in pt's voicemail instructing to call back when they have received the message.
[2025-01-17] MEDS: 0.9 % Sodium Chloride Flush 3 ML SYRINGE IVFLUSH ×2 (18:16→21:05)
[2025-01-18 03:20] VITALS: BP 159/78; PULSE 76; RESP 17; TEMP 36.5; O2SAT 98
[2025-01-18 07:34] VITALS: BP 132/76; PULSE 75; RESP 18; TEMP 36.4; O2SAT 98
[2025-01-18] MEDS: Oseltamivir Phosphate 30 MG CAPSULE PO ×2 (08:12→19:52)
[2025-01-18] MEDS: 0.9 % Sodium Chloride Flush 3 ML SYRINGE IVFLUSH ×2 (08:12→19:55)
[2025-01-18 11:11] VITALS: BP 135/63; PULSE 77; RESP 18; TEMP 37.1; O2SAT 98
--- NOTE | 2025-01-18 12:52 | MHC.CM.PN ---
IMM sent to Jess Ellis, guardian, and phone message left to inform her that pt. is here. Pt lives with her dtr, and has used [facility] in the past. Dtr to transport home at DC, PCP is Dr. Avila. DCP: home, self care or with VNA services. CM to follow for DC needs.
[2025-01-18] MEDS: Enoxaparin Sodium 40 MG/0.4 ML SYRINGE SUBCUT (13:47)
[2025-01-18] MEDS: cefTRIAXone sodium 1 GM VIAL IVPUSH (13:47)
[2025-01-18 15:18] VITALS: BP 107/68; PULSE 80; RESP 16; TEMP 37.2; O2SAT 99
--- NOTE | 2025-01-18 16:34 | HO.PM.IMPN ---
Subjective Subjective Date of Service: 01/18/25 Interval History: presyncope Review of Systems seems similar does not seems abd discomfort Physical Exam Vital Signs: Vital Signs: Last Vital Signs Temp 98.9 F 01/18/25 15:18 Pulse 80 01/18/25 15:18 Resp 16 01/18/25 15:18 BP 107/68 01/18/25 15:18 Pulse Ox 99 01/18/25 15:18 O2 Del Method Room Air 01/18/25 15:18 BMI result Body Mass Index 17.3 Appearance:aox1 , not in distress cvs: rrr, [id number] . res: air entry fair abd:soft,nt, bs present. ext pulses present , no cyanosis . neuro: axo3 , nonfocal. Objective Data Active Medications Acetaminophen (Acetaminophen 325 Mg Tablet) 650 mg PO Q6H PRN PRN Reason: Pain, Mild 1-3,fever,headache Calcium Carbonate (Calcium Carbonate 750 Mg Tab.Chew) 750 mg PO Q4H PRN PRN Reason: Heartburn Ceftriaxone Sodium (Ceftriaxone Sodium 1 Gm Vial) 1 gm IVPUSH Q24H [facility] Last Admin: 01/18/25 13:47 Dose: 1 gm Documented By: PODMORP Enoxaparin Sodium (Enoxaparin Sodium 40 Mg/0.4 Ml Syringe) 40 mg SUBCUT Q24H [facility] Last Admin: 01/18/25 13:47 Dose: 40 mg Documented By: CHRISTELMORP Magnesium Hydroxide (Milk Of Magnesia 30 Ml Oral.Susp) 30 ml PO DAILY PRN PRN Reason: Constipation Melatonin (Melatonin 3 Mg Tablet) 6 mg PO BEDTIME PRN PRN Reason: Insomnia Ondansetron HCl (Ondansetron Hcl 4 Mg/2 Ml Vial) 4 mg IVPUSH Q8H PRN PRN Reason: Nausea and Vomiting Oseltamivir Phosphate (Oseltamivir Phosphate 30 Mg Capsule) 30 mg PO BID [facility] Stop: 01/21/25 21:01 Last Admin: 01/18/25 08:12 Dose: 30 mg Documented By: PODMORP Sodium Chloride (0.9 % Sodium Chloride Flush 3 Ml Syringe) 3 ml IVFLUSH QSHIFT [facility] Last Admin: 01/18/25 08:12 Dose: 3 ml Documented By: PODMORP Labs 01/17/25 10:30 01/17/25 10:30 Microbiology Microbiology Results: Microbiology 01/17/25 Unknown Urine Culture - Preliminary Urine Catheterized - Straight Catheter Gram negative linda Assessment and Plan (1) Acute UTI: Status: Acute Assessment and Plan: 84-year-old female with a PMH significant for complete heart block s/p [employer] pacemaker in 2023 and dementia not on home medications?who presents to the ED from home after presyncopal episode this morning. Pt will be admitted to the hospital under observation for treatment and further evaluation of presyncopal episode in the setting influenza type a infection. Presyncopal episode Pt with brief episode of dizziness, slumped back in chair, not fully responding to commands No postictal state or tonic-clonic type activity noted Most likely secondary to dehydration and Flu, though vasovagal and cardiogenic also on differential Orthostatics negative Pt received IVF in the ED Monitor on telemetry Acute influenza type A infection Cough and nasal congestion x2-3 days Will start on Tamiflu 30mg bid x5 days No hypoxia Symptomatic treatment Acute UTI No sepsis: Pt does not meet SIRS criteria Pt treated with ceftriaxone, started 01/17/2025 Follow urine culture Question of cerebral embolism air CT showed small volume of air in dural sinuses without evidence of skull fracture Appears slightly larger than when 1st appeared on CT on 11/22/2024, CT on 03/06/[address] today limited due to motion, but did not reproduced air in the dural sinuses Pt without acute mental status change, no recent falls or trauma to the head will add neurochecks, moniter , may need neurology eval if needed. Dementia Appears at baseline Not on home meds generalised weak-added pt eval Full Code DVT Prophylaxis: Lovenox ongoin need for treatment and further evaluation of presyncope in the setting of influenza type A infection. Pt will close monitoring of vitals, mentation, and cardiac function, may neurochecks ,pt Quality Stroke Does the patient have a stroke diagnosis?: No VTE Prior VTE?: No VTE Risk Level:: Medical - moderate - high VTE Device Contraindication: Treatment Not Indicated VTE Drug Contraindication: N/A - Med Ordered
[2025-01-18 19:53] VITALS: BP 109/71; PULSE 71; RESP 18; TEMP 36.7; O2SAT 96
[2025-01-19] VITALS: BP 131/74; PULSE 74; RESP 16; TEMP 37; O2SAT 99
--- NOTE | 2025-01-19 | EEG_ITS ---
This is a 16-channel EEG with an EKG lead. The patient is reported awake and drowsy during the tracing. Background EEG rhythm is low amplitude, mixed theta, beta with no obvious asymmetry or paroxysmal tendency. Photic stimulation is unremarkable. Hyperventilation is not performed. Cardiac lead does not reveal any significant abnormality. No sharp wave spikes or paroxysmal tendency noted. IMPRESSION: Generalized slowing with no evidence of seizure disorder. MD ROBIN Veronica/PRISCILLA / [phone]
[2025-01-19 04:00] VITALS: BP 136/79; PULSE 75; RESP 18; TEMP 37.4; O2SAT 92
[2025-01-19 08:00] VITALS: BP 133/69; PULSE 68; RESP 16; TEMP 36.1; O2SAT 96
[2025-01-19] MEDS: Oseltamivir Phosphate 30 MG CAPSULE PO ×2 (08:22→21:21)
[2025-01-19] MEDS: 0.9 % Sodium Chloride Flush 3 ML SYRINGE IVFLUSH ×3 (08:22→21:23)
--- NOTE | 2025-01-19 09:02 | PM.NEUROCN ---
History of Present Illness Data of Consult Service Date: 01/19/25 Primary Care Provider: Salomón Cardenas MD [facility] Reason for consult: Abnormal head CT 84 years old woman who probably has significant dementia and [employer] pacemaker was brought to hospital for change in mental status. Apparently she was noted to be suddenly unresponsive with eyes closed and had moved back for few seconds. Here, she was confused not knowing what had happened. Review of Systems Review of Systems: Unable to provide meaningful history PMFSH Past Medical History Medical History Nonrheumatic mitral valve regurgitation Nonrheumatic aortic (valve) stenosis Heart block atrioventricular Dementia Presence of permanent cardiac pacemaker Pure hypercholesterolemia Left shoulder pain Hypertension Family History Family History Other Family history non-contributory Surgical History Surgical History Hx of tonsillectomy (~1944) Social History Social History Household Members: Spouse Household Members Other:: hx dementia Housing: House Alcohol intake: former Comment: 1:1 sitter Patient Tobacco Use Status: Never used Tobacco e-Cigarette/Vaping Use: Never Used Second Hand Smoke Exposure: Yes service: No Current occupational status: retired Cognitive needs: Yes Hearing needs: No Vision needs: No Meds Allergies Allergy/AdvReac Type Severity Reaction Status Date / Time No Known Allergies Allergy Verified 01/17/25 10:09 [No Known Allergies*] Active Medications: Current Medications Acetaminophen (Acetaminophen 325 Mg Tablet) 650 mg PO Q6H PRN PRN Reason: Pain, Mild 1-3,fever,headache Calcium Carbonate (Calcium Carbonate 750 Mg Tab.Chew) 750 mg PO Q4H PRN PRN Reason: Heartburn Ceftriaxone Sodium (Ceftriaxone Sodium 1 Gm Vial) 1 gm IVPUSH Q24H [facility] Last Admin: 01/18/25 13:47 Dose: 1 gm Enoxaparin Sodium (Enoxaparin Sodium 40 Mg/0.4 Ml Syringe) 40 mg SUBCUT Q24H [facility] Last Admin: 01/18/25 13:47 Dose: 40 mg Magnesium Hydroxide (Milk Of Magnesia 30 Ml Oral.Susp) 30 ml PO DAILY PRN PRN Reason: Constipation Melatonin (Melatonin 3 Mg Tablet) 6 mg PO BEDTIME PRN PRN Reason: Insomnia Ondansetron HCl (Ondansetron Hcl 4 Mg/2 Ml Vial) 4 mg IVPUSH Q8H PRN PRN Reason: Nausea and Vomiting Oseltamivir Phosphate (Oseltamivir Phosphate 30 Mg Capsule) 30 mg PO BID [facility] Stop: 01/21/25 21:01 Last Admin: 01/19/25 08:22 Dose: 30 mg Sodium Chloride (0.9 % Sodium Chloride Flush 3 Ml Syringe) 3 ml IVFLUSH QSHIFT [facility] Last Admin: 01/19/25 08:22 Dose: 3 ml Home Medications ?Medication ?Instructions ?Recorded ?Confirmed ?Last Taken ?Type No Known Home Meds 01/17/25 01/17/25 Unknown History Physical Exam Vital Signs: Vital Signs: Last Vital Signs Temp 96.9 F 01/19/25 08:00 Pulse 68 01/19/25 08:00 Resp 16 01/19/25 08:00 BP 133/69 01/19/25 08:00 Pulse Ox 96 01/19/25 08:00 O2 Del Method Room Air 01/19/25 08:00 BMI result Body Mass Index 17.3 Neuro: Other: Alert and awake taking breakfast. She did not know what had happened and where she was. She told me that she grew up on [facility] in [place]. Face was symmetrical. Visual pope are full. Speech was normal. There was no obvious focal arm or leg weakness. There was no abnormal movement. Results Labs 01/17/25 10:30 01/17/25 10:30 Labs: Head CT revealed moderate to severe diffuse cerebral central and cortical atrophy and couple of punctate areas of hypodensity in sagittal sinus suggestive of air. Microbiology Microbiology Results: Microbiology 01/17/25 Unknown Urine Catheterized - Straight Catheter Urine Culture - Final Klebsiella pneumoniae 01/17/25 15:20 Blood - Venous Blood Culture - Preliminary No growth after 24 hours. 01/17/25 15:20 Blood - Venous Blood Culture - Preliminary No growth after 24 hours. Assessment and Plan (1) Encephalopathy: Qualifiers: Encephalopathy type: toxic metabolic Qualified Code(s): G92.8 - Other toxic encephalopathy Status: Acute 84 years old woman who seems to have moderate to severe degenerative dementia had an episode of unresponsiveness at home. Head CT revealed couple of punctate abnormality suggestive of air embolism though there was no obvious trigger. It might have happened while having an IV line. In any case, it was asymptomatic. Main issue was underlying severe dementia and 1 episode of unresponsiveness, which could be a complex partial seizure. She seem to suffered from UTI and that might have contributed. I recommend a routine EEG. No further intervention is needed for head CT finding. Procedures Date of Service Date of Service: 01/19/25
[2025-01-19 12:00] VITALS: BP 113/70; PULSE 85; RESP 18; TEMP 36.4; O2SAT 96
[2025-01-19] MEDS: cefTRIAXone sodium 1 GM VIAL IVPUSH (13:16)
[2025-01-19] MEDS: Enoxaparin Sodium 40 MG/0.4 ML SYRINGE SUBCUT (13:21)
[2025-01-19 15:57] VITALS: BP 113/59; PULSE 78; RESP 20; TEMP 37.2; O2SAT 97
--- NOTE | 2025-01-19 16:40 | MHC.CM.PN ---
2 calls received from SS. A protective case has been filed by BLS crew. Filth + hoarding. Spoke with Miranda and then Cassie. Alonrda states that home is not a safe discharge. A PT eval is pending. DP pending PT eval STR via BLS.
--- NOTE | 2025-01-19 17:19 | P.PNIM_ITS ---
Subjective Subjective Date of Service: 01/19/25 Interval History: presyncope Review of Systems seems similar does not seems abd discomfort Physical Exam 2 Vital Signs: Vital Signs: Last Vital Signs Temp 99.0 F 01/19/25 15:57 Pulse 78 01/19/25 15:57 Resp 20 01/19/25 15:57 BP 113/59 L 01/19/25 15:57 Pulse Ox 97 01/19/25 15:57 O2 Del Method Room Air 01/19/25 15:57 BMI result Body Mass Index 17.3 Appearance:aox1 , not in distress cvs: rrr, [id number] . res: air entry fair abd:soft,nt, bs present. ext pulses present , no cyanosis . neuro: axo3 , nonfocal. Objective Data Active Medications Acetaminophen (Acetaminophen 325 Mg Tablet) 650 mg PO Q6H PRN PRN Reason: Pain, Mild 1-3,fever,headache Calcium Carbonate (Calcium Carbonate 750 Mg Tab.Chew) 750 mg PO Q4H PRN PRN Reason: Heartburn Ceftriaxone Sodium (Ceftriaxone Sodium 1 Gm Vial) 1 gm IVPUSH Q24H [facility] Last Admin: 01/19/25 13:16 Dose: 1 gm Documented By: ROGELIO Enoxaparin Sodium (Enoxaparin Sodium 40 Mg/0.4 Ml Syringe) 40 mg SUBCUT Q24H [facility] Last Admin: 01/19/25 13:21 Dose: 40 mg Documented By: ROGELIO Magnesium Hydroxide (Milk Of Magnesia 30 Ml Oral.Susp) 30 ml PO DAILY PRN PRN Reason: Constipation Melatonin (Melatonin 3 Mg Tablet) 6 mg PO BEDTIME PRN PRN Reason: Insomnia Ondansetron HCl (Ondansetron Hcl 4 Mg/2 Ml Vial) 4 mg IVPUSH Q8H PRN PRN Reason: Nausea and Vomiting Oseltamivir Phosphate (Oseltamivir Phosphate 30 Mg Capsule) 30 mg PO BID [facility] Stop: 01/21/25 21:01 Last Admin: 01/19/25 08:22 Dose: 30 mg Documented By: ROGELIO Sodium Chloride (0.9 % Sodium Chloride Flush 3 Ml Syringe) 3 ml IVFLUSH QSHIFT [facility] Last Admin: 01/19/25 16:49 Dose: 3 ml Documented By: ROSEMARIEARL Labs 01/17/25 10:30 01/17/25 10:30 Microbiology Microbiology Results: Microbiology 01/17/25 Unknown Urine Culture - Final Urine Catheterized - Straight Catheter Klebsiella pneumoniae 01/17/25 15:20 Blood Culture - Preliminary Blood - Venous No growth after 24 hours. 01/17/25 15:20 Blood Culture - Preliminary Blood - Venous No growth after 24 hours. Assessment and Plan (1) Encephalopathy: Status: Acute Plan 84-year-old female with a PMH significant for complete heart block s/p [employer] pacemaker in 2023 and dementia not on home medications?who presents to the ED from home after presyncopal episode this morning. Pt will be admitted to the hospital under observation for treatment and further evaluation of presyncopal episode in the setting influenza type a infection. Presyncopal episode Pt with brief episode of dizziness, slumped back in chair, not fully responding to commands No postictal state or tonic-clonic type activity noted Most likely secondary to dehydration and Flu, though vasovagal and cardiogenic also on differential Orthostatics negative Pt received IVF in the ED Monitor on telemetry Acute influenza type A infection Cough and nasal congestion x2-3 days Will start on Tamiflu 30mg bid x5 days No hypoxia Symptomatic treatment Acute UTI No sepsis: Pt does not meet SIRS criteria Pt treated with ceftriaxone, started 01/17/2025 Follow urine culture Question of cerebral embolism air CT showed small volume of air in dural sinuses without evidence of skull fracture Appears slightly larger than when 1st appeared on CT on 11/22/2024, CT on 03/06/[address] today limited due to motion, but did not reproduced air in the dural sinuses Pt without acute mental status change, no recent falls or trauma to the head will add neurochecks, moniter neuro eval noted- rec eeg Dementia Appears at baseline Not on home meds generalised weak-added pt eval Full Code DVT Prophylaxis: Lovenox. ongoin need for treatment and further evaluation of presyncope in the setting of influenza type A infection. Pt will close monitoring of vitals, mentation, and cardiac function, may neurochecks ,eeg Quality Stroke Does the patient have a stroke diagnosis?: No VTE Prior VTE?: No VTE Risk Level:: Medical - moderate - high VTE Device Contraindication: Treatment Not Indicated VTE Drug Contraindication: N/A - Med Ordered
[2025-01-19 20:00] VITALS: BP 120/66; PULSE 68; RESP 16; TEMP 36.8; O2SAT 94
[2025-01-20] VITALS (7 sets, daily range): BP systolic 99–141; BP diastolic 61–79; PULSE 71–87; RESP 16–20; TEMP 36.3–37.2; O2SAT 94–98
[2025-01-20] MEDS: 0.9 % Sodium Chloride Flush 3 ML SYRINGE IVFLUSH ×3 (09:30→22:50)
[2025-01-20] MEDS: Oseltamivir Phosphate 30 MG CAPSULE PO ×2 (09:31→22:49)
--- NOTE | 2025-01-20 10:27 | MHC.CM.PN ---
CARLOS spoke with Cassie at [facility] protective services [phone], and she said that pt.'s home is unsafe for her to go to, filled with trash, dirty, hoarding. Pt. require assistance with ADL's because she has Dementia. PT eval is pending. CM to speak with guardian to discuss DCP.
--- NOTE | 2025-01-20 13:58 | P.PNIM_ITS ---
Subjective Subjective Date of Service: 01/20/25 Interval History: presyncope,uti Review of Systems no abd pain no fever generally weak Physical Exam 2 Vital Signs: Vital Signs: Last Vital Signs Temp 99 F 01/20/25 12:00 Pulse 83 01/20/25 12:00 Resp 16 01/20/25 12:00 BP 99/71 01/20/25 12:00 Pulse Ox 97 01/20/25 12:00 O2 Del Method Room Air 01/20/25 12:00 BMI result Body Mass Index 17.3 Appearance:aox1 , not in distress cvs: rrr, [id number] . res: air entry fair abd:soft,nt, bs present. ext pulses present , no cyanosis . neuro: nonfocal. Objective Data Active Medications Acetaminophen (Acetaminophen 325 Mg Tablet) 650 mg PO Q6H PRN PRN Reason: Pain, Mild 1-3,fever,headache Calcium Carbonate (Calcium Carbonate 750 Mg Tab.Chew) 750 mg PO Q4H PRN PRN Reason: Heartburn Ceftriaxone Sodium (Ceftriaxone Sodium 1 Gm Vial) 1 gm IVPUSH Q24H [facility] Last Admin: 01/19/25 13:16 Dose: 1 gm Documented By: ROGELIO Enoxaparin Sodium (Enoxaparin Sodium 40 Mg/0.4 Ml Syringe) 40 mg SUBCUT Q24H [facility] Last Admin: 01/19/25 13:21 Dose: 40 mg Documented By: ROGELIO Magnesium Hydroxide (Milk Of Magnesia 30 Ml Oral.Susp) 30 ml PO DAILY PRN PRN Reason: Constipation Melatonin (Melatonin 3 Mg Tablet) 6 mg PO BEDTIME PRN PRN Reason: Insomnia Ondansetron HCl (Ondansetron Hcl 4 Mg/2 Ml Vial) 4 mg IVPUSH Q8H PRN PRN Reason: Nausea and Vomiting Oseltamivir Phosphate (Oseltamivir Phosphate 30 Mg Capsule) 30 mg PO BID [facility] Stop: 01/21/25 21:01 Last Admin: 01/20/25 09:31 Dose: 30 mg Documented By: JENN Sodium Chloride (0.9 % Sodium Chloride Flush 3 Ml Syringe) 3 ml IVFLUSH QSHIFT [facility] Last Admin: 01/20/25 09:30 Dose: 3 ml Documented By: JENN Labs 01/17/25 10:30 01/17/25 10:30 Microbiology Microbiology Results: Microbiology 01/17/25 15:20 Blood Culture - Preliminary Blood - Venous No growth after 48 hours. 01/17/25 15:20 Blood Culture - Preliminary Blood - Venous No growth after 48 hours. Assessment and Plan (1) Encephalopathy: Status: Acute Plan 84-year-old female with a PMH significant for complete heart block s/p [employer] pacemaker in 2023 and dementia not on home medications?who presents to the ED from home after presyncopal episode this morning. Pt will be admitted to the hospital under observation for treatment and further evaluation of presyncopal episode in the setting influenza type a infection. Presyncopal episode Pt with brief episode of dizziness, slumped back in chair, not fully responding to commands No postictal state or tonic-clonic type activity noted Most likely secondary to dehydration and Flu, though vasovagal and cardiogenic also on differential Orthostatics negative,received IVF in the ED Monitor on telemetry-seems fine ,seen by neuro -eeg ordered Acute influenza type A infection Cough and nasal congestion x2-3 days Will start on Tamiflu 30mg bid x5 days No hypoxia Symptomatic treatment Acute UTI No sepsis: Pt does not meet SIRS criteria urine culture grew klebsiella pneumoniae senstive to ceftriaxone, started 01/17/2025 Question of cerebral embolism air CT showed small volume of air in dural sinuses without evidence of skull fracture Appears slightly larger than when 1st appeared on CT on 11/22/2024, CT on 03/06/[address] today limited due to motion, but did not reproduced air in the dural sinuses Pt without acute mental status change, no recent falls or trauma to the head will add neurochecks, moniter neuro eval noted:Head CT revealed couple of punctate abnormality suggestive of air embolism though there was no obvious trigger. It might have happened while having an IV line. In any case, it was asymptomatic. Main issue was underlying severe dementia and 1 episode of unresponsiveness, which could be a complex partial seizure. She seem to suffered from UTI and that might have contributed. recommend a routine EEG. No further intervention is needed for head CT finding. 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 generalised weak-added pt eval, pt.'s home is unsafe for her to go to, filled with trash, dirty, hoarding. Pt. require assistance with ADL's because she has Dementia. Full Code DVT Prophylaxis: Lovenox. ongoin need for treatment and further evaluation of presyncope in the setting of influenza type A infection. Pt will close monitoring of vitals, mentation, and cardiac function, may neurochecks ,eeg Quality Stroke Does the patient have a stroke diagnosis?: No VTE Prior VTE?: No VTE Risk Level:: Medical - moderate - high VTE Device Contraindication: Treatment Not Indicated VTE Drug Contraindication: N/A - Med Ordered
--- NOTE | 2025-01-20 14:42 | P.CDIM_ITS ---
PROVIDER RESPONSE TEXT: To clarify, the appropriate diagnosis supported by the clinical indicators: Underweight QUERY TEXT: PHYSICIAN'S DOCUMENTATION REQUEST Date of Query: 01/20/2025 01:27 PM EDT Patient Name: Alanis Graves Admit Date: 01/17/2025 Dear Traci Huerta MD, A review of the medical record indicates additional documentation may be needed. Please review below and update the documentation accordingly. Clinical Indicators: Height: ( ) 5'3 Weight: ( ) 48.7 kg BMI: ( ) 19.0 Other Clinical Notes Supporting Significance of the BMI: Per Nutritional Risk Assessment 01/19/25: Chew, swallow problem If possible, please provide an associated diagnosis related to the abnormal BMI, such as: Underweight Weight loss Cachexia Anorexia Mild protein calorie Malnutrition Other (explain) Clinically unable to determine (explain) Thank you, Mallory Reynoso RN Use of terms such as suspected, likely, concern for, or probable (associated with a specific diagnosi s that is being evaluated, monitored, or treated as if it exists) are acceptable and can be coded in the inpatient se tting, when documented at the time of discharge. Please use your independent medical judgment in providing your response. THIS QUERY IS PART OF THE PERMANENT MEDICAL RECORD
--- NOTE | 2025-01-20 15:19 | MHC.CLN ---
RE: CONSULT HT 5'3 WT 107# IBW 115#+/-10% PT IS 93% IBW INDICATES ADEQUATE WT FOR HT DIET RX: CHOPPED-APPROPRIATE PO INTAKE 75-100% PT ALSO RECEIVING MAGIC CUP TID PROVIDES 870KCALS, 27G PROTEIN WITH 100% ACCEPTANCE CONTINUE CURRENT CARE PLAN
[2025-01-20] MEDS: Enoxaparin Sodium 40 MG/0.4 ML SYRINGE SUBCUT (15:34)
[2025-01-20] MEDS: cefTRIAXone sodium 1 GM VIAL IVPUSH (15:34)
--- NOTE | 2025-01-20 15:52 | MHC.CM.PN ---
CARLOS spoke with pt.'s guardian, Jess Ellis, to inform her that PT walter determined no services needed. She said that the house can be cleaned up by Sunday, I asked her to plan in pt. coming home on Sunday. CARLOS informed Cassie at [facility] of this plan.
[2025-01-21 03:27] VITALS: BP 127/67; PULSE 65; RESP 16; TEMP 36.8; O2SAT 98
[2025-01-21 08:00] VITALS: BP 107/67; PULSE 70; RESP 18; TEMP 36.5; O2SAT 96
[2025-01-21] MEDS: Oseltamivir Phosphate 30 MG CAPSULE PO ×2 (08:54→22:20)
[2025-01-21] MEDS: 0.9 % Sodium Chloride Flush 3 ML SYRINGE IVFLUSH ×3 (08:54→22:20)
[2025-01-21 11:35] VITALS: BP 108/66; PULSE 87; RESP 18; TEMP 37.1; O2SAT 97
--- NOTE | 2025-01-21 12:25 | HO.PM.IMPN ---
Subjective Subjective Date of Service: 01/21/25 Interval History: No complaint Physical Exam Vital Signs: Vital Signs: Last Vital Signs Temp 98.0 F 01/21/25 12:09 Pulse 88 01/21/25 12:09 Resp 18 01/21/25 12:09 BP 143/70 H 01/21/25 12:09 Pulse Ox 94 01/21/25 12:09 O2 Del Method Room Air 01/21/25 12:09 BMI result Body Mass Index 17.3 General: AO X 1, no acute distress Resp: CTA bilateral, no accessory muscles used CVS: S1,S2,RRR GI: soft, non tender, non distended Neuro: motor grossly intact, alert Psych: appropriate affect, impairedinsight Objective Data Active Medications Acetaminophen (Acetaminophen 325 Mg Tablet) 650 mg PO Q6H PRN PRN Reason: Pain, Mild 1-3,fever,headache Calcium Carbonate (Calcium Carbonate 750 Mg Tab.Chew) 750 mg PO Q4H PRN PRN Reason: Heartburn Ceftriaxone Sodium (Ceftriaxone Sodium 1 Gm Vial) 1 gm IVPUSH Q24H [facility] Last Admin: 01/20/25 15:34 Dose: 1 gm Documented By: JENN Enoxaparin Sodium (Enoxaparin Sodium 40 Mg/0.4 Ml Syringe) 40 mg SUBCUT Q24H [facility] Last Admin: 01/20/25 15:34 Dose: 40 mg Documented By: JENN Magnesium Hydroxide (Milk Of Magnesia 30 Ml Oral.Susp) 30 ml PO DAILY PRN PRN Reason: Constipation Melatonin (Melatonin 3 Mg Tablet) 6 mg PO BEDTIME PRN PRN Reason: Insomnia Ondansetron HCl (Ondansetron Hcl 4 Mg/2 Ml Vial) 4 mg IVPUSH Q8H PRN PRN Reason: Nausea and Vomiting Oseltamivir Phosphate (Oseltamivir Phosphate 30 Mg Capsule) 30 mg PO BID [facility] Stop: 01/21/25 21:01 Last Admin: 01/21/25 08:54 Dose: 30 mg Documented By: MARA Sodium Chloride (0.9 % Sodium Chloride Flush 3 Ml Syringe) 3 ml IVFLUSH QSHIFT [facility] Last Admin: 01/21/25 08:54 Dose: 3 ml Documented By: MARA Labs 01/17/25 10:30 01/17/25 10:30 Assessment and Plan (1) Dementia: Status: Acute Plan 84F PMH Alzheimer's dementia, complete heart block status post [employer] pacemaker in 2023 presented with presyncopal episode found to have flu Presyncope Likely related to dehydration secondary to influenza a No events on telemetry No recommended EEG Influenza a Continue Tamiflu Urinary tract infection Klebsiella pneumonia, completed 5 days of ceftriaxone Alzheimer's dementia At baseline Underweight Nutrition DVT prophylaxis with Lovenox DNR/DNI reason for continued hospitalization: Plan for discharge on 01/23/2025 (see case management) Quality Stroke Does the patient have a stroke diagnosis?: No VTE Prior VTE?: No VTE Risk Level:: Medical - moderate - high VTE Device Contraindication: Treatment Not Indicated VTE Drug Contraindication: N/A - Med Ordered
[2025-01-21] MEDS: Enoxaparin Sodium 40 MG/0.4 ML SYRINGE SUBCUT (14:42)
[2025-01-21 16:00] VITALS: BP 130/75; PULSE 90; RESP 18; TEMP 37.3; O2SAT 96
[2025-01-21 20:00] VITALS: BP 124/71; PULSE 141; RESP 17; TEMP 36.6; O2SAT 93
[2025-01-21 23:28] VITALS: BP 134/70; PULSE 76; RESP 20; TEMP 36.2; O2SAT 95
[2025-01-22 03:39] VITALS: BP 128/67; PULSE 69; RESP 20; TEMP 36.9; O2SAT 97
[2025-01-22 07:22] VITALS: BP 107/63; PULSE 68; RESP 18; TEMP 37.1; O2SAT 96
[2025-01-22] MEDS: 0.9 % Sodium Chloride Flush 3 ML SYRINGE IVFLUSH (08:26)
--- NOTE | 2025-01-22 10:45 | P.PNIM_ITS ---
Subjective Subjective Date of Service: 01/22/25 Interval History: No complaint Physical Exam 2 Vital Signs: Vital Signs: Last Vital Signs Temp 98.7 F 01/22/25 07:22 Pulse 68 01/22/25 07:22 Resp 18 01/22/25 07:22 BP 107/63 01/22/25 07:22 Pulse Ox 96 01/22/25 07:22 O2 Del Method Room Air 01/22/25 07:22 BMI result Body Mass Index 17.3 General: AO X 1, no acute distress Resp: CTA bilateral, no accessory muscles used CVS: S1,S2,RRR GI: soft, non tender, non distended Neuro: motor grossly intact, alert Psych: appropriate affect, impairedinsight Objective Data Active Medications Acetaminophen (Acetaminophen 325 Mg Tablet) 650 mg PO Q6H PRN PRN Reason: Pain, Mild 1-3,fever,headache Calcium Carbonate (Calcium Carbonate 750 Mg Tab.Chew) 750 mg PO Q4H PRN PRN Reason: Heartburn Enoxaparin Sodium (Enoxaparin Sodium 40 Mg/0.4 Ml Syringe) 40 mg SUBCUT Q24H [facility] Last Admin: 01/21/25 14:42 Dose: 40 mg Documented By: MARA Magnesium Hydroxide (Milk Of Magnesia 30 Ml Oral.Susp) 30 ml PO DAILY PRN PRN Reason: Constipation Melatonin (Melatonin 3 Mg Tablet) 6 mg PO BEDTIME PRN PRN Reason: Insomnia Ondansetron HCl (Ondansetron Hcl 4 Mg/2 Ml Vial) 4 mg IVPUSH Q8H PRN PRN Reason: Nausea and Vomiting Sodium Chloride (0.9 % Sodium Chloride Flush 3 Ml Syringe) 3 ml IVFLUSH QSHIFT [facility] Last Admin: 01/22/25 08:26 Dose: 3 ml Documented By: JOSE CARLOSAC Labs 01/17/25 10:30 01/17/25 10:30 Assessment and Plan (1) Dementia: Status: Acute Plan 84F PMH Alzheimer's dementia, complete heart block status post [employer] pacemaker in 2023 presented with presyncopal episode found to have flu Presyncope Likely related to dehydration secondary to influenza a No events on telemetry No recommended EEG Influenza a Continue Tamiflu Urinary tract infection Klebsiella pneumonia, completed 5 days of ceftriaxone Alzheimer's dementia At baseline Underweight Nutrition DVT prophylaxis with Lovenox DNR/DNI reason for continued hospitalization: Plan for discharge on 01/23/2025 (see case management) Quality Stroke Does the patient have a stroke diagnosis?: No VTE Prior VTE?: No VTE Risk Level:: Medical - moderate - high VTE Device Contraindication: Treatment Not Indicated VTE Drug Contraindication: N/A - Med Ordered
[2025-01-22 11:41] VITALS: BP 130/80; PULSE 74; RESP 18; TEMP 37.2; O2SAT 99
[2025-01-22] MEDS: Enoxaparin Sodium 40 MG/0.4 ML SYRINGE SUBCUT (14:22)
--- NOTE | 2025-01-22 15:31 | MHC.CM.PN ---
Pt scheduled to go home 01/23/[address] [facility] shuttle, dtr to meet her at home. Dtr, guardian, [facility] aware of and in agreement with plan.
[2025-01-22 15:39] VITALS: BP 123/67; PULSE 78; RESP 18; TEMP 37.2; O2SAT 96
[2025-01-22 19:30] VITALS: BP 149/78; PULSE 80; RESP 21; TEMP 36.9; O2SAT 95
[2025-01-23] VITALS: BP 122/65; PULSE 75; RESP 16; TEMP 37.1; O2SAT 97
[2025-01-23 03:23] VITALS: BP 130/68; PULSE 64; RESP 16; TEMP 36.6; O2SAT 97
[2025-01-23 07:30] VITALS: BP 135/65; PULSE 68; RESP 14; TEMP 36.9; O2SAT 98
--- NOTE | 2025-01-23 07:30 | PM.DS ---
DS: Providers Provider Date of Service: 01/23/25 Date of admission: 01/17/25 14:48 Date of discharge: 01/23/25 Primary care physician: Salomón Cardenas MD Consults: 01/19/25 08:01 Consult to Neurology Routine Consulting Provider: [facility] Reason for consultation: abnormal head ct-?air is noted in the dural sinuses DS: Diagnosis Discharge Diagnosis (1) Dementia: Status: Acute DS: Summary Hospital Course Hospital Course: inti 84-year-old female with a PMH significant for complete heart block s/p [employer] pacemaker in 2023 and dementia not on home medications?who presents to the ED from home after presyncopal episode this morning. Pt with advanced dementia at baseline and unable to provide any HPI. Pt lives with family who is at bedside and notes pt was eating breakfast this morning when she complained of feeling dizzy. Pt then slumped back in her chair with eyes closed. Was moving extremities slightly and seemingly able to hear, but not opening eyes or following commands. No fall or trauma, no head strike. Episode lasted a few seconds and no apparent postictal state once consciousness regained. Per EMS pt's SBP in the 80s though normotensive by the time she arrived the ED. Daughter also notes pt has been having cough and congestion for the past 2-3 days. Temperature was never measured. No reported nausea, vomiting, abdominal pain. In the ED pt's vitals stable and WNL. Labs were significant for testing positive for influenza type a, mildly elevated BNP of 196, slightly increased over prior, and alk-phos 164. Otherwise grossly unremarkable and around baseline. No leukocytosis. Stable H&H. No significant electrolyte abnormalities. Renal function baseline. UA positive for UTI. CXR negative for acute cardiopulmonary disease. CT of head showed small volume air noted and dural sinuses without evidence of skull fracture. Repeat CT of head 4 hours later no longer showing air in the dural sinuses. EKG demonstrated atrial sensed ventricular paced rhythm, similar to prior without ischemic changes. Pt was treated with 1 L IVF. Pt will be admitted to the hospital under observation for treatment and further evaluation of presyncopal episode in the setting influenza type a infection. hospital course: Patient was admitted for presyncope likely related to dehydration secondary to influenza a and urinary tract infection. She had 1 brief episode of nonsustained V-tach (about 5 beats) but otherwise no events on telemetry to explain symptoms. EEG showed generalized slowing but no seizure. Was seen by Neurology who felt this was likely moderate to severe degenerative dementia with possible complex partial seizure. No specific treatment recommended at this time. Patient had no further episodes while in hospital. For influenza A completed course of Tamiflu. For urinary tract infection due to Klebsiella pneumoniae came completed 5 days of ceftriaxone. For Alzheimer's dementia remained at baseline. For being underweight nutrition was encouraged. Patient is now back to baseline will be discharged home. Time Attestation Discharge Coordination Time (in mins): 33 Quality: Safe Use of Opioids Does Pt have an Active Cancer Diagnosis on the Problem List?: No Quality: Stroke Does the patient have a stroke diagnosis?: No Physical Exam Vital Signs: Vital Signs: Last Vital Signs Temp 98 F 01/23/25 03:23 Pulse 64 01/23/25 03:23 Resp 16 01/23/25 03:23 BP 130/68 01/23/25 03:23 Pulse Ox 97 01/23/25 03:23 O2 Del Method Room Air 01/23/25 03:23 BMI result Body Mass Index 17.3 General: AO X 1, no acute distress Resp: CTA bilateral, no accessory muscles used CVS: S1,S2,RRR GI: soft, non tender, non distended Neuro: motor grossly intact, alert Psych: appropriate affect, impairedinsight DS: Data Data Completed and Pending Completed studies during hospitalization [Text1]: Procedures Insertion of Pacemaker Lead into Right Atrium, Percutaneous Approach (01/25/24) Insertion of Pacemaker Lead into Right Ventricle, Percutaneous Approach (01/25/24) Insertion of Pacemaker, Dual Chamber into Chest Subcutaneous Tissue and Fascia, Open Approach (01/25/24) Discharge Plan Discharge Anticipated Discharge Date/Time: 01/23/25 07:27 Patient Disposition: Home Health Service Discharge Diagnosis: encephalopathy Referrals: Salomón Cardenas MD [Primary Care Provider] - 1 Week Discharge Medications: No Action No Known Home Meds Discharge Orders: Discharge Order (Routine); Ordered 01/23/25 Ordered By: Wilber Bueno Diet: Advance to usual diet Activity on Discharge: As tolerated Stand Alone Forms: Patient Portal Discharge page Print Language: Vietnamese Care Plan Goals: manage dementia Health Concerns: dementia Plan of Treatment: assistance with adls Assessment: see above
[2025-01-23] MEDS: 0.9 % Sodium Chloride Flush 3 ML SYRINGE IVFLUSH (08:58)
--- NOTE | 2025-01-23 09:57 | MHC.CM.PN ---
IMM 01/23 MAILED TO SIR[facility] ([facility]ARDIAN) AT [address] [place] [address] PER PREVIOUS CONVERSATION WITH HER PREFERENCES FOR IMM MAILINGS. IMM 01/23 COPY IN CHART.
--- NOTE | 2025-01-23 10:35 | MHC.CM.PN ---
[facility] AWARE THAT PATIENT NO LONGER NEEDS [facility]NA SERVICES. PLAN REMAINS HOME WITH [facility] DAUGHTER CALLED AND IS AWARE OF PLAN.
[2025-01-23 11:18] VITALS: BP 116/79; PULSE 86; RESP 16; TEMP 37.1; O2SAT 98
--- NOTE | 2025-01-23 13:23 | MHC.CM.PN ---
DAUGHTER IS ON WAY TO BRING MOTHER HOME RN AWARE
--- NOTE | 2025-01-23 13:24 | MHC.CM.PN ---
[facility] CALLED AND TRIP HAS BEEN CANCELLED SECONDARY TO DAUGHTER COMING. [facility] REP:TIA
[2025-01-23] MEDS: Enoxaparin Sodium 40 MG/0.4 ML SYRINGE SUBCUT (13:51)
== END 2025-01-23 14:51 | disposition home health service (06) | DRG 193 ==
LOC: HO.ED 11:32 → HO.EDOVER 14:52 → HO.IMC 19:31
PROVIDERS: Admitting Provider Student in an Organized Health Care Education/Training Program; Emergency Provider Emergency Medicine; PCP Internal Medicine; Visit Provider Internal Medicine
DX: J10.1 Influenza due to other identified influenza virus with other respiratory manifestations (principal); G92.8 Other toxic encephalopathy; T79.0XXA Air embolism (traumatic), initial encounter; I44.2 Atrioventricular block, complete; Z68.1 Body mass index [BMI] 19.9 or less, adult; I47.20 Ventricular tachycardia, unspecified; N39.0 Urinary tract infection, site not specified; E86.0 Dehydration; B96.1 Klebsiella pneumoniae [K. pneumoniae] as the cause of diseases classified elsewhere; Z66 Do not resuscitate; X58.XXXA Exposure to other specified factors, initial encounter; F02.C0 Dementia in other diseases classified elsewhere, severe, without behavioral disturbance, psychotic disturbance, mood disturbance, and anxiety; Z95.0 Presence of cardiac pacemaker; R63.6 Underweight; G30.9 Alzheimer's disease, unspecified; Z20.822 Contact with and (suspected) exposure to COVID-19
CPT/HCPCS: 0241U; 36415; 70450; 71045; 80048; 80076; 81001; 81003; 83690; 83880; 84484; 85025; 87040; 87086; 87088; 87186; 93005; 95816; 97161; 99285; J0696; J1650

== ENCOUNTER → 2025-01-17 10:11 | Outpatient (BNV) | payer MEDICARE, SELFPAY | PROVIDERS: Admitting Provider Student in an Organized Health Care Education/Training Program; Emergency Provider Emergency Medicine; PCP Internal Medicine; Visit Provider Internal Medicine Cardiovascular Disease | DX: I49.8 Other specified cardiac arrhythmias (principal) | CPT/HCPCS: 93010 ==

== ENCOUNTER → 2025-01-17 10:11 | Outpatient (BNV) | payer MEDICARE, SELFPAY | PROVIDERS: Emergency Provider Emergency Medicine; PCP Internal Medicine; Visit Provider Radiology Diagnostic Radiology | DX: R55 Syncope and collapse (principal); R93.0 Abnormal findings on diagnostic imaging of skull and head, not elsewhere classified | CPT/HCPCS: 70450; 71045 ==

== ENCOUNTER → 2025-01-17 14:48 | Outpatient (BNV) | payer MEDICARE, SELFPAY | PROVIDERS: Admitting Provider Student in an Organized Health Care Education/Training Program; Emergency Provider Emergency Medicine; PCP Internal Medicine; Visit Provider Psychiatry & Neurology Neurology | DX: G92.8 Other toxic encephalopathy (principal) | CPT/HCPCS: 99222 ==

== ENCOUNTER → 2025-01-17 14:48 | Outpatient (BNV) | payer MEDICARE, SELFPAY | PROVIDERS: Admitting Provider Student in an Organized Health Care Education/Training Program; Emergency Provider Emergency Medicine; PCP Internal Medicine; Visit Provider Student in an Organized Health Care Education/Training Program | DX: R55 Syncope and collapse (principal); J11.1 Influenza due to unidentified influenza virus with other respiratory manifestations; G30.9 Alzheimer's disease, unspecified; F02.80 Dementia in other diseases classified elsewhere, unspecified severity, without behavioral disturbance, psychotic disturbance, mood disturbance, and anxiety | CPT/HCPCS: 99222; 99231; 99232; 99239 ==

== ENCOUNTER 2025-01-30 10:39 | Outpatient (AMB) | payer MEDICARE, SELFPAY ==
--- NOTE | 2025-01-30 10:47 | MHC.PC.OV ---
Vital Signs 01/30/25 10:48 Height 5 ft 3 in Weight 118 lb 2 oz BMI 20.9 BP 120/66 Blood Pressure Location Lt brachial Position Sitting Pulse 74 Pulse Source Pulse Oximeter Temp 96.4 F L Temp Source Temporal Artery Scan Pulse Oximetry (%) 88 L Oxygen Delivery Method Room Air Intake Visit Reasons: TCM [facility] [place] 01/23 Syncope Intake Note: Patient is here for hospital discharge and TCM follow up. Patient was discharged from [facility] [place] on 01/22/25. Retail Wireless Associate Required: No Accounts Receivable Specialist: Present Accompanied by: Daughter Allergies No Known Allergies [No Known Allergies*] Allergy (Verified 01/30/25 10:48) Tobacco use date assessed: 01/30/25 Fall risk assessment: No Falls in past year Last assessed Fall Risk: 01/30/25 Dental Screening Dental Screen Date: 12/17/24 HPI TCM TCM Information Date of Discharge 01/22/25 Discharged From [facility] Interactive Contact Date (Reference documentation from this date) 01/26/25 HPI Comments History of Present Illness Details 84 y/o female patient who presents to the clinic today for HDF. Pmhx significant for [employer] Parviz pacemaker in 2023 and dementia not on home medications. She was admitted at [facility] [place] on 01/17 - 01/23 for Syncope episode. She was diagnosed with Influenza A, and UTI. She completed 5 day course of Tamiflu and Ceftriaxone for UTI. [facility] Medical History Nonrheumatic mitral valve regurgitation Nonrheumatic aortic (valve) stenosis Heart block atrioventricular Dementia Presence of permanent cardiac pacemaker Pure hypercholesterolemia Left shoulder pain Hypertension Surgical History Hx of tonsillectomy (~1944) Family History Other Family history non-contributory Social History Household Members: Spouse Household Members Other:: hx dementia Housing: House Alcohol intake: former Comment: 1:1 Sitter at bedside Patient Tobacco Use Status: Never used Tobacco e-Cigarette/Vaping Use: Never Used Second Hand Smoke Exposure: Yes service: No Current occupational status: retired Cognitive needs: Yes Hearing needs: No Vision needs: No Questionnaire Thrive Questionnaire Date Thrive assessed: 01/18/25 NIKKI-7 AMB Questionnaire NIKKI-7 Date NIKKI - 7 assessed: 12/17/24 Source: Developed by Drs. Regino Nuñez, Aidee Su, Poncho Ortega and colleagues, with an educational arin from [employer]. Review of Systems Const All systems reviewed & are unremarkable except as noted in HPI and below Physical exam (Primary Care) Vital Signs: Last Vital Signs Temp 96.4 F L 01/30/25 10:48 Pulse 74 01/30/25 10:48 BP 120/66 01/30/25 10:48 Pulse Ox 88 L 01/30/25 10:48 Oxygen Delivery Method Room Air 01/30/25 10:48 BMI result Body Mass Index 20.9 Tobacco/Smoking Status: Tobacco use Status Tobacco use date assessed 01/30/25 01/30/25 10:52 Patient Tobacco Use Status Never used Tobacco 01/30/25 10:52 e-Cigarette/Vaping Use Never Used 01/30/25 10:52 Thrive Assessment: Date of Thrive Assessment Date Thrive assessed 01/18/25 01/30/25 10:52 Const General: cooperative and no acute distress Resp Effort & Inspection: normal respiratory effort and able to speak in complete sentences Auscultation: clear to auscultation bilaterally, no crackles, no rales, no rhonchi and no wheezes Cardio Heart sounds: S1 normal heart sound present and S2 normal heart sound present Neuro General: gait normal and moves all extremities Psych Speech and movement: Normal speech and movement present Coding Level of Care Code TCM Mod MDM <= 14 Days Diagnoses Acute UTI N39.0 Influenza J11.1 Alzheimer's dementia without behavioral disturbance, psychotic disturbance, mood disturbance, or anxiety, unspecified dementia severity, unspecified timing of dementia onset G30.9; F02.80 Dementia type: Alzheimer's Alzheimer's disease onset: unspecified onset Dementia behavioral or psychological symptom: without behavioral, psychotic, or mood disturbance or anxiety Dementia severity: unspecified severity Time Spent (min) 20 Assessment & Plan Assessment & Plan (1) Acute UTI: Code(s): N39.0 - Urinary tract infection, site not specified Category: Medical Plan: Resolved. Completed Antibitiocs. (2) Influenza: Code(s): J11.1 - Influenza due to unidentified influenza virus with other respiratory manifestations Category: Medical Plan: Resolved. Completed Tamiflu. (3) Dementia: Code(s): F03.90 - Unspecified dementia, unspecified severity, without behavioral disturbance, psychotic disturbance, mood disturbance, and anxiety Category: Medical Qualifiers: Dementia type: Alzheimer's Alzheimer's disease onset: unspecified onset Dementia behavioral or psychological symptom: without behavioral, psychotic, or mood disturbance or anxiety Dementia severity: unspecified severity Qualified Code(s): G30.9 - Alzheimer's disease, unspecified; F02.80 - Dementia in other diseases classified elsewhere, unspecified severity, without behavioral disturbance, psychotic disturbance, mood disturbance, and anxiety Plan: Managed by medications.
[2025-01-30 10:48] VITALS: BP 120/66; PULSE 74; TEMP 35.8; O2SAT 88; BMI 20.9
== END 2025-01-30 11:21 | disposition home or self-care (01) ==
LOC: HO.HMCH 10:40
PROVIDERS: PCP Internal Medicine; Visit Provider Nurse Practitioner Family
DX: G30.9 Alzheimer's disease, unspecified (principal); F02.80 Dementia in other diseases classified elsewhere, unspecified severity, without behavioral disturbance, psychotic disturbance, mood disturbance, and anxiety; N39.0 Urinary tract infection, site not specified; J11.1 Influenza due to unidentified influenza virus with other respiratory manifestations

== ENCOUNTER → 2025-01-30 10:39 | Outpatient (BNVA) | payer MEDICARE, SELFPAY | PROVIDERS: PCP Internal Medicine; Visit Provider Nurse Practitioner Family | DX: N39.0 Urinary tract infection, site not specified (principal); J11.1 Influenza due to unidentified influenza virus with other respiratory manifestations; G30.9 Alzheimer's disease, unspecified; F02.80 Dementia in other diseases classified elsewhere, unspecified severity, without behavioral disturbance, psychotic disturbance, mood disturbance, and anxiety | CPT/HCPCS: 99212 ==

== ENCOUNTER → 2025-02-16 23:59 | Outpatient (BNV) | payer MEDICARE, SELFPAY ==
--- NOTE | 2025-02-17 13:37 | MHC.OFFVIS ---
Intake Visit Reasons: Remote device check - [employer] Parviz Allergies No Known Allergies [No Known Allergies*] Allergy (Verified 01/30/25 10:48) [facility] Medical History (Updated 02/17/25 @ 13:38 by Ilya Ramirez MD) Presence of permanent cardiac pacemaker Nonrheumatic mitral valve regurgitation Nonrheumatic aortic (valve) stenosis Heart block atrioventricular Dementia Pure hypercholesterolemia Left shoulder pain Hypertension Surgical History Hx of tonsillectomy (~1944) Family History Other Family history non-contributory Social History Household Members: Spouse Household Members Other:: hx dementia Housing: House Alcohol intake: former Comment: 1:1 Sitter at bedside Patient Tobacco Use Status: Never used Tobacco e-Cigarette/Vaping Use: Never Used Second Hand Smoke Exposure: Yes service: No Current occupational status: retired Cognitive needs: Yes Hearing needs: No Vision needs: No Office Procedures Cardiac Device Check Cardiac Device Check Details: Remote pacemaker report generated 02/16/2025. Pacemaker function is adequate. Patient mostly ventricularly pacer dependent. Two episodes of atrial arrhythmias noted most consistent with atrial tachycardia fibrillation lasting less than 5 minutes overall [id number] Cardiac Device Interrogation, pacemaker Procedure code (CPT) selection complete Assessment & Plan Assessment & Plan (1) Presence of permanent cardiac pacemaker: Comment: ST Parviz. Placed 01/29/[address] Malagon for complete heart block. Code(s): Z95.0 - Presence of cardiac pacemaker Category: Medical Plan: See above Coding Level of Care Code Procedure Only Diagnoses Presence of permanent cardiac pacemaker Z95.0 CPT Codes Cardiac Device Check - Cardiac Device 12: [id number] Cardiac Device Interrogation, pacemaker ([id number])
== END ==
PROVIDERS: PCP Internal Medicine; Visit Provider Internal Medicine Cardiovascular Disease
DX: I48.91 Unspecified atrial fibrillation (principal); Z95.0 Presence of cardiac pacemaker
CPT/HCPCS: 93294

== ENCOUNTER 2025-03-12 09:07 | Outpatient (AMB) | payer MEDICARE, SELFPAY ==
[2025-03-12 09:27] VITALS: BP 126/82; PULSE 70; BMI 19.9
--- NOTE | 2025-03-12 09:27 | A.OFFVIS_ITS ---
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 She was significantly advanced cognitive dysfunction. However as per the daughter she is walking without any restrictions now. She had 3 hospitalization last 3 months related to infection leading to syncope. Most of related to dehydration. Daughter is trying to push fluids and up to 60 oz a day. She has not had since then any episodes of lightheadedness, syncope. Denies any other symptoms of heart failure. 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 Dementia Pure hypercholesterolemia Left shoulder pain Hypertension Surgical History Hx of tonsillectomy (~1944) Family History Other Family history non-contributory Social History Household Members: Spouse Household Members Other:: hx dementia Housing: House Alcohol intake: former Comment: 1:1 Sitter at bedside Patient Tobacco Use Status: Never used Tobacco e-Cigarette/Vaping Use: Never Used Second Hand Smoke Exposure: Yes service: No Current occupational status: retired Cognitive needs: Yes Hearing needs: No Vision needs: No Review of Systems Const Denies chills, Denies fatigue, Denies fever(s), Denies frequent falls, Denies weakness, Denies weight gain and Denies weight loss ENT Denies dizziness Card Denies chest pain, Denies leg edema, Denies lightheadedness, Denies palpitations, Denies dyspnea, Denies dyspnea on exertion, Denies orthopnea and Denies other (loss of consciousness) Resp Denies cough, Denies dyspnea and Denies dyspnea on exertion GI Denies hematochezia and Denies change in stool character Musc Denies abnormal gait, Denies muscle weakness, Denies numbness, Denies radiating pain into limb and Denies tingling Neuro Denies abnormal gait, Reports confusion, Denies dizziness, Denies frequent falls, Denies numbness, Denies tingling and Denies weakness Psych Reports confusion Endo Denies fatigue and Denies palpitations Physical Exam Vital Signs: Last Vital Signs Pulse 70 03/12/25 09:27 BP 126/82 03/12/25 09:27 BMI result Body Mass Index 19.9 Const General: cooperative, comfortable, alert, awake, confusion and poor hygiene Orientation/consciousness: confusion Limitations: no limitations Neck Neck: Yes trachea midline, Yes supple and Yes no JVD Resp Effort & Inspection: normal respiratory effort Auscultation: clear to auscultation bilaterally Cardio Jugular venous distension: no JVD Rate: regular rate Rhythm: abnormal rhythm with ectopic beats Heart sounds: S1 normal heart sound present, S2 normal heart sound present, no click, no gallops and Murmur heart sound present systolic Skin General skin exam: no rashes or lesions noted Neuro General: no focal motor deficits and confusion Extrem General: Yes no clubbing, cyanosis or edema Office Procedures Cardiac Device Check Cardiac Device Check Details: Dual-chamber [employer]iz pacemaker in place. Programmed in DDD at 60 beats per minute. Ventricular pacing 95% of the time. Atrial ventricular capture thresholds adequate and in auto capture mode. Pacing lead impedance is stable. Battery life is about 9 years [id number] Cardiac Device Check, pacemaker dual lead Procedure code (CPT) selection complete EKG Details: EKG shows AV dual paced rhythm with PVCs [id number], Complete Assessment & Plan Assessment & Plan (1) Presence of permanent cardiac pacemaker: Comment: ST Parviz. Placed 01/29/[address] Malagon for complete heart block. Code(s): Z95.0 - Presence of cardiac pacemaker Category: Medical Plan: Cardiac pacemaker in-situ, working well. Patient pacer dependent in the ventricle. No symptoms related to it. Pacemaker was reprogrammed. Follow remotely every 3 months. Follow up in the clinic in 1 year's time. (2) Nonrheumatic mitral valve regurgitation: Code(s): I34.0 - Nonrheumatic mitral (valve) insufficiency Category: Medical Plan: Mitral regurgitation which is moderate related to mitral valve prolapse. She was no symptoms related to it. No indication for any intervention at this point time. Given her cognitive dysfunction most likely will be manage conservatively. Patient was daughter agrees. (3) Nonrheumatic aortic (valve) stenosis: Code(s): I35.0 - Nonrheumatic aortic (valve) stenosis Category: Medical Plan: Mild aortic stenosis. Again no interventions required per se for the same. Recommend low-dose aspirin therapy. She was multiple hospitalization related to syncope most likely related to infection dehydration with orthostatic hypotension. Orthostatic precautions were discussed. Advised to monitor blood pressure at home. Advised to maintain adequate hydration. Will follow up in the clinic in 1 year's time, sooner p.r.n.. Thank you for allowing me to partake in his care Coding Level of Care Code Est Pt Level 4 (07474) Complex EM visit Add On G2211 Diagnoses Presence of permanent cardiac pacemaker Z95.0 Nonrheumatic mitral valve regurgitation I34.0 Nonrheumatic aortic (valve) stenosis I35.0 CPT Codes Cardiac Device Check - Cardiac Device 2: [id number] Cardiac Device Check, pacemaker dual lead ([id number]) EKG - CPT: 77049-[id number], Complete ([id number])
== END 2025-03-12 09:52 | disposition home or self-care (01) ==
LOC: HO.HCS 09:08
PROVIDERS: PCP Internal Medicine; Visit Provider Internal Medicine Cardiovascular Disease
DX: I34.0 Nonrheumatic mitral (valve) insufficiency (principal); Z95.0 Presence of cardiac pacemaker; I35.0 Nonrheumatic aortic (valve) stenosis
CPT/HCPCS: 93010; 93280; 99214; G2211

== ENCOUNTER → 2025-03-12 09:07 | Outpatient (BNVA) | payer MEDICARE, SELFPAY | PROVIDERS: PCP Internal Medicine; Visit Provider Internal Medicine Cardiovascular Disease | DX: Z45.018 Encounter for adjustment and management of other part of cardiac pacemaker (principal); I34.0 Nonrheumatic mitral (valve) insufficiency; I35.0 Nonrheumatic aortic (valve) stenosis | CPT/HCPCS: 93005; 93280; 99212 ==

== ENCOUNTER → 2025-05-18 23:59 | Outpatient (BNV) | payer MEDICARE, SELFPAY ==
--- NOTE | 2025-05-20 15:04 | MHC.OFFVIS ---
Intake Visit Reasons: Remote device check - [facility] Parviz Allergies No Known Allergies (No Known Allergies*) Allergy (Verified 01/30/25 10:48) PFSH Medical History Nonrheumatic mitral valve regurgitation Nonrheumatic aortic (valve) stenosis Presence of permanent cardiac pacemaker Heart block atrioventricular Dementia Pure hypercholesterolemia Left shoulder pain Hypertension Surgical History Hx of tonsillectomy (~1944) Family History Other Family history non-contributory Social History Household Members: Spouse Household Members Other:: hx dementia Housing: House Alcohol intake: former Comment: 1:1 Sitter at bedside Patient Tobacco Use Status: Never used Tobacco e-Cigarette/Vaping Use: Never Used Second Hand Smoke Exposure: Yes service: No Current occupational status: retired Cognitive needs: Yes Hearing needs: No Vision needs: No Office Procedures Cardiac Device Check Cardiac Device Check Details: Remote pacemaker report generated 05/18/2025. High burden of ventricular pacing noted. Otherwise pacemaker function is adequate [id number] Cardiac Device Interrogation, pacemaker Procedure code (CPT) selection complete Assessment & Plan Assessment & Plan (1) Presence of permanent cardiac pacemaker: Comment: ST Parviz. Placed 01/29/[address] Malagon for complete heart block. Code(s): Z95.0 - Presence of cardiac pacemaker Category: Medical Plan: See above Coding Level of Care Code Procedure Only Diagnoses Presence of permanent cardiac pacemaker Z95.0 CPT Codes Cardiac Device Check - Cardiac Device 12: [id number] Cardiac Device Interrogation, pacemaker ([id number])
== END ==
PROVIDERS: PCP Internal Medicine; Visit Provider Internal Medicine Cardiovascular Disease
DX: I44.2 Atrioventricular block, complete (principal); Z95.0 Presence of cardiac pacemaker
CPT/HCPCS: 93294

== ENCOUNTER 2025-08-03 13:08 | Outpatient (REF) | payer MEDICARE, SELFPAY ==
[2025-08-03 14:59] LABS: MANUAL DIFF FLAG NO
[2025-08-03 15:29] LABS: Hematocrit 41.0 % (37.0-47.0); Hemoglobin 13.7 g/dl (12.0-16.0); Imm Gran Abs Auto 0.04 X10*3/uL (0.00-0.03); Imm Gran Pct Auto 0.4 % (0.0-0.4); Lymphocytes Absolute Auto 2.2 X10*3/uL (1.2-4.9); Mean Corpuscular HGB Conc 33.4 g/dl (31.0-35.0); Mean Corpuscular Hemoglobin 29.9 pg (27.0-33.0); Mean Corpuscular Volume 89.5 fL (80.0-98.0); NRBC Abs Auto 0.000 X10*3/uL (0.0-0.012); NRBC Pct Auto 0.0 /100WBC (0.0-0.2); Platelet Count 321 X10*3/uL (160-400); Red Blood Count 4.58 X10*6/uL (4.20-5.50); White Blood Count 10.7 X10*3/uL (4.8-10.8)
[2025-08-03 15:43] LABS: Total Hemoglobin (HGBA1C) 3458.8703 umol/L
[2025-08-03 16:03] LABS: Alanine Aminotransferase 29 U/L (0-31); Albumin Level 4.4 g/dL (3.5-5.0); Alkaline Phosphatase 90 U/L (39-117); Anion Gap 11 (12-20); Aspartate Amino Transferase 33 U/L (5-31); Blood Urea Nitrogen 20 mg/dL (9-16); Calcium 9.4 mg/dL (8.4-10.2); Carbon Dioxide 28 mmol/L (22-29); Chloride 102 mmol/L (96-108); Cholesterol 236 mg/dL (<200); Estimated Glomerular Filt Rate > 60; HDL Cholesterol 61 mg/dL (>40); Potassium 4.0 mmol/L (3.3-5.1); Sodium 137 mmol/L (135-145); Total Protein 7.6 g/dL (6.5-8.0); Triglycerides 87 mg/dL (<150)
[2025-08-03 16:14] LABS: Appearance Urine Clear; Glucose Urine UA Negative (Negative); PH 5.5 (5.0-9.0); Specific Gravity - Urine 1.010 (1.005-1.025); UMIC TRIGGER UACC YES
[2025-08-03 16:25] LABS: UACC Culture Trigger YES
[2025-08-03 16:29] LABS: Folate 8.9 ng/mL (> or = 4.0); Vitamin B12 290 pg/mL (200-900)
== END 2025-08-03 13:09 | disposition home or self-care (01) ==
LOC: HO.LAB 13:08
PROVIDERS: PCP Internal Medicine; Visit Provider Internal Medicine
DX: Z00.00 Encounter for general adult medical examination without abnormal findings (principal); E78.00 Pure hypercholesterolemia, unspecified; E53.8 Deficiency of other specified B group vitamins; D64.9 Anemia, unspecified; E55.9 Vitamin D deficiency, unspecified; R30.0 Dysuria; R73.01 Impaired fasting glucose; I44.30 Unspecified atrioventricular block; G30.9 Alzheimer's disease, unspecified; F02.80 Dementia in other diseases classified elsewhere, unspecified severity, without behavioral disturbance, psychotic disturbance, mood disturbance, and anxiety; L60.1 Onycholysis; Z95.0 Presence of cardiac pacemaker
CPT/HCPCS: 36415; 80053; 80061; 81001; 82306; 82607; 82746; 83036; 84443; 85025; 87086; 87088; 87186; 96127; 99397

== ENCOUNTER 2025-08-03 13:08 | Outpatient (AMB) | payer MEDICARE, SELFPAY ==
[2025-08-03 13:18] VITALS: BP 120/80; PULSE 78; O2SAT 92
--- NOTE | 2025-08-03 13:18 | A.OFFPC_ITS ---
Vital Signs 08/03/25 13:18 Height 5 ft 3 in Weight 113 lb BMI 20.0 BP 120/80 Blood Pressure Location Lt brachial Position Sitting Pulse 78 Pulse Source Pulse Oximeter Pulse Oximetry (%) 92 Oxygen Delivery Method Room Air Intake Visit Reasons: annual exam Able Bodied Watchman Required: No Accompanied by: Daughter Allergies No Known Allergies (No Known Allergies*) Allergy (Verified 08/03/25 14:04) Medication List - Last Reconciled 08/03/25 by Salomón Cardenas MD No Known Home Meds Tobacco use date assessed: 08/03/25 Fall risk assessment: 1 Fall in past year Last assessed Fall Risk: 08/03/25 Dental Screening Dental Screen Date: 08/03/25 Did you have a dental visit in the last 12 months?: No Did you have a dental problem in the last 6 months where you did not have access to dental care?: No Was dental information given to patient?: No HPI annual exam HPI Details Patient comes in today for her annual physical examination - is accompanied by her daughter Lucy, who is also her guardian States that she feels okay She is noted to have some degree of confusion at baseline (confirmed by her daughter) but patient insists that she is not She denies any headaches or dizziness Denies any chest pains, no increased SOB No nausea/vomiting, no abdominal pain No change in bowel habits noted Her daughter feels that patient does not drink enough fluids throughout the day and she's had at least 3 separate incidents of UTI earlier this year and she sometime this past summer, likely due to dehydration, although patient again insists that she drinks enough Patient is incontinent of urine and at night, wears incontinent pads that they recently had to switch to the thicker/heavier ones Her daughter states that patient lives at their home and that she is accompanied by someone at all times and they try to keep her busy and active when they can, like taking her out for walks regularly She has no follow up labs done recently At her current age and with her declining cognition, she has no longer been nor does she need to continue to keep up with her cancer screenings, including those for colon, breast and cervical cancers [facility] Medical History Nonrheumatic mitral valve regurgitation Nonrheumatic aortic (valve) stenosis Presence of permanent cardiac pacemaker Heart block atrioventricular Dementia Pure hypercholesterolemia Left shoulder pain Hypertension Surgical History Hx of tonsillectomy (~1944) Family History Other Family history non-contributory Social History Household Members: Spouse Household Members Other:: hx dementia Housing: House Alcohol intake: former Comment: 1:1 Sitter at bedside Patient Tobacco Use Status: Never used Tobacco e-Cigarette/Vaping Use: Never Used Second Hand Smoke Exposure: Yes service: No Current occupational status: retired Cognitive needs: Yes Hearing needs: No Vision needs: No Questionnaire PHQ-9 Over the last 2 weeks, how often have you been bothered by any of the following problems? 1. Little interest or pleasure in doing things: not at all 2. Feeling down, depressed, or hopeless: not at all 3. Trouble falling or staying asleep, or sleeping too much: not at all 4. Feeling tired or having little energy: not at all 5. Poor appetite or overeating: not at all 6. Feeling bad about yourself - or that you are a failure or have let yourself or your family down: not at all 7. Trouble concentrating on things, such as reading the newspaper or watching television: nearly every day 8. Moving or speaking so slowly that other people could have noticed. Or the opposite - being so fidgety or restless that you have been moving around a lot more than usual: not at all 9. Thoughts that you would be better off or of hurting yourself in some way: not at all Total score: 3 Depression Screening Interpretation: Positive Depression Screening Follow-up: Existing condition and Follow-up Visit Requested Depression Screening Done: Yes 83023 - PHQ-9 Billing: Yes Source: Developed by Drs. Regino Nuñez, Aidee Su, Poncho Ortega and colleagues, with an educational arin from [employer]. Thrive Questionnaire Date Thrive assessed: 08/03/25 I am a: Parent/Caregiver What is your living situation today?: I have a steady place to live Within the past 12 months, did the food you bought not last and you didn't have the money to get more?: Never true Within the past 12 months, did you worry whether your food would run out before you got money to buy more?: Never true Do you have trouble paying for medicines?: No Do you have trouble getting transportation to medical appointments?: No Do you have trouble paying your heating and electricity bill?: No Do you have trouble taking care of your child, family member or friend?: No Do you have trouble with day-to-day activities such as bathing, preparing meals, shopping, managing finances, etc.?: Yes Are you currently unemployed and looking for a job?: No Are you interested in more education?: No Please select the resources that you would like help with: Transportation and Care for elder or disabled Currently or been in a relationship where the following occur: No concerns reported THRIVE Score: 0 AUDIT C Alcohol Use Questionnaire (AUDIT-C) 1. How often do you have a drink containing alcohol?: Never 3. How often do you have six or more drinks on one occasion?: Never Total Score: 0 Score Reviewed/Action Taken: Yes NIKKI-7 AMB Questionnaire NIKKI-7 Date NIKKI - 7 assessed: 12/17/24 Feeling nervous, anxious, or on edge: 0 = Not at all Not being able to stop or control worryin = Not at all Worrying too much about different things: 0 = Not at all Trouble relaxin = Nearly every day Being so restless that it is hard to sit still: 0 = Not at all Becoming easily annoyed or irritable: 0 = Not at all Feeling afraid as if something awful might happen: 0 = Not at all Total NIKKI-7 score (0-4 normal; 5-9 mild; 10-14 moderate; 15-21 severe): 3 Source: Developed by Drs. Regino Nuñez, Aidee Su, Poncho Ortega and colleagues, with an educational arin from [employer]. Review of Systems Const Details: information is obtained partly and confirmed through her daughter as patient is cognitively impaired due to her dementia Denies chills, Reports difficulty sleeping (at times), Denies fatigue, Denies fever(s), Denies headache(s) and Denies malaise Eyes Denies blurry vision, Denies change in vision, Denies irritation and Denies itchy eyes ENT Denies dysphagia, Denies dizziness, Denies otalgia, Denies headache(s), Denies nasal congestion, Denies neck pain, Denies odynophagia, Denies sinus pain and Denies sore throat Card Denies chest pain, Denies rapid heart rate, Denies irregular heart rhythm, Denies palpitations and Denies dyspnea Resp Denies chest congestion, Denies cough, Denies dyspnea and Denies wheezing GI Denies abdominal pain, Denies bloating, Denies constipation, Denies dysphagia, Denies heartburn, Denies diarrhea, Denies nausea, Denies odynophagia and Denies vomiting Denies hematuria, Reports nocturia, Denies dysuria and Reports urinary incontinence Musc Denies back pain, Denies arthralgias, Denies joint swelling and Denies neck pain Skin/Breast Denies breast pain, Denies change in pigmentation, Denies lesions, Denies rash and Denies unusual bruising Neuro Reports confusion, Denies dizziness, Denies headache(s) and Denies paresthesias Psych Denies anxiety, Reports confusion and Denies depression Endo Denies fatigue and Denies palpitations David/Lymph Denies easy bruising Aller/Immun Denies itchy eyes and Denies wheezing Physical exam (Primary Care) Vital Signs: Last Vital Signs Pulse 78 08/03/25 13:18 BP 120/80 08/03/25 13:18 Pulse Ox 92 08/03/25 13:18 Oxygen Delivery Method Room Air 08/03/25 13:18 BMI result Body Mass Index 20.0 Tobacco/Smoking Status: Tobacco use Status Tobacco use date assessed 08/03/25 08/03/25 13:27 Patient Tobacco Use Status Never used Tobacco 08/03/25 13:27 e-Cigarette/Vaping Use Never Used 08/03/25 13:27 PHQ-9: PHQ-9 Score PHQ-9: Total score 3 08/03/25 14:05 Depression Screening Interpretation: Positive Depression Screening Follow-up: Existing condition and Follow-up Visit Requested Thrive Assessment: Date of Thrive Assessment Date Thrive assessed 01/18/25 08/03/25 13:27 Currently or been in a relationship where the following occur: No concerns reported Const Other: Physical exam is limited to what patient is able to cooperate with due to her cognitive impairment General: no acute distress, awake and confusion Orientation/consciousness: oriented to person and confusion HENMT Head: Yes normocephalic and Yes atraumatic Ears: external ears normal, TM's normal bilaterally and EAC's normal General nose exam: No nasal discharge present Face and sinus: Yes normal facial exam and Yes sinuses nontender Teeth and gingiva: dentition normal Throat: Yes posterior oropharynx normal and Yes tonsils normal (no TP congestion) Eyes Eyelids: Yes eyelids normal Conjunctivae: conjunctivae normal EOM: EOMs intact bilaterally Neck Neck: Yes no lymphadenopathy and Yes supple Thyroid: Thyroid normal Resp Auscultation: clear to auscultation bilaterally, no rales and no wheezes Cardio Rate: regular rate Rhythm: regular rhythm Heart sounds: no murmurs GI Palpation (GI): Soft to palpation and nontender Auscultation: normal bowel sounds General: Yes no CVA tenderness Back/Spine/Pelvis Back: no CVA tenderness Thoracic/Lumbar Spine: No lumbar spinal tenderness Skin Lesions: no lesions Rashes: no rashes Neuro General: oriented to person, moves all extremities, no focal motor deficits and confusion Gait exam (Neuro): Normal gait present Extrem Other: Patient's toenails on both feet are noted to be long, disfigured and thickened and discolored, likely due to onychomycosis General: Yes no clubbing, cyanosis or edema Coding Level of Care Code Est Pt Prev Care >65y(36060) Diagnoses Annual physical exam Z00.00 Heart block atrioventricular I44.30 Presence of permanent cardiac pacemaker Z95.0 Alzheimer's dementia without behavioral disturbance, psychotic disturbance, mood disturbance, or anxiety, unspecified dementia severity, unspecified timing of dementia onset G30.9; F02.80 Dementia type: Alzheimer's Alzheimer's disease onset: unspecified onset Dementia behavioral or psychological symptom: without behavioral, psychoti c, or mood disturbance or anxiety Dementia severity: unspecified severity Pure hypercholesterolemia E78.00 Vitamin B12 deficiency E53.8 Onycholysis of toenail L60.1 Additional Codes PHQ-9 - 54385 - PHQ-9 Billing: Yes ([id number]) Assessment & Plan Assessment & Plan (1) Annual physical exam: Code(s): Z00.00 - Encounter for general adult medical examination without abnormal findings Category: Medical Plan: Check labs MAYCO At her current age and with her declining cognition, she has no longer been nor does she need to continue to keep up with her cancer screenings, including those for colon, breast and cervical cancers (2) Heart block atrioventricular: Code(s): I44.30 - Unspecified atrioventricular block Category: Medical Plan: This was noted when patient was brought to the ER in January 2024 for recurrent dizziness that were exacerbated by activity Patient ended up getting a permanent pacemaker placement and she has been doing well since with no recurrence of symptoms Continue Aspirin 81 mg QD (3) Presence of permanent cardiac pacemaker: Comment: [facility]. Placed 01/29/[address] Malagon for complete heart block. Code(s): Z95.0 - Presence of cardiac pacemaker Category: Medical Plan: This is being monitored remotely by cardiology regularly Follow up with cardiology as scheduled (4) Dementia: Code(s): F03.90 - Unspecified dementia, unspecified severity, without behavioral disturbance, psychotic disturbance, mood disturbance, and anxiety Category: Medical Qualifiers: Dementia type: Alzheimer's Alzheimer's disease onset: unspecified onset Dementia behavioral or psychological symptom: without behavioral, psychotic, or mood disturbance or anxiety Dementia severity: unspecified severity Qualified Code(s): G30.9 - Alzheimer's disease, unspecified; F02.80 - Dementia in other diseases classified elsewhere, unspecified severity, without behavioral disturbance, psychotic disturbance, mood disturbance, and anxiety Plan: Patient is currently staying in her own home and is reportedly being watched and accompanied by either her daughter or her son or some other family member at all times - her children states that someone is with her at all times (04/06) and that is the one condition that they have to make sure they are compliant with to allow patient to continue to stay in her own home She is currently not likely to benefit from any of the acetylcholinesterase inhibitors or NMDA receptor antagonists as her dementia appears to be farther along Patient's daughter adds that they are likely not going to be able to get patient to take her medications regularly if we were to start her on any as patient has refused to take any oral medications for years (5) Pure hypercholesterolemia: Code(s): E78.00 - Pure hypercholesterolemia, unspecified Category: Medical Plan: Reinforced low cholesterol diet - her cholesterol numbers were within acceptable range when she had them last checked in February 2024 Her daughter states that they try to help with her diet but often times patient will insist on eating what she wants Will have her go and recheck her fasting lipids MAYCO for follow up (6) Vitamin B12 deficiency: Code(s): E53.8 - Deficiency of other specified B group vitamins Category: Medical Plan: Continue Vitamin B12 tablets 1000 mcg QD (7) Onycholysis of toenail: Code(s): L60.1 - Onycholysis Category: Medical Plan: Will refer her to podiatry for further management Plan Follow up in 6 months Orders: Orders Comprehensive Shirley. Panel Fast 08/03/25 E78.00 - Pure hypercholesterolemia, unspecified, Z00.00 - Encounter for general adult medical examination without abnormal findings Lipid Panel 08/03/25 E78.00 - Pure hypercholesterolemia, unspecified, Z00.00 - Encounter for general adult medical examination without abnormal findings TSH reflex Free T4 08/03/25 E78.00 - Pure hypercholesterolemia, unspecified, Z00.00 - Encounter for general adult medical examination without abnormal findings UA CC w/rflx Micro + Cult 08/03/25 R30.0 - Dysuria, Z00.00 - Encounter for general adult medical examination without abnormal findings Vitamin B12 and Folate 08/03/25 E53.8 - Deficiency of other specified B group vitamins, Z00.00 - Encounter for general adult medical examination without abnormal findings Complete Blood Count Auto Diff 08/03/25 D64.9 - Anemia, unspecified, Z00.00 - Encounter for general adult medical examination without abnormal findings Vitamin D 25-OH Total 08/03/25 E55.9 - Vitamin D deficiency, unspecified, Z00.00 - Encounter for general adult medical examination without abnormal findings Hemoglobin A1c 08/03/25 Z00.00 - Encounter for general adult medical examination without abnormal findings, R73.01 - Impaired fasting glucose Referrals Podiatry Referral L60.1 - Onycholysis
== END 2025-08-03 14:12 | disposition home or self-care (01) ==
LOC: HO.HMCH 13:09
PROVIDERS: PCP Internal Medicine; Visit Provider Internal Medicine
DX: Z00.00 Encounter for general adult medical examination without abnormal findings (principal); G30.9 Alzheimer's disease, unspecified; F02.80 Dementia in other diseases classified elsewhere, unspecified severity, without behavioral disturbance, psychotic disturbance, mood disturbance, and anxiety; I44.30 Unspecified atrioventricular block; Z95.0 Presence of cardiac pacemaker; E78.00 Pure hypercholesterolemia, unspecified; E53.8 Deficiency of other specified B group vitamins; L60.1 Onycholysis

== ENCOUNTER → 2025-08-17 23:59 | Outpatient (BNV) | payer MEDICARE, SELFPAY ==
--- NOTE | 2025-08-19 12:19 | A.OFFVIS_ITS ---
Intake Visit Reasons: Remote device check - [facility] Parviz Allergies No Known Allergies (No Known Allergies*) Allergy (Verified 08/03/25 14:04) PFSH Medical History Nonrheumatic mitral valve regurgitation Nonrheumatic aortic (valve) stenosis Presence of permanent cardiac pacemaker Heart block atrioventricular Dementia Pure hypercholesterolemia Left shoulder pain Hypertension Surgical History Hx of tonsillectomy (~1944) Family History Other Family history non-contributory Social History Household Members: Spouse Household Members Other:: hx dementia Housing: House Alcohol intake: former Comment: 1:1 Sitter at bedside Patient Tobacco Use Status: Never used Tobacco e-Cigarette/Vaping Use: Never Used Second Hand Smoke Exposure: Yes service: No Current occupational status: retired Cognitive needs: Yes Hearing needs: No Vision needs: No Office Procedures Cardiac Device Check Cardiac Device Check Details: Remote pacemaker report generated 08/17/2025. Pacemaker function is adequate. Patient ventricularly pacer dependent [id number] Cardiac Device Interrogation, pacemaker Procedure code (CPT) selection complete Assessment & Plan Assessment & Plan (1) Presence of permanent cardiac pacemaker: Comment: [facility] Parv[facility]. Placed 01/29/[address] Malagon for complete heart block. Code(s): Z95.0 - Presence of cardiac pacemaker Category: Medical Plan: See above Coding Level of Care Code Procedure Only Diagnoses Presence of permanent cardiac pacemaker Z95.0 CPT Codes Cardiac Device Check - Cardiac Device 12: [id number] Cardiac Device Int errogation, pacemaker ([id number])
== END ==
PROVIDERS: PCP Internal Medicine; Visit Provider Internal Medicine Cardiovascular Disease
DX: I44.2 Atrioventricular block, complete (principal); Z95.0 Presence of cardiac pacemaker
CPT/HCPCS: 93294

== ENCOUNTER 2025-09-15 13:15 | Outpatient (AMB) | payer MEDICARE, SELFPAY ==
[2025-09-15 14:17] VITALS: BMI 20.4
--- NOTE | 2025-09-15 14:17 | A.OFFVIS_ITS ---
Vital Signs 09/15/25 14:17 Height 5 ft 3 in Weight 115 lb BMI 20.4 Intake Visit Reasons: Onycholysis Intake Note: Alanis is an 84 year old women who presents today as a new patient for an evaluation of her bilateral onycholsis. PT daughter states she has trimmed patients toe nails about two weeks ago to the best of her abilities. She has no pain at this time. Allergies No Known Allergies (No Known Allergies*) Allergy (Verified 08/03/25 14:04) HPI HPI Onycholysis: Details: 84-year-old female with past medical history of dementia, hypertension, MVR, presents for bilateral feet nail deformity. The patient's daughter is present who provides most of her history. She states the patient does not complain of any actual pain however she has had worsening nail deformity that is growing upwards and the right hallux nail is loosening. She also complains of a mechanical trip and near fall today when getting off the bus where she injured her right wrist and knee. She is keeping her right wrist wrapped however she is not complaining of any pain today. [facility] Medical History Nonrheumatic mitral valve regurgitation Nonrheumatic aortic (valve) stenosis Presence of permanent cardiac pacemaker Heart block atrioventricular Dementia Pure hypercholesterolemia Left shoulder pain Hypertension Surgical History Hx of tonsillectomy (~1944) Family History Other Family history non-contributory Social History Household Members: Spouse Household Members Other:: hx dementia Housing: House Alcohol intake: former Comment: 1:1 Sitter at bedside Patient Tobacco Use Status: Never used Tobacco e-Cigarette/Vaping Use: Never Used Second Hand Smoke Exposure: Yes service: No Current occupational status: retired Cognitive needs: Yes Hearing needs: No Vision needs: No Review of Systems Const All systems reviewed & are unremarkable except as noted in HPI and below Physical Exam Vital Signs: BMI result Body Mass Index 20.4 Extrem Other: *Bilateral Lower Extremity Focused Exam Vascular: DP/PT 2/4, CFT less than 3 seconds all digits, temperature gradient warm to cool. No pedal edema. Derm: Elongated thickened dystrophic nails times 10 with the right hallux nail 70% loose. No hyperkeratotic lesions. No clinical signs of infection. Neuro: Protective tissue sensation grossly intact to bilateral extremity MSK: No pain on palpation of bilateral feet Office Procedures AMB Debridement/Avulsion Podia Details: Procedure: Nail debridement Location: 10 nails, bilateral feet Anesthesia: N/A Description: The affected toenails were cleansed with an antiseptic solution. Using sterile nail nippers and a rotary nadege, dystrophic and mycotic nail material was carefully debrided and reduced in thickness. Care was taken to avoid trauma to the surrounding skin and nail bed. All debris was removed as tolerated. The area was inspected for signs of infection or ulceration. Patient tolerated the procedure well without complications. Tolerance: Patient tolerated procedure well, no immediate complications. Class B findings as per physical exam findings above. The patient has a diagnosis of dementia and presents with elongated, thickened toenails. Due to underlying dementia, the patient can not care for her own needs. The patient is at increased risk for complications such as ulceration, infection, and difficulty with self-care. Debridement of elongated toenails is medically necessary to prevent development of pressure-related lesions, reduce risk of secondary infection, and maintain foot health in high-risk comorbidities. 51280-Rkhenvuykhq of Nail 6+ Procedure code (CPT) selection complete Assessment & Plan Assessment & Plan (1) Onycholysis of toenail: Code(s): L60.1 - Onycholysis Category: Medical Plan: * Right hallux nail was resected approximately 70-80%. (2) Onychogryphosis: Code(s): L60.2 - Onychogryphosis Category: Medical Plan: * Elongated nails were all debrided using a sterile nail Nipper. (3) Advanced dementia: Code(s): F03.C0 - Unspecified dementia, severe, without behavioral disturbance, psychotic disturbance, mood disturbance, and anxiety Category: Medical Qualifiers: Alzheimer's disease onset: unspecified onset Plan: * Patient requires routine nail care due to her dementia. * Follow up in 9 weeks Orders: Orders AMB Debridement/Avulsion Podiatry Today L60.1 - Onycholysis, L60.2 - Onychogryphosis Coding Level of Care Code New Pt Level 4 (07602) Diagnoses Onycholysis of toenail L60.1 Onychogryphosis L60.2 Advanced dementia F03.C0 Alzheimer's disease onset: unspecified onset CPT Codes Skin Debridement - CPT: 54912-Cxrgpnhkjyk of Nail 6+ ([id number]) Time Spent (min) 30
--- OUTSIDE RECORDS SUMMARY | 2025-09-15 16:11 | XMS_ITS | Clinical Summary ---
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 Not on anni e 01/30/2024 Are you concerned about learning? Not on file 01/30/2024 No 01/30/2024 No 01/30/2024 Digital Access Answer Date Recorded No 01/30/2024 No 01/30/2024 Reliable internet access at home? Not on file 01/30/2024 Device with a working camera? Not on file Comments Unknown Sex and Gender Information Value Date Recorded Sex Assigned at Not on file Legal Sex Female 11:34 AM EDT Gender Identity Not on file Sexual Orientation Not on file Plan of Treatment Not on file Medical Devices Not on file Insurance [employer] HMO [place]AC[place] [address] [address] [address] [address] [place] [address] MEDICARE HMO REPLACEMENT [facility] MEDICARE HMO [place]AC[place] [address] [address] MEDICARE HMO REPLACEMENT [employer] REPLACEMENT Additional Source Comments The information contained in this document represents components of the legal health record. It is not the complete legal health record.[facility]
== END 2025-09-15 14:34 | disposition home or self-care (01) ==
LOC: HO.HPODS 13:16
PROVIDERS: PCP Internal Medicine; Visit Provider Student in an Organized Health Care Education/Training Program
DX: L60.1 Onycholysis (principal); L60.2 Onychogryphosis; F03.C0 Unspecified dementia, severe, without behavioral disturbance, psychotic disturbance, mood disturbance, and anxiety
CPT/HCPCS: 11721; 99204

== ENCOUNTER → 2025-09-15 13:15 | Outpatient (BNVA) | payer MEDICARE, SELFPAY | PROVIDERS: PCP Internal Medicine; Visit Provider Student in an Organized Health Care Education/Training Program | DX: L60.1 Onycholysis (principal); L60.2 Onychogryphosis; F03.C0 Unspecified dementia, severe, without behavioral disturbance, psychotic disturbance, mood disturbance, and anxiety; I10 Essential (primary) hypertension; L60.8 Other nail disorders; Z95.0 Presence of cardiac pacemaker; I35.0 Nonrheumatic aortic (valve) stenosis; I34.0 Nonrheumatic mitral (valve) insufficiency; F03.90 Unspecified dementia, unspecified severity, without behavioral disturbance, psychotic disturbance, mood disturbance, and anxiety | CPT/HCPCS: 11721; 99202 ==

== ENCOUNTER 2025-10-31 10:15 | Emergency (ER) | payer MEDICARE, SELFPAY ==
--- NOTE | ~2025-10-31 | XR_ITS ---
CLINICAL HISTORY: syncope 1 view chest x-ray. Comparison: CR - XR CHEST 1V - 01/17/25 10:28 EST Findings: Normal lung volumes. Mild interstitial thickening no airspace disease. No pneumothorax or pleural effusion. Stable cardiomegaly.Dual-chamber pacemaker unchanged. No midline shift or tracheal deviation. No acute fracture. Impression: 1. Stable cardiomegaly mild interstitial thickening no airspace disease. This document has been electronically signed by: Hubert Lua MD on 10/31/2025 12:13:26
--- NOTE | 2025-10-31 10:20 | ECG_ITS ---
Test Reason : SYNCOPE Blood Pressure : */* mmHG Vent. Rate : 80 BPM Atrial Rate : 80 BPM P-R Int : 148 ms QRS Dur : 168 ms QT Int : 442 ms P-R-T Axes : 64 -78 92 degrees QTcB Int : 509 ms Atrial-sensed ventricular-paced rhythm Abnormal ECG When compared with ECG of 17-Jan-2025 10:23, Vent. rate has increased by 7 bpm Referred By: Generic ED Physician Electronically Signed By: Garcia Morales
[2025-10-31 10:41] VITALS: BP 120/80; BP 137/78; PULSE 70; PULSE 87; RESP 18; TEMP 36.1; O2SAT 92; O2SAT 98; BMI 22.5
--- NOTE | 2025-10-31 11:23 | ED.GENADULT ---
HPI - General Adult General Chief complaint: Syncope Stated complaint: Lethargic,Syncopal Episodes Time Seen by Provider: 10/31/25 11:07 History of Present Illness ED Provider: Brandyn COMBS narrative: The patient is an 84-year-old woman with a history of significant dementia who also has a pacemaker. She lives with her daughter who takes care for. The patient is ambulatory. Apparently her daughter had taken them to a [employer]. they were apparently in the store for a long time and the time in the store was being prolonged because the daughter was trying to get some kind of a discount. The patient was wearing a lot of layers and a heavy coat. the patient had therefore been standing for a long time and was standing when she started to feel lightheaded. Her daughter could tell that something was not right. The patient apparently told the daughter that she felt as if she might pass out. The daughter than helped her into a chair and lifted her feet up. The daughter says that the patient Has a brief loss of consciousness. Someone in the meantime had called 911. When data analytics architect arrived the patient was becoming more alert and almost back to normal. The daughter says that when data analytics architect first checked the patient's heart rate it was in the 40s and the heart rate has subsequently gone up. the patient did not seem to be complaining of a headache or chest pain or shortness of breath during this episode. The patient is demented and is not able to give any additional history regarding the episode. The daughter says that the patient has had similar episodes in the past. Sometimes this is an indicator of a UTI according to the daughter. The patient was in her usual state of health before they left the house earlier this morning. The patient had not seemed ill or unwell in any way. Specifically the daughter does not feel that the patient has a expressed any discomfort with regard to urination or noticed any increased in urinary frequency or anything else to suggest a possible urinary tract infection. 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 Dementia Pure hypercholesterolemia Left shoulder pain Hypertension Surgical History Hx of tonsillectomy (~1944) Family History Family History Other Family history non-contributory Social History Social History Household Members: Spouse Household Members Other:: hx dementia Housing: House Alcohol intake: former Comment: 1:1 Sitter at bedside Patient Tobacco Use Status: Never used Tobacco e-Cigarette/Vaping Use: Never Used Second Hand Smoke Exposure: Yes Advance Directives: Yes Advance Directives Information Provided: Yes Advance Directives on File: Yes Advance Directives Date on File: 10/31/25 service: No Current occupational status: retired Cognitive needs: Yes Hearing needs: No Vision needs: No Physical Exam ED Vital Signs: Vital Signs - 24 hr 10/31/25 10:41 10/31/25 11:47 10/31/25 14:17 Temperature 96.9 F 98.3 F 98.3 F Pulse Rate 87 89 82 Respiratory Rate 18 14 14 Blood Pressure 137/78 139/77 141/85 H Pulse Oximetry 98 97 96 Oxygen Delivery Method Room Air Room Air Room Air BMI result Body Mass Index 22.5 Const Other: The patient is a thin 84-year-old woman who was awake and alert. She seems pleasantly demented. She does not seem in distress. She was cooperative. HENMT Other: The face is symmetrical. Mucous membranes moist. Eyes Other: Pupils are round equal, conjunctivae are clear, extraocular movements intact Neck Neck: Yes normal visual inspection, Yes full ROM and Yes no JVD Resp Effort & Inspection: normal respiratory effort Auscultation: clear to auscultation bilaterally Cardio Rate: regular rate Rhythm: regular rhythm Heart sounds: S1 normal heart sound present and S2 normal heart sound present GI Other: Abdomen is soft and nontender Skin Other: The skin is dry and unremarkable Neuro Other: the patient is awake and alert. She seems pleasantly demented. Cranial nerves are grossly intact. She moves her extremities symmetrically. She does not seem to have a focal deficit. Extrem Other: There is no calf swelling or tenderness. No asymmetry. No peripheral edema. Medical Decision Making Medical Decision Making MDM Narrative: The patient is an 84-year-old woman with a history of a pacemaker. She seems to have an atrial sensing pacemaker. The patient had what was either a syncopal or near syncopal episode while standing for a long period of time in his store with her daughter. The patient was apparently fine before the episode and recovered fairly quickly from the episode. There was no associated complaint of headache, chest pain, or other significant complaint. There was no evidence of any respiratory difficulty. There was no vomiting. Clinically the patient seems stable in the emergency room. Her EKG shows an atrial sensed ventricular paced rhythm at 80 beats per minute. Vital signs are stable. The patient has a CBC that shows a white count of 10.6, hemoglobin 13.7, and a platelet count of 327. Slight left shift with 77.3% neutrophils. Chemistries are unremarkable. she has a an abnormal urinalysis but there are no suggestions of any symptoms of a UTI. My overall impression is that the patient probably had an orthostatic syncopal episode after standing for a long time while fully dressed in his store. Given the absence of any suggestion of urinary symptoms we will hold antibiotics for now. This was a voided specimen not a catheterized specimen. The patient should follow up with her PCP and her factory worker regarding today's episode. Lab Data 10/31/25 11:41 10/31/25 11:41 Labs: Lab Results 10/31/25 10/31/25 Range/Units 11:41 12:54 WBC 10.6 (4.8-10.8) X10*3/uL RBC 4.59 (4.20-5.50) X10*6/uL Hgb 13.7 (12.0-16.0) g/dl Hct 39.9 (37.0-47.0) % MCV 86.9 (80.0-98.0) fL MCH 29.8 (27.0-33.0) pg MCHC 34.3 (31.0-35.0) g/dl RDW 12.7 (11.0-16.0) % Plt Count 327 (160-400) X10*3/uL MPV 8.4 L (9.4-12.3) fL Immature Gran % (Auto) 0.4 (0.0-0.4) % Neut % (Auto) 77.3 H (45-73) % Lymph % (Auto) 13.9 L (20-40) % [place] % (Auto) 6.9 (2-11) % Eos % (Auto) 0.7 (0-4) % Baso % (Auto) 0.8 (0-2) % Lymph # (Auto) 1.5 (1.2-4.9) X10*3/uL [place] # (Auto) 0.7 (0.1-1.2) X10*3/uL Eos # (Auto) 0.1 (0.0-0.4) X10*3/uL Baso # (Auto) 0.1 (0.0-0.2) X10*3/uL Abs Immat Gran (auto) 0.04 H (0.00-0.03) X10*3/uL Absolute Neuts (auto) 8.2 (2.0-8.3) x10*3/uL Absolute Nucleated RBC 0.000 (0.0-0.012) X10*3/uL Nucleated RBC % (auto) 0.0 (0.0-0.2) /100WBC Sodium 135 (135-145) mmol/L Potassium 4.3 (3.3-5.1) mmol/L Chloride 100 (96-108) mmol/L Carbon Dioxide 25 (22-29) mmol/L Anion Gap 14 (12-20) BUN 21 H (9-16) mg/dL Creatinine 0.74 (0.5-1.4) mg/dL Estim Creat Clear Calc 43.9 Estimated GFR > 60 Random Glucose 105 (60-115) mg/dL Calcium 9.7 (8.4-10.2) mg/dL Magnesium 2.2 (1.6-2.6) mg/dL Total Bilirubin 0.4 (0.0-1.0) mg/dL AST 23 (5-31) U/L ALT 17 (0-31) U/L Alkaline Phosphatase 120 H (39-117) U/L Troponin I High Sens 4.9 (<3.5-17.0) ng/L Total Protein 7.5 (6.5-8.0) g/dL Albumin 4.2 (3.5-5.0) g/dL Urine Color Yellow Urine Appearance Cloudy Urine pH 7.0 (5.0-9.0) Ur Specific Ethel 1.010 (1.005-1.025) Urine Protein 30 (1+) H (Neg-Trace) mg/dL Urine Glucose (UA) Negative (Negative) mg/dL Urine Ketones Negative (Negative) mg/dL Urine Blood Trace (Negative) Urine Nitrite Positive H (Negative) Ur Leukocyte Esterase Moderate (2+) H (Negative) Urine RBC 0-2 (0-2) /HPF Urine WBC 11-20 H (0-5) /HPF Ur Squamous Epith Cells 0-2 (0-2) /HPF Urine Bacteria 4+ (None Seen) Hyaline Casts 0-2 (0-2) /LPF Influenza Type A (PCR) NEGATIVE (Negative) Influenza Type B (PCR) NEGATIVE (Negative) RSV RNA Qual (PCR) NEGATIVE (Negative) SARS-CoV-2 RNA (RT-PCR) NEGATIVE (Negative) Discharge Plan Discharge Clinical Impression: Syncope, Abnormal urinalysis Patient Disposition: Home, Self-Care Additional Instructions: I think that her fainting episode today might has been because she was on her feet for a long time in the store while wearing lots of layers. Please continue all of her regular medications and please make sure that she is eating and drinking well. I think it would be good for her to follow up with her factory worker in the next week or 2 to discuss this episode further. Please call the office on Sunday morning for a follow up appointment. Also stay in touch with your primary care doctor. A urine test has been sent. A culture will be set up. If the culture suggests that there is a dominant bacteria in her urine you should get a call from the emergency room to start her on antibiotics. However this point it is not entirely clear that there is a urinary tract infection present. Return to the emergency room if significantly worse. Prescriptions: No Action No Known Home Meds Referrals: Salomón Cardenas MD [Primary Care Provider, Internal Medicine] Ilya Ramirez MD [Physician, Cardiology] Interventions: ED Discharge Assessment Last Done: 10/31/25 14:17 Discharge Date/Time: 10/31/25 14:25 Print Language: Korean
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
[2025-10-31 11:45] LABS: MANUAL DIFF FLAG NO
[2025-10-31 11:47] VITALS: BP 139/77; PULSE 89; RESP 14; TEMP 36.8; O2SAT 97
[2025-10-31 11:49] LABS: Hematocrit 39.9 % (37.0-47.0); Hemoglobin 13.7 g/dl (12.0-16.0); Imm Gran Abs Auto 0.04 X10*3/uL (0.00-0.03); Imm Gran Pct Auto 0.4 % (0.0-0.4); Lymphocytes Absolute Auto 1.5 X10*3/uL (1.2-4.9); Mean Corpuscular HGB Conc 34.3 g/dl (31.0-35.0); Mean Corpuscular Hemoglobin 29.8 pg (27.0-33.0); Mean Corpuscular Volume 86.9 fL (80.0-98.0); NRBC Abs Auto 0.000 X10*3/uL (0.0-0.012); NRBC Pct Auto 0.0 /100WBC (0.0-0.2); Platelet Count 327 X10*3/uL (160-400); Red Blood Count 4.59 X10*6/uL (4.20-5.50); White Blood Count 10.6 X10*3/uL (4.8-10.8)
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
--- OUTSIDE RECORDS SUMMARY | 2025-10-31 12:02 | XMS_ITS | Clinical Summary ---
Author Organization [facility] [facility] Prior to 09/12/2024 Address [address] [place] [address] Care Team Providers Care Car Jockey Name Role Phone Estuardo Hicks MD Primary Care Provider Unavail able Allergies No known active allergies Medications Medication Sig Dispensed Refills Start Date End Date Status aspirin (SB LOW DOSE ASA EC) 81 MG EC tablet Take 1 Tab by mouth daily. 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 Bifascicular block 01/16/2012 Palpitations 07/23/2009 Immunizations Name Administration Dates Next Due Zostavax 04/10/2014 Family History Medical History Relation Name Comments Other [Other] Father age 9 2 Stroke Mother Stroke Sister 2 Relation Name Status Comments Father Mother Sister 1 Sister 2 Social History Tobacco Use Types Packs/Day Years Used Date Smoking Tobacco: Never Alcohol Use Standard Drinks/Week Comments Yes 0 (1 standard drink = 0.6 oz pur e alcohol) socially Sex Assigned at Date Recorded Not on file Last Filed Vital Signs Vital Sign Reading Time Taken Comments Blood Pressure 130/80 02/13/2017 2:12 PM EDT Pulse 76 02/13/2017 2:12 PM EDT Temperature 36.7 C (98 F) 02/13/2017 2:12 PM EDT Respiratory Rate 12 02/13/2017 2:12 PM EDT Oxygen Saturation 97% 10/27/2013 11:33 AM EST Inhaled Oxygen Concentration - - Weight 57.6 kg (127 lb) 01/08/2017 8:45 AM EST Height 162.6 cm (5' 4 ) 02/13/2017 2:12 PM EDT Body Mass Index 21.8 01/08/2017 8:45 AM EST Plan of Treatment Health Maintenance Due Date Last Done Comments Covid-19 Vaccine (#1) 06/17/1941 TOBACCO CHECK/ADVISE 1957 DTAP/TDAP/TD (1 - Tdap) 1958 SHINGLES VACCINE (2 of 3) 06/05/2014 04/10/2014 MAMMOGRAM 08/03/2016 08/03/2015, 03/2014, 05/09/2013, Additional history exists BONE DENSITY SCREENING 05/05/2018 6 (Refused), 02/21/2011, 06/12/2001 CHOLESTEROL SCREENING 07/31/2019 07/31/2014, 001 BMI CHECK/ADVISE 11/12/2024 INFLUENZA (#1) 2025 PNEUMOCOCCAL VACCINE Addressed 05/05/2016 (Refused) Overridden with the intention of not completing the topic Care Teams Car Jockey Relationship Specialty Start Date End Date Estuardo Hicks MD PCP - General Internal Medicine 09/03/15
--- OUTSIDE RECORDS SUMMARY | 2025-10-31 12:02 | XMS_ITS | Encounter Summary ---
Author Organization [facility] Prior to 09/12/2024 Address [address] [place] [address] Care Team Providers Care Econometrics Professor Name Role Phone Name, Carlo CALL Primary Care Provider Unavailabl e Estuardo Hicks MD Primary Care Provider Unavail able Encounter Details Date Type Department Care Team Description 07/10/2011 Freezing Machine Operator Report Medical Records [address] [place] [id number] Estuardo Abbasi MD Social History Tobacco Use Types Packs/Day Years Used Date Smoking Tobacco: Never Alcohol Use Standard Drinks/Week Comments Yes 0 (1 standard drink = 0.6 oz pur e alcohol) socially Sex Assigned at Date Recorded Not on file documented as of this encounter Plan of Treatment Not on file documented as of this encounter Visit Diagnoses Not on filedocumented in this encounter Care Teams Econometrics Professor Relationship Specialty Start Date End Date Name, MD Carlo PCP - General 02/17/11 09/02/15 Estuardo Hicks MD PCP - General Internal Medicine 09/03/15 documented as of this encounter
--- OUTSIDE RECORDS SUMMARY | 2025-10-31 12:02 | XMS_ITS | Clinical Summary ---
Author Organization [facility] Address [address] [place] [id number] Phone Care Team Providers Care Hospitality Housekeeper Name Role Phone Unavailable Primary Care Provider [...] Insurance [employer] HMO [place]PL[place] [address] [place] [address] [place] [place] [address] [facility] MEDICARE HMO [place] [address] [place] [address] MEDICARE HMO REPLACEMENT [employer]ACEMENT Additional Source Comments The information contained in this document represents components of the legal health record. It is not the complete legal health record.[facility]
--- OUTSIDE RECORDS SUMMARY | 2025-10-31 12:02 | XMS_ITS | Encounter Summary ---
Author Organization [employer] [facility] Prior to 09/12/2024 Address [address] [place] [address] Care Team Providers Care Record Label Intern Name Role Phone NameCarlo MD Primary Care Provider Unavailabl Estuardo Major MD Primary Care Provider Unavail able Reason for Visit * Reason Onset Date Comments Orders Call 04/09/2014 Encounter Details Date Type Department Care Team Description 04/09/2014 Telephone Adult [address] [address] Name, MD Carlo Orders Call Social History Tobacco Use Types Packs/Day Years Used Date Smoking Tobacco: Never Alcohol Use Standard Drinks/Week Comments Yes 0 (1 standard drink = 0.6 oz pur e alcohol) socially Sex Assigned at Date Recorded Not on file documented as of this encounter Miscellaneous Notes * Telephone Encounter - Es Berkowitz - 04/09/2014 3:09 PM EDT Message left for patient to call the office. * Telephone Encounter - Francesca Dewitt M.A. - 04/09/2014 3:02 PM EDT Please call pt to book appt for nurse only for Zostavax * Telephone Encounter - Carlo Lerner MD - 04/09/2014 10:06 AM EDT done * Telephone Encounter - Deidra Cruz - 04/09/2014 9:35 AM EDT Patient requesting order be placed for Shingles vaccine... [facility] insurance will cover cost. Please call her back to book Appointment. documented in this encounter Plan of Treatment Not on file documented as of this encounter Visit Diagnoses Diagnosis Need for prophylactic vaccination and inoculation against other viral diseases(V04.89)- Primary Need for prophylactic vaccination and inoculation against other viral diseases documented in this encounter Care Teams Record Label Intern Relationship Specialty Start Date End Date Name, MD Carlo PCP - General 02/17/11 09/02/15 Estuardo Hicks MD PCP - General Internal Medicine 09/03/15 documented as of this encounter
--- OUTSIDE RECORDS SUMMARY | 2025-10-31 12:02 | XMS_ITS | Encounter Summary ---
Author Organization [employer] [facility] Prior to 09/12/2024 Address [address] [place] [address] Care Team Providers Care Record Searcher Name Role Phone Estuardo Hicks MD Primary Care Provider Unavail able Encounter Details Date Type Department Care Team Description 12/23/2015 Telephone Radiology - [facility] [address] [place], [place] [id number] Lianne Garcia MD [address] [place] [address] [id number] Social History Tobacco Use Types Packs/Day Years Used Date Smoking Tobacco: Never Alcohol Use Standard Drinks/Week Comments Yes 0 (1 standard drink = 0.6 oz pur e alcohol) socially Sex Assigned at Date Recorded Not on file documented as of this encounter Plan of Treatment Not on file documented as of this encounter Visit Diagnoses Not on filedocumented in this encounter Care Teams Record Searcher Relationship Specialty Start Date End Date Estuardo Hicks MD PCP - General Internal Medicine 09/03/15 documented as of this encounter
--- OUTSIDE RECORDS SUMMARY | 2025-10-31 12:02 | XMS_ITS | Encounter Summary ---
Author Organization [employer] [facility] Prior to 09/12/2024 Address [address] [place] [address] Care Team Providers Care Support Coordinator Name Role Phone Name, Carlo CALL Primary Care Provider Unavailabl e Estuardo Hicks MD Primary Care Provider Unavail able Encounter Details Date Type Department Care Team Description 10/29/2013 Business Doc Medical Records [address] [place] [id number] Abstract, Provider Social History Tobacco Use Types Packs/Day Years Used Date Smoking Tobacco: Never Alcohol Use Standard Drinks/Week Comments Yes 0 (1 standard drink = 0.6 oz pur e alcohol) socially Sex Assigned at Date Recorded Not on file documented as of this encounter Plan of Treatment Not on file documented as of this encounter Visit Diagnoses Not on filedocumented in this encounter Care Teams Support Coordinator Relationship Specialty Start Date End Date Name, MD Carlo PCP - General 02/17/11 09/02/15 Estuardo Hicks MD PCP - General Internal Medicine 09/03/15 documented as of this encounter
[2025-10-31 12:07] LABS: Alanine Aminotransferase 17 U/L (0-31); Albumin Level 4.2 g/dL (3.5-5.0); Alkaline Phosphatase 120 U/L (39-117); Anion Gap 14 (12-20); Aspartate Amino Transferase 23 U/L (5-31); Blood Urea Nitrogen 21 mg/dL (9-16); Calcium 9.7 mg/dL (8.4-10.2); Carbon Dioxide 25 mmol/L (22-29); Chloride 100 mmol/L (96-108); Creatinine Clr Calc Pharmacy 43.9; Estimated Glomerular Filt Rate > 60; Magnesium 2.2 mg/dL (1.6-2.6); Potassium 4.3 mmol/L (3.3-5.1); Sodium 135 mmol/L (135-145); Total Protein 7.5 g/dL (6.5-8.0)
[2025-10-31 12:14] LABS: Troponin-I High Sensitivity 4.9 ng/L (<3.5-17.0)
[2025-10-31 12:42] LABS: Resp Syncy Virus RNA Qual PCR NEGATIVE (Negative); SARS COV2 PCR INHOUSE NEGATIVE (Negative)
[2025-10-31 13:00] LABS: Appearance Urine Cloudy; Glucose Urine UA Negative (Negative); PH 7.0 (5.0-9.0); Specific Gravity - Urine 1.010 (1.005-1.025); UMIC TRIGGER UACC YES
[2025-10-31 13:11] LABS: UACC Culture Trigger YES
[2025-10-31 14:17] VITALS: BP 141/85; PULSE 82; RESP 14; TEMP 36.8; O2SAT 96
== END 2025-10-31 14:25 | disposition home or self-care (01) ==
PROVIDERS: Physician Assistant Medical; Emergency Provider Emergency Medicine; PCP Internal Medicine
DX: R55 Syncope and collapse (principal); R82.90 Unspecified abnormal findings in urine; F03.90 Unspecified dementia, unspecified severity, without behavioral disturbance, psychotic disturbance, mood disturbance, and anxiety; I10 Essential (primary) hypertension; Z95.0 Presence of cardiac pacemaker; Z03.818 Encounter for observation for suspected exposure to other biological agents ruled out; Z79.899 Other long term (current) drug therapy; Z87.440 Personal history of urinary (tract) infections
CPT/HCPCS: 71045; 80053; 81001; 81003; 83735; 84484; 85025; 87086; 87637; 93005; 99283; 99284

== ENCOUNTER → 2025-10-31 10:20 | Outpatient (BNV) | payer MEDICARE, SELFPAY | PROVIDERS: Emergency Provider Emergency Medicine; PCP Internal Medicine; Visit Provider Internal Medicine Cardiovascular Disease | DX: R94.31 Abnormal electrocardiogram [ECG] [EKG] (principal); Z95.0 Presence of cardiac pacemaker | CPT/HCPCS: 93010 ==

== ENCOUNTER → 2025-10-31 10:33 | Outpatient (BNV) | payer MEDICARE, SELFPAY | PROVIDERS: Emergency Provider Emergency Medicine; PCP Internal Medicine; Visit Provider Radiology Diagnostic Radiology | DX: I51.7 Cardiomegaly (principal) | CPT/HCPCS: 71045 ==